=== PATIENT | female | born 1980 | race Caucasian/White ===

== ENCOUNTER 2019-04-06 05:54 | Day surgery (SDC) | payer OTHER, SELFPAY ==
[2019-04-01 10:35] VITALS: BMI 19.1
--- NOTE | 2019-04-01 10:52 | HP_ITS ---
Intake Vital Signs 04/01/19 Height 5 ft 7 in 04/01/19 Weight: 122 lb 04/01/19 Body Mass Index (BMI) 19.1 04/01/19 Blood Pressure 120/78 04/01/19 Blood Pressure Location Rt brachial 04/01/19 Blood Pressure Position Sitting 04/01/19 Respiratory Rate 18 04/01/19 Pulse Rate 85 04/01/19 Pulse Source Monitor 04/01/19 Temperature 98.0 F 04/01/19 Temperature Source Oral 04/01/19 Pulse Ox 98 04/01/19 Oxygen Delivery Method room air Intake Visit Reasons: C-Scope Consult Chief Complaint: c-scope consult Manager Transport Required: No Is patient in pain?: No Allergies No Known Allergies Allergy (Verified 04/01/19 10:37) Medications lorazepam 1 mg tablet 1 mg PO QHS 04/01/19 [History Confirmed 04/01/19] sucralfate 100 mg/mL oral suspension 1 g PO .qid 04/01/19 [History Confirmed 04/01/19] PFSH Medical History Thoracic neuritis (Acute) Segmental and somatic dysfunction of thoracic region (Acute) Abdominal bloating (Acute) Abdominal pain (Acute) Colon cancer (Acute) GERD (gastroesophageal reflux disease) (Acute) Neuropathy (Acute) Surgical History History of 3 sections (Acute) History of cholecystectomy (Acute) History of colon resection (Acute) History of removal of both ovaries (Acute) History of resection of liver (Acute) Family History Mother Breast cancer Hypertension Brother Cancer testicular Father High cholesterol Cancer skin Other CVA (cerebral vascular accident) Social History (Updated 04/01/19 @ 10:52 by Carmine Nuñez MD) Smoking Status: Never smoker alcohol intake: never substance use type: does not use what type of physical activity do you participate in: bicycling, yoga frequency: 5-6 times per week HPI HPI HPI: ARIANA ALMANZAR is a 39 F who presents to the office today for HPI HPI Surgical H&P: Yes HPI: ARIANA ALMANZAR, is a 39 F who presents to the office today for Evaluation for endoscopy.Patient was diagnosed with colon cancer in 2017 and underwent a reported left-sided colectomy. She has not had any further colonoscopies since the surgery. Patient also had 2 liver resections for mets to the liver. She recently underwent a PET scan in March of this year which showed some increased uptake in the stomach and pylorus and at that time underwent an EGD which was negative. She has had some abdominal bloating symptoms. ROS General General: Yes weight change, fatigue and colon cancer; no appetite, breast cancer or weakness HEENT HEENT: No difficulty swallowing, eye injury, eye surgery, swollen glands or hoarseness Endo Endocrine: No thyroid disease, diabetes mellitus, thyroid cancer, Hair loss, heat intolerance or cold intolerance Skin Skin: No rash or changing moles Breast Breast: No left breast lump, right breast lump, nipple discharge, breast pain, abnormal mammogram, abnormal US or breast enlargement Musc Musculoskeletal: Yes back problems; no arthritis, rheumatoid arthritis, gout or joint pain Cardio Cardiovascular: No murmur, pacemaker, heart disease, atrial fibrillation, high blood pressure, heart attack, heart stent, palpitations, shortness of breat with exertion or chest pain Psych Psychiatric: No depression, anxiety or hearing voices Resp Respiratory: Yes shortness of breath, No sleep apnea, No cough, No COPD, No asthma, No emphysema, No wheezing Gastro Gastrointestinal: Yes abdominal pain, No nausea or vomiting, Yes diarrhea, Yes constipation, No blood in stool, Yes acid reflux, Yes hemorrhoids, No ulcers, No gallbladder problem, No black,tarry stools Christiano Hematologic: No blood thinners, No blood disorders, No bleeding, No anemia, No blood clots Neuro Neurologic: No system reviewed and no additional complaints, except as docu, No as per HPI, No abnormal walking, No abnormal hearing, No abnormal movements, No abnormal speech, No behavioral changes, No burning sensations, No confusion, No seizure-like activity, No unsteadiness, No dizziness, No localized weakness, No frequent falls, No headache(s), No lack of coordination, No loss of vision, No memory loss, No numbness, No other visual disturbances, No radiating pain, No restless legs, No sensory deficit, No fainting, No tingling, No tremor(s), No weakness, No other Exam Const General: no acute distress, well developed, well hydrated Orientation: oriented to person, oriented to place, oriented to time [facility] Head: normocephalic, atraumatic Ears: external ears normal Mouth: moist mucous membranes Eyes Sclera: sclerae normal Pupils: normal by confrontation Neck Neck: no lymphadenopathy noted Neck mass: No Thyroid: thyroid normal, symmetrical Chest Chest palpation & inspection: normal inspection of the chest Breast Palpation: No nipple discharge Resp Effort & Inspection: normal respiratory effort Auscultation: clear to auscultation bilaterally Percussion: percussion normal Cardio Rate: regular rate Rhythm: regular rhythm Heart Sounds: no murmurs GI Palpation: soft, no hepatosplenomegaly, no masses, nontender Rectal Exam: other Other: Rectal exam deferred. Patient has several incisions on her abdomen she has a infusion pump in her left lower dominant area she has a chevron incision in the right upper quadrant area a midline incision as well as a Pfannenstiel incisionNo hernias are identified Extrem General: normal to inspection, no clubbing, cyanosis or edema Assessment & Plan Problems 1. Personal history of colon cancer, stage IV Z85.038 Plan I have discussed the above with the patient. I have offered the patient colonoscopy for evaluation. I have explained the risks/benefits of the procedure and described the procedure. I have discussed the risks with the patient, including but not limited to: infection, bleeding, perforation of the GI tract requiring emergency surgery, inability to complete the procedure, injury to any internal organs, complications of anesthesia, etc. - the patient understands and agrees to proceed. I have answered all the patient's questions to the patient's satisfaction and the patient has no further questions. The patient has been given instructions for the colon cleansing preparation. Plan Detail Goals Decrease pain Improve ROM Coding Level of Care Code Off vis,new,level 3 Diagnoses Personal history of colon cancer, stage IV Z85.038 04/01/19 1052 <Electronically signed by Carmine nunez MD> Date _ Carmine Nuñez MD I have re-examined the patient. There are no clinical changes since date of exam.
[2019-04-06 06:18] VITALS: BP 95/65; PULSE 68; RESP 16; TEMP 37.1; O2SAT 100; BMI 19.1
[2019-04-06] MEDS: Lactated Ringers 1,000 ML 100 ML IV (06:28)
[2019-04-06 07:23] VITALS: BP 95/65; BP 96/59; PULSE 16; RESP 16; TEMP 36.6; O2SAT 99
--- NOTE | 2019-04-06 07:23 | OP.COLON_ITS ---
Patient Name: Kayy Griggs Procedure Date: 04/06/2019 6:46 AM Date of : 1980 Age: 39 Procedure: Colonoscopy Indications: High risk colon cancer surveillance: Personal history of colon cancer Providers: Carmine Nuñez MD Referring MD: Carmine Nuñez MD Medicines: See the Anesthesia note for documentation of the administered medications Patient Profile: This is a 39 year old female. Refer to note in patient chart for documentation of history and physical. Last Colonoscopy: 2016. Complications: No immediate complications. Procedure: Pre-Anesthesia Assessment: - Prior to the procedure, a History and Physical was performed, and patient medications and allergies were reviewed. The patient's tolerance of previous anesthesia was also reviewed. The risks and benefits of the procedure and the sedation options and risks were discussed with the patient. All questions were answered, and informed consent was obtained. Prior Anticoagulants: The patient has taken no previous anticoagulant or antiplatelet agents. ASA Grade Assessment: II - A patient with mild systemic disease. After reviewing the risks and benefits, the patient was deemed in satisfactory condition to undergo the procedure. After I obtained informed consent, the scope was passed under direct vision. Throughout the procedure, the patient's blood pressure, pulse, and oxygen saturations were monitored continuously. The colonoscope was introduced through the anus and advanced to the cecum, identified by appendiceal orifice and ileocecal valve. The colonoscopy was performed without difficulty. The patient tolerated the procedure well. The quality of the bowel preparation was good. Scope In: 7:08:38 AM Scope Withdrawal Time 0 hours 6 minutes 12 seconds Scope Out: 7:18:38 AM Total Procedure Duration Time 0 hours 10 minutes 0 seconds Findings: There was evidence of a prior end-to-end colo-colonic anastomosis in the recto-sigmoid colon. This was patent and was characterized by healthy appearing mucosa and an intact appearance. The anastomosis was traversed. Non-bleeding internal hemorrhoids were found during retroflexion. The hemorrhoids were mild and small. The exam was otherwise without abnormality. Impression: - Patent end-to-end colo-colonic anastomosis, characterized by healthy appearing mucosa and an intact appearance. - Non-bleeding internal hemorrhoids. - The examination was otherwise normal. - No specimens collected. Recommendation: - Discharge patient to home. - Resume previous diet. - Continue present medications. - Repeat colonoscopy in 1 year for surveillance. - Return to primary care physician PRN. Procedure Code(s): --- Professional --- G0105, Colorectal cancer screening; colonoscopy on individual at high risk Diagnosis Code(s): --- Professional --- Z85.038, Personal history of other malignant neoplasm of large intestine Z98.0, Intestinal bypass and anastomosis status K64.8, Other hemorrhoids CPT copyright 2017 [employer]. All rights reserved. The codes documented in this report are preliminary and upon senior storage engineer review may be revised to meet current compliance requirements. MD Carmine Banuelos MD 04/06/2019 7:23:31 AM This report has been signed electronically. Number of Addenda: 0 Note Initiated On: 04/06/2019 6:46 AM
[2019-04-06 07:25] VITALS: BP 95/65; BP 96/59; PULSE 68; RESP 16; O2SAT 98
[2019-04-06 07:30] VITALS: BP 101/63; BP 95/65; BP 96/64; PULSE 66; PULSE 71; RESP 16; O2SAT 97; O2SAT 98
[2019-04-06 07:34] VITALS: BP 101/63; BP 95/65; PULSE 60; RESP 16; TEMP 36.4; O2SAT 98
[2019-04-06 07:59] VITALS: BP 95/65
== END 2019-04-06 08:11 | disposition home or self-care (01) ==
LOC: EN 05:58 → AC 05:59
PROVIDERS: Referring Provider Surgery; Visit Provider Surgery
PROC: 0DJD8ZZ Inspection of Lower Intestinal Tract, Via Natural or Artificial Opening Endoscopic (ICD-10-PCS; CPT 45378; principal; 2019-04-06 06:55)
DX: Z85.038 Personal history of other malignant neoplasm of large intestine (principal); Z98.0 Intestinal bypass and anastomosis status; K64.8 Other hemorrhoids; K21.9 Gastro-esophageal reflux disease without esophagitis; G62.9 Polyneuropathy, unspecified; M99.02 Segmental and somatic dysfunction of thoracic region; Z86.2 Personal history of diseases of the blood and blood-forming organs and certain disorders involving the immune mechanism; Z78.0 Asymptomatic menopausal state; Z85.05 Personal history of malignant neoplasm of liver; Z90.49 Acquired absence of other specified parts of digestive tract
CPT/HCPCS: 45378; J7120; A4216; J2405

== ENCOUNTER → 2019-07-27 13:03 | Outpatient (CLI) | payer OTHER, SELFPAY ==
[2019-07-20 13:15] VITALS: BMI 19.1
[2019-07-27 13:14] VITALS: BP 105/60; PULSE 87; RESP 16; TEMP 36.6; O2SAT 99; BMI 19.5
[2019-07-27] MEDS: 0.9 % NaCl (Sterile) Posiflush 10 mL IV (13:20)
[2019-07-27] MEDS: 0.9% NaCl IVPB Med Flush (250 mL) 15 ML IV (13:21)
[2019-07-27] MEDS: 0.9% NaCl VAD Flush IV ×2 (13:22→14:06)
[2019-07-27 14:07] VITALS: BP 87/59; PULSE 61
== END ==
PROVIDERS: Referring Provider Family Medicine; Visit Provider Family Medicine
DX: C18.9 Malignant neoplasm of colon, unspecified (principal); D63.8 Anemia in other chronic diseases classified elsewhere
CPT/HCPCS: 96365; J1756; J7050; A4216

== ENCOUNTER → 2019-08-03 13:03 | Outpatient (CLI) | payer OTHER, SELFPAY ==
[2019-07-20 13:15] VITALS: BMI 19.1
[2019-07-27 13:14] VITALS: BMI 19.5
[2019-08-03] MEDS: 0.9% NaCl IVPB Med Flush (250 mL) 15 ML IV (13:30)
[2019-08-03 13:32] VITALS: BP 100/56; PULSE 77; RESP 16; TEMP 36.5; O2SAT 98; BMI 19.8
[2019-08-03] MEDS: 0.9% NaCl VAD Flush IV ×2 (13:32→14:17)
== END ==
PROVIDERS: Referring Provider Family Medicine; Visit Provider Family Medicine
DX: C18.9 Malignant neoplasm of colon, unspecified (principal); D63.8 Anemia in other chronic diseases classified elsewhere
CPT/HCPCS: 96365; J1756; J7050; A4216

== ENCOUNTER → 2019-08-10 12:56 | Outpatient (CLI) | payer OTHER, SELFPAY ==
[2019-07-27 13:14] VITALS: BMI 19.5
[2019-08-03 13:32] VITALS: BMI 19.8
[2019-08-10 13:09] VITALS: BP 100/52; PULSE 55; RESP 18; TEMP 35.8; O2SAT 100; BMI 19.8
[2019-08-10] MEDS: 0.9% NaCl IVPB Med Flush (250 mL) 15 ML IV (13:20)
[2019-08-10] MEDS: 0.9% NaCl PICC Flush IV (13:20)
== END ==
PROVIDERS: Referring Provider Family Medicine; Visit Provider Family Medicine
DX: C18.9 Malignant neoplasm of colon, unspecified (principal); D63.8 Anemia in other chronic diseases classified elsewhere
CPT/HCPCS: 96365; J1756; J7050; A4216

== ENCOUNTER → 2019-08-17 13:10 | Outpatient (CLI) | payer OTHER, SELFPAY ==
[2019-08-10 13:09] VITALS: BMI 19.8
[2019-08-17 13:55] VITALS: BP 102/66; PULSE 57; RESP 16; TEMP 36.1; O2SAT 100; BMI 19.8
[2019-08-17] MEDS: 0.9% NaCl PICC Flush IV ×2 (13:57→14:37)
[2019-08-17] MEDS: 0.9% NaCl IVPB Med Flush (250 mL) 15 ML IV (13:57)
== END ==
PROVIDERS: Referring Provider Family Medicine; Visit Provider Family Medicine
DX: C18.9 Malignant neoplasm of colon, unspecified (principal); D63.8 Anemia in other chronic diseases classified elsewhere
CPT/HCPCS: 96365; J1756; J7050; A4216

== ENCOUNTER → 2019-08-24 12:55 | Outpatient (CLI) | payer OTHER, SELFPAY ==
[2019-08-10 13:09] VITALS: BMI 19.8
[2019-08-17 13:55] VITALS: BMI 19.8
[2019-08-24 13:05] VITALS: BP 107/66; PULSE 74; RESP 16; TEMP 36.6; O2SAT 98; BMI 19.8
[2019-08-24] MEDS: 0.9% NaCl IVPB Med Flush (250 mL) 15 ML IV (13:15)
[2019-08-24] MEDS: 0.9% NaCl VAD Flush IV ×2 (13:16→14:04)
== END ==
PROVIDERS: Referring Provider Family Medicine; Visit Provider Family Medicine
DX: C18.9 Malignant neoplasm of colon, unspecified (principal); D63.8 Anemia in other chronic diseases classified elsewhere
CPT/HCPCS: 96365; J1756; J7050; A4216

== ENCOUNTER → 2020-03-02 09:34 | Outpatient (CLI) | payer OTHER, SELFPAY ==
[2019-08-24 13:05] VITALS: BMI 19.8
[2020-03-02 12:16] LABS: Hematocrit 41.4 % (37-47); Hemoglobin 13.6 g/dL (12.0-15.0); Mean Corp Hgb Conc 32.9 g/dL (32-36); Mean Corpuscular Hgb 30.1 pg (27.0-32.0); Mean Corpuscular Volume 91.6 fL (81-99); Mean Platelet Vol. 10.6 fl (6.2-12.0); Platelet Count 235 K/mm3 (150-450); RBC Distribution Width CV 11.7 % (11.6-14.6); RBC Distribution Width SD 39.2 fl (35.1-43.9); Red Blood Count 4.52 M/mm3 (4.2-5.4); White Blood Count 4.6 K/mm3 (4.4-11.0)
[2020-03-02 12:46] LABS: AST(SGOT) 37 U/L (15-37); Alanine Aminotransfer ALT/SGPT 77 U/L (13-56); Albumin, Serum 3.8 g/dL (3.2-5.0); Alkaline Phosphatase 213 U/L (45-117); Anion Gap 6 (5-15); BUN 8 mg/dL (7-18); BUN/Creat Ratio 11.6 RATIO (10-20); Calcium,Total 9.8 mg/dL (8.5-10.1); Chloride 107 mmol/L (98-107); Creatinine, Serum 0.69 mg/dL (0.55-1.02); EST Glomerular Filtration Rate 100 mL/min (>60); Est Glom Filt Rate - Afr Amer 121 mL/min (>60); Globulin 3.7 g/dL (2.2-4.2); Glucose 89 mg/dL (74-106); LDH 219 U/L (84-246); Potassium 4.1 mmol/L (3.5-5.1); Protein, Total 7.5 g/dL (6.4-8.2); Sodium Level 142 mmol/L (136-145)
[2020-03-03 09:51] LABS: Carcinoembryonic Antigen 0.9 ng/mL (0.0-4.7)
== END ==
DX: C18.9 Malignant neoplasm of colon, unspecified (principal)
CPT/HCPCS: 36415; 80053; 82378; 83615; 85027

== ENCOUNTER → 2020-04-07 | Outpatient (CLI) | payer OTHER, SELFPAY ==
[2019-08-24 13:05] VITALS: BMI 19.8
== END | disposition home or self-care (01) ==
PROVIDERS: Referring Provider Family Medicine; Visit Provider Family Medicine
DX: C18.9 Malignant neoplasm of colon, unspecified (principal); C78.7 Secondary malignant neoplasm of liver and intrahepatic bile duct
CPT/HCPCS: 87635; U0002

== ENCOUNTER → 2020-06-19 09:21 | Outpatient (CLI) | payer OTHER, SELFPAY ==
[2019-08-24 13:05] VITALS: BMI 19.8
[2020-06-19 09:30] VITALS: BP 109/70; PULSE 64; RESP 16; TEMP 36; O2SAT 99; BMI 19.8
[2020-06-19] MEDS: 0.9% Normal Saline 1,000 ML 999 ML IV (09:30)
[2020-06-19] MEDS: 0.9% NaCl VAD Flush IV ×2 (09:30→16:06)
[2020-06-19] MEDS: 0.45% Normal Saline 1,000 ML 500 ML IV (10:43)
[2020-06-19] MEDS: Dext 5%-0.45% NS 1,000 ML 150 ML IV (12:49)
[2020-06-19 16:07] VITALS: BP 112/64; PULSE 61
== END ==
PROVIDERS: Referring Provider Family Medicine; Visit Provider Family Medicine
DX: C18.9 Malignant neoplasm of colon, unspecified (principal); D63.8 Anemia in other chronic diseases classified elsewhere
CPT/HCPCS: 96365; 96366 ×5; J7030; A4216; J7799

== ENCOUNTER 2021-06-20 14:25 | Outpatient (CLI) | payer OTHER, SELFPAY ==
[2021-06-20 15:02] VITALS: BP 92/62; PULSE 73; RESP 16; TEMP 36.8; O2SAT 99; BMI 18.4
[2021-06-20] MEDS: 0.9% Saline Lock 10 ML Syringe IV ×2 (15:11→16:47)
[2021-06-20 15:41] VITALS: BP 91/60; PULSE 65; RESP 16; TEMP 36.9; O2SAT 98
[2021-06-20 16:41] VITALS: BP 108/59; PULSE 64; RESP 16; TEMP 36.8; O2SAT 100
== END 2021-06-20 23:59 | disposition home or self-care (01) ==
LOC: MS3OUT 14:25 → MS3 14:26
PROVIDERS: Referring Provider Nurse Practitioner Adult Health; Visit Provider Nurse Practitioner Adult Health
DX: Z23 Encounter for immunization (principal); U07.1 COVID-19
CPT/HCPCS: J7050; M0247; A4216; Q0247

== ENCOUNTER 2021-08-23 13:50 | Outpatient (CLI) | payer OTHER, SELFPAY ==
[2021-08-23 14:23] LABS: Absolute Lymphocyte Count 1.78 X10^3/uL (0.83-4.51); Basophil# 0.06 X10^3/uL; Basophil% 0.9 % (0-1); Eosinophil# 0.19 X10^3/uL; Hematocrit 37.1 % (37-47); Hemoglobin 12.1 g/dL (12.0-15.0); Lymphocyte # 1.78 X10^3/ul (0.83-4.51); Lymphocyte % 27.7 % (19-41); Mean Corp Hgb Conc 32.6 g/dL (32-36); Mean Corpuscular Hgb 28.5 pg (27.0-32.0); Mean Corpuscular Volume 87.3 fL (81-99); Mean Platelet Vol. 9.4 fl (6.2-12.0); Monocyte# 0.41 X10^3/uL; Monocyte% 6.4 % (0-10); NRBC Flagged by Analyzer 0 % (0-5); Neutrophil # 3.96 X10^3/uL (2.7-7.7); Neutrophil % 61.7 % (47-70); Platelet Count 235 K/mm3 (150-450); RBC Distribution Width CV 13.7 % (11.6-14.6); RBC Distribution Width SD 43.8 fl (35.1-43.9); Red Blood Count 4.25 M/mm3 (4.2-5.4); White Blood Count 6.4 K/mm3 (4.4-11.0)
[2021-08-23 14:39] LABS: ALB/GLOB Ratio 1.1 RATIO (0.9-2.4); AST(SGOT) 31 U/L (15-37); Alanine Aminotransfer ALT/SGPT 34 U/L (13-56); Albumin, Serum 3.5 g/dL (3.2-5.0); Alkaline Phosphatase 216 U/L (45-117); Anion Gap 6 (5-15); BUN 11 mg/dL (7-18); BUN/Creat Ratio 24.8 RATIO (10-20); Calcium,Total 8.7 mg/dL (8.5-10.1); Chloride 109 mmol/L (98-107); Creatinine, Serum 0.44 mg/dL (0.55-1.02); EST Glomerular Filtration Rate 165 mL/min (>60); Est Glom Filt Rate - Afr Amer 200 mL/min (>60); Globulin 3.2 g/dL (2.2-4.2); Glucose 81 mg/dL (74-106); Potassium 4.1 mmol/L (3.5-5.1); Protein, Total 6.7 g/dL (6.4-8.2); Sodium Level 141 mmol/L (136-145)
[2021-08-23 22:20] LABS: Xtra Tube EP Lab EXTRA TUBE
== END 2021-08-23 23:59 | disposition home or self-care (01) ==
LOC: MEDOUTP 13:50
PROVIDERS: Referring Provider Family Medicine; Visit Provider Family Medicine
DX: C18.9 Malignant neoplasm of colon, unspecified (principal)
CPT/HCPCS: 36415; 36591; 80053; 85025; A4216

== ENCOUNTER → 2021-10-29 | Outpatient (CLI) | payer OTHER, SELFPAY | END | disposition home or self-care (01) | PROVIDERS: Referring Provider Family Medicine; Visit Provider Family Medicine | DX: Z45.2 Encounter for adjustment and management of vascular access device (principal); C18.9 Malignant neoplasm of colon, unspecified | CPT/HCPCS: 96523 ==

== ENCOUNTER → 2022-04-25 | Outpatient (CLI) | payer OTHER, SELFPAY | END | disposition home or self-care (01) | LOC: MEDOUTP 09:32 | PROVIDERS: Referring Provider Family Medicine; Visit Provider Family Medicine | DX: Z45.2 Encounter for adjustment and management of vascular access device (principal) | CPT/HCPCS: 96523; A4216 ==

== ENCOUNTER 2022-12-02 07:30 | Outpatient (RCR) | payer OTHER, SELFPAY ==
--- NOTE | 2022-10-17 12:28 | HP.PTEVAL ---
Patient's Visit Information ARIANA ALMANZAR is a 42 year old F referred to Physical Therapy by Dr. Claude Chappell MD with a diagnosis of L humerus fx 06-11-2022. Date of Evaluation: 10/17/22 Physical Therapist: GRACIELA Ortiz - Visit Plan Frequency: 2x /Week Duration: 2 Months Plan: 2X/ week for 8 weeks for L shoulder PROM to increase end range motion, AAROM, AROM and then progress to postural exercises and RC strength exercises with HEP. HEP: supine wand flexion, standing hip abd, and standing towel IR. Pt will look into get over the door pulleys for home - Subjective She slipped on ice when she was walking her dog and she landed on her L and Fx. She went to ER and was put in a splint. She had that on for 8-9 weeks. This occured Jun 11. 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 She was starting Chemo the day it happened and it. She had to have abdominal surgery in there also. She was doing some rehab on her own that Dr Chappell gave her. She had to take a step back from the Chemo. If she moves it past the point she will get pain. Colon Cancer. - Pain L shoulder pain Pain Intensity (Out of 10): 1 Pain Intensity Range: 4 - Objective R handed: R AROM 50#. L AROM 40#. R shoulder AROM: Flex 155, ABD 175, IR T2, ER 70. L shoulder AROM: Flex 97, ABD 65, IR L5, ER 25. MMT: R Shoulder flex 10.3, ABD 10.6, ER 10.5, IR 10.4. L shoulder flex 6.3, ABD 3.9, ER 6.2, IR 5.9. Bicep 2+/3. Pt was painful and tight with all end range PROM. Pt did well with trial of pulleys today as well. - Balance/Special Test Scores Quick DASH Score: 31.8175 - Goals Goal 1:: I HEP Goal Time Frame: 6-8 Weeks Goal 2:: Increase L shoulder AROM (at the time of the eval: R shoulder AROM: Flex 155, ABD 175, IR T2, ER 70. L shoulder AROM: Flex 97, ABD 65, IR L5, ER 25) Goal Time Frame: 6-8 Weeks Goal 3:: Increase L shoulder strength (at time of the eval:R Shoulder flex 10.3, ABD 10.6, ER 10.5, IR 10.4. L shoulder flex 6.3, ABD 3.9, ER 6.2, IR 5.9) Goal Time Frame: 6-8 Weeks Goal 4:: Be able to use her L arm functionally without pain Goal Time Frame: 6-8 Weeks - Rehabilitation Potential Rehabilitation Potential: Good - Anticipated Interventions Patient/Client Instruction: Educate patient on: Condition, Plan of Care For the Purpose of:: To decrease pain, To increase ROM, To improve nutrient delivery to tissue, To improve muscle performance and motor function, To improve ability to perform ADL's, To increase tolerance to activity/condition/position, To improve performance and independence with ADL's, To decrease level of supervision to perform tasks, To improve ability of physical actions for home/community/work/leisure, To improve health of tissue, To decrease soft tissue restriction, To increase flexibility/ROM Therapeutic Exercise to Include: Strength training, Postural training, Flexibilty training, Neuromotor development, Passive ROM, Active ROM, Scapular Strength/Stabilization For the Purpose of:: To decrease pain, To improve muscle performance and motor function, To improve ability to perform ADL's, To increase tolerance to activity/condition/position, To improve performance and independence with ADL's, To decrease level of supervision to perform tasks, To improve ability of physical actions for home/community/work/leisure, To improve health of tissue, To decrease soft tissue restriction, To increase flexibility/ROM Manual Therapy Techniques to Include: Mobilization, Passive ROM For the Purpose of:: To decrease pain, To increase ROM, To improve nutrient delivery to tissue, To improve muscle performance and motor function, To improve ability to perform ADL's, To increase tolerance to activity/condition/position, To improve performance and independence with ADL's, To decrease level of supervision to perform tasks, To improve ability of physical actions for home/community/work/leisure, To improve health of tissue, To decrease soft tissue restriction, To increase flexibility/ROM Thank you for the opportunity to evaluate your patient. For Medicare and Medicare HMO plans, please review the plan of care and approve it. It will need to be FAXED BACK to us at [phone] for Medicare purposes. For Medicare only, by signing this I certify the plan of care. Please let me know if there are questions or concerns regarding this plan of care. Physician Signature: Date:
--- NOTE | 2023-02-11 08:22 | HP.PT.NRP(2) ---
Patient Information Patient Information: ARIANA ALMANZAR was seen in my office for initial evaluation on . The following Plan of Care was established for this patient: Last Seen Last Seen: This patient was last seen in our office . Pertinent comments regarding their Physical therapy will appear below: At this point I will be discontinuing this patient from physical therapy. I would be happy to see this patient again in the future if found appropriate by the physician. Thank you! Ashely Andrade, MPT
== END 2022-12-02 19:00 | disposition home or self-care (01) ==
LOC: PT 07:30
PROVIDERS: Referring Provider Specialist; Visit Provider Specialist
DX: S42.392D Other fracture of shaft of left humerus, subsequent encounter for fracture with routine healing (principal)
CPT/HCPCS: 97110; 97140; 97161

== ENCOUNTER 2023-02-18 09:53 | Outpatient (CLI) | payer OTHER, SELFPAY ==
[2023-02-18] MEDS: 0.9 % NaCl (Sterile) Posiflush 10 mL IV (10:01)
[2023-02-18] MEDS: 0.9% NaCl VAD Flush IV (10:01)
== END 2023-02-18 09:54 | disposition home or self-care (01) ==
LOC: MEDOUTP 09:53
PROVIDERS: Referring Provider Family Medicine; Visit Provider Family Medicine
DX: C18.9 Malignant neoplasm of colon, unspecified (principal)
CPT/HCPCS: 96523; A4216

== ENCOUNTER 2023-05-16 08:33 | Outpatient (CLI) | payer OTHER, SELFPAY ==
--- OUTSIDE RECORDS SUMMARY | 2023-05-16 08:55 | XMS RPT_ITS | CCD ---
Author Name Unknown Address [address] [place] [address] Organization [facility] Care Team Providers Care Car Sales Consultant Name Role Phone ANTONIETA MELISSA Unavailable Unavailable ANTONIETA MELISSA Unavailable Unavailable Sánchez Acosta Unavailable Unavailable Melo Palomino Unavailable Unavailable Sánchez Acosta Unavailable Unavailable PHYSICIAN, NONE Primary Care Physician Unavailab KARINA Collado MD Attending Unavailable PHYSICIAN, NONE Primary Care Unavailable AZIZA KAPLAN Attending Unavailable PHYSICIAN, NONE Primary Care Unavailable KARINA CASTRO MD Attending Unavailable PHYSICIAN, NONE Primary Care Unavailable Medications Current Medications Medication Drug Class(es) Dates Sig (Normalized) Sig (Original) acetaminophen 325 mg / HYDROcodone bitartrate 5 mg oral tablet (1 source) Opioid Agonist Start: 06-11-2022 End: 06-16-2022 take 1 tablet by mouth every four hours as needed for pain Dyer 325- 5 mg oral tablet Dose = 1 tab(s), Oral, q4h, PRN for pain, X 5 day(s), # 15 tab(s), 0 Refill(s), Fracture of humerus, 56.8 Start Date: 06/11/22 Stop Date: 06/16/22 Status: Ordered doxycycline hyclate 100 mg oral capsule (2 sources) Tetracycline-cla ss Drug Start: 10-21-2017 doxycycline hyclate 100 mg oral capsule Dose : 100 mg = 1 cap(s), Oral, BID, # 20 cap(s), 0 Refill(s) Start Date: 10/21/17 Status: Ordered Problems Problem Classification Problem Date Documented Date Episodic/Chronic Cancer of colon (3 sources) Malignant neoplasm of colon, unspecified; Translations: [Malignant tumor of colon] Onset: 06-05-2017 10-21-2017 Chronic Fracture of upper limb (1 source) Closed fracture of shaft of humerus; Translations: [Unspecified fracture of shaft of humerus, unspecified arm, initial encounter for closed fracture] Onset: 06-11-2022 Episodic Secondary malignancies (1 source) Secondary malignant neoplasm of unspecified ovary; 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] Onset: 06-05-2017 Chronic Unclassified (3 sources) Malignant neoplasm of colon, unspecified / C18.9(ICD-10) Onset: 06-05-2017 Unclassified (1 source) 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) Onset: 06-05-2017 Unclassified (2 sources) Other ascites / R18.8(ICD-10) Onset: 05-01-2017 Unclassified (1 source) Other specified diseases of liver / K76.89(ICD-10) Onset: 06-05-2017 Unclassified (1 source) Other specified postprocedural states / Z98.890(ICD-10) Onset: 06-05-2017 Unclassified (1 source) 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) Onset: 06-05-2017 Results Test Name Value Interpretation Reference Range Facil ity Vital Signs Date Time Vital Sign Value Performing Clinician Faci lity 06-11-2022 08:43-0500 Body temperature 99.5 [degF] AZIZA KAPLAN MD [facility] 06-11-2022 08:43-0500 Body weight 56.8 kg AZIZA KAPLAN MD [facility] 06-11-2022 08:43-0500 Diastolic Blood Pressure Non-Invasive 76 1 AZIZA KAPLAN MD [facility] 06-11-2022 08:43-0500 Heart rate 65 /min AZIZA KAPLAN MD [facility] 06-11-2022 08:43-0500 Respiratory rate 18 /min AZIZA KAPLAN MD [facility] 06-11-2022 08:43-0500 Systolic Blood Pressure Non-Invasive 121 1 AZIZA KAPLAN MD [facility] Encounters Encounter Date Encounter Type Care Provider Facility Start: 06-24-2022 End: 06-25-2022 ambulatory KARINA CASTRO MD Facility:B Start: 06-24-2022 End: 06-24-[address] KARINA CASTRO MD [facility] Start: 06-24-2022 ambulatory KARINA CASTRO MD Faci lity:A Start: 06-11-2022 End: 06-11-2022 Emergency department patient visit AZIZA KAPLAN Facility:B Start: 06-11-2022 End: 06-11-2022 Emergency department patient visit AZIZA KAPLAN MD [facility] Start: 06-05-2017 Ambulatory Melo Palom[place] [facility]: 05-01-2017 Ambulatory ANTONIETA MELISSA [place] [facility] Date Procedure Procedure Detail Performing Clinician Start: 12-17-2017 Follow-up visit Start: 12-17-2016 Liver excision AZIZA EDWARDS MD section AZIZA COOPER MD Payers Date Payer Category Payer Unknown [id number] 1980 Unknown [id number] 1980 Unknown [id number] 1980 Unknown [id number] Unknown [id number] Unknown [id number] Social History Date Type Detail Facility Start: 06-11-2022 Tobacco smoking status Never s moked tobacco (finding) [facility] Sex Assigned At Sex [facility] Functional Status Date Assessment Result Facility 06-11-2022 Functional Status Resting [facility] Mental Status Date Assessment Result Facility 06-11-2022 Mental Status Orientation Oriented x 4 [facility] Discharge instructions 06-11-2022 Note Date & Type Note Facility 06-11-2022 Hospital Discharg e instructions Patient Education 06/11/2022 10:37:08 Fracture, Upper Extremity Upper Extremity Fracture You have a break (fracture) of the arm, wrist, or hand. This may be a small crack in the bone. Or it may be a major break, with the broken parts pushed out of position. Most fractures will heal without surgery. But you may need surgery if the bones are far out of place or if the break is near the elbow. Treatment is with a special sling called a shoulder immobilizer, or a splint or cast, depending on the type of fracture and where the fracture is located. This fracture takes 4 to 6 weeks or longer to heal. The cast may need to be changed in 2 to 3 weeks as swelling goes down. Home care Follow these guidelines when caring for yourself: If you were given a shoulder immobilizer, leave it in place. This will support the injured arm at your side. This is the best position for bone healing. The shoulder immobilizer can be adjusted. If it becomes loose, adjust it so that your forearm is level with the ground (horizontal). Your hand should be level with your elbow. Put an ice pack on the injured area. Do this for 20 minutes every 1 to 2 hours the first day for pain relief. You can make an ice pack by wrapping a plastic bag of ice cubes in a thin towel. As the ice melts, be careful that the cast/splint/sling doesn t get wet. You can put the ice pack inside the sling and directly over the splint or cast. Continue using the ice pack 3 to 4 times a day for the next 2 days. Then use the ice pack as needed to ease pain and swelling. Keep the cast, splint, or sling completely dry at all times. Bathe with your cast, splint, or sling out of the water. Protect it with a large plastic bag, rubber-banded or taped at the top end. If a fiberglass cast, splint, or sling gets wet, you can dry it with a hair boiler. You may use acetaminophen or ibuprofen to control pain, unless another pain medicine was prescribed. If you have chronic liver or kidney disease, talk with your healthcare provider before using these medicines. Also talk with your provider if you ve had a stomach ulcer or gastrointestinal bleeding. Don t put creams or objects under the cast if you have itching. Follow-up care Follow up with your healthcare provider as advised. This is to make sure the bone is healing the way it should. X-rays may be taken. You will be told of any new findings that may affect your care. When to seek medical advice Call your health care provider right away if any of these occur: The cast or splint cracks The plaster cast or splint becomes wet or soft The fiberglass cast or splint stays wet for more than 24 hours Bad odor from the cast or wound fluid stains the cast Tightness or pain under the cast or splint gets worse Fingers become swollen, cold, blue, numb, or tingly You can t move your fingers Skin around cast or splint becomes red or irritated Fever of 100.4 F (38 C) or higher, or chills as directed by your healthcare provider [id number] [employer] [address] [place] [address]. All rights reserved. This information is not intended as a substitute for professional medical care. Always follow your healthcare professional's instructions. Follow Up Care 06/11/2022 08:14:44 With:KARINA CASTRO MD Address: [address] [place] [address] [address] [address] [place] [address]- [phone] When:1-2 days With:Go to emergency room if symptoms worsen Address:Unknown When:2-4 days [facility] Procedure note 06-11-2022 Note Date & Type Note Facility 06-11-2022 Procedure note Date of Service 06/11/2022 Procedure Note Splint Application: Location details: Left upper extremity humerus coaptation splint After splint application, I evaluated the patient and deemed the affected area to be satisfactorily immobilized. Distal neuro-vascular exam remained unchanged from pre-splint application and without evidence of compartment syndrome. The patient tolerated the procedure well and without acute complications. Digitally Signed by DANIELA SPENCER DO on 06/11/2022 11:06 AM Digitally Signed by AZIZA KAPLAN MD [facility] Note 06-11-2022 Note Date & Type Note Facility 06-11-2022 Note Discharge Instructions Thank you for allowing [facility] to assist you with your healthcare needs. The following is important discharge information regarding your hospital visit. Diagnosis from Today's Visit Fracture of humerus Fall What to Do Next Instructions from Your Care Team Call your orthopedist today to arrange close follow-up for transverse midshaft left humerus fracture. Apply ice today. Discharge Home Equipment - Ordered -- Sling and Swathe, 1 month(s), 06/11/22 10:39:00 EST Post Acute Orders No qualifying data available. You Need to Schedule the Following Appointments Follow Up with KARINA CASTRO MD When Within 1-2 days Where: [address] [place] [place] [address]- [phone] Follow Up with Go to emergency room if symptoms worsen When Within 2-4 days Allergies NKA Medications Please ask your primary doctor or pharmacist before taking any other medication not listed, including over the counter drugs, herbal medications, vitamins and or supplements as they may interact with your home medications. What How Much When Why Instructions Last Dose New acetaminophen-hydrocodone (Dyer 325- 5 mg oral tablet) 1 tab(s) by mouth Every 4 hours as needed for for pain Fracture of humerus Duration: 5 Days Printed Prescription Unchanged doxycycline (doxycycline hyclate 100 mg oral capsule) 1 cap by mouth Two (2) times a day Please take this list to your next doctor s visit. Bring all medications you take, including over the counter medications, herbals and other supplements with you to your doctor s visit. Patients and families are reminded to discard old lists and to update any records with all medication providers or retail pharmacies. Medication Leaflets acetaminophen and hydrocodone (a SEET a MIN oh fen and jeremy droe KOE done) Hycet, Lorcet, Dyer, Verdrocet, Vicodin, Xodol, Zamicet What is the most important information I should know about acetaminophen and hydrocodone? MISUSE OF OPIOID MEDICINE CAN CAUSE ADDICTION, OVERDOSE, OR . Keep the medication in a place where others cannot get to it. Taking opioid medicine during may cause life-threatening withdrawal symptoms in the . Fatal side effects can occur if you use opioid medicine with alcohol, or with other drugs that cause drowsiness or slow your breathing. Stop taking this medicine and call your doctor right away if you have skin redness or a rash that spreads and causes blistering and peeling. What is acetaminophen and hydrocodone? Acetaminophen and hydrocodone is a combination medicine used to relieve moderate to severe pain. Acetaminophen and hydrocodone contains an opioid medicine, and may be habit-forming. Acetaminophen and hydrocodone may also be used for purposes not listed in this medication guide. What should I discuss with my healthcare provider before taking acetaminophen and hydrocodone? You should not use this medicine if you are allergic to acetaminophen or hydrocodone, or if you have: severe asthma or breathing problems; or a blockage in your stomach or intestines. Tell your doctor if you have ever had: breathing problems, sleep apnea (breathing stops during sleep); liver disease; a drug or alcohol addiction; kidney disease; a head injury or seizures; urination problems; or problems with your thyroid, pancreas, or gallbladder. If you use opioid medicine while you are , your baby could become dependent on the drug. This can cause life-threatening withdrawal symptoms in the baby after it is born. Babies born dependent on opioids may need medical treatment for several weeks. Ask a doctor before using opioid medicine if you are . Tell your doctor if you notice severe drowsiness or slow breathing in the nursing baby. How should I take acetaminophen and hydrocodone? Follow all directions on your prescription label. Never take this medicine in larger amounts, or for longer than prescribed. An overdose can damage your liver or cause . Tell your doctor if you feel an increased urge to use more of this medicine. Never share this medicine with another person, especially someone with a history of drug abuse or addiction. MISUSE CAN CAUSE ADDICTION, OVERDOSE, OR . Keep the medicine in a place where others cannot get to it. Selling or giving away this medicine is against the law. Measure liquid medicine carefully. Use the dosing syringe provided, or use a medicine dose-measuring device (not a kitchen spoon). If you need surgery or medical tests, tell the doctor ahead of time that you are using this medicine. You should not stop using this medicine suddenly. Follow your doctor's instructions about tapering your dose. Store at room temperature away from moisture and heat. Keep track of your medicine. You should be aware if anyone is using it improperly or without a prescription. Do not keep leftover opioid medication. Just one dose can cause in someone using this medicine accidentally or improperly. Ask your pharmacist where to locate a drug take-back disposal program. If there is no take-back program, flush the unused medicine down the toilet. What happens if I miss a dose? Since this medicine is used for pain, you are not likely to miss a dose. Skip any missed dose if it is almost time for your next dose. Do not use two doses at one time. What happens if I overdose? Seek emergency medical attention or call the Poison Help line at . An overdose of this medicine can be fatal, especially in a child or other person using the medicine without a prescription. Overdose symptoms may include nausea, vomiting, sweating, severe drowsiness, pinpoint pupils, slow breathing, or no breathing. Your doctor may recommend you get naloxone (a medicine to reverse an opioid overdose) and keep it with you at all times. A person caring for you can give the naloxone if you stop breathing or don't wake up. Your caregiver must still get emergency medical help and may need to perform CPR (cardiopulmonary resuscitation) on you while waiting for help to arrive. Anyone can buy naloxone from a pharmacy or local health department. Make sure any person caring for you knows where you keep naloxone and how to use it. What should I avoid while taking acetaminophen and hydrocodone? Avoid driving or operating machinery until you know how this medicine will affect you. Dizziness or drowsiness can cause falls, accidents, or severe injuries. Do not drink alcohol. Dangerous side effects or could occur. Ask a doctor or pharmacist before using any other medicine that may contain acetaminophen (sometimes abbreviated as APAP). Taking certain medications together can lead to a fatal overdose. What are the possible side effects of acetaminophen and hydrocodone? Get emergency medical help if you have signs of an allergic reaction: hives; difficulty breathing; swelling of your face, lips, tongue, or throat. Opioid medicine can slow or stop your breathing, and may occur. A person caring for you should give naloxone and/or seek emergency medical attention if you have slow breathing with long pauses, blue colored lips, or if you are hard to wake up. In rare cases, acetaminophen may cause a severe skin reaction that can be fatal. This could occur even if you have taken acetaminophen in the past and had no reaction. Stop taking this medicine and call your doctor right away if you have skin redness or a rash that spreads and causes blistering and peeling. Call your doctor at once if you have: noisy breathing, sighing, shallow breathing, breathing that stops; a light-headed feeling, like you might pass out; liver problems--nausea, upper stomach pain, tiredness, loss of appetite, dark urine, george-colored stools, jaundice (yellowing of the skin or eyes); low cortisol levels-- nausea, vomiting, loss of appetite, dizziness, worsening tiredness or weakness; o high levels of serotonin in the body--agitation, hallucinations, fever, sweating, shivering, fast heart rate, muscle stiffness, twitching, loss of coordination, nausea, vomiting, diarrhea. Serious breathing problems may be more likely in older adults and in those who are debilitated or have wasting syndrome or chronic breathing disorders. Common side effects include: dizziness, drowsiness, feeling tired; nausea, vomiting, stomach pain; constipation; or headache. This is not a complete list of side effects and others may occur. Call your doctor for medical advice about side effects. You may report side effects to FDA at 5-534-CNF-1481. What other drugs will affect acetaminophen and hydrocodone? You may have breathing problems or withdrawal symptoms if you start or stop taking certain other medicines. Tell your doctor if you also use an antibiotic, antifungal medication, heart or blood pressure medication, seizure medication, or medicine to treat HIV or hepatitis C. Opioid medication can interact with many other drugs and cause dangerous side effects or . Be sure your doctor knows if you also use: cold or allergy medicines, bronchodilator asthma/COPD medication, or a diuretic ('water pill'); medicines for motion sickness, irritable bowel syndrome, or overactive bladder; other opioids--opioid pain medicine or prescription cough medicine; a sedative like Valium--diazepam, alprazolam, lorazepam, Xanax, Klonopin, Versed, and others; drugs that make you sleepy or slow your breathing--a sleeping pill, muscle relaxer, medicine to treat mood disorders or mental illness; drugs that affect serotonin levels in your body--a stimulant, or medicine for depression, Parkinson's disease, migraine headaches, serious infections, or nausea and vomiting. This list is not complete. Other drugs may affect acetaminophen and hydrocodone, including prescription and dbul-xxw-alvwhey medicines, vitamins, and herbal products. Not all possible interactions are listed here. Where can I get more information? Your doctor or pharmacist can provide more information about acetaminophen and hydrocodone. Remember, keep this and all other medicines out of the reach of children, never share your medicines with others, and use this medication only for the indication prescribed. Every effort has been made to ensure that the information provided by [employer] ('[employer]') is accurate, up-to-date, and complete, but no guarantee is made to that effect. Drug information contained herein may be time sensitive. [employer] information has been compiled for use by healthcare practitioners and consumers in the [place] and therefore [employer] does not warrant that uses outside of the [place] are appropriate, unless specifically indicated otherwise. [employer] drug information does not endorse drugs, diagnose patients or recommend therapy. [employer] drug information is an informational resource designed to assist licensed healthcare practitioners in caring for their patients and/or to serve consumers viewing this service as a supplement to, and not a substitute for, the expertise, skill, knowledge and judgment of healthcare practitioners. The absence of a warning for a given drug or drug combination in no way should be construed to indicate that the drug or drug combination is safe, effective or appropriate for any given patient. [employer] does not assume any responsibility for any aspect of healthcare administered with the aid of information [employer] provides. The information contained herein is not intended to cover all possible uses, directions, precautions, warnings, drug interactions, allergic reactions, or adverse effects. If you have questions about the drugs you are taking, check with your doctor, nurse or pharmacist. Copyright 8965-6184 [employer] Version: 16.03. Revision Date: 06/13/2020. Education Materials Upper Extremity Fracture You have a break (fracture) of the arm, wrist, or hand. This may be a small crack in the bone. Or it may be a major break, with the broken parts pushed out of position. Most fractures will heal without surgery. But you may need surgery if the bones are far out of place or if the break is near the elbow. Treatment is with a special sling called a shoulder immobilizer, or a splint or cast, depending on the type of fracture and where the fracture is located. This fracture takes 4 to 6 weeks or longer to heal. The cast may need to be changed in 2 to 3 weeks as swelling goes down. Home care Follow these guidelines when caring for yourself: If you were given a shoulder immobilizer, leave it in place. This will support the injured arm at your side. This is the best position for bone healing. The shoulder immobilizer can be adjusted. If it becomes loose, adjust it so that your forearm is level with the ground (horizontal). Your hand should be level with your elbow. Put an ice pack on the injured area. Do this for 20 minutes every 1 to 2 hours the first day for pain relief. You can make an ice pack by wrapping a plastic bag of ice cubes in a thin towel. As the ice melts, be careful that the cast/splint/sling doesn t get wet. You can put the ice pack inside the sling and directly over the splint or cast. Continue using the ice pack 3 to 4 times a day for the next 2 days. Then use the ice pack as needed to ease pain and swelling. Keep the cast, splint, or sling completely dry at all times. Bathe with your cast, splint, or sling out of the water. Protect it with a large plastic bag, rubber-banded or taped at the top end. If a fiberglass cast, splint, or sling gets wet, you can dry it with a hair boiler. You may use acetaminophen or ibuprofen to control pain, unless another pain medicine was prescribed. If you have chronic liver or kidney disease, talk with your healthcare provider before using these medicines. Also talk with your provider if you ve had a stomach ulcer or gastrointestinal bleeding. Don t put creams or objects under the cast if you have itching. Follow-up care Follow up with your healthcare provider as advised. This is to make sure the bone is healing the way it should. X-rays may be taken. You will be told of any new findings that may affect your care. When to seek medical advice Call your health care provider right away if any of these occur: The cast or splint cracks The plaster cast or splint becomes wet or soft The fiberglass cast or splint stays wet for more than 24 hours Bad odor from the cast or wound fluid stains the cast Tightness or pain under the cast or splint gets worse Fingers become swollen, cold, blue, numb, or tingly You can t move your fingers Skin around cast or splint becomes red or irritated Fever of 100.4 F (38 C) or higher, or chills as directed by your healthcare provider [id number] [employer] [address] [place] [address], [place] [address]. All rights reserved. This information is not intended as a substitute for professional medical care. Always follow your healthcare professional's instructions. Additional Information VACCINATE! IT SAVES LIVES! Members of the community who have not yet received the COVID-19 vaccine and would like to receive it can visit one of [facility] vaccine clinics. There are many vaccine clinic locations within the [facility]. For locations and available times, please visit [email or web address]. It is important to note that some COVID mobile vaccine clinics are held outdoors and may be canceled in rainy or stormy conditions. To learn more about pediatric vaccinations (ages 5-11), we invite you to visit the [facility] webpage. [email or web address]/pages/2 124-Nrwkl-Banreadoffh-Frequently-Asked -Questions.html To learn more about the COVID-19 vaccine, we invite you to visit the [facility] website for a list of frequently asked questions. [email or web address]/Patients-an d-Visitors/ucyvz-Cuffvlp-Sbjplepzie_Qm ked-Questions.pdf [place] [facility] Patient Portal Access Instructions: Stay connected with your healthcare team and access your personal medical information anytime with the [facility] Patient Portal. If you would like a full copy of your medical records please contact the [facility] Medical Records Department Friday through Friday between 8a.m. and 4:30p.m. Please follow the directions below to access the portal: 1.Access the email account you provided upon registration to the hospital.2.Look for an invitation email from [facility].3.Open the email and access the invitation link: Accept Invitation to [facility].Fill in the required carlson to create your account. Sign into [email or web address] with your username and password that you created in the above steps to stay up to date. You can then view a summary of results, a summary of your visits, and the ability to download your summaries to your computer or send the information securely to a physician. Remember that your healthcare information is confidential, so carefully consider who you will allow to register on the [email or web address] Patient Portal for access to your information. You can also access the [email or web address] Patient Portal on the [employer]presso ysabel. Simply click on Health Records under Health Data and then click on the [employer] logo. HOW TO SAFELY DISPOSE OF PRESCRIPTION MEDICATIONS Please use one of the following methods to safely dispose of your unused medications. 1.Use a drug disposal kit: the drug disposal pouch allows you to safely discard your old and unused drugs. Ask your nurse to give you one when you are discharged.2.Visit a local take-back location: Many local pharmacies and police departments have programs that collect old and unwanted prescription drugs. Call your local pharmacy or go to http://Simalaya.RLX Technologies/4I2Sf2z to find one close to you.3.Make use of household items: Use cat litter or old coffee grounds to dispose medications if other options are not available. Mix your drugs with these household products, seal them in an airtight container and throw it into the garbage. Call [facility]: [phone] to be sure your drugs can be disposed of in this way. Some medicines may require a different approach.4.Never flush your medications down the toilet. IF YOU HAVE BEEN PRESCRIBED AN OPIOIDS FOR PAIN If you have been prescribed an opioid (such as hydrocodone, oxycodone or morphine), it is critical to understand the possible side effects and risks of opioid pain medications. Even when taken as directed, opioids can have several side effects including: Tolerance, meaning you might need to take more of a medication for the same pain relief. Nausea, vomiting and/or constipation. Sleepiness, dizziness, dry mouth, confusion, depression or itching. Physical dependence, meaning you have withdrawal symptoms when a medication is stopped ? this can develop within a few days. KNOW YOUR RESPONSIBILITIES It is important to know exactly how much and how often to take the opioid pain medications you are prescribed. Never take opioids in higher amounts or more often than prescribed. Do not combine opioids with alcohol or other drugs that cause drowsiness, such as benzodiazepines, also known as benzos, including diazepam and alprazolam, muscle relaxants or sleep aids. Never sell or share prescription opioids. This is illegal. Store opioids in a secure place and out of reach of others (including children, family, friends and visitors). The last page(s) of this document has been signed and retained as a CHART COPY Signatures Patient Education Materials Fracture, Upper Extremity Medication Leaflets acetaminophen and hydrocodone My discharge plan and instructions have been reviewed and explained to me and I,ARIANA ALMANZAR understand my current condition and have read and understand these discharge instructions. I have received a written copy of the plan/instructions. If I have questions, I am aware that I should contact my doctor. Patient/Php Developer Signature: _ Date/Time: Relationship to Patient: Witness Name/Signature: Date/Time: [facility] Clinical Note 06-11-2022 Note Date & Type Note Facility 06-11-2022 Note ORIGINAL EXAMINATION: THREE XRAY VIEWS OF THE RIGHT WRIST 06/11/2022 8:59 am COMPARISON: None. HISTORY: ORDERING SYSTEM PROVIDED HISTORY: Reason for Exam: pain FINDINGS: No acute fracture, dislocation, aggressive osseous lesion, or radiopaque foreign body. IMPRESSION: No acute osseous abnormality. Interpreted by: Saniya Blakely MD Preliminary Report By: Saniya Blakely MD Electronically signed By Saniya Blakely MD Dictated Date: 06/11/2022 9:13:40 AM Prelim Date: 06/11/2022 9:14:52 AM Sign Date: 06/11/2022 9:14:52 AM Ordering Provider: AZIZA KAPLAN [facility] Clinical Note 06-11-2022 Note Date & Type Note Facility 06-11-2022 Note ORIGINAL EXAMINATION: TWO XRAY VIEWS OF THE LEFT HUMERUS 06/11/2022 8:57 am COMPARISON: None. HISTORY: ORDERING SYSTEM PROVIDED HISTORY: Reason for Exam: pain Fell on ice. FINDINGS: There is a midshaft humerus fracture with 3 mm of lateral displacement of the distal fracture fragment. Mild comminution. Acromioclavicular joint appears maintained. No radiopaque foreign body. IMPRESSION: Midshaft humerus fracture. Interpreted by: Saniya Blakely MD Preliminary Report By: Saniya Blakely MD Electronically signed By Saniya Blakely MD Dictated Date: 06/11/2022 9:12:10 AM Prelim Date: 06/11/2022 9:13:31 AM Sign Date: 06/11/2022 9:13:31 AM Ordering Provider: [facility] Clinical Note 06-11-2022 Note Date & Type Note Facility 06-11-2022 Note ORIGINAL EXAMINATION: THREE XRAY VIEWS OF THE RIGHT WRIST 06/11/2022 8:59 am COMPARISON: None. HISTORY: ORDERING SYSTEM PROVIDED HISTORY: Reason for Exam: pain FINDINGS: No acute fracture, dislocation, aggressive osseous lesion, or radiopaque foreign body. IMPRESSION: No acute osseous abnormality. Interpreted by: Saniya Blakely MD Preliminary Report By: Saniya Blakely MD Electronically signed By Saniya Blakely MD Dictated Date: 06/11/2022 9:13:40 AM Prelim Date: 06/11/2022 9:14:52 AM Sign Date: 06/11/2022 9:14:52 AM Ordering Provider: [facility] Clinical Note 06-11-2022 Note Date & Type Note Facility 06-11-2022 Note ORIGINAL EXAMINATION: TWO XRAY VIEWS OF THE LEFT HUMERUS 06/11/2022 8:57 am COMPARISON: None. HISTORY: ORDERING SYSTEM PROVIDED HISTORY: Reason for Exam: pain Fell on ice. FINDINGS: There is a midshaft humerus fracture with 3 mm of lateral displacement of the distal fracture fragment. Mild comminution. Acromioclavicular joint appears maintained. No radiopaque foreign body. IMPRESSION: Midshaft humerus fracture. Interpreted by: Saniya Blakely MD Preliminary Report By: Saniya Blakely MD Electronically signed By Saniya Blakely MD Dictated Date: 06/11/2022 9:12:10 AM Prelim Date: 06/11/2022 9:13:31 AM Sign Date: 06/11/2022 9:13:31 AM Ordering Provider: AZIZA KAPLAN [facility] Evaluation + Plan note Note Date & Type Note Facility Evaluation + Plan note No data available for this section [facility] Hospital Discharge instructions Note Date & Type Note Facility Hospital Discharge instructions No data available for this section [facility] Progress note Note Date & Type Note Facility Progress note No data available for this section [facility] Summary Purpose Family History No Family History Records FoundNo Family History Records FoundNo Family History Records FoundNo Family History Records Found Advance Directives No Advanced Directives Records FoundNo Advanced Directives Records FoundNo Advanced Directives Records FoundNo Advanced Directives Records Found Additional Source Comments INFORMATION SOURCE (unrecogn ized section and content) DATE CREATED AUTHOR AUTHOR'S ORGANIZ ATION 03/24/2018 [employer] DATE CREATED AUTHOR AUTHOR'S ORGANIZ ATION 09/20/2019 [facility] DATE CREATED AUTHOR AUTHOR'S ORGANIZ ATION 06/27/2022 [facility] ([place]) Care Team (unrecognized sect ion and content) Care Team Personnel Name: PHYSICIAN, NONE Position: Physician Member Role: Primary Care Physician Name: ELKE Calixto Position: AO RN Member Role: ED RN Name: AZIZA KAPLAN MD Position: ED Physician Member Role: ED Physician Address: Address: [facility] [address] [place], [place] [address] Care Team Personnel Name: PHYSICIAN, NONE Position: Physician Member Role: Primary Care Physician FOR RECORDS PERTAINING TO PATIENTS WHO ARE OR HAVE BEEN ENROLLED IN A CHEMICAL DEPENDENCY/SUBSTANCEABUSE PROGRAM, SOME INFORMATION MAY BE OMITTED. This clinical summary was aggregated from multiple sources. Caution should be exercised in using it in the provision of clinical care. This summary normalizes information from multiple sources, and as a consequence, information in this document may materially change the coding, format and clinical context of patient data. In addition, data may be omitted in some cases. CLINICAL DECISIONS SHOULD BE BASED ON THE PRIMARY CLINICAL RECORDS. [facility]. provides no warranty or guarantee of the accuracy or completeness of information in this document.
== END 2023-05-16 08:34 | disposition home or self-care (01) ==
LOC: MEDOUTP 08:35
PROVIDERS: Referring Provider Family Medicine; Visit Provider Family Medicine
DX: Z85.038 Personal history of other malignant neoplasm of large intestine (principal)
CPT/HCPCS: 96523; A4216

== ENCOUNTER 2023-07-23 07:58 | Outpatient (CLI) | payer OTHER, SELFPAY ==
--- OUTSIDE RECORDS SUMMARY | 2023-07-23 08:18 | XMS RPT_ITS | CCD ---
Author Name Unknown Address [address] [place] [address] Organization [facility] Care Team Providers Care Heel Coverer Name Role Phone ANTONIETA MELISSA Unavailable Unavailable [...] every four hours as needed for pain [place] 325- 5 mg oral tablet Dose = [...] lity 06-11-2022 08:43-0500 Body temperature 99.5 [degF] AZZIA KAPLAN MD [facility] 06-11-2022 08:43-0500 Body weight 56.8 kg AZIZA KAPLAN MD [facility] 06-11-2022 08:43-0500 Diastolic Blood Pressure Non-Invasive 76 1 AZIZA KAPLAN MD [facility] 06-11-2022 08:43-0500 Heart rate 65 /min AZIZA KAPLAN MD [facility] 06-11-2022 08:43-0500 Respiratory rate 18 /min AZIZA KAPLAN MD [facility] 06-11-2022 08:43-0500 Systolic Blood Pressure Non-Invasive 121 1 AZIZA KAPLAN MD [facility] Encounters Encounter Date Encounter Type Care Provider Facility Start: 06-24-2022 End: 06-25-2022 ambulatory KARINA CASTRO MD Facility:B Start: 06-24-2022 End: 06-24-[address] KARINA CASTRO MD [facility] Start: 06-24-2022 ambulatory KARINA CASTRO MD Faci lity:A Start: 06-11-2022 End: 06-11-2022 Emergency department patient visit AZIZA KAPLAN Facility:B Start: 06-11-2022 End: 06-11-2022 Emergency department patient visit AZIZA KAPLAN MD [facility] Start: 06-05-2017 Ambulatory Melo Palomino Facility: [facility] Start: 05-01-2017 Ambulatory ANTONIETA MELISSA Facility: [facility] Procedures Date Procedure Procedure Detail Performing Clinician Start: 12-17-2017 Follow-up visit Start: 12-17-2016 Liver excision AZIZA EDWARDS MD section AZIZA COOPER MD Payers Date Payer Category Payer Unknown [id number] 1980 Unknown [id number] 1980 Unknown [id number] 1980 Unknown [id number] Unknown [id number] Unknown [id number] Social History Date Type Detail Facility Start: 06-11-2022 Tobacco smoking status Never s moked tobacco (finding) [facility] Sex Assigned At Sex [facility] Functional Status Date Assessment Result Facility 06-11-2022 Functional Status Resting [facility] Mental Status Date Assessment Result Facility 06-11-2022 Mental Status Orientation Oriented x 4 [facility] Discharge instructions 06-11-2022 Note Date & [...] wet, you can dry it with a environmental studies department chair. You may use acetaminophen or ibuprofen to [...] chills as directed by your healthcare provider [id number] [employer]. [address] [place] [address]. All rights reserved. This information is not intended as a substitute for professional medical care. Always follow your healthcare professional's instructions. Follow Up Care 06/11/2022 08:14:44 With:KARINA CASTRO MD Address: [address] [place] [address] [address] [address] [phone] When:1-2 days With:Go to emergency room if symptoms worsen Address:Unknown When:2-[address] [facility] Procedure note 06-11-2022 Note Date & [...] AM Digitally Signed by AZIZA KAPLAN MD [facility] Clinical Note 06-11-2022 Note [...] MD When Within 1-2 days Where: [address] [facility] [place] [place] [address]- [phone] Follow Up with Go to emergency room if symptoms worsen When Within 2-4 days Allergies NKA Medications Please ask your primary doctor or pharmacist before taking any other medication not listed, including over the counter drugs, herbal medications, vitamins and or supplements as they may interact with your home medications. What How Much When Why Instructions Last Dose New acetaminophen-hydrocodone ([place] 325- 5 mg oral tablet) 1 tab(s) [...] and jeremy droe KOE done) Hycet, Lorcet, [place], Verdrocet, Vicodin, Xodol, Zamicet What is the [...] may report side effects to FDA at 9-592-KMP-7658. What other drugs will affect acetaminophen and [...] affect acetaminophen and hydrocodone, including prescription and dbxs-qkg-eiorvgg medicines, vitamins, and herbal products. Not all [...] to ensure that the information provided by [employer]. ('[employer]') is accurate, up-to-date, and complete, but no guarantee is made to that effect. Drug information contained herein may be time sensitive. [employer] information has been compiled for use by healthcare practitioners and consumers in the [place] and therefore [employer] does not warrant that uses outside of the [place] are appropriate, unless specifically indicated otherwise. V[employer]als drug information does not endorse drugs, diagnose patients or recommend therapy. [employer] drug information is an informational resource designed [...] effective or appropriate for any given patient. [employer] does not assume any responsibility for any aspect of healthcare administered with the aid of information [employer] provides. The information contained herein is not intended to cover all possible uses, directions, precautions, warnings, drug interactions, allergic reactions, or adverse effects. If you have questions about the drugs you are taking, check with your doctor, nurse or pharmacist. Copyright 1540-7151 [employer]. Version: 16.03. Revision Date: 06/13/2020. Education Materials [...] wet, you can dry it with a environmental studies department chair. You may use acetaminophen or ibuprofen to [...] chills as directed by your healthcare provider [phone] [employer]. [address] [place] [address], [place] [address]. All rights reserved. This information is not intended as a substitute for professional medical care. Always follow your healthcare professional's instructions. Additional Information VACCINATE! IT SAVES LIVES! Members of the community who have not yet received the COVID-19 vaccine and would like to receive it can visit one of [facility] vaccine clinics. There are many vaccine clinic locations within the [facility]. For locations and available times, please visit [email or web address]. It is important to note that some COVID mobile vaccine clinics are held outdoors and may be canceled in rainy or stormy conditions. To learn more about pediatric vaccinations (ages 5-11), we invite you to visit the [facility] webpage. https://www.[email or web address].org/pages/2 081-Qkhjj-Fadtonorfke-Frequently-Asked -Questions.html To learn more about the COVID-19 vaccine, we invite you to visit the [facility] website for a list of frequently asked questions. [email or web address] [employer]/assets/Patients-an d-Visitors/umson-Htgusya-Adrryabons_Mn ked-Questions.pdf [facility] [employer] Patient Portal Access Instructions: Stay connected with your healthcare team and access your personal medical information anytime with the [facility] Patient Portal. If you would like a full copy of your medical records please contact the [facility] Medical Records Department Friday through Friday between 8a.m. and 4:30p.m. Please follow the directions below to access the portal: 1.Access the email account you provided upon registration to the hospital.2.Look for an invitation email from [facility].3.Open the email and access the invitation link: Accept Invitation to [facility].Fill in the required carlson to create your account. Sign into [email or web address] with your username and password that you [...] you will allow to register on the [employer] Patient Portal for access to your information. You can also access the [employer] Patient Portal on the [employer] ysabel. Simply click on Health Records under Health Data and then click on the [employer] logo. HOW TO SAFELY DISPOSE OF PRESCRIPTION [...] Call your local pharmacy or go to http://Massdrop.VeriTweet/2X4Ra0d to find one close to you.3.Make use of household items: Use cat litter or old coffee grounds to dispose medications if other options are not available. Mix your drugs with these household products, seal them in an airtight container and throw it into the garbage. Call [facility]: [phone] to be sure your drugs can be [...] aware that I should contact my doctor. 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 Clinical Note 06-11-2022 Note Date & [...] 06/11/2022 9:14:52 AM Ordering Provider: AZIZA KAPLAN [facility] Clinical Note 06-11-2022 Note Date & [...] Ordering Provider: [facility] Clinical Note 06-11-2022 Note Date & Type [...] Ordering Provider: [facility] Clinical Note 06-11-2022 Note Date & Type [...] 06/11/2022 9:13:31 AM Ordering Provider: AZIZA KAPLAN [facility] Evaluation + Plan note Note Date & Type Note Facility Evaluation + Plan note No data available for this section [facility] Hospital Discharge instructions Note Date & Type Note Facility Hospital Discharge instructions No data available for this section [facility] Progress note Note Date & Type Note Facility Progress note No data available for this section [facility] Summary Purpose Family History No Family History Records FoundNo Family History Records FoundNo Family History Records FoundNo Family History Records Found Advance Directives No Advanced Directives Records FoundNo Advanced Directives Records FoundNo Advanced Directives Records FoundNo Advanced Directives Records Found Additional Source Comments INFORMATION SOURCE (unrecogn ized section and content) DATE CREATED AUTHOR AUTHOR'S ORGANIZ ATION 03/24/2018 [employer] DATE CREATED AUTHOR AUTHOR'S ORGANIZ ATION 09/20/2019 [facility] DATE CREATED AUTHOR AUTHOR'S ORGANIZ ATION 06/27/2022 [facility] ([place]) Care Team (unrecognized sect ion and content) Care Team Personnel Name: PHYSICIAN, NONE Position: Physician Member Role: Primary Care Physician Name: ELKE Calixto Position: AO RN Member Role: ED RN Name: AZIZA KAPLAN MD Position: ED Physician Member Role: ED Physician Address: Address: [facility] [address] [place], [place] [address] Care Team Personnel Name: PHYSICIAN, NONE Position: [...] BE BASED ON THE PRIMARY CLINICAL RECORDS. [facility]. provides no warranty or guarantee of the accuracy or completeness of information in this document.
== END 2023-07-23 07:59 | disposition home or self-care (01) ==
LOC: MEDOUTP 07:58
PROVIDERS: Referring Provider Family Medicine; Visit Provider Family Medicine
DX: Z45.2 Encounter for adjustment and management of vascular access device (principal)
CPT/HCPCS: 96523

== ENCOUNTER 2023-10-07 08:00 | Outpatient (RCR) | payer OTHER, SELFPAY ==
[2023-09-11 08:19] VITALS: BP 106/64; PULSE 63; RESP 18; TEMP 35.9
--- NOTE | 2023-09-11 08:21 | WC ---
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
--- NOTE | 2023-09-11 09:05 | PCM.CONHBO ---
Assessment & Plan Assessment/Plan (1) Delayed effect of radiation: (2) Radiation necrosis of skin and subcutaneous: (3) H/O colon cancer, stage IV: PLAN: Plan History of stage IV colon cancer diagnosed 7 years ago. Has had chemotherapy and radiation therapy during this course. Last radiation therapy was in September 2022 and last chemotherapy in January. Developed radiation related skin injury and intractable pain. Has tried NSAIDs, both oral and topical and other nonpharmacological intervention without any significant improvement. Pain affects daily activities and sleep. Cleared by her oncologist/radiation oncologist for hyperbaric oxygen therapy due to intractable pain from radiation necrosis. I believe she would benefit from this having failed other conservative measures in the past. No known history of lung or heart disease. No ear pain, drainage or visual concerns. Otherwise healthy adult. Recommend 40 - 60 hyperbaric oxygen treatments at 2 GILMA for 90 minutes without air breaks. She is committed to coming daily for these treatments. Examination including bilateral ears without any significant concerns. Chest x-ray and EKG ordered, will review. Her questions were answered and she was advised to let us know if she has any further questions or concerns. This note was generated with [employer] dictation software. It may contain incorrect words, spelling, and punctuation that were not noted in checking the note before signing. History of Present Illness Date of Service: 09/11/23 Chief Complaint: Radiation Fibrosis/Necrosis History of Wound: Ms. Griggs is a 43 yo who was referred to this facility by her oncologist due to persistent back pain from radiation injury. History of stage IV/metastatic colon cancer. Initial diagnosis was 7 years ago. Initial radiation was 2 years ago and had another in September 2022. Since then, has had intractable right-sided back pain. Modalities tried in the past include Celebrex, yoga, topical NSAIDs without any significant improvement. Sleep and daily functioning impaired due to pain. Last chemotherapy session was in January. FORMERLY [facility], [facility]–1983 Medical History (Updated 09/11/23 @ 10:[address] Dwayne Rutherford MD) Abdominal bloating Abdominal pain Anemia Back pain Colon cancer Delayed effect of radiation Fatigue GERD (gastroesophageal reflux disease) H/O colon cancer, stage IV Hx of radiation therapy Liver disease Neck pain Neuropathy Radiation necrosis of skin and subcutaneous Segmental and somatic dysfunction of thoracic region Thoracic neuritis Home Medications docusate sodium 100 mg capsule 100 mg PO TID 09/11/23 [History Last Taken Unknown] ibuprofen 400 mg tablet 400 mg PO Q6H PRN PRN pain 09/11/23 [History Last Taken Unknown] tramadol 50 mg tablet 50 mg PO Q6H PRN PRN pain 09/11/23 [History Last Taken 09/11/23] Allergy/AdvReac Type Severity Reaction Status Date / Time No Known Allergies Allergy Verified 08/19/23 09:23 Family History Mother Breast cancer Hypertension Brother Cancer testicular Father High cholesterol Cancer skin Other CVA (cerebral vascular accident) Surgical History History of 3 sections History of cholecystectomy History of colon resection History of removal of both ovaries History of resection of liver Hx of abdominal surgery Social History Smoking Status: Never smoker alcohol intake: never substance use type: does not use what type of physical activity do you participate in: bicycling and yoga frequency: 5-6 times per week ROS Constitutional Constitutional: Denies body ache(s), change in weight, chills, daytime sleepiness, excessive sweating, frequent falls or headache(s) Eyes Eyes: Denies acute decrease in peripheral vision, blindness, blind spots, bloody eye, blurry vision, burning, change in eye color or change in vision ENT HEENT: Denies dental pain, disequillibrium, dizziness, dry mouth, ear discharge, ear pain or epistaxis Cardiovascular Cardiovascular: Denies abdominal bloating, abdominal pain, cold extremities, cyanosis, diaphoresis, dizziness or dyspnea Respiratory/Chest Respiratory/Chest: Denies change in mental status, chest tightness, dry cough, dusky skin, dyspnea, dyspnea on exertion or excessive phlegm production Gastrointestinal Gastrointestinal: Denies anorexia, bloating, change in bowel habits, change in stool character, chewing difficulty, cramping, diarrhea or dry heaves Genitourinary Genitourinary: Denies abdominal discomfort, difficulty urinating, flank pain, itching or low back pain Musculoskeletal Musculoskeletal: Denies abnormal gait, back pain, deformity, difficulty walking, extremity pain, joint pain or joint stiffness Integumentary Integumentary: Denies bleeding lesions, change in pigmentation, dry skin, jaundice, lesions or skin swelling Neurologic Neurologic: Denies abnormal hearing, abnormal movements, abnormal speech, behavior changes, burning sensations, disequilibrium, dizziness or frequent falls Psychiatric Psychiatric: Denies anxiety, auditory hallucinations, behavioral changes, change in appetite, cognitive impairment, depression, homicidal ideation, hopelessness or irritability Endocrine Endocrinology: Denies change in libido, cold intolerance, deepening of the voice, excessive sweating, flushing, heat intolerance or increase in ring/shoe/hat size Hematologic/Lymphatic Hematologic/Lymphatic: Denies easy bleeding or easy bruising Allergic/Immunologic Allergic/Immunologic: Denies lip swelling, throat swelling, tongue swelling, eczemia or wheezing Physical Exam Physical Exam Const alert, oriented x3 and no apparent distress General Appearance: cooperative, comfortable and well kempt HEENT normocephalic and head/scalp atraumatic Eyes EOMs intact bilaterally Neck full ROM, no lymphadenopathy and supple General: normal visual inspection Resp normal respiratory effort and normal air movement Effort and Inspection: able to speak in complete sentences Cardio regular rate, regular rhythm, S1 normal heart sound and S2 normal heart sound GI soft to palpation and non-tender Neuro oriented x3, CN's II-XII intact bilaterally, moves all extremities and no focal motor deficits Psych mental status grossly normal, thought process normal, cooperative, affect normal and speech normal Nursing Assessment and Debridement Post-Debridement Measurements and Additional Note: Post-Debridement Measurements/Treatment - Nurse 1 - General Ulcer Assessment Start: 09/11/23 08:00 Freq: Status: Active Protocol: TRU.GAYLE Activity Type Activity Date Activity User E-sign Co-sign Detail Recorded Client Recorded Date Recorded By Document 09/11/23 08:19 Desktop 09/11/23 08:22 09/11/23 08:19 - Today's Visit Information Type of service Initial Visit Arrival Mode Ambulatory Transfer Assistance None Patient Identification Verified (Name & Yes ) Patient Requires Transmission-Based No Precautions Vital Signs Temperature (97.8 F-99.1 F) 96.7 F L Temperature Source Temporal Pulse Rate (60-100) 63 Pulse Location Monitor Respiratory Rate (12-18) 18 Respiratory rate source Observation Blood Pressure (90/60-120/80) 106/64 Blood Pressure Mean (mm Hg) 78 Source Monitor Position Semi-Fowlers Blood Pressure Location Left Arm History Since Last Visit- (Skip if this is Patient's initial visit) Have you changed medications since your No last visit? Any new allergies or adverse reactions No Had a fall/change in ADL's that may No increase risk of falls Signs or symptoms of abuse and/or No neglect since last visit Have you been in the hospital since your No last visit? Has dressing in place as prescribed No Has compression in place as prescribed No Has offloadiing in place as prescribed No Experienced any changes in pain level or No management Pain Scale: 0-10 Numeric Is Patient Pain Free? No R back -Description Aching -Intensity 4 -Pain Behavior Guarding -Pain Aggravating Factors Exercise/ Activity -Alleviating Factors/Interventions None Communication Assessment Preferred language [place] Glazier Supervisor Required No Able to Read Yes Able to Write Yes Communication Tools None Right Hearing Abillity Normal Left Hearing Abillity Normal Visual Assistive Devices None Teaching Assessment Preferences Verbal,Written, Demonstration Barriers to Learning None Readiness To Learn Good Willingness to Engage in Self Management Med Activies Readiness to Engage in Self Management Med Activities Anxiety Level Calm Cooperation Cooperative Perception Coherent Interest in Health Problem Asks Questions Education Importance Acknowledges Need Does Patient Smoke tobacco or other Yes substances Smoking Status Never smoker Functional Assessment Recent Decline in Ability to Perform Denies Any Declines Culture/Presybeterian/V Belt Inspector Cultural/Presybeterian Needs that may affect No Treatment Plan Would you allow our hospital internet marketing coordinator to No meet you for the purpose of spiritual/ emotional support? V Belt Inspector to contact place of congregation No 09/11/23 08:21 [facility] by S[facility] Curry 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 Initialized on 09/11/23 08:21 - END OF NOTE WC - Nurse 2 - General Ulcer CM Notes Start: 09/11/23 08:00 Freq: Status: Active Protocol: Activity Type Activity Date Activity User E-sign Co-sign Detail Recorded Client Recorded Date Recorded By Document 09/11/23 08:48 GM Desktop 09/11/23 08:54 GM 09/11/23 08:48 Pain Scale: 0-10 Numeric Is Patient Pain Free? Yes Charges/Coding Visit Charges Office Visits / Consults: [id number] OV L3 New 30min
--- NOTE | 2023-09-11 09:37 | EKG12_ITS ---
Test Reason : WOUND CLINIC Blood Pressure : / mmHG Vent. Rate : 055 BPM Atrial Rate : 055 BPM P-R Int : 080 ms QRS Dur : 080 ms QT Int : 410 ms P-R-T Axes : -12 077 057 degrees QTc Int : 392 ms Sinus bradycardia with short IL Otherwise normal ECG Confirmed by FANG GILLIS, CARLY ([id number]), newspaper or periodical editor CARRI LUGO ([id number]) on 09/12/2023 9:44:53 AM Referred By: No Primary Care Physician Confirmed By:CARLY HEADLEY MD
--- NOTE | 2023-09-11 10:00 | RAD_ITS ---
INDICATION: RADIATION NECROSIS/WOUND CENTER EXAMINATION/TECHNIQUE: X-RAY - XR Chest 2 Views COMPARISON: No relevant prior comparison study available FINDINGS: LINES/DEVICES: Right-sided Port-A-Cath with its tip in the superior vena cava. LUNGS: Linear atelectasis or scarring in the left lower lung. No definite pneumothorax. No evidence of pleural effusions. MEDIASTINUM AND CARDIOVASCULAR STRUCTURES: Cardiac silhouette not enlarged. Central airways and mediastinal contour are unremarkable. BONES AND SOFT TISSUES: Surgical sutures and catheters in the upper abdomen. No demonstrated acute osseous changes. RAD/Chest PA and Lateral IMPRESSION: No radiographic evidence of acute cardiopulmonary disease as described above. Electronically Signed: Lopez Marc MD at 10:21 EDT ,
[2023-09-30 08:27] VITALS: BP 109/61; BP 110/69; PULSE 56; PULSE 62; RESP 12; RESP 14; TEMP 36.4; TEMP 36.5
--- NOTE | 2023-09-30 14:58 | PCM.HBO.PN ---
History of Present Illness Date of Service: 09/30/23 Chief Complaint: Radiation Fibrosis/Necrosis History of Wound: Ms. Griggs is a 43 yo who was referred to this facility by her oncologist due to persistent back pain from radiation injury. History of stage IV/metastatic colon cancer. Initial diagnosis was 7 years ago. Radiation therapy was 2 years ago and had another in September 2022. Since then, she has had intractable right-sided back pain. Modalities tried in the past include Celebrex, yoga, topical NSAIDs without any significant improvement. Sleep and daily functioning impaired due to pain. Last chemotherapy session was in January 2023. Objective Data Objective Data The patient has been evaluated as to her suitability for hyperbaric oxygen therapy. Hyperbaric oxygen therapy was found to be warranted, and insurance preauthorization was achieved. Patient presented today for her first session of hyperbaric oxygen therapy. A total of 30 such sessions are anticipated. The anticipated benefits of hyperbaric oxygen therapy have been explained. Patient has been made aware of the indications and risks. She has indicated her desire to proceed. Hyperbaric oxygen therapy was undertaken for a total of 90 minutes at 2 aditi with no air breaks. The patient tolerated the hyperbaric oxygen therapy without complaints or complications. Upon emergence from the hyperbaric chamber, the patient's vital signs remained stable. Patient was discharged in good condition. Vital Signs: Vital Signs Temp Pulse Resp BP 97.5 F L 62 14 110/69 09/30/23 08:27 09/30/23 08:27 09/30/23 08:27 09/30/23 08:27 Exam Physical Exam Const alert, oriented x3, no apparent distress and well nourished General Appearance: cooperative and well developed HEENT normocephalic, EAC's normal, TM's normal bilaterally and moist oral mucous membranes Head and Scalp: atraumatic Eyes PERRL and EOMs intact bilaterally Neck supple and no JVD General: trachea midline Resp normal respiratory effort and no use of accessory muscles Effort and Inspection: able to speak in complete sentences Psych affect normal Appearance: grossly normal and well kempt Speech: normal speech Assessment/Plan Assessment/Plan (1) 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: CODE(S): L59.8 - Other specified disorders of the skin and subcutaneous tissue related to radiation; Y84.2 - Radiological procedure and radiotherapy as the cause of abnormal reaction of the patient, or of later complication, without mention of misadventure at the time of the procedure (2) H/O colon cancer, stage IV: CODE(S): Z85.038 - Personal history of other malignant neoplasm of large intestine (3) Delayed effect of radiation: CODE(S): T66.XXXS - Radiation sickness, unspecified, sequela (4) Radiation necrosis of skin and subcutaneous: CODE(S): L59.8 - Other specified disorders of the skin and subcutaneous tissue related to radiation; Y84.2 - Radiological procedure and radiotherapy as the cause of abnormal reaction of the patient, or of later complication, without mention of misadventure at the time of the procedure PLAN: Plan Patient tolerated her first hyperbaric oxygen therapy session well, and hyperbaric oxygen therapy will continue as per the patient's medical plan.
[2023-10-01 08:17] VITALS: BP 102/62; BP 113/65; PULSE 49; PULSE 65; RESP 12; RESP 14; TEMP 36.4
--- NOTE | 2023-10-01 12:52 | PCM.HBO.PN ---
History of Present Illness Date of Service: 10/01/23 Chief Complaint: Radiation Fibrosis/Necrosis History of Wound: Ms. Griggs is a 43 yo who was referred to this facility by her oncologist due to persistent back pain from radiation injury. History of stage IV/metastatic colon cancer. Initial diagnosis was 7 years ago. Radiation therapy was 2 years ago and had another in September 2022. Since then, she has had intractable right-sided back pain. Modalities tried in the past include Celebrex, yoga, topical NSAIDs without any significant improvement. Sleep and daily functioning impaired due to pain. Last chemotherapy session was in January 2023. Progress of Wound: Tolerating the HBO treatments well Subjective Subjective Patient is agreeable to plan and is coming in daily Objective Data Objective Data Vital signs stable patient is tolerating treatment well Vital Signs: Vital Signs Temp Pulse Resp BP 97.5 F L 65 14 113/65 10/01/23 08:17 10/01/23 08:17 10/01/23 08:17 10/01/23 08:17 Exam Physical Exam Narrative Patient is agreeable to plan and is in good condition no signs of any problems Patient will continue with HBO treatments Const alert and oriented x3 General Appearance: cooperative Orientation / Consciousness: awake Exam Limitations: no limitations HEENT normocephalic Head and Scalp: normal to inspection Face and Sinus: normal facial exam Nose: external nose normal External Ear: external ears normal Mouth: oral and palatal mucosa normal Eyes General Eye: normal appearance of both eyes Resp normal respiratory effort Effort and Inspection: able to speak in complete sentences Cardio regular rate and regular rhythm Assessment/Plan Assessment/Plan (1) 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: CODE(S): L59.8 - Other specified disorders of the skin and subcutaneous tissue related to radiation; Y84.2 - Radiological procedure and radiotherapy as the cause of abnormal reaction of the patient, or of later complication, without mention of misadventure at the time of the procedure (2) H/O colon cancer, stage IV: CODE(S): Z85.038 - Personal history of other malignant neoplasm of large intestine (3) Delayed effect of radiation: CODE(S): T66.XXXS - Radiation sickness, unspecified, sequela (4) Radiation necrosis of skin and subcutaneous: CODE(S): L59.8 - Other specified disorders of the skin and subcutaneous tissue related to radiation; Y84.2 - Radiological procedure and radiotherapy as the cause of abnormal reaction of the patient, or of later complication, without mention of misadventure at the time of the procedure PLAN: Plan Patient tolerated her first hyperbaric oxygen therapy session well, and hyperbaric oxygen therapy will continue as per the patient's medical plan.
--- NOTE | 2023-10-02 08:13 | PCM.HBO.PN ---
History of Present Illness Date of Service: 10/02/23 Chief Complaint: Radiation Fibrosis/Necrosis History of Wound: Ms. Griggs is a 43 yo who was referred to this facility by her oncologist due to persistent back pain from radiation injury. History of stage IV/metastatic colon cancer. Initial diagnosis was 7 years ago. Radiation therapy was 2 years ago and had another in September 2022. Since then, she has had intractable right-sided back pain. Modalities tried in the past include Celebrex, yoga, topical NSAIDs without any significant improvement. Sleep and daily functioning impaired due to pain. Last chemotherapy session was in January 2023. Subjective Subjective The patient presented today for her third session of hyperbaric oxygen therapy of a scheduled total 30 sessions. Hyperbaric oxygen therapy was provided for a total of 90 minutes at 2 aditi with no air breaks. The patient tolerated the hyperbaric oxygen therapy without complaints or complications. Upon emergence from the hyperbaric chamber, the patient's vital signs remained stable. Patient was discharged in good condition. 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: CODE(S): L59.8 - Other specified disorders of the skin and subcutaneous tissue related to radiation; Y84.2 - Radiological procedure and radiotherapy as the cause of abnormal reaction of the patient, or of later complication, without mention of misadventure at the time of the procedure (2) H/O colon cancer, stage IV: CODE(S): Z85.038 - Personal history of other malignant neoplasm of large intestine (3) Delayed effect of radiation: CODE(S): T66.XXXS - Radiation sickness, unspecified, sequela (4) Radiation necrosis of skin and subcutaneous: CODE(S): L59.8 - Other specified disorders of the skin and subcutaneous tissue related to radiation; Y84.2 - Radiological procedure and radiotherapy as the cause of abnormal reaction of the patient, or of later complication, without mention of misadventure at the time of the procedure PLAN: Plan Patient tolerated this hyperbaric oxygen therapy session well, and hyperbaric oxygen therapy will continue as per the patient's medical plan.
[2023-10-02 11:26] VITALS: BP 113/70; BP 114/73; PULSE 56; PULSE 60; RESP 12; RESP 14; TEMP 36.5
[2023-10-03 10:54] VITALS: BP 109/71; BP 97/59; PULSE 52; PULSE 53; RESP 14; TEMP 36.3; TEMP 36.4
--- NOTE | 2023-10-03 14:40 | PCM.HBO.PN ---
History of Present Illness Date of Service: 10/03/23 Chief Complaint: Radiation Fibrosis/Necrosis History of Wound: Ms. Griggs is a 43 yo who was referred to this facility by her oncologist due to persistent back pain from radiation injury. History of stage IV/metastatic colon cancer. Initial diagnosis was 7 years ago. Radiation therapy was 2 years ago and had another in September 2022. Since then, she has had intractable right-sided back pain. Modalities tried in the past include Celebrex, yoga, topical NSAIDs without any significant improvement. Sleep and daily functioning impaired due to pain. Last chemotherapy session was in January 2023. Progress of Wound: Progress: Today is the 4th treatment of hyperbaric oxygen therapy. The patient is scheduled for 30 treatments total. Tolerance of hyperbaric oxygen therapy: Hyperbaric oxygen treatment was provided as per the facility's protocol at 2.0 GILMA in 100% oxygen for 90 minutes without air breaks. The patient tolerated hyperbaric oxygen well, without complications or complaints. Upon emergence of the hyperbaric chamber, the patient's vital signs remained stable. Objective Data Objective Data Vital Signs: Vital Signs Temp Pulse Resp BP 97.3 F L 53 L 14 97/59 L 10/03/23 10:54 10/03/23 10:54 10/03/23 10:54 10/03/23 10:54 Exam Physical Exam Const alert, oriented x3 and no apparent distress Psych mental status grossly normal, thought process normal, cooperative, affect normal and speech normal Assessment/Plan Assessment/Plan (1) Radiation necrosis of skin and subcutaneous: CODE(S): L59.8 - Other specified disorders of the skin and subcutaneous tissue related to radiation; Y84.2 - Radiological procedure and radiotherapy as the cause of abnormal reaction of the patient, or of later complication, without mention of misadventure at the time of the procedure (2) H/O colon cancer, stage IV: CODE(S): Z85.038 - Personal history of other malignant neoplasm of large intestine (3) 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
[2023-10-07 08:35] VITALS: BP 96/58; BP 99/55; PULSE 53; PULSE 66; RESP 14; TEMP 36.5; TEMP 36.6
--- NOTE | 2023-10-07 08:49 | PCM.HBO.PN ---
History of Present Illness Date of Service: 10/07/23 Chief Complaint: Radiation Fibrosis/Necrosis History of Wound: Ms. Griggs is a 43 yo who was referred to this facility by her oncologist due to persistent back pain from radiation injury. History of stage IV/metastatic colon cancer. Initial diagnosis was 7 years ago. Radiation therapy was 2 years ago and had another in September 2022. Since then, she has had intractable right-sided back pain. Modalities tried in the past include Celebrex, yoga, topical NSAIDs without any significant improvement. Sleep and daily functioning impaired due to pain. Last chemotherapy session was in January 2023. Progress of Wound: Progress: Today is the 5th treatment of hyperbaric oxygen therapy. The patient is scheduled for 30 treatments total. Tolerance of hyperbaric oxygen therapy: Hyperbaric oxygen treatment was provided as per the facility's protocol at 2.0 GILMA in 100% oxygen for 90 minutes without air breaks. The patient tolerated hyperbaric oxygen well, without complications or complaints. Upon emergence of the hyperbaric chamber, the patient's vital signs remained stable. Objective Data Objective Data Vital Signs: Vital Signs Temp Pulse Resp BP 97.9 F 66 14 96/58 L 10/07/23 08:35 10/07/23 08:35 10/07/23 08:35 10/07/23 08:35 Exam Physical Exam Const alert, oriented x3 and no apparent distress General Appearance: cooperative HEENT normocephalic and TM's normal bilaterally Head and Scalp: atraumatic Eyes General Eye: normal appearance of both eyes Resp normal respiratory effort, no use of accessory muscles and clear to auscultation bilaterally Effort and Inspection: able to speak in complete sentences Cardio regular rate and regular rhythm Psych affect normal Charges/Coding [facility] Procedures HBO Supervision: [id number] Hyperbaric Oxygen; supervision Assessment/Plan Assessment/Plan (1) Radiation necrosis of skin and subcutaneous: CODE(S): L59.8 - Other specified disorders of the skin and subcutaneous tissue related to radiation; Y84.2 - Radiological procedure and radiotherapy as the cause of abnormal reaction of the patient, or of later complication, without mention of misadventure at the time of the procedure (2) H/O colon cancer, stage IV: CODE(S): Z85.038 - Personal history of other malignant neoplasm of large intestine (3) 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
--- NOTE | 2023-10-14 10:17 | PCM.HBO.PN ---
History of Present Illness Date of Service: 10/14/23 Chief Complaint: Radiation Fibrosis/Necrosis History of Wound: Ms. Griggs is a 43 yo who was referred to this facility by her oncologist due to persistent back pain from radiation injury. History of stage IV/metastatic colon cancer. Initial diagnosis was 7 years ago. Radiation therapy sessions were 2 years ago and repeated in September 2022. Since then, she has had intractable right-sided back pain. Modalities tried in the past include Celebrex, yoga, topical NSAIDs without any significant improvement. Sleep and daily functioning impaired due to pain. Last chemotherapy session was in January 2023. Progress of Wound: Progress: Today is the 7th treatment of hyperbaric oxygen therapy. The patient is scheduled for 30 treatments total. Tolerance of hyperbaric oxygen therapy: Hyperbaric oxygen treatment was provided as per the facility's protocol at 2.0 GILMA in 100% oxygen for 90 minutes without air breaks. The patient tolerated hyperbaric oxygen well, without complications or complaints. Upon emergence of the hyperbaric chamber, the patient's vital signs remained stable. Objective Data Objective Data Vital Signs: Vital Signs Temp Pulse Resp BP 97.9 F 66 14 96/58 L 10/07/23 08:35 10/07/23 08:35 10/07/23 08:35 10/07/23 08:35 Exam Physical Exam Const alert, oriented x3, no apparent distress and well nourished General Appearance: cooperative and well developed HEENT normocephalic, EAC's normal and TM's normal bilaterally Head and Scalp: atraumatic Eyes EOMs intact bilaterally General Eye: normal appearance of both eyes Neck supple Resp normal respiratory effort and no use of accessory muscles Effort and Inspection: able to speak in complete sentences Psych affect normal Appearance: grossly normal and well kempt Speech: normal speech Assessment/Plan Assessment/Plan (1) Radiation necrosis of skin and subcutaneous: CODE(S): L59.8 - Other specified disorders of the skin and subcutaneous tissue related to radiation; Y84.2 - Radiological procedure and radiotherapy as the cause of abnormal reaction of the patient, or of later complication, without mention of misadventure at the time of the procedure (2) H/O colon cancer, stage IV: CODE(S): Z85.038 - Personal history of other malignant neoplasm of large intestine (3) 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
== END 2023-10-10 23:59 | disposition home or self-care (01) ==
LOC: WC 08:00
PROVIDERS: Visit Provider Internal Medicine
DX: L59.8 Other specified disorders of the skin and subcutaneous tissue related to radiation (principal); M54.9 Dorsalgia, unspecified; Y84.2 Radiological procedure and radiotherapy as the cause of abnormal reaction of the patient, or of later complication, without mention of misadventure at the time of the procedure; Z79.899 Other long term (current) drug therapy; Z92.3 Personal history of irradiation; Z92.21 Personal history of antineoplastic chemotherapy; Z85.038 Personal history of other malignant neoplasm of large intestine; K21.9 Gastro-esophageal reflux disease without esophagitis
CPT/HCPCS: 71046; 93005; 99183; 99213; G0277; G0463

== ENCOUNTER 2023-10-31 08:00 | Outpatient (RCR) | payer OTHER, SELFPAY ==
[2023-10-11 01:35] VITALS: BP 106/64; BP 96/58; BP 99/55; PULSE 53; PULSE 63; PULSE 66; RESP 14; RESP 18; TEMP 35.9; TEMP 36.5; TEMP 36.6
[2023-10-13 08:47] VITALS: BP 104/70; BP 94/58; PULSE 60; PULSE 65; RESP 14; RESP 15; TEMP 36.5; TEMP 36.6
--- NOTE | 2023-10-13 13:30 | PCM.HBO.PN ---
History of Present Illness Date of Service: 10/13/23 Chief Complaint: Radiation Fibrosis/Necrosis History of Wound: Ms. Griggs is a 43 yo who was referred to this facility by her oncologist due to persistent back pain from radiation injury. History of stage IV/metastatic colon cancer. Initial diagnosis was 7 years ago. Radiation therapy sessions were 2 years ago and repeated in September 2022. Since then, she has had intractable right-sided back pain. Modalities tried in the past include Celebrex, yoga, topical NSAIDs without any significant improvement. Sleep and daily functioning impaired due to pain. Last chemotherapy session was in January 2023. Progress of Wound: Progress of wound: Today represents the 6 hyperbaric oxygen therapy session of a planned 30 such sessions. She appears to be responding to treatment as expected. Objective Data Objective Data Tolerance of hyperbaric oxygen therapy: Hyperbaric oxygen therapy was administered as per the facility's protocol. Hyperbaric oxygen therapy was administered at 2 aditi and 100% oxygen for 90 minutes without air breaks. The patient tolerated hyperbaric oxygen therapy well, without complaints or complications. Upon emergence from the hyperbaric chamber, the patient's vital signs remained stable. The patient was discharged in good condition. Vital Signs: Vital Signs Temp Pulse Resp BP 97.9 F 65 14 104/70 10/13/23 08:47 10/13/23 08:47 10/13/23 08:47 10/13/23 08:47 Exam Physical Exam Const alert, oriented x3, no apparent distress and well nourished General Appearance: cooperative and well developed HEENT normocephalic, EAC's normal and TM's normal bilaterally Head and Scalp: atraumatic Eyes EOMs intact bilaterally General Eye: normal appearance of both eyes Neck supple Resp normal respiratory effort, no use of accessory muscles and clear to auscultation bilaterally Effort and Inspection: able to speak in complete sentences Psych affect normal Appearance: grossly normal and well kempt Speech: normal speech Assessment/Plan Assessment/Plan (1) Radiation necrosis of skin and subcutaneous: CODE(S): L59.8 - Other specified disorders of the skin and subcutaneous tissue related to radiation; Y84.2 - Radiological procedure and radiotherapy as the cause of abnormal reaction of the patient, or of later complication, without mention of misadventure at the time of the procedure (2) H/O colon cancer, stage IV: CODE(S): Z85.038 - Personal history of other malignant neoplasm of large intestine (3) 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
[2023-10-14 08:12] VITALS: BP 107/73; BP 108/71; PULSE 60; PULSE 68; RESP 13; RESP 14; TEMP 36.3; TEMP 36.7
[2023-10-15 08:40] VITALS: BP 109/69; BP 120/67; PULSE 55; PULSE 63; RESP 14; RESP 18; TEMP 36.8; TEMP 36.9
--- NOTE | 2023-10-15 11:53 | PCM.HBO.PN ---
History of Present Illness Date of Service: 10/15/23 Chief Complaint: Radiation Fibrosis/Necrosis History of Wound: Ms. Griggs is a 43 yo who was referred to this facility by her oncologist due to persistent back pain from radiation injury. History of stage IV/metastatic colon cancer. Initial diagnosis was 7 years ago. Radiation therapy sessions were 2 years ago and repeated in September 2022. Since then, she has had intractable right-sided back pain. Modalities tried in the past include Celebrex, yoga, topical NSAIDs without any significant improvement. Sleep and daily functioning impaired due to pain. Last chemotherapy session was in January 2023. Progress of Wound: Progress of wound: Today represents the 8 hyperbaric oxygen therapy session of a planned 30 such sessions. She appears to be responding to treatment as expected. Subjective Subjective Tolerating treatments well Objective Data Objective Data Vital signs stable patient tolerating treatments well will continue with planned scheduled HBO treatments Vital Signs: Vital Signs Temp Pulse Resp BP 98.2 F 63 18 120/67 10/15/23 08:40 10/15/23 08:40 10/15/23 08:40 10/15/23 08:40 Exam Physical Exam Narrative Patient is agreeable to plan and is in good condition no signs of any problems Patient will continue with HBO treatments Const alert and oriented x3 General Appearance: cooperative Orientation / Consciousness: awake Exam Limitations: no limitations HEENT normocephalic Head and Scalp: normal to inspection Face and Sinus: normal facial exam Nose: external nose normal External Ear: external ears normal Mouth: oral and palatal mucosa normal Eyes General Eye: normal appearance of both eyes Resp normal respiratory effort Effort and Inspection: able to speak in complete sentences Cardio regular rate and regular rhythm Assessment/Plan Assessment/Plan (1) Radiation necrosis of skin and subcutaneous: CODE(S): L59.8 - Other specified disorders of the skin and subcutaneous tissue related to radiation; Y84.2 - Radiological procedure and radiotherapy as the cause of abnormal reaction of the patient, or of later complication, without mention of misadventure at the time of the procedure (2) H/O colon cancer, stage IV: CODE(S): Z85.038 - Personal history of other malignant neoplasm of large intestine (3) 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
[2023-10-16 08:42] VITALS: BP 107/68; BP 99/62; PULSE 60; PULSE 64; RESP 14; TEMP 36.3; TEMP 36.8
--- NOTE | 2023-10-16 10:44 | PCM.HBO.PN ---
History of Present Illness Date of Service: 10/16/23 Chief Complaint: Radiation Fibrosis/Necrosis History of Wound: Ms. Griggs is a 43 yo who was referred to this facility by her oncologist due to persistent back pain from radiation injury. History of stage IV/metastatic colon cancer. Initial diagnosis was 7 years ago. Radiation therapy sessions were 2 years ago and repeated in September 2022. Since then, she has had intractable right-sided back pain. Modalities tried in the past include Celebrex, yoga, topical NSAIDs without any significant improvement. Sleep and daily functioning impaired due to pain. Last chemotherapy session was in January 2023. Progress of Wound: Today is the 9th treatment of hyperbaric oxygen therapy. The patient is scheduled for 30 treatments total. Tolerance of hyperbaric oxygen therapy: Hyperbaric oxygen treatment was provided as per the facility's protocol at 2.0 GILMA in 100% oxygen for 90 minutes without air breaks. The patient tolerated hyperbaric oxygen well, without complications or complaints. Upon emergence of the hyperbaric chamber, the patient's vital signs remained stable. Objective Data Objective Data Vital Signs: Vital Signs Temp Pulse Resp BP 98.2 F 60 14 99/62 10/16/23 08:42 10/16/23 08:42 10/16/23 08:42 10/16/23 08:42 Exam Physical Exam Const alert, oriented x3 and no apparent distress General Appearance: cooperative HEENT normocephalic and TM's normal bilaterally Head and Scalp: atraumatic Eyes General Eye: normal appearance of both eyes Resp normal respiratory effort, no use of accessory muscles and clear to auscultation bilaterally Effort and Inspection: able to speak in complete sentences Cardio regular rate and regular rhythm Psych affect normal Charges/Coding [facility] Procedures HBO Supervision: [id number] Hyperbaric Oxygen; supervision Assessment/Plan Assessment/Plan (1) Radiation necrosis of skin and subcutaneous: CODE(S): L59.8 - Other specified disorders of the skin and subcutaneous tissue related to radiation; Y84.2 - Radiological procedure and radiotherapy as the cause of abnormal reaction of the patient, or of later complication, without mention of misadventure at the time of the procedure (2) H/O colon cancer, stage IV: CODE(S): Z85.038 - Personal history of other malignant neoplasm of large intestine (3) 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
[2023-10-17 08:33] VITALS: BP 105/69; BP 106/61; PULSE 52; PULSE 60; RESP 14; RESP 16; TEMP 36.3; TEMP 36.4
--- NOTE | 2023-10-17 14:21 | PCM.HBO.PN ---
History of Present Illness Date of Service: 10/17/23 Chief Complaint: Radiation Fibrosis/Necrosis History of Wound: Ms. Griggs is a 43 yo who was referred to this facility by her oncologist due to persistent back pain from radiation injury. History of stage IV/metastatic colon cancer. Initial diagnosis was 7 years ago. Radiation therapy sessions were 2 years ago and repeated in September 2022. Since then, she has had intractable right-sided back pain. Modalities tried in the past include Celebrex, yoga, topical NSAIDs without any significant improvement. Sleep and daily functioning impaired due to pain. Last chemotherapy session was in January 2023. Progress of Wound: Today is the 10th treatment of hyperbaric oxygen therapy. The patient is scheduled for 30 treatments total. Tolerance of hyperbaric oxygen therapy: Hyperbaric oxygen treatment was provided as per the facility's protocol at 2.0 GILMA in 100% oxygen for 90 minutes without air breaks. The patient tolerated hyperbaric oxygen well, without complications or complaints. Upon emergence of the hyperbaric chamber, the patient's vital signs remained stable. Objective Data Objective Data Vital Signs: Vital Signs Temp Pulse Resp BP 97.3 F L 52 L 14 106/61 10/17/23 08:33 10/17/23 08:33 10/17/23 08:33 10/17/23 08:33 Exam Physical Exam Const alert, oriented x3 and no apparent distress Psych mental status grossly normal, thought process normal, cooperative, affect normal and speech normal Assessment/Plan Assessment/Plan (1) Radiation necrosis of skin and subcutaneous: CODE(S): L59.8 - Other specified disorders of the skin and subcutaneous tissue related to radiation; Y84.2 - Radiological procedure and radiotherapy as the cause of abnormal reaction of the patient, or of later complication, without mention of misadventure at the time of the procedure (2) H/O colon cancer, stage IV: CODE(S): Z85.038 - Personal history of other malignant neoplasm of large intestine (3) 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
[2023-10-20 08:37] VITALS: BP 101/69; BP 96/62; PULSE 55; PULSE 56; RESP 14; RESP 15; TEMP 36.8
--- NOTE | 2023-10-20 11:57 | PCM.HBO.PN ---
History of Present Illness Date of Service: 10/20/23 Chief Complaint: Radiation Fibrosis/Necrosis History of Wound: Ms. Griggs is a 43 yo who was referred to this facility by her oncologist due to persistent back pain from radiation injury. History of stage IV/metastatic colon cancer. Initial diagnosis was 7 years ago. Radiation therapy sessions were 2 years ago and repeated in September 2022. Since then, she has had intractable right-sided back pain. Modalities tried in the past include Celebrex, yoga, topical NSAIDs without any significant improvement. Sleep and daily functioning impaired due to pain. Last chemotherapy session was in January 2023. Progress of Wound: Today is the th treatment of hyperbaric oxygen therapy. The patient is scheduled for 30 treatments total. Tolerance of hyperbaric oxygen therapy: Hyperbaric oxygen treatment was provided as per the facility's protocol at 2.0 GILMA in 100% oxygen for 90 minutes without air breaks. The patient tolerated hyperbaric oxygen well, without complications or complaints. Upon emergence of the hyperbaric chamber, the patient's vital signs remained stable. Objective Data Objective Data Vital Signs: Vital Signs Temp Pulse Resp BP 98.2 F 55 L 15 96/62 10/20/23 08:37 10/20/23 08:37 10/20/23 08:37 10/20/23 08:37 Exam Physical Exam Const alert, oriented x3 and no apparent distress General Appearance: cooperative HEENT normocephalic and TM's normal bilaterally Head and Scalp: atraumatic Eyes General Eye: normal appearance of both eyes Resp normal respiratory effort, no use of accessory muscles and clear to auscultation bilaterally Effort and Inspection: able to speak in complete sentences Cardio regular rate and regular rhythm Psych affect normal Charges/Coding [facility] Procedures HBO Supervision: [id number] Hyperbaric Oxygen; supervision Assessment/Plan Assessment/Plan (1) Radiation necrosis of skin and subcutaneous: CODE(S): L59.8 - Other specified disorders of the skin and subcutaneous tissue related to radiation; Y84.2 - Radiological procedure and radiotherapy as the cause of abnormal reaction of the patient, or of later complication, without mention of misadventure at the time of the procedure (2) H/O colon cancer, stage IV: CODE(S): Z85.038 - Personal history of other malignant neoplasm of large intestine (3) 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
[2023-10-21 08:23] VITALS: BP 100/66; BP 105/65; PULSE 61; PULSE 62; RESP 12; RESP 14; TEMP 36.3; TEMP 36.8
--- NOTE | 2023-10-21 17:14 | PCM.HBO.PN ---
History of Present Illness Date of Service: 10/21/23 Chief Complaint: Radiation Fibrosis/Necrosis History of Wound: Ms. Griggs is a 43 yo who was referred to this facility by her oncologist due to persistent back pain from radiation injury. History of stage IV/metastatic colon cancer. Initial diagnosis was 7 years ago. Radiation therapy sessions were 2 years ago and repeated in September 2022. Since then, she has had intractable right-sided back pain. Modalities tried in the past include Celebrex, yoga, topical NSAIDs without any significant improvement. Sleep and daily functioning impaired due to pain. Last chemotherapy session was in January 2023. Progress of Wound: Today is the 12 th treatment of hyperbaric oxygen therapy. The patient is scheduled for 30 treatments total. Tolerance of hyperbaric oxygen therapy: Hyperbaric oxygen treatment was provided as per the facility's protocol at 2.0 GILMA in 100% oxygen for 90 minutes without air breaks. The patient tolerated hyperbaric oxygen well, without complications or complaints. Upon emergence of the hyperbaric chamber, the patient's vital signs remained stable. Objective Data Objective Data Vital Signs: Vital Signs Temp Pulse Resp BP 98.2 F 62 12 100/66 10/21/23 08:23 10/21/23 08:23 10/21/23 08:23 10/21/23 08:23 Exam Physical Exam Const alert, oriented x3 and no apparent distress General Appearance: cooperative HEENT normocephalic and TM's normal bilaterally Head and Scalp: atraumatic Eyes General Eye: normal appearance of both eyes Resp normal respiratory effort, no use of accessory muscles and clear to auscultation bilaterally Effort and Inspection: able to speak in complete sentences Cardio regular rate and regular rhythm Psych affect normal Charges/Coding Wound [facility] Procedures HBO Supervision: [id number] Hyperbaric Oxygen; supervision Assessment/Plan Assessment/Plan (1) Radiation necrosis of skin and subcutaneous: CODE(S): L59.8 - Other specified disorders of the skin and subcutaneous tissue related to radiation; Y84.2 - Radiological procedure and radiotherapy as the cause of abnormal reaction of the patient, or of later complication, without mention of misadventure at the time of the procedure (2) H/O colon cancer, stage IV: CODE(S): Z85.038 - Personal history of other malignant neoplasm of large intestine (3) 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
[2023-10-22 08:32] VITALS: BP 105/65; BP 94/60; PULSE 54; PULSE 61; RESP 13; RESP 14; TEMP 36.1; TEMP 36.3
--- NOTE | 2023-10-22 12:23 | PCM.HBO.PN ---
History of Present Illness Date of Service: 10/22/23 Chief Complaint: Radiation Fibrosis/Necrosis History of Wound: Ms. Griggs is a 43 yo who was referred to this facility by her oncologist due to persistent back pain from radiation injury. History of stage IV/metastatic colon cancer. Initial diagnosis was 7 years ago. Radiation therapy sessions were 2 years ago and repeated in September 2022. Since then, she has had intractable right-sided back pain. Modalities tried in the past include Celebrex, yoga, topical NSAIDs without any significant improvement. Sleep and daily functioning impaired due to pain. Last chemotherapy session was in January 2023. Progress of Wound: Today is the 12 th treatment of hyperbaric oxygen therapy. The patient is scheduled for 30 treatments total. Tolerance of hyperbaric oxygen therapy: Hyperbaric oxygen treatment was provided as per the facility's protocol at 2.0 GILMA in 100% oxygen for 90 minutes without air breaks. The patient tolerated hyperbaric oxygen well, without complications or complaints. Upon emergence of the hyperbaric chamber, the patient's vital signs remained stable. Subjective Subjective Tolerating HBO treatment well Objective Data Objective Data Vital signs stable patient tolerating treatment well we will continue treatments of HBO Patient is on #13 of 30 treatments. Vital Signs: Vital Signs Temp Pulse Resp BP 97.4 F L 61 14 105/65 10/22/23 08:32 10/22/23 08:32 10/22/23 08:32 10/22/23 08:32 Exam Physical Exam Const alert, oriented x3 and no apparent distress General Appearance: cooperative HEENT normocephalic and TM's normal bilaterally Head and Scalp: atraumatic Eyes General Eye: normal appearance of both eyes Resp normal respiratory effort, no use of accessory muscles and clear to auscultation bilaterally Effort and Inspection: able to speak in complete sentences Cardio regular rate and regular rhythm Psych affect normal Assessment/Plan Assessment/Plan (1) Radiation necrosis of skin and subcutaneous: CODE(S): L59.8 - Other specified disorders of the skin and subcutaneous tissue related to radiation; Y84.2 - Radiological procedure and radiotherapy as the cause of abnormal reaction of the patient, or of later complication, without mention of misadventure at the time of the procedure (2) H/O colon cancer, stage IV: CODE(S): Z85.038 - Personal history of other malignant neoplasm of large intestine (3) 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
--- NOTE | 2023-10-23 08:35 | HBO.PN.PCM_ITS ---
History of Present Illness Date of Service: 10/23/23 Chief Complaint: Radiation Fibrosis/Necrosis History of Wound: Ms. Griggs is a 43 yo who was referred to this facility by her oncologist due to persistent back pain from radiation injury. History of stage IV/metastatic colon cancer. Initial diagnosis was 7 years ago. Radiation therapy sessions were 2 years ago and repeated in September 2022. Since then, she has had intractable right-sided back pain. Modalities tried in the past include Celebrex, yoga, topical NSAIDs without any significant improvement. Sleep and daily functioning impaired due to pain. Last chemotherapy session was in January 2023. Progress of Wound: Progress:Today is the 14th of 30 approved treatments. Tolerance of hyperbaric oxygen therapy: Hyperbaric oxygen treatment was administered as per the facility's protocol at 2.0 GILMA in 100% oxygen for 90 minutes without air breaks. The patient tolerated hyperbaric oxygen well without complications or complaints. Upon emergence from the hyperbaric chamber, her vitals signs remained stable and she was discharged in stable condition. Objective Data Objective Data Vital Signs: Vital Signs Temp Pulse Resp BP 97.4 F L 61 14 105/65 10/22/23 08:32 10/22/23 08:32 10/22/23 08:32 10/22/23 08:32 Exam Physical Exam Const alert, oriented x3 and no apparent distress General Appearance: cooperative, comfortable and well kempt HEENT normocephalic and head/scalp atraumatic External Ear: external ears normal Tympanic Membrane: TM's normal bilaterally Eyes EOMs intact bilaterally Neck full ROM and supple General: normal visual inspection Resp normal respiratory effort Effort and Inspection: able to speak in complete sentences Neuro oriented x3, CN's II-XII intact bilaterally, moves all extremities and no focal motor deficits Psych mental status grossly normal, thought process normal, cooperative, affect normal and speech normal Charges/Coding Wound Center [facility] Procedures HBO Supervision: [id number] Hyperbaric Oxygen; supervision Assessment/Plan Assessment/Plan (1) Radiation necrosis of skin and subcutaneous: CODE(S): L59.8 - Other specified disorders of the skin and subcutaneous tissue related to radiation; Y84.2 - Radiological procedure and radiotherapy as the cause of abnormal reaction of the patient, or of later complication, without mention of misadventure at the time of the procedure (2) Delayed effect of radiation: CODE(S): T66.XXXS - Radiation sickness, unspecified, sequela (3) H/O colon cancer, stage IV: CODE(S): Z85.038 - Personal history of other malignant neoplasm of large intestine (4) 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 This note was generated with [employer] dictation software. It may contain incorrect words, spelling, and punctuation that were not noted in checking the note before signing.
[2023-10-23 10:30] VITALS: BP 106/60; BP 97/58; PULSE 53; PULSE 58; RESP 13; RESP 15; TEMP 36.4; TEMP 36.9
[2023-10-24 09:35] VITALS: BP 100/63; BP 114/71; PULSE 60; PULSE 64; RESP 13; RESP 15; TEMP 36.7; TEMP 36.9
--- NOTE | 2023-10-24 14:08 | PCM.HBO.PN ---
History of Present Illness Date of Service: 10/24/23 Chief Complaint: Radiation Fibrosis/Necrosis History of Wound: Ms. Griggs is a 43 yo who was referred to this facility by her oncologist due to persistent back pain from radiation injury. History of stage IV/metastatic colon cancer. Initial diagnosis was 7 years ago. Radiation therapy sessions were 2 years ago and repeated in September 2022. Since then, she has had intractable right-sided back pain. Modalities tried in the past include Celebrex, yoga, topical NSAIDs without any significant improvement. Sleep and daily functioning impaired due to pain. Last chemotherapy session was in January 2023. Progress of Wound: Progress:Today is the 15th of 30 approved treatments. Tolerance of hyperbaric oxygen therapy: Hyperbaric oxygen treatment was administered as per the facility's protocol at 2.0 GILMA in 100% oxygen for 90 minutes without air breaks. The patient tolerated hyperbaric oxygen well without complications or complaints. Upon emergence from the hyperbaric chamber, her vitals signs remained stable and she was discharged in stable condition. Objective Data Objective Data Vital Signs: Vital Signs Temp Pulse Resp BP 98.1 F 64 15 100/63 10/24/23 09:35 10/24/23 09:35 10/24/23 09:35 10/24/23 09:35 Exam Physical Exam Const alert, oriented x3 and no apparent distress Psych mental status grossly normal, thought process normal, cooperative, affect normal and speech normal Assessment/Plan Assessment/Plan (1) Radiation necrosis of skin and subcutaneous: CODE(S): L59.8 - Other specified disorders of the skin and subcutaneous tissue related to radiation; Y84.2 - Radiological procedure and radiotherapy as the cause of abnormal reaction of the patient, or of later complication, without mention of misadventure at the time of the procedure (2) H/O colon cancer, stage IV: CODE(S): Z85.038 - Personal history of other malignant neoplasm of large intestine (3) 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
[2023-10-27 10:19] VITALS: BP 103/70; BP 99/69; PULSE 68; PULSE 74; RESP 13; RESP 14; TEMP 36.3; TEMP 37.1
--- NOTE | 2023-10-27 13:57 | PCM.HBO.PN ---
History of Present Illness Date of Service: 10/27/23 Chief Complaint: Radiation Fibrosis/Necrosis History of Wound: Ms. Griggs is a 43 yo who was referred to this facility by her oncologist due to persistent back pain from radiation injury. History of stage IV/metastatic colon cancer. Initial diagnosis was 7 years ago. Radiation therapy sessions were 2 years ago and repeated in September 2022. Since then, she has had intractable right-sided back pain. Modalities tried in the past include Celebrex, yoga, topical NSAIDs without any significant improvement. Sleep and daily functioning impaired due to pain. Last chemotherapy session was in January 2023. Progress of Wound: Progress:Today is the 16th of 30 approved treatments. Tolerance of hyperbaric oxygen therapy: Hyperbaric oxygen treatment was administered as per the facility's protocol at 2.0 GILMA in 100% oxygen for 90 minutes without air breaks. The patient tolerated hyperbaric oxygen well without complications or complaints. Upon emergence from the hyperbaric chamber, her vitals signs remained stable and she was discharged in stable condition. Objective Data Objective Data Vital Signs: Vital Signs Temp Pulse Resp BP 97.3 F L 68 14 99/69 10/27/23 10:19 10/27/23 10:19 10/27/23 10:19 10/27/23 10:19 Exam Physical Exam Const alert, oriented x3 and no apparent distress General Appearance: cooperative HEENT normocephalic and TM's normal bilaterally Head and Scalp: atraumatic Eyes General Eye: normal appearance of both eyes Resp normal respiratory effort, no use of accessory muscles and clear to auscultation bilaterally Effort and Inspection: able to speak in complete sentences Cardio regular rate and regular rhythm Psych affect normal Charges/Coding Wound Center [facility] Procedures HBO Supervision: [id number] Hyperbaric Oxygen; supervision Assessment/Plan Assessment/Plan (1) Radiation necrosis of skin and subcutaneous: CODE(S): L59.8 - Other specified disorders of the skin and subcutaneous tissue related to radiation; Y84.2 - Radiological procedure and radiotherapy as the cause of abnormal reaction of the patient, or of later complication, without mention of misadventure at the time of the procedure (2) H/O colon cancer, stage IV: CODE(S): Z85.038 - Personal history of other malignant neoplasm of large intestine (3) 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
[2023-10-28 08:19] VITALS: BP 103/64; BP 99/63; PULSE 58; PULSE 65; RESP 12; RESP 13; TEMP 36.7
--- NOTE | 2023-10-28 12:10 | PCM.HBO.PN ---
History of Present Illness Date of Service: 10/28/23 Chief Complaint: Radiation Fibrosis/Necrosis History of Wound: Ms. Griggs is a 43 yo who was referred to this facility by her oncologist due to persistent back pain from radiation injury. History of stage IV/metastatic colon cancer. Initial diagnosis was 7 years ago. Radiation therapy sessions were 2 years ago and repeated in September 2022. Since then, she has had intractable right-sided back pain. Modalities tried in the past include Celebrex, yoga, topical NSAIDs without any significant improvement. Sleep and daily functioning impaired due to pain. Last chemotherapy session was in January 2023. Progress of Wound: Progress:Today is the 17th of 30 approved treatments. Tolerance of hyperbaric oxygen therapy: Hyperbaric oxygen treatment was administered as per the facility's protocol at 2.0 GILMA in 100% oxygen for 90 minutes without air breaks. The patient tolerated hyperbaric oxygen well without complications or complaints. Upon emergence from the hyperbaric chamber, her vitals signs remained stable and she was discharged in stable condition. Objective Data Objective Data Vital Signs: Vital Signs Temp Pulse Resp BP 98.1 F 65 13 99/63 10/28/23 08:19 10/28/23 08:19 10/28/23 08:19 10/28/23 08:19 Exam Physical Exam Const alert, oriented x3 and no apparent distress General Appearance: cooperative HEENT normocephalic and TM's normal bilaterally Head and Scalp: atraumatic Eyes General Eye: normal appearance of both eyes Resp normal respiratory effort, no use of accessory muscles and clear to auscultation bilaterally Effort and Inspection: able to speak in complete sentences Cardio regular rate and regular rhythm Psych affect normal Charges/Coding Wound Center [facility] Procedures HBO Supervision: [id number] Hyperbaric Oxygen; supervision Assessment/Plan Assessment/Plan (1) Radiation necrosis of skin and subcutaneous: CODE(S): L59.8 - Other specified disorders of the skin and subcutaneous tissue related to radiation; Y84.2 - Radiological procedure and radiotherapy as the cause of abnormal reaction of the patient, or of later complication, without mention of misadventure at the time of the procedure (2) H/O colon cancer, stage IV: CODE(S): Z85.038 - Personal history of other malignant neoplasm of large intestine (3) 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
[2023-10-29 10:13] VITALS: BP 102/66; BP 92/58; PULSE 57; PULSE 58; RESP 14; RESP 16; TEMP 36.7; TEMP 37.1
--- NOTE | 2023-10-29 10:26 | PCM.HBO.PN ---
History of Present Illness Date of Service: 10/29/23 Chief Complaint: Radiation Fibrosis/Necrosis History of Wound: Ms. Griggs is a 43 yo who was referred to this facility by her oncologist due to persistent back pain from radiation injury. History of stage IV/metastatic colon cancer. Initial diagnosis was 7 years ago. Radiation therapy sessions were 2 years ago and repeated in September 2022. Since then, she has had intractable right-sided back pain. Modalities tried in the past include Celebrex, yoga, topical NSAIDs without any significant improvement. Sleep and daily functioning impaired due to pain. Last chemotherapy session was in January 2023. Progress of Wound: Progress:Today is the 17th of 30 approved treatments. Tolerance of hyperbaric oxygen therapy: Hyperbaric oxygen treatment was administered as per the facility's protocol at 2.0 GILMA in 100% oxygen for 90 minutes without air breaks. The patient tolerated hyperbaric oxygen well without complications or complaints. Upon emergence from the hyperbaric chamber, her vitals signs remained stable and she was discharged in stable condition. Subjective Subjective Tolerated #18 of 30 HBO treatments. Has no concerns Objective Data Objective Data Tolerated treatments well vital signs are stable no change in condition. Vital Signs: Vital Signs Temp Pulse Resp BP 98.0 F 57 L 16 92/58 L 10/29/23 10:13 10/29/23 10:13 10/29/23 10:13 10/29/23 10:13 Exam Physical Exam Const alert, oriented x3 and no apparent distress General Appearance: cooperative HEENT normocephalic and TM's normal bilaterally Head and Scalp: atraumatic Eyes General Eye: normal appearance of both eyes Resp normal respiratory effort, no use of accessory muscles and clear to auscultation bilaterally Effort and Inspection: able to speak in complete sentences Cardio regular rate and regular rhythm Psych affect normal Assessment/Plan Assessment/Plan (1) Radiation necrosis of skin and subcutaneous: CODE(S): L59.8 - Other specified disorders of the skin and subcutaneous tissue related to radiation; Y84.2 - Radiological procedure and radiotherapy as the cause of abnormal reaction of the patient, or of later complication, without mention of misadventure at the time of the procedure (2) H/O colon cancer, stage IV: CODE(S): Z85.038 - Personal history of other malignant neoplasm of large intestine (3) 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
[2023-10-30 08:41] VITALS: BP 102/64; BP 103/67; PULSE 53; PULSE 60; RESP 14; RESP 16; TEMP 36.7; TEMP 36.9
--- NOTE | 2023-10-30 12:06 | HBO.PN.PCM_ITS ---
History of Present Illness Date of Service: 10/30/23 Chief Complaint: Radiation Fibrosis/Necrosis History of Wound: Ms. Griggs is a 43 yo who was referred to this facility by her oncologist due to persistent back pain from radiation injury. History of stage IV/metastatic colon cancer. Initial diagnosis was 7 years ago. Radiation therapy sessions were 2 years ago and repeated in September 2022. Since then, she has had intractable right-sided back pain. Modalities tried in the past include Celebrex, yoga, topical NSAIDs without any significant improvement. Sleep and daily functioning impaired due to pain. Last chemotherapy session was in January 2023. Progress of Wound: Ms. Griggs has had 19 sessions of hyperbaric oxygen treatment and has tolerated these sessions well. She has had no complications from hyperbaric oxygen therapy. Pain is still present but has noted significant improvement in pain. She states that her sleep has been better and she is using less pain medications since she started hyperbaric oxygen treatments. She has no new concerns at this time Objective Data Objective Data Vital Signs: Vital Signs Temp Pulse Resp BP 98.4 F 60 14 102/64 10/30/23 08:41 10/30/23 08:41 10/30/23 08:41 10/30/23 08:41 Exam Physical Exam Const alert, oriented x3 and no apparent distress General Appearance: cooperative, comfortable and well kempt HEENT normocephalic and head/scalp atraumatic External Ear: external ears normal Eyes EOMs intact bilaterally Neck full ROM and supple General: normal visual inspection Resp normal respiratory effort Effort and Inspection: able to speak in complete sentences Neuro oriented x3, CN's II-XII intact bilaterally, moves all extremities and no focal motor deficits Psych mental status grossly normal, thought process normal, cooperative, affect normal and speech normal Charges/Coding Visit Charges Office Visits / Consults: [id number] OV L3 Est 20min Assessment/Plan Assessment/Plan (1) Radiation necrosis of skin and subcutaneous: CODE(S): L59.8 - Other specified disorders of the skin and subcutaneous tissue related to radiation; Y84.2 - Radiological procedure and radiotherapy as the cause of abnormal reaction of the patient, or of later complication, without mention of misadventure at the time of the procedure (2) Delayed effect of radiation: CODE(S): T66.XXXS - Radiation sickness, unspecified, sequela (3) H/O colon cancer, stage IV: CODE(S): Z85.038 - Personal history of other malignant neoplasm of large intestine (4) 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 Griggs is tolerating and benefiting immensely from hyperbaric oxygen therapy. As above, she states that her pain though still present has improved and she is needing less pain medications to function. Moving better and also sleeping better. I believe she would continue to benefit from hyperbaric oxygen therapy and so I recommend 30 more sessions of hyperbaric oxygen therapy at 2 GARRY for 90 minutes without air breaks. This note was generated with [email or web address] dictation software. It may contain incorrect words, spelling, and punctuation that were not noted in checking the note before signing.
--- NOTE | 2023-10-30 13:22 | PCM.HBO.PN ---
History of Present Illness Date of Service: 10/30/23 Chief Complaint: Radiation Fibrosis/Necrosis History of Wound: Ms. Griggs is a 43 yo who was referred to this facility by her oncologist due to persistent back pain from radiation injury. History of stage IV/metastatic colon cancer. Initial diagnosis was 7 years ago. Radiation therapy sessions were 2 years ago and repeated in September 2022. Since then, she has had intractable right-sided back pain. Modalities tried in the past include Celebrex, yoga, topical NSAIDs without any significant improvement. Sleep and daily functioning impaired due to pain. Last chemotherapy session was in January 2023. Subjective Subjective The patient presented today for her 19th session of hyperbaric oxygen therapy of a scheduled total 30 sessions. Hyperbaric oxygen therapy was provided for a total of 90 minutes at 2 aditi with no air breaks. The patient tolerated the hyperbaric oxygen therapy without complaints or complications. Upon emergence from the hyperbaric chamber, the patient's vital signs remained stable. Patient was discharged in good condition. Objective Data Objective Data Vital Signs: Vital Signs Temp Pulse Resp BP 98.4 F 60 14 102/64 10/30/23 08:41 10/30/23 08:41 10/30/23 08:41 10/30/23 08:41 Exam Physical Exam Const alert and no apparent distress General Appearance: cooperative and comfortable HEENT normocephalic External Ear: external ears normal Tympanic Membrane: TM's normal bilaterally Chest inspection of chest normal Resp normal respiratory effort and clear to auscultation bilaterally Effort and Inspection: able to speak in complete sentences Cardio regular rate and regular rhythm Neuro Speech: speech normal Psych mental status grossly normal Appearance: grossly normal Charges/Coding Wound [facility] Procedures HBO Supervision: [id number] Hyperbaric Oxygen; supervision Assessment/Plan Assessment/Plan (1) 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: CODE(S): L59.8 - Other specified disorders of the skin and subcutaneous tissue related to radiation; Y84.2 - Radiological procedure and radiotherapy as the cause of abnormal reaction of the patient, or of later complication, without mention of misadventure at the time of the procedure (2) H/O colon cancer, stage IV: CODE(S): Z85.038 - Personal history of other malignant neoplasm of large intestine (3) Delayed effect of radiation: CODE(S): T66.XXXS - Radiation sickness, unspecified, sequela (4) Radiation necrosis of skin and subcutaneous: CODE(S): L59.8 - Other specified disorders of the skin and subcutaneous tissue related to radiation; Y84.2 - Radiological procedure and radiotherapy as the cause of abnormal reaction of the patient, or of later complication, without mention of misadventure at the time of the procedure PLAN: Plan Patient tolerated this hyperbaric oxygen therapy session well, and hyperbaric oxygen therapy will continue as per the patient's medical plan.
[2023-10-31 08:23] VITALS: BP 112/68; BP 113/75; PULSE 55; PULSE 70; RESP 16; TEMP 36.6
--- NOTE | 2023-10-31 12:49 | PCM.HBO.PN ---
History of Present Illness Date of Service: 10/31/23 Chief Complaint: Radiation Fibrosis/Necrosis History of Wound: Ms. Griggs is a 43 yo who was referred to this facility by her oncologist due to persistent back pain from radiation injury. History of stage IV/metastatic colon cancer. Initial diagnosis was 7 years ago. Radiation therapy sessions were 2 years ago and repeated in September 2022. Since then, she has had intractable right-sided back pain. Modalities tried in the past include Celebrex, yoga, topical NSAIDs without any significant improvement. Sleep and daily functioning impaired due to pain. Last chemotherapy session was in January 2023. Progress of Wound: Ms. Griggs has had 20 sessions of hyperbaric oxygen treatment and has tolerated these sessions well. She has had no complications from hyperbaric oxygen therapy. Pain is still present but has noted significant improvement in pain. She states that her sleep has been better and she is using less pain medications since she started hyperbaric oxygen treatments. She has no new concerns at this time Subjective Subjective The patient presented today for her 20th session of hyperbaric oxygen therapy of a scheduled total 30 sessions. Hyperbaric oxygen therapy was provided for a total of 90 minutes at 2 aditi with no air breaks. The patient tolerated the hyperbaric oxygen therapy without complaints or complications. Upon emergence from the hyperbaric chamber, the patient's vital signs remained stable. Patient was discharged in good condition. Objective Data Objective Data Vital Signs: Vital Signs Temp Pulse Resp BP 97.9 F 70 16 113/75 10/31/23 08:23 10/31/23 08:23 10/31/23 08:23 10/31/23 08:23 Exam Physical Exam Const alert, oriented x3 and no apparent distress Psych mental status grossly normal, thought process normal, cooperative, affect normal and speech normal Assessment/Plan Assessment/Plan (1) Radiation necrosis of skin and subcutaneous: CODE(S): L59.8 - Other specified disorders of the skin and subcutaneous tissue related to radiation; Y84.2 - Radiological procedure and radiotherapy as the cause of abnormal reaction of the patient, or of later complication, without mention of misadventure at the time of the procedure (2) H/O colon cancer, stage IV: CODE(S): Z85.038 - Personal history of other malignant neoplasm of large intestine (3) 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
== END 2023-11-09 23:59 | disposition home or self-care (01) ==
LOC: WC 08:00
PROVIDERS: Visit Provider Internal Medicine
DX: L59.8 Other specified disorders of the skin and subcutaneous tissue related to radiation (principal); Y84.2 Radiological procedure and radiotherapy as the cause of abnormal reaction of the patient, or of later complication, without mention of misadventure at the time of the procedure; M54.9 Dorsalgia, unspecified; Z79.899 Other long term (current) drug therapy; Z92.3 Personal history of irradiation; Z92.21 Personal history of antineoplastic chemotherapy; Z85.038 Personal history of other malignant neoplasm of large intestine
CPT/HCPCS: 99183; G0277

== ENCOUNTER 2023-12-10 10:15 | Outpatient (RCR) | payer OTHER, SELFPAY ==
[2023-11-10 00:18] VITALS: BP 106/64; BP 96/58; BP 99/55; PULSE 53; PULSE 63; PULSE 66; RESP 14; RESP 18; TEMP 35.9; TEMP 36.5; TEMP 36.6
[2023-11-10 09:44] VITALS: BP 92/55; PULSE 102; RESP 15; TEMP 36.5
--- NOTE | 2023-11-10 12:04 | PCM.HBO.PN ---
History of Present Illness Date of Service: 11/10/23 Chief Complaint: Radiation Fibrosis/Necrosis History of Wound: Ms. Griggs is a 43 yo who was referred to this facility by her oncologist due to persistent back pain from radiation injury. History of stage IV/metastatic colon cancer. Initial diagnosis was 7 years ago. Radiation therapy sessions were 2 years ago and repeated in September 2022. Since then, she has had intractable right-sided back pain. Modalities tried in the past include Celebrex, yoga, topical NSAIDs without any significant improvement. Sleep and daily functioning impaired due to pain. Last chemotherapy session was in January 2023. Progress of Wound: Ms. Griggs has had 20 sessions of hyperbaric oxygen treatment and has tolerated these sessions well. She has had no complications from hyperbaric oxygen therapy. Pain is still present but has noted significant improvement in pain. She states that her sleep has been better and she is using less pain medications since she started hyperbaric oxygen treatments. She has no new concerns at this time Subjective Subjective The patient presented today for her 21st session of hyperbaric oxygen therapy of a scheduled total 30 sessions. Hyperbaric oxygen therapy was administered for a total of 90 minutes at 2 aditi with no air breaks. The patient tolerated the hyperbaric oxygen therapy without complaints or complications. Upon emergence from the hyperbaric chamber, the patient's vital signs remained stable. The patient was discharged in good condition. Objective Data Objective Data Vital Signs: Vital Signs Temp Pulse Resp BP 97.7 F L 102 H 15 92/55 L 11/10/23 09:44 11/10/23 09:44 11/10/23 09:44 11/10/23 09:44 Exam Physical Exam Const alert, oriented x3, no apparent distress and well nourished General Appearance: cooperative and well developed HEENT normocephalic Head and Scalp: atraumatic Eyes EOMs intact bilaterally Resp normal respiratory effort, no use of accessory muscles and clear to auscultation bilaterally Effort and Inspection: able to speak in complete sentences Psych affect normal Appearance: grossly normal and well kempt Speech: normal speech Charges/Coding [facility] Procedures HBO Supervision: [id number] Hyperbaric Oxygen; supervision Assessment/Plan Assessment/Plan (1) 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: CODE(S): L59.8 - Other specified disorders of the skin and subcutaneous tissue related to radiation; Y84.2 - Radiological procedure and radiotherapy as the cause of abnormal reaction of the patient, or of later complication, without mention of misadventure at the time of the procedure (2) Radiation necrosis of skin and subcutaneous: CODE(S): L59.8 - Other specified disorders of the skin and subcutaneous tissue related to radiation; Y84.2 - Radiological procedure and radiotherapy as the cause of abnormal reaction of the patient, or of later complication, without mention of misadventure at the time of the procedure (3) Delayed effect of radiation: CODE(S): T66.XXXS - Radiation sickness, unspecified, sequela (4) H/O colon cancer, stage IV: CODE(S): Z85.038 - Personal history of other malignant neoplasm of large intestine PLAN: Plan The patient appears to be tolerating hyperbaric oxygen therapy well, which will be continued as per the patient's medical treatment plan.
[2023-11-11 10:19] VITALS: BP 104/51; BP 90/58; PULSE 46; PULSE 94; RESP 14; RESP 15; TEMP 36.4; TEMP 36.8
--- NOTE | 2023-11-11 17:24 | PCM.HBO.PN ---
History of Present Illness Date of Service: 11/11/23 Chief Complaint: Radiation Fibrosis/Necrosis History of Wound: Ms. Griggs is a 43 yo who was referred to this facility by her oncologist due to persistent back pain from radiation injury. History of stage IV/metastatic colon cancer. Initial diagnosis was 7 years ago. Radiation therapy sessions were 2 years ago and repeated in September 2022. Since then, she has had intractable right-sided back pain. Modalities tried in the past include Celebrex, yoga, topical NSAIDs without any significant improvement. Sleep and daily functioning impaired due to pain. Last chemotherapy session was in January 2023. Progress of Wound: Ms. Griggs has had 21 sessions of hyperbaric oxygen treatment and has tolerated these sessions well. She has had no complications from hyperbaric oxygen therapy. Pain is still present but has noted significant improvement in pain. She states that her sleep has been better and she is using less pain medications since she started hyperbaric oxygen treatments. She has no new concerns at this time Subjective Subjective The patient presented today for her 22nd session of hyperbaric oxygen therapy of a scheduled total 30 sessions. Hyperbaric oxygen therapy was administered for a total of 90 minutes at 2 aditi with no air breaks. The patient tolerated the hyperbaric oxygen therapy without complaints or complications. Upon emergence from the hyperbaric chamber, the patient's vital signs remained stable. The patient was discharged in good condition. Objective Data Objective Data Vital Signs: Vital Signs Temp Pulse Resp BP 98.2 F 94 14 90/58 L 11/11/23 10:19 11/11/23 10:19 11/11/23 10:19 11/11/23 10:19 Exam Physical Exam Const alert, oriented x3, no apparent distress and well nourished General Appearance: cooperative and well developed HEENT normocephalic Head and Scalp: atraumatic Eyes EOMs intact bilaterally Resp normal respiratory effort, no use of accessory muscles and clear to auscultation bilaterally Effort and Inspection: able to speak in complete sentences Psych affect normal Appearance: grossly normal and well kempt Speech: normal speech Charges/Coding [facility] Procedures HBO Supervision: [id number] Hyperbaric Oxygen; supervision Assessment/Plan Assessment/Plan (1) 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: CODE(S): L59.8 - Other specified disorders of the skin and subcutaneous tissue related to radiation; Y84.2 - Radiological procedure and radiotherapy as the cause of abnormal reaction of the patient, or of later complication, without mention of misadventure at the time of the procedure (2) Radiation necrosis of skin and subcutaneous: CODE(S): L59.8 - Other specified disorders of the skin and subcutaneous tissue related to radiation; Y84.2 - Radiological procedure and radiotherapy as the cause of abnormal reaction of the patient, or of later complication, without mention of misadventure at the time of the procedure (3) Delayed effect of radiation: CODE(S): T66.XXXS - Radiation sickness, unspecified, sequela (4) H/O colon cancer, stage IV: CODE(S): Z85.038 - Personal history of other malignant neoplasm of large intestine PLAN: Plan The patient appears to be tolerating hyperbaric oxygen therapy well, which will be continued as per the patient's medical treatment plan.
[2023-11-12 10:22] VITALS: BP 101/61; BP 83/50; PULSE 48; PULSE 54; RESP 14; RESP 15; TEMP 36.9; TEMP 37
--- NOTE | 2023-11-12 12:06 | PCM.HBO.PN ---
History of Present Illness Date of Service: 11/12/23 Chief Complaint: Radiation Fibrosis/Necrosis History of Wound: Ms. Griggs is a 43 yo who was referred to this facility by her oncologist due to persistent back pain from radiation injury. History of stage IV/metastatic colon cancer. Initial diagnosis was 7 years ago. Radiation therapy sessions were 2 years ago and repeated in September 2022. Since then, she has had intractable right-sided back pain. Modalities tried in the past include Celebrex, yoga, topical NSAIDs without any significant improvement. Sleep and daily functioning impaired due to pain. Last chemotherapy session was in January 2023. Progress of Wound: Ms. Griggs has had 21 sessions of hyperbaric oxygen treatment and has tolerated these sessions well. She has had no complications from hyperbaric oxygen therapy. Pain is still present but has noted significant improvement in pain. She states that her sleep has been better and she is using less pain medications since she started hyperbaric oxygen treatments. She has no new concerns at this time Subjective Subjective No concerns Objective Data Objective Data Vital signs are stable patient tolerated #23 of 30 treatments well Vital Signs: Vital Signs Temp Pulse Resp BP 98.4 F 48 L 15 83/50 L 11/12/23 10:22 11/12/23 10:22 11/12/23 10:22 11/12/23 10:22 Exam Physical Exam Const alert, oriented x3 and no apparent distress General Appearance: cooperative HEENT normocephalic and TM's normal bilaterally Head and Scalp: atraumatic Eyes General Eye: normal appearance of both eyes Resp normal respiratory effort, no use of accessory muscles and clear to auscultation bilaterally Effort and Inspection: able to speak in complete sentences Cardio regular rate and regular rhythm Psych affect normal Assessment/Plan Assessment/Plan (1) 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: CODE(S): L59.8 - Other specified disorders of the skin and subcutaneous tissue related to radiation; Y84.2 - Radiological procedure and radiotherapy as the cause of abnormal reaction of the patient, or of later complication, without mention of misadventure at the time of the procedure (2) Radiation necrosis of skin and subcutaneous: CODE(S): L59.8 - Other specified disorders of the skin and subcutaneous tissue related to radiation; Y84.2 - Radiological procedure and radiotherapy as the cause of abnormal reaction of the patient, or of later complication, without mention of misadventure at the time of the procedure (3) Delayed effect of radiation: CODE(S): T66.XXXS - Radiation sickness, unspecified, sequela (4) H/O colon cancer, stage IV: CODE(S): Z85.038 - Personal history of other malignant neoplasm of large intestine PLAN: Plan The patient appears to be tolerating hyperbaric oxygen therapy well, which will be continued as per the patient's medical treatment plan.
[2023-11-14 08:19] VITALS: BP 104/73; BP 107/64; PULSE 61; PULSE 67; RESP 18; TEMP 36.6; TEMP 36.8
--- NOTE | 2023-11-14 11:34 | PCM.HBO.PN ---
History of Present Illness Date of Service: 11/14/23 Chief Complaint: Radiation Fibrosis/Necrosis History of Wound: Ms. Griggs is a 43 yo who was referred to this facility by her oncologist due to persistent back pain from radiation injury. History of stage IV/metastatic colon cancer. Initial diagnosis was 7 years ago. Radiation therapy sessions were 2 years ago and repeated in September 2022. Since then, she has had intractable right-sided back pain. Modalities tried in the past include Celebrex, yoga, topical NSAIDs without any significant improvement. Sleep and daily functioning impaired due to pain. Last chemotherapy session was in January 2023. Progress of Wound: Ms. Griggs has had 23 sessions of hyperbaric oxygen treatment and has tolerated these sessions well. She has had no complications from hyperbaric oxygen therapy. Pain is still present but has noted significant improvement in pain. She states that her sleep has been better and she is using less pain medications since she started hyperbaric oxygen treatments. She has no new concerns at this time Subjective Subjective Patient presented today for her 24th session of hyperbaric oxygen therapy was scheduled for 30 such sessions. Hyperbaric oxygen therapy was administered as per the facility's protocol for a total of 90 minutes at 2 aditi with no air breaks. The patient tolerated the hyperbaric oxygen therapy without complaints or complications. Upon emergence from the hyperbaric chamber, the patient's vital signs remained stable. The patient was discharged in good condition. Objective Data Objective Data Vital Signs: Vital Signs Temp Pulse Resp BP 97.9 F 67 18 107/64 11/14/23 08:19 11/14/23 08:19 11/14/23 08:19 11/14/23 08:19 Exam Physical Exam Const alert, oriented x3, no apparent distress and well nourished General Appearance: cooperative and well developed HEENT normocephalic Head and Scalp: atraumatic Eyes EOMs intact bilaterally General Eye: normal appearance of both eyes Neck no JVD General: trachea midline Resp normal respiratory effort and no use of accessory muscles Effort and Inspection: able to speak in complete sentences Psych affect normal Appearance: grossly normal and well kempt Speech: normal speech Charges/Coding W[facility] Procedures HBO Supervision: [id number] Hyperbaric Oxygen; supervision Assessment/Plan Assessment/Plan (1) 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: CODE(S): L59.8 - Other specified disorders of the skin and subcutaneous tissue related to radiation; Y84.2 - Radiological procedure and radiotherapy as the cause of abnormal reaction of the patient, or of later complication, without mention of misadventure at the time of the procedure (2) Radiation necrosis of skin and subcutaneous: CODE(S): L59.8 - Other specified disorders of the skin and subcutaneous tissue related to radiation; Y84.2 - Radiological procedure and radiotherapy as the cause of abnormal reaction of the patient, or of later complication, without mention of misadventure at the time of the procedure (3) Delayed effect of radiation: CODE(S): T66.XXXS - Radiation sickness, unspecified, sequela (4) H/O colon cancer, stage IV: CODE(S): Z85.038 - Personal history of other malignant neoplasm of large intestine PLAN: Plan The patient appears to be tolerating hyperbaric oxygen therapy well, which will be continued as per the patient's medical treatment plan.
[2023-12-01 10:37] VITALS: BP 102/69; BP 113/71; PULSE 53; PULSE 70; RESP 16; TEMP 36.4; TEMP 36.5
--- NOTE | 2023-12-01 10:54 | PCM.HBO.PN ---
History of Present Illness Date of Service: 12/01/23 Chief Complaint: Radiation Fibrosis/Necrosis History of Wound: Ms. Griggs is a 43 yo who was referred to this facility by her oncologist due to persistent back pain from radiation injury. History of stage IV/metastatic colon cancer. Initial diagnosis was 7 years ago. Radiation therapy sessions were 2 years ago and repeated in September 2022. Since then, she has had intractable right-sided back pain. Modalities tried in the past include Celebrex, yoga, topical NSAIDs without any significant improvement. Sleep and daily functioning impaired due to pain. Last chemotherapy session was in January 2023. Progress of Wound: Patient presented today for her 25th session of hyperbaric oxygen therapy was scheduled for 30 such sessions. Hyperbaric oxygen therapy was administered as per the facility's protocol for a total of 90 minutes at 2 aditi with no air breaks. The patient tolerated the hyperbaric oxygen therapy without complaints or complications. Upon emergence from the hyperbaric chamber, the patient's vital signs remained stable. The patient was discharged in good condition. Objective Data Objective Data Vital Signs: Vital Signs Temp Pulse Resp BP 97.7 F L 70 16 113/71 12/01/23 10:37 12/01/23 10:37 12/01/23 10:37 12/01/23 10:37 Exam Physical Exam Const alert, oriented x3 and no apparent distress General Appearance: cooperative HEENT normocephalic and TM's normal bilaterally Head and Scalp: atraumatic Eyes General Eye: normal appearance of both eyes Resp normal respiratory effort, no use of accessory muscles and clear to auscultation bilaterally Effort and Inspection: able to speak in complete sentences Cardio regular rate and regular rhythm Psych affect normal Nursing Assessment and Debridement Post-Debridement Measurements and Additional Note: Post-Debridement Measurements/Treatment WC - Nurse 3 - General Ulcer D/C NN Start: 11/10/23 09:44 Freq: Status: Active Protocol: Activity Type Activity Date Activity User E-sign Co-sign Detail Recorded Client Recorded Date Recorded By Document 12/01/23 10:37 JF 000 12/01/23 10:40 JF 12/01/23 10:37 Pain Scale: 0-10 Numeric Is Patient Pain Free? 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: CODE(S): L59.8 - Other specified disorders of the skin and subcutaneous tissue related to radiation; Y84.2 - Radiological procedure and radiotherapy as the cause of abnormal reaction of the patient, or of later complication, without mention of misadventure at the time of the procedure (2) Radiation necrosis of skin and subcutaneous: CODE(S): L59.8 - Other specified disorders of the skin and subcutaneous tissue related to radiation; Y84.2 - Radiological procedure and radiotherapy as the cause of abnormal reaction of the patient, or of later complication, without mention of misadventure at the time of the procedure (3) Delayed effect of radiation: CODE(S): T66.XXXS - Radiation sickness, unspecified, sequela (4) H/O colon cancer, stage IV: CODE(S): Z85.038 - Personal history of other malignant neoplasm of large intestine PLAN: Plan The patient appears to be tolerating hyperbaric oxygen therapy well, which will be continued as per the patient's medical treatment plan.
[2023-12-10 12:20] VITALS: BP 102/68; BP 114/74; PULSE 59; PULSE 65; RESP 16; TEMP 36.7
--- NOTE | 2023-12-10 12:32 | PCM.HBO.PN ---
History of Present Illness Date of Service: 12/10/23 Chief Complaint: Radiation Fibrosis/Necrosis History of Wound: Ms. Griggs is a 43 yo who was referred to this facility by her oncologist due to persistent back pain from radiation injury. History of stage IV/metastatic colon cancer. Initial diagnosis was 7 years ago. Radiation therapy sessions were 2 years ago and repeated in September 2022. Since then, she has had intractable right-sided back pain. Modalities tried in the past include Celebrex, yoga, topical NSAIDs without any significant improvement. Sleep and daily functioning impaired due to pain. Last chemotherapy session was in January 2023. Progress of Wound: Patient presented today for her 25th session of hyperbaric oxygen therapy was scheduled for 30 such sessions. Hyperbaric oxygen therapy was administered as per the facility's protocol for a total of 90 minutes at 2 aditi with no air breaks. The patient tolerated the hyperbaric oxygen therapy without complaints or complications. Upon emergence from the hyperbaric chamber, the patient's vital signs remained stable. The patient was discharged in good condition. Subjective Subjective No concerns and doing well Objective Data Objective Data Vital signs stable and patient voiced no concerns finished her 2 hours with no incident Vital Signs: Vital Signs Temp Pulse Resp BP 97.7 F L 70 16 113/71 12/01/23 10:37 12/01/23 10:37 12/01/23 10:37 12/01/23 10:37 Exam Physical Exam Const alert, oriented x3 and no apparent distress General Appearance: cooperative HEENT normocephalic and TM's normal bilaterally Head and Scalp: atraumatic Eyes General Eye: normal appearance of both eyes Resp normal respiratory effort, no use of accessory muscles and clear to auscultation bilaterally Effort and Inspection: able to speak in complete sentences Cardio regular rate and regular rhythm Psych affect normal Assessment/Plan Assessment/Plan (1) 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: CODE(S): L59.8 - Other specified disorders of the skin and subcutaneous tissue related to radiation; Y84.2 - Radiological procedure and radiotherapy as the cause of abnormal reaction of the patient, or of later complication, without mention of misadventure at the time of the procedure (2) Radiation necrosis of skin and subcutaneous: CODE(S): L59.8 - Other specified disorders of the skin and subcutaneous tissue related to radiation; Y84.2 - Radiological procedure and radiotherapy as the cause of abnormal reaction of the patient, or of later complication, without mention of misadventure at the time of the procedure (3) Delayed effect of radiation: CODE(S): T66.XXXS - Radiation sickness, unspecified, sequela (4) H/O colon cancer, stage IV: CODE(S): Z85.038 - Personal history of other malignant neoplasm of large intestine PLAN: Plan The patient appears to be tolerating hyperbaric oxygen therapy well, which will be continued as per the patient's medical treatment plan.
== END 2023-12-10 23:59 | disposition home or self-care (01) ==
LOC: WC 10:15
PROVIDERS: Visit Provider Internal Medicine
DX: L59.8 Other specified disorders of the skin and subcutaneous tissue related to radiation (principal); M54.9 Dorsalgia, unspecified; Y84.2 Radiological procedure and radiotherapy as the cause of abnormal reaction of the patient, or of later complication, without mention of misadventure at the time of the procedure; Z79.899 Other long term (current) drug therapy; Z85.038 Personal history of other malignant neoplasm of large intestine; Z92.3 Personal history of irradiation; Z92.21 Personal history of antineoplastic chemotherapy
CPT/HCPCS: 99183; G0277

== ENCOUNTER 2023-12-15 10:00 | Outpatient (RCR) | payer OTHER, SELFPAY ==
[2023-12-11 00:37] VITALS: BP 106/64; BP 96/58; BP 99/55; PULSE 53; PULSE 63; PULSE 66; RESP 14; RESP 18; TEMP 35.9; TEMP 36.5; TEMP 36.6
--- NOTE | 2023-12-11 11:57 | HBO.PN.PCM_ITS ---
History of Present Illness Date of Service: 12/11/23 Chief Complaint: Radiation Fibrosis/Necrosis History of Wound: Ms. Griggs is a 43 yo who was referred to this facility by her oncologist due to persistent back pain from radiation injury. History of stage IV/metastatic colon cancer. Initial diagnosis was 7 years ago. Radiation therapy sessions were 2 years ago and repeated in September 2022. Since then, she has had intractable right-sided back pain. Modalities tried in the past include Celebrex, yoga, topical NSAIDs without any significant improvement. Sleep and daily functioning impaired due to pain. Last chemotherapy session was in January 2023. Progress of Wound: HBO Progress: This presents the th HBO session. Tolerance of hyperbaric oxygen therapy: Hyperbaric oxygen treatment was administered as per the facility's protocol at 2.0 GILMA in 100% oxygen for 90 minutes without air breaks. The patient tolerated hyperbaric oxygen well without complications or complaints. Upon emergence from the hyperbaric chamber, her vitals signs remained stable and she was discharged in stable condition. Objective Data Objective Data Vital Signs: Vital Signs Temp Pulse Resp BP 97.9 F 66 14 96/58 L 12/11/23 00:37 12/11/23 00:37 12/11/23 00:37 12/11/23 00:37 Exam Physical Exam Const alert, oriented x3 and no apparent distress General Appearance: cooperative, comfortable and well kempt HEENT normocephalic and head/scalp atraumatic External Ear: external ears normal Tympanic Membrane: TM's normal bilaterally Eyes EOMs intact bilaterally Neck full ROM and supple General: normal visual inspection Resp normal respiratory effort Effort and Inspection: able to speak in complete sentences Neuro oriented x3, CN's II-XII intact bilaterally, moves all extremities and no focal motor deficits Psych mental status grossly normal, thought process normal, cooperative, affect normal and speech normal Charges/Coding W[facility] Procedures HBO Supervision: [id number] Hyperbaric Oxygen; supervision Assessment/Plan Assessment/Plan (1) Radiation necrosis of skin and subcutaneous: CODE(S): L59.8 - Other specified disorders of the skin and subcutaneous tissue related to radiation; Y84.2 - Radiological procedure and radiotherapy as the cause of abnormal reaction of the patient, or of later complication, without mention of misadventure at the time of the procedure (2) Delayed effect of radiation: CODE(S): T66.XXXS - Radiation sickness, unspecified, sequela (3) H/O colon cancer, stage IV: CODE(S): Z85.038 - Personal history of other malignant neoplasm of large intestine (4) 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 This note was generated with [employer] dictation software. It may contain incorrect words, spelling, and punctuation that were not noted in checking the note before signing.
[2023-12-11 12:10] VITALS: BP 110/73; BP 115/86; PULSE 54; PULSE 64; RESP 14; RESP 17; TEMP 36.8; TEMP 37.4
[2023-12-12 10:16] VITALS: BP 104/73; BP 127/72; PULSE 60; PULSE 77; RESP 15; TEMP 36.4; TEMP 37.4
--- NOTE | 2023-12-12 13:26 | PCM.HBO.PN ---
History of Present Illness Date of Service: 12/12/23 Chief Complaint: Radiation Fibrosis/Necrosis History of Wound: Ms. Griggs is a 43 yo who was referred to this facility by her oncologist due to persistent back pain from radiation injury. History of stage IV/metastatic colon cancer. Initial diagnosis was 7 years ago. Radiation therapy sessions were 2 years ago and repeated in September 2022. Since then, she has had intractable right-sided back pain. Modalities tried in the past include Celebrex, yoga, topical NSAIDs without any significant improvement. Sleep and daily functioning impaired due to pain. Last chemotherapy session was in January 2023. Progress of Wound: HBO Progress: This presents the 28th HBO session of 60 planned sessions. Tolerance of hyperbaric oxygen therapy: Hyperbaric oxygen treatment was administered as per the facility's protocol at 2.0 GILMA in 100% oxygen for 90 minutes without air breaks. The patient tolerated hyperbaric oxygen well without complications or complaints. Upon emergence from the hyperbaric chamber, her vitals signs remained stable and she was discharged in stable condition. Objective Data Objective Data Vital Signs: Vital Signs Temp Pulse Resp BP 99.4 F H 77 15 104/73 12/12/23 10:16 12/12/23 10:16 12/12/23 10:16 12/12/23 10:16 Exam Physical Exam Const alert, oriented x3 and no apparent distress General Appearance: cooperative, comfortable and well kempt HEENT normocephalic and head/scalp atraumatic External Ear: external ears normal Tympanic Membrane: TM's normal bilaterally Eyes EOMs intact bilaterally Neck full ROM and supple General: normal visual inspection Resp normal respiratory effort Effort and Inspection: able to speak in complete sentences Neuro oriented x3, CN's II-XII intact bilaterally, moves all extremities and no focal motor deficits Psych mental status grossly normal, thought process normal, cooperative, affect normal and speech normal Assessment/Plan Assessment/Plan (1) Radiation necrosis of skin and subcutaneous: CODE(S): L59.8 - Other specified disorders of the skin and subcutaneous tissue related to radiation; Y84.2 - Radiological procedure and radiotherapy as the cause of abnormal reaction of the patient, or of later complication, without mention of misadventure at the time of the procedure (2) H/O colon cancer, stage IV: CODE(S): Z85.038 - Personal history of other malignant neoplasm of large intestine (3) 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
[2023-12-15 10:57] VITALS: BP 101/52; BP 112/70; PULSE 59; PULSE 61; RESP 14; RESP 16; TEMP 36.7; TEMP 37.2
--- NOTE | 2023-12-15 17:18 | PCM.HBO.PN ---
History of Present Illness Date of Service: 12/15/23 Chief Complaint: Radiation Fibrosis/Necrosis History of Wound: Ms. Griggs is a 43 yo who was referred to this facility by her oncologist due to persistent back pain from radiation injury. History of stage IV/metastatic colon cancer. Initial diagnosis was 7 years ago. Radiation therapy sessions were 2 years ago and repeated in September 2022. Since then, she has had intractable right-sided back pain. Modalities tried in the past include Celebrex, yoga, topical NSAIDs without any significant improvement. Sleep and daily functioning impaired due to pain. Last chemotherapy session was in January 2023. Progress of Wound: HBO Progress: This presents the 29th HBO session of 60 planned sessions. Tolerance of hyperbaric oxygen therapy: Hyperbaric oxygen treatment was administered as per the facility's protocol at 2.0 GILMA in 100% oxygen for 90 minutes without air breaks. The patient tolerated hyperbaric oxygen well without complications. She briefly experienced some left ear pain as the pressure was decreasing. They paused the decrease of pressure for a few minutes, she yawned and her ear popped. After that she no longer had any issues. Upon emergence from the hyperbaric chamber, her vitals signs remained stable and she was discharged in stable condition. Her left TM was normal upon emergence from the chamber. She states that she had a little bit of runny nose this morning but denied congestion. Will monitor this closely. Objective Data Objective Data Vital Signs: Vital Signs Temp Pulse Resp BP 98.1 F 59 L 16 101/52 L 12/15/23 10:57 12/15/23 10:57 12/15/23 10:57 12/15/23 10:57 Exam Physical Exam Const alert, oriented x3 and no apparent distress General Appearance: cooperative HEENT normocephalic and TM's normal bilaterally Head and Scalp: atraumatic Eyes General Eye: normal appearance of both eyes Resp normal respiratory effort, no use of accessory muscles and clear to auscultation bilaterally Effort and Inspection: able to speak in complete sentences Cardio regular rate and regular rhythm Psych affect normal Charges/Coding Wound [facility] Procedures HBO Supervision: [id number] Hyperbaric Oxygen; supervision Assessment/Plan Assessment/Plan (1) Radiation necrosis of skin and subcutaneous: CODE(S): L59.8 - Other specified disorders of the skin and subcutaneous tissue related to radiation; Y84.2 - Radiological procedure and radiotherapy as the cause of abnormal reaction of the patient, or of later complication, without mention of misadventure at the time of the procedure (2) H/O colon cancer, stage IV: CODE(S): Z85.038 - Personal history of other malignant neoplasm of large intestine (3) 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
== END 2024-01-10 23:59 | disposition home or self-care (01) ==
LOC: WC 10:00
PROVIDERS: Visit Provider Internal Medicine
DX: L59.8 Other specified disorders of the skin and subcutaneous tissue related to radiation (principal); M54.9 Dorsalgia, unspecified; Y84.2 Radiological procedure and radiotherapy as the cause of abnormal reaction of the patient, or of later complication, without mention of misadventure at the time of the procedure; Z79.899 Other long term (current) drug therapy; Z85.038 Personal history of other malignant neoplasm of large intestine; Z92.21 Personal history of antineoplastic chemotherapy
CPT/HCPCS: 99183; G0277

== ENCOUNTER → 2025-01-17 | Outpatient (CLI) | payer OTHER, SELFPAY ==
[2025-01-17 12:47] LABS: AST(SGOT) 76 U/L (<=31); Alanine Aminotransfer ALT/SGPT 181 U/L (<=34); Albumin, Serum 4.3 g/dL (3.5-5.0); Alkaline Phosphatase 226 U/L (35-104); Anion Gap 11 (5-15); BUN 11 mg/dL (4-19); BUN/Creat Ratio 16.7 RATIO (10-20); Calcium,Total 9.1 mg/dL (7.6-11.0); Carbon Dioxide 25.6 mmol/L (21.0-32.0); Chloride 105 mmol/L (98-108); Globulin 2.6 g/dL (2.2-4.2); Glucose 117 mg/dL (70-99); Potassium 4.0 mmol/L (3.3-5.1)
--- OUTSIDE RECORDS SUMMARY | 2025-01-17 18:43 | XMS RPT_ITS | CCD ---
Author Organization [facility] Care Team Providers Care Brass Burnisher Name Role Phone ZOHRA MELISSA C Unavailable Unavailable ZOHRA MELISSA C Unavailable Unavailable Sánchez Acosta Unavailable Unavailable Cortes Palomino Unavailable Unavailable Sánchez Acosta Unavailable Unavailable Care Physician, No Primary Primary Care Provider Unavailable Care Physician, No Primary Referring Provider Un available COBY Cerda Attending Provider Care Physician, No Primary Primary Care Provider Unavailable Dr. Haresh Alejandra Attending Provider Care Physician, No Primary Referring Provider Un available Dr. Monty Wheeler Attending Provider PHYSICIAN, NONE Primary Care Physician Unavailab KARINA Collado MD Attending Unavailable PHYSICIAN, NONE Primary Care Unavailable AZIZA KAPLAN Attending Unavailable PHYSICIAN, NONE Primary Care Unavailable KARINA CASTRO MD Attending Unavailable PHYSICIAN, NONE Primary Care Unavailable Sánchez Acosta DO Primary Care Provider [phone] KAYY KIRK Attending Unavailable SÁNCHEZ ACOSTA Primary Care Unavailable JUAN NAVARRETE Referring Unavailable JUAN NAVARRETE Referring Unavailable SÁNCHEZ ACOSTA Primary Care Unavailable LOAN JIN Attending Unavailab SÁNCHEZ Irizarry Primary Care Unavailable JEANETTE VENTURA Referring UnavailSÁNCHEZ Hernández Primary Care Unavailable SELF Referring Unavailable JUAN NAVARRETE Attending Unavailable Care Physician, No Primary Primary Care Unava ilable Dwayne Rutherford Attending Unavailable Care Physician, No Primary Referring Unava ilable Care Physician, No Primary Primary Care Unava ilable CHAIM, SAVANAH Referring Unavailable CHAIM, SAVANAH Attending Unavailable Care Physician, No Primary Primary Care Unava ilable CHAIM, SAVANAH Attending Unavailable Allergies Allergy Classification Reported Allergen(s) Allergy Type Date of Onset Reaction(s) Facility (6 sources) OLANZapine; Translations: [OLANZAPINE] Drug Allergy 12-03-2023 Other: See Comments [facility] (2 sources) Oseltamivir; Translations: [OSELTAMIVIR] Drug Allergy 07-05-2024 Other: See Comments [facility] Medications Current Medications Medication Drug Class(es) Dates Sig (Normalized) Sig (Original) acetaminophen 325 mg / HYDROcodone bitartrate 5 mg oral tablet (1 source) Opioid Agonist Start: 06-11-2022 End: 06-16-2022 take 1 tablet by mouth every four hours as needed for pain [place] 325- 5 mg oral tablet Dose = 1 tab(s), Oral, q4h, PRN for pain, X 5 day(s), # 15 tab(s), 0 Refill(s), Fracture of humerus, 56.8 Start Date: 06/11/22 Stop Date: 06/16/22 Status: Ordered amoxicillin 500 mg oral tablet (1 source) Penicillin-class Antibacterial Start: 03-18-2023 take 500 mg by mouth three times daily Amoxicillin Active 500 MG PO THREE TIMES A DAY March 18, 2023 1:00am Betaine HCL Pepsin (Pure Encapsulations) supports digestion of protein (9 sources) Start: 04-17-2020 Betaine HCL Pepsin (Pure Encapsulations) supports digestion of protein 15 min before meals- Start with one capsule and each protein meal work up (max 5) if you feel warmth or upset stomach back down to a lower dose and that is your dose for that size protein meal. 250 capsule 04/17/2020 Active doxycycline hyclate 100 mg oral capsule (2 sources) Tetracycline-class Drug Start: 10-21-2017 doxycycline hyclate 100 mg oral capsule Dose : 100 mg = 1 cap(s), Oral, BID, # 20 cap(s), 0 Refill(s) Start Date: 10/21/17 Status: Ordered G.I. Benefits (DaVinci) (9 sources) Start: 04-17-2020 G.I. Benefits (DaVinci) As a dietary supplement, mix one scoop with cold water or juice once or twice daily, or as directed by your health care practitioner. 04/17/2020 Active iv contrast (will be provided with radiology test) (8 sources) Start: 06-07-2024 End: 07-09-2024 iv contrast (will be provided with radiology test) Indications: Colon carcinoma metastatic to liver (HCC) MRI Liver Inject, intravenously, once for 1 dose. No IV access, insert saline lock prior to the beginning of sedation, infusion, injection of imaging exam. Discontinue saline lock post exam. If Pt. has a central line or IVAD, may access for administration according to line specific nursing protocol. Once exam is complete flush line and de-access according to line specific nursing protocol in the MR contrast administration guidelines link. 1 Each 06/07/2024 07/09/2024 Active magnesium citrate (9 sources) Start: 04-17-2020 Magnesium Citrate 150mg (Pure Encapsulations) Take 4 capsules daily. Increase 1 tab daily until daily BM 04/17/2020 Active Meriva-SF (Raheem) (9 sources) Start: 04-17-2020 take 2 capsules by mouth twice daily Meriva-SF (Raheem) Take 2 capsules by mouth twice daily. 04/17/2020 Active Nirmatrelvir-Ritona vir (1 source) Start: 01-06-2023 Nirmatrelvir-Ritona vir (Paxlovid) 300 mg (150 mg x 2)-100 mg tablets,dose pack Active 0 PO .COMPLEX January 06, 2023 12:00am take TWO 150 mg tablets of nirmatrelvir with ONE 100 mg tablet of ritonavir twice daily for 5 days PO omeprazole 40 mg delayed release oral capsule (9 sources) Proton Pump Inhibitor Start: 06-20-2021 take 40 mg by mouth once daily Omeprazole Active 40 MG PO DAILY June 20, 2021 1:00am ursodiol 300 mg oral capsule (9 sources) Bile Acid Start: 04-03-2020 take 1 capsule by mouth twice daily ursodiol (ACTIGALL) 300 mg capsule Take 300 mg by mouth twice daily. 04/03/2020 Active Completed/Discontinued Medications Medication Drug Class(es) Dates Sig (Normalized) Sig (Original) esomeprazole 20 mg delayed release oral capsule (5 sources) Proton Pump Inhibitor Start: 01-08-2018 End: 04-01-2019 take 20 mg by mouth once daily Esomeprazole Magnesium Discontinued 20 MG PO DAILY January 08, 2018 12:00am April 01, 2019 11:37am LORazepam 1 mg oral tablet (5 sources) Benzodiazepine Start: 04-01-2019 End: 07-20-2019 take 1 tablet by mouth at bedtime Lorazepam (Ativan) 1 mg tablet Discontinued 1 MG PO AT BEDTIME April 01, 2019 1:00am July 20, 2019 1:13pm minocycline 50 mg oral capsule (1 source) Tetracycline-class Drug Start: 07-21-2022 End: 10-28-2022 take 50 mg by mouth twice daily Minocycline Discontinued 50 MG PO TWICE A DAY July 21, 2022 1:00am October 28, 2022 2:19pm sucralfate 100 mg/ml oral suspension (5 sources) Aluminum Complex Start: 04-01-2019 End: 07-20-2019 take 1 g by mouth four times daily Sucralfate (Carafate) 100 mg/mL suspension Discontinued 1 GM PO .qid April 01, 2019 1:00am July 20, 2019 1:13pm Problems Active Problems Problem Classification Problem Date Documented Da te Episodic/Chronic Acute bronchitis (5 sources) Acute bronchitis; Translations: [Acute bronchitis, unspecified] 07-20-2019 Episodic Adjustment disorders (1 source) Adjustment disorder with mixed anxiety and depressed mood; Translations: [Adjustment disorder with mixed anxiety and depressed mood] 07-05-2024 Chronic Cancer of colon (20 sources) Malignant neoplasm of colon, unspecified; Translations: [Malignant tumor of colon] Onset: 06-05-2017 10-21-2017 Chronic Complications of surgical procedures or medical care (9 sources) Postsurgical menopause; Translations: [Asymptomatic postprocedural ovarian failure] Onset: 04-17-2020 04-17-2020 Chronic Fracture of upper limb (1 source) Closed fracture of shaft of humerus; Translations: [Unspecified fracture of shaft of humerus, unspecified arm, initial encounter for closed fracture] Onset: 06-11-2022 Episodic Immunizations and screening for infectious disease (6 sources) Patient encounter status; Translations: [Encounter for screening for COVID-19] Episodic Neoplasms of unspecified nature or uncertain behavior (5 sources) Neoplasm of lung ; Translations: [Neoplasm of unspecified behavior of respiratory system] 06-18-2021 Episodic Other bone disease and musculoskeletal deformities (5 sources) Segmental and somatic dysfunction; Translations: [Segmental and somatic dysfunction of thoracic region] 04-01-2019 Episodic Other connective tissue disease (1 source) Adhesive capsulitis of left shoulder; Translations: [Adhesive capsulitis of left shoulder] 10-28-2022 Episodic Other gastrointestinal disorders (9 sources) Irritable bowel syndrome; Translations: [Mixed irritable bowel syndrome] Onset: 04-17-2020 04-17-2020 Chronic Other injuries and conditions due to external causes (2 sources) Injury of wrist; Translations: [Unspecified injury of left wrist, hand and finger(s), initial encounter] Episodic Other injuries and conditions due to external causes (1 source) Injury of left wrist; Translations: [Unspecified injury of left wrist, hand and finger(s), initial encounter] 2022 Episodic Other liver diseases (1 source) Liver mass; Translations: [Hepatomegaly, not elsewhere classified] 06-07-2024 Episodic Other lower respiratory disease (6 sources) Cough; Translations: [Acute cough] Episodic Residual codes; unclassified (1 source) Reduced libido; Translations: [Decreased libido] 07-05-2024 Episodic Secondary malignancies (1 source) Secondary malignant neoplasm of unspecified ovary; 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] Onset: 06-05-2017 Chronic Secondary malignancies (1 source) Secondary malignant neoplasm of liver and intrahepatic bile duct; Translations: [Colon cancer metastasized to liver (HCC)] Onset: 04-17-2020 Chronic Spondylosis; intervertebral disc disorders; other back problems (5 sources) Thoracic neuritis; Translations: [Radiculopathy, thoracic region] 04-01-2019 Episodic Sprains and strains (5 sources) Sprain of wrist; Translations: [Unspecified sprain of left wrist, initial encounter] Episodic Unclassified (3 sources) Malignant neoplasm of colon, [...] intrahepatic bile duct / C78.7(ICD-10) Onset: 06-05-2017 Viral infection (6 sources) Disease caused by 2019-nCoV; Translations: [COVID-19] Episodic Past or Other Problems Problem Classification Problem Date Documented Da te Episodic/Chronic Allergic reactions (10 sources) Propensity to adverse reaction; Translations: [Other allergy status, other than to drugs and biological substances] Onset: 04-17-2020 04-17-2020 Episodic Cancer of colon (4 sources) History of malignant neoplasm of colon; Translations: [Personal history of other malignant neoplasm of large intestine] Onset: 01-11-2024 06-10-2024 Episodic E Codes: Adverse effects of medical care (1 source) Radiological procedure and radiotherapy as the cause of abnormal reaction of the patient, or of later complication, without mention of misadventure at the time of the procedure; Translations: [Radiological procedure and radiotherapy as the cause of abnormal reaction of the patient, or of later complication, without mention of misadventure at the time of the procedure] Onset: 01-11-2024 Episodic Malaise and fatigue (9 sources) Fatigue; Translations: [Other fatigue] Onset: 04-17-2020 04-17-2020 Episodic Other hematologic conditions (9 sources) History of anemia; Translations: [Personal history of diseases of the blood and blood-forming organs and certain disorders involving the immune mechanism] Onset: 04-17-2020 04-17-2020 Episodic Other injuries and conditions due to external causes (1 source) Radiation sickness, unspecified, sequela; Translations: [Radiation sickness, unspecified, sequela] Onset: 01-11-2024 Episodic Other non-traumatic joint disorders (9 sources) Joint pain; Translations: [Pain in unspecified joint] Onset: 04-17-2020 04-17-2020 Episodic Residual codes; unclassified (9 sources) Contact with and (suspected) exposure to mold (toxic); Translations: [Contact with and (suspected) exposure to mold] Onset: 04-17-2020 04-17-2020 Episodic Residual codes; unclassified (9 sources) Family history of cancer; Translations: [Family history of malignant neoplasm, unspecified] Onset: 04-17-2020 04-17-2020 Episodic Residual codes; unclassified (9 sources) Difficulty sleeping ; Translations: [Sleep deprivation] Onset: 04-17-2020 04-17-2020 Episodic Screening and history of mental health and substance abuse codes (9 sources) History of eating disorder; Translations: [Personal history of other mental and behavioral disorders] Onset: 04-17-2020 04-17-2020 Episodic Results Test Name Value Interpretation Reference Range Facility Comprehensive Metabolic Prof [facility] 01-14-2025 Albumin [Mass/Vol] 4.4 g/dL Normal 3.5-5.0 [facility] Comment on above: Performed By: #### L 501.4700, L501.2300, L504.2610, L100.0100, L501.2400, L500.4050, L100.9950, L501.1400, L501.5101, L501.2450, L501.5200 #### [facility] [address] [place], [place], [phone] (912) Albumin/Globulin [Mass ratio] 1.7 {ratio} Normal 0.9-2.4 [facility] Comment on above: Performed By: #### L 501.4700, L501.2300, L504.2610, L100.0100, L501.2400, L500.4050, L100.9950, L501.1400, L501.5101, L501.2450, L501.5200 #### [facility] [address] [place], [place], [id number] ALK PHOS 261 U/L High 35-104 [facility] Comment on above: Performed By: #### L 501.4700, L501.2300, L504.2610, L100.0100, L501.2400, L500.4050, L100.9950, L501.1400, L501.5101, L501.2450, L501.5200 #### [facility] [address] [place], [address] ALT [Catalytic activity/Vol] 256 U/L High <=34 [facility] Comment on above: Performed By: #### L 501.4700, L501.2300, L504.2610, L100.0100, L501.2400, L500.4050, L100.9950, L501.1400, L501.5101, L501.2450, L501.5200 #### [facility] [address] [place], [address] AST [Catalytic activity/Vol] 162 U/L High <=31 [facility] Comment on above: Performed By: #### L 501.4700, L501.2300, L504.2610, L100.0100, L501.2400, L500.4050, L100.9950, L501.1400, L501.5101, L501.2450, L501.5200 #### [facility] [address] [place], [place], [phone] (440) Bilirubin [Mass/Vol] 0.35 mg/dL Normal 0.00-1.30 [facility] Comment on above: Performed By: #### L 501.4700, L501.2300, L504.2610, L100.0100, L501.2400, L500.4050, L100.9950, L501.1400, L501.5101, L501.2450, L501.5200 #### [facility] [address] [place], [place], [phone] (106) BUN/CRE 11.1 RATIO Normal 10-20 [facility] Comment on above: Performed By: #### L 501.4700, L501.2300, L504.2610, L100.0100, L501.2400, L500.4050, L100.9950, L501.1400, L501.5101, L501.2450, L501.5200 #### [facility] [address] [place], [address] Calcium [Mass/Vol] 9.2 mg/dL Normal 7.6-11.0 [facility] Comment on above: Performed By: #### L 501.4700, L501.2300, L504.2610, L100.0100, L501.2400, L500.4050, L100.9950, L501.1400, L501.5101, L501.2450, L501.5200 #### [facility] [address] [place], [place], [phone] (145) Chloride [Moles/Vol] 104 mmol/L Normal 98-108 [facility] Comment on above: Performed By: #### L 501.4700, L501.2300, L504.2610, L100.0100, L501.2400, L500.4050, L100.9950, L501.1400, L501.5101, L501.2450, L501.5200 #### [facility] [address] [place], [place], [id number] CO2 [Moles/Vol] 24.8 mmol/L Normal 21.0-32.0 [facility] Comment on above: Performed By: #### L 501.4700, L501.2300, L504.2610, L100.0100, L501.2400, L500.4050, L100.9950, L501.1400, L501.5101, L501.2450, L501.5200 #### [facility] [address] [place], [place], [phone] (592) Creatinine [Mass/Vol] 0.62 mg/dL Low 0.70-1.20 [facility] Comment on above: Performed By: #### L 501.4700, L501.2300, L504.2610, L100.0100, L501.2400, L500.4050, L100.9950, L501.1400, L501.5101, L501.2450, L501.5200 #### [facility] [address] [place], [place], [id number] GAP 12 Normal 5-15 [facility] Comment on above: Performed By: #### L 501.4700, L501.2300, L504.2610, L100.0100, L501.2400, L500.4050, L100.9950, L501.1400, L501.5101, L501.2450, L501.5200 #### [facility] [address] [place], [place], [id number] (390) GFR/1.73 sq M.predicted among non-blacks MDRD (S/P/Bld) [Vol rate/Area] 112 mL/min/{1.73_m2} Normal >60 [facility] Comment on above: Result Comment: mL/m in/1.73m2 CKD-EPI Creatinine Equation (2020) Performed By: #### L 501.4700, L501.2300, L504.2610, L100.0100, L501.2400, L500.4050, L100.9950, L501.1400, L501.5101, L501.2450, L501.5200 #### [facility] [address] [place], [place], [phone] (532) Globulin (S) [Mass/Vol] 2.6 g/dL Normal 2.2-4.2 [facility] Comment on above: Performed By: #### L 501.4700, L501.2300, L504.2610, L100.0100, L501.2400, L500.4050, L100.9950, L501.1400, L501.5101, L501.2450, L501.5200 #### [facility] [address] [place], [place], [phone] (170) Glucose [Mass/Vol] 104 mg/dL High 70-99 [facility] Comment on above: Performed By: #### L 501.4700, L501.2300, L504.2610, L100.0100, L501.2400, L500.4050, L100.9950, L501.1400, L501.5101, L501.2450, L501.5200 #### [facility] [address] [place], [address] Potassium [Moles/Vol] 4.0 mmol/L Normal 3.3-5.1 [facility] Comment on above: Performed By: #### L 501.4700, L501.2300, L504.2610, L100.0100, L501.2400, L500.4050, L100.9950, L501.1400, L501.5101, L501.2450, L501.5200 #### [facility] [address] [place], [place], [phone] (755) Sodium [Moles/Vol] 140 mmol/L Normal 133-145 [facility] Comment on above: Performed By: #### L 501.4700, L501.2300, L504.2610, L100.0100, L501.2400, L500.4050, L100.9950, L501.1400, L501.5101, L501.2450, L501.5200 #### [facility] [address] [place], [place], [id number] T PROT 7.0 g/dL Normal 5.9-8.4 [facility] Comment on above: Performed By: #### L 501.4700, L501.2300, L504.2610, L100.0100, L501.2400, L500.4050, L100.9950, L501.1400, L501.5101, L501.2450, L501.5200 #### [facility] [address] [place], [address] Urea nitrogen [Mass/Vol] 7 mg/dL Normal 4-19 [facility] Comment on above: Performed By: #### L 501.4700, L501.2300, L504.2610, L100.0100, L501.2400, L500.4050, L100.9950, L501.1400, L501.5101, L501.2450, L501.5200 #### [facility] [address] [place], [place], [id number] L501.5101on 01-04-2025 GGTP 66 IU/L Abnormal 0-60 [facility] Comment on above: Result Comment: Perf ormed at: [facility] [id number] Mechanical Expert: Romaine Hernandez PhD, Phone: [phone] Performed By: #### L 501.4700, L501.2300, L504.2610, L100.0100, L501.2400, L500.4050, L100.9950, L501.1400, L501.5101, L501.2450, L501.5200 #### [facility] [address] [place], [place], [phone] Amylaseon 01-03-2025 GAURANG 57 U/L Normal 28-100 [facility] Comment on above: Performed By: #### L 501.4700, L501.2300, L504.2610, L100.0100, L501.2400, L500.4050, L100.9950, L501.1400, L501.5101, L501.2450, L501.5200 #### [facility] [address] [place], [place], [phone] Bilirubin, Directon 01-04-20 25 Bilirubin.direct [Mass/Vol] 0.18 mg/dL Normal 0.00-0.30 [facility] Comment on above: Performed By: #### L 501.4700, L501.2300, L504.2610, L100.0100, L501.2400, L500.4050, L100.9950, L501.1400, L501.5101, L501.2450, L501.5200 #### [facility] [address] [place], [place], [id number] CBC W/Diff, Automatedon 08- Absolute Lymph 1.00 X10 3/uL Normal 0.83-4.51 [facility] Comment on above: Performed By: #### L 501.4700, L501.2300, L504.2610, L100.0100, L501.2400, L500.4050, L100.9950, L501.1400, L501.5101, L501.2450, L501.5200 #### [facility] [address] [place], [address] Absolute Neut 2.1 X10 3/uL Normal 2.0-7.7 [facility] Comment on above: Performed By: #### L 501.4700, L501.2300, L504.2610, L100.0100, L501.2400, L500.4050, L100.9950, L501.1400, L501.5101, L501.2450, L501.5200 #### [facility] [address] [facility] [place], [place], [phone] (578) Basophils/100 WBC (Bld) 0.8 % Normal 0-1 [facility] Comment on above: Performed By: #### L 501.4700, L501.2300, L504.2610, L100.0100, L501.2400, L500.4050, L100.9950, L501.1400, L501.5101, L501.2450, L501.5200 #### [facility] [address] [place], [place], [phone] (043) Eosinophils/100 WBC (Bld) 5.6 % High 0-5 [facility] Comment on above: Performed By: #### L 501.4700, L501.2300, L504.2610, L100.0100, L501.2400, L500.4050, L100.9950, L501.1400, L501.5101, L501.2450, L501.5200 #### [facility] [address] [place], [address] Erythrocyte distribution width (RBC) [Ratio] 14.8 % High 11.6-14.6 [facility] Comment on above: Performed By: #### L 501.4700, L501.2300, L504.2610, L100.0100, L501.2400, L500.4050, L100.9950, L501.1400, L501.5101, L501.2450, L501.5200 #### [facility] [address] [place], [address] Hematocrit (Bld) [Volume fraction] 30.0 % Low 37-47 [facility] Comment on above: Performed By: #### L 501.4700, L501.2300, L504.2610, L100.0100, L501.2400, L500.4050, L100.9950, L501.1400, L501.5101, L501.2450, L501.5200 #### [facility] [address] [place], [address] Hemoglobin (Bld) [Mass/Vol] 9.3 g/dL Low 12.0-15.0 [facility] Comment on above: Performed By: #### L 501.4700, L501.2300, L504.2610, L100.0100, L501.2400, L500.4050, L100.9950, L501.1400, L501.5101, L501.2450, L501.5200 #### [facility] [address] [place], [address] IG% 0.300 Normal 0.0-0.9 [facility] Comment on above: Result Comment: IG% - Immature Granulocytes (promyelocytes, myelocytes and metamyelocytes) > 1% indicates that a LEFT SHIFT is Present. Performed By: #### L 501.4700, L501.2300, L504.2610, L100.0100, L501.2400, L500.4050, L100.9950, L501.1400, L501.5101, L501.2450, L501.5200 #### [facility] [address] [place], [address] Lymphocytes/100 WBC (Bld) 26.7 % Normal 19-41 [facility] Comment on above: Performed By: #### L 501.4700, L501.2300, L504.2610, L100.0100, L501.2400, L500.4050, L100.9950, L501.1400, L501.5101, L501.2450, L501.5200 #### [facility] [address] [place], [address] MCH (RBC) [Entitic mass] 24.5 pg Low 27.0-32.0 [facility] Comment on above: Performed By: #### L 501.4700, L501.2300, L504.2610, L100.0100, L501.2400, L500.4050, L100.9950, L501.1400, L501.5101, L501.2450, L501.5200 #### [facility] [address] [place], [address] MCHC (RBC) [Mass/Vol] 31.0 g/dL Low 32-36 [facility] Comment on above: Performed By: #### L 501.4700, L501.2300, L504.2610, L100.0100, L501.2400, L500.4050, L100.9950, L501.1400, L501.5101, L501.2450, L501.5200 #### [facility] [address] [place], [address] MCV (RBC) [Entitic vol] 79.2 fL Low 81-99 [facility] Comment on above: Performed By: #### L 501.4700, L501.2300, L504.2610, L100.0100, L501.2400, L500.4050, L100.9950, L501.1400, L501.5101, L501.2450, L501.5200 #### [facility] [address] [facility] [place], [address] Monocytes/100 WBC (Bld) 9.9 % Normal 0-10 [facility] Comment on above: Performed By: #### L 501.4700, L501.2300, L504.2610, L100.0100, L501.2400, L500.4050, L100.9950, L501.1400, L501.5101, L501.2450, L501.5200 #### [facility] [address] [place], [phone] ([phone] Neutrophils/100 WBC (Bld) 56.7 % Normal 47-70 [facility] Comment on above: Performed By: #### L 501.4700, L501.2300, L504.2610, L100.0100, L501.2400, L500.4050, L100.9950, L501.1400, L501.5101, L501.2450, L501.5200 #### [facility] [address] [place], [address] Nucleated RBC (Bld) [#/Vol] 0 10*3/uL Normal 0-5 [facility] Comment on above: Performed By: #### L 501.4700, L501.2300, L504.2610, L100.0100, L501.2400, L500.4050, L100.9950, L501.1400, L501.5101, L501.2450, L501.5200 #### [facility] [address] [facility] [place], [address] ( Platelet mean volume (Bld) [Entitic vol] 9.3 fL Normal 6.2-12.0 [facility] Comment on above: Performed By: #### L 501.4700, L501.2300, L504.2610, L100.0100, L501.2400, L500.4050, L100.9950, L501.1400, L501.5101, L501.2450, L501.5200 #### [facility] [address] [place], [address] Platelets (Bld) [#/Vol] 260 10*3/uL Normal 150-450 [facility] Comment on above: Performed By: #### L 501.4700, L501.2300, L504.2610, L100.0100, L501.2400, L500.4050, L100.9950, L501.1400, L501.5101, L501.2450, L501.5200 #### [facility] [address] [place], [place], [phone] (091) RBC (Bld) [#/Vol] 3.79 10*6/uL Low 4.2-5.4 [facility] Comment on above: Performed By: #### L 501.4700, L501.2300, L504.2610, L100.0100, L501.2400, L500.4050, L100.9950, L501.1400, L501.5101, L501.2450, L501.5200 #### [facility] [address] [place], [place], [id number] (376) RDW SD 42.7 fl Normal 35.1-43.9 [facility] Comment on above: Performed By: #### L 501.4700, L501.2300, L504.2610, L100.0100, L501.2400, L500.4050, L100.9950, L501.1400, L501.5101, L501.2450, L501.5200 #### [facility] [address] [place], [place], [phone] (582) WBC (Bld) [#/Vol] 3.7 10*3/uL Low 4.4-11.0 [facility] Comment on above: Performed By: #### L 501.4700, L501.2300, L504.2610, L100.0100, L501.2400, L500.4050, L100.9950, L501.1400, L501.5101, L501.2450, L501.5200 #### [facility] [address] [place], [place], [id number] Comprehensive Metabolic Prof [facility] 01-03-2025 Albumin [Mass/Vol] 4.2 g/dL Normal 3.5-5.0 [facility] Comment on above: Performed By: #### L 501.4700, L501.2300, L504.2610, L100.0100, L501.2400, L500.4050, L100.9950, L501.1400, L501.5101, L501.2450, L501.5200 #### [facility] [address] [place], [place], [id number] Albumin/Globulin [Mass ratio] 1.7 {ratio} Normal 0.9-2.4 [facility] Comment on above: Performed By: #### L 501.4700, L501.2300, L504.2610, L100.0100, L501.2400, L500.4050, L100.9950, L501.1400, L501.5101, L501.2450, L501.5200 #### [facility] [address] [place], [place], [id number] ALK PHOS 225 U/L High 35-104 [facility] Comment on above: Performed By: #### L 501.4700, L501.2300, L504.2610, L100.0100, L501.2400, L500.4050, L100.9950, L501.1400, L501.5101, L501.2450, L501.5200 #### [facility] [address] [place], [place], [id number] ALT [Catalytic activity/Vol] 62 U/L High <=34 [facility] Comment on above: Performed By: #### L 501.4700, L501.2300, L504.2610, L100.0100, L501.2400, L500.4050, L100.9950, L501.1400, L501.5101, L501.2450, L501.5200 #### [facility] [address] [place], [place], [id number] AST [Catalytic activity/Vol] 53 U/L High <=31 [facility] Comment on above: Performed By: #### L 501.4700, L501.2300, L504.2610, L100.0100, L501.2400, L500.4050, L100.9950, L501.1400, L501.5101, L501.2450, L501.5200 #### [facility] [address] [place], [place], [id number] Bilirubin [Mass/Vol] 0.34 mg/dL Normal 0.00-1.30 [facility] Comment on above: Performed By: #### L 501.4700, L501.2300, L504.2610, L100.0100, L501.2400, L500.4050, L100.9950, L501.1400, L501.5101, L501.2450, L501.5200 #### [facility] [address] [place], [address] BUN/CRE 15.8 RATIO Normal 10-20 [facility] Comment on above: Performed By: #### L 501.4700, L501.2300, L504.2610, L100.0100, L501.2400, L500.4050, L100.9950, L501.1400, L501.5101, L501.2450, L501.5200 #### [facility] [address] [place], [address] Calcium [Mass/Vol] 9.3 mg/dL Normal 7.6-11.0 [facility] Comment on above: Performed By: #### L 501.4700, L501.2300, L504.2610, L100.0100, L501.2400, L500.4050, L100.9950, L501.1400, L501.5101, L501.2450, L501.5200 #### [facility] [address] [place], [place], [phone] (303) Chloride [Moles/Vol] 103 mmol/L Normal 98-108 [facility] Comment on above: Performed By: #### L 501.4700, L501.2300, L504.2610, L100.0100, L501.2400, L500.4050, L100.9950, L501.1400, L501.5101, L501.2450, L501.5200 #### [facility] [address] [facility] [address] [place], [address] CO2 [Moles/Vol] 23.2 mmol/L Normal 21.0-32.0 [facility] Comment on above: Performed By: #### L 501.4700, L501.2300, L504.2610, L100.0100, L501.2400, L500.4050, L100.9950, L501.1400, L501.5101, L501.2450, L501.5200 #### [facility] [address] [place], [address] Creatinine [Mass/Vol] 0.56 mg/dL Low 0.70-1.20 [facility] Comment on above: Performed By: #### L 501.4700, L501.2300, L504.2610, L100.0100, L501.2400, L500.4050, L100.9950, L501.1400, L501.5101, L501.2450, L501.5200 #### [facility] [address] [place], [place], [phone] (346) GAP 13 Normal 5-15 [facility] Comment on above: Performed By: #### L 501.4700, L501.2300, L504.2610, L100.0100, L501.2400, L500.4050, L100.9950, L501.1400, L501.5101, L501.2450, L501.5200 #### [facility] [address] [facility] [address] [place], [place], [id number] GFR/1.73 sq M.predicted among non-blacks MDRD (S/P/Bld) [Vol rate/Area] 115 mL/min/{1.73_m2} Normal >60 [facility] Comment on above: Result Comment: mL/m in/1.73m2 CKD-EPI Creatinine Equation (2020) Performed By: #### L 501.4700, L501.2300, L504.2610, L100.0100, L501.2400, L500.4050, L100.9950, L501.1400, L501.5101, L501.2450, L501.5200 #### [facility] [address] [place], [place], [id number] Globulin (S) [Mass/Vol] 2.6 g/dL Normal 2.2-4.2 [facility] Comment on above: Performed By: #### L 501.4700, L501.2300, L504.2610, L100.0100, L501.2400, L500.4050, L100.9950, L501.1400, L501.5101, L501.2450, L501.5200 #### [facility] [address] [place], [place], [phone] Glucose [Mass/Vol] 107 mg/dL High 70-99 [facility] Comment on above: Performed By: #### L 501.4700, L501.2300, L504.2610, L100.0100, L501.2400, L500.4050, L100.9950, L501.1400, L501.5101, L501.2450, L501.5200 #### [facility] [address] [place], [address] Potassium [Moles/Vol] 4.3 mmol/L Normal 3.3-5.1 [facility] Comment on above: Performed By: #### L 501.4700, L501.2300, L504.2610, L100.0100, L501.2400, L500.4050, L100.9950, L501.1400, L501.5101, L501.2450, L501.5200 #### [facility] [address] [place], [address] Sodium [Moles/Vol] 138 mmol/L Normal 133-145 [facility] Comment on above: Performed By: #### L 501.4700, L501.2300, L504.2610, L100.0100, L501.2400, L500.4050, L100.9950, L501.1400, L501.5101, L501.2450, L501.5200 #### [facility] [address] [place], [address] T PROT 6.8 g/dL Normal 5.9-8.4 [facility] Comment on above: Performed By: #### L 501.4700, L501.2300, L504.2610, L100.0100, L501.2400, L500.4050, L100.9950, L501.1400, L501.5101, L501.2450, L501.5200 #### [facility] [address] [place], [address] Urea nitrogen [Mass/Vol] 9 mg/dL Normal 4-19 [facility] Comment on above: Performed By: #### L 501.4700, L501.2300, L504.2610, L100.0100, L501.2400, L500.4050, L100.9950, L501.1400, L501.5101, L501.2450, L501.5200 #### [facility] [address] [place], [place], [id number] LDHon 01-03-2025 LDH 342 U/L High 84-246 [facility] Comment on above: Order Comment: 1 Performed By: #### L 501.4700, L501.2300, L504.2610, L100.0100, L501.2400, L500.4050, L100.9950, L501.1400, L501.5101, L501.2450, L501.5200 #### [facility] [address] [place], [place], [phone] Lipaseon 01-03-2025 Lipase [Catalytic activity/Vol] 44 U/L Normal 13-75 [facility] Comment on above: Result Comment: Jenna moon note: LIPASE revised reference range effective 22. New Lipase methodology. Expected to produce lower values than the previous assay method. NEW Reference Range: 13 - 75 U/L Performed By: #### L 501.4700, L501.2300, L504.2610, L100.0100, L501.2400, L500.4050, L100.9950, L501.1400, L501.5101, L501.2450, L501.5200 #### [facility] [address] [place], [place], [address] Magnesiumon 01-03-2025 Magnesium [Mass/Vol] 2.0 mg/dL Normal 1.5-2.2 [facility] Comment on above: Performed By: #### L 501.4700, L501.2300, L504.2610, L100.0100, L501.2400, L500.4050, L100.9950, L501.1400, L501.5101, L501.2450, L501.5200 #### [facility] [address] [place], [place], [address] Phosphoruson 01-03-2025 Phosphate [Mass/Vol] 3.5 mg/dL Normal 2.7-4.5 [facility] Comment on above: Performed By: #### L 501.4700, L501.2300, L504.2610, L100.0100, L501.2400, L500.4050, L100.9950, L501.1400, L501.5101, L501.2450, L501.5200 #### [facility] [address] [place], [place], [id number] Retic Panelon 01-03-2025 IM RET FRACTION 13.60 Normal 3.00-15.90 [facility] Comment on above: Performed By: #### L 501.4700, L501.2300, L504.2610, L100.0100, L501.2400, L500.4050, L100.9950, L501.1400, L501.5101, L501.2450, L501.5200 #### [facility] [address] [place], [place], [id number] RET-HE 21.2 pg Low 30-35 [facility] Comment on above: Performed By: #### L 501.4700, L501.2300, L504.2610, L100.0100, L501.2400, L500.4050, L100.9950, L501.1400, L501.5101, L501.2450, L501.5200 #### [facility] [address] [place], [place], [address] Retic Count 1.57 High 0.5-1.5 [facility] Comment on above: Performed By: #### L 501.4700, L501.2300, L504.2610, L100.0100, L501.2400, L500.4050, L100.9950, L501.1400, L501.5101, L501.2450, L501.5200 #### [facility] [address] [place], [place], [address] Uric Acidon 01-03-2025 URIC 2.9 mg/dL Normal 2.6-6.0 [facility] Comment on above: Result Comment: The drugs N-Acetylcysteine and Metamizole may falsely depress this assay. Performed By: #### L 501.4700, L501.2300, L504.2610, L100.0100, L501.2400, L500.4050, L100.9950, L501.1400, L501.5101, L501.2450, L501.5200 #### [facility] [address] [place], [address] CNOVon 07-05-2024 [facility] KAYY ALMANZAR ([id number]) 1980 F Date Time Provider Department 07/05/24 11:00 AM LOAN JIN [facility] During your visit today, we recorded the following information about you: Loan Jin LISW 07/05/2024 12:24 PM Signed It was a pleasure meeting you today. Please call [phone] to set up another appointment with me and I encourage you to make an appt with sexual health also for a consult. Please keep in mind that I usually offer about five visits as a consultation. If you need skilled nursing therapy, please call [facility] at [phone], or go to [email or web address], or [email or web address] to find a sex therapist. Below are my handouts for more information on pleasure and lubricants. Your Sexual Health is Important Information on Pleasure and Sexual Aid Devices Pleasure is the journey?and the goal The average sexual activity is reported to be about 15 minutes. Is that long enough for you to forget what you needed to do that day, what?s for dinner, can the kids hear us? Women tend to have the most responsibility for childcare, eldercare, and professor computer science. Sometimes it takes longer to let all of that responsibility go and let desire and arousal to show up. Try to take more time in your pleasure, whether it is with yourself or your partner. When you focus on pleasure instead of orgasm, then it opens many more options and fun. What is a Pleasure Gap? There is a pleasure gap between men and women. Men report having an orgasm 91% of the time and women only report having an orgasm 64% of the time. Studies show that women are able to be orgasmic more often with established partners verses new partners. And orgasm is achieved easier by receiving oral sex, using vibrators, and manual clitoral stimulation. Over half of women are not able to be orgasmic with intercourse, but they feel pressured or ?broken? if they can?t orgasm that way. So then, women tend to ?fake an orgasm? for these reasons. However, the more you increase your self-confidence, feel more comfortable with your partner, and choose partners who are mature, sexually attentive, and not controlling..the better you will feel about sex. How can I make sexual activity more pleasurable? Studies show that women are more likely to feel sexual pleasure if it includes kissing, cuddling, hand to genital stimulation, receiving oral sex, rubbing genitals together, vibrator/sex toy use and intercourse. Men are more likely to have pleasure by hand-genital stimulation, receiving oral sex, and vaginal intercourse. Unfortunately, the media, such as tv, movies, or porn, show the male focused pleasure. It?s very rare to see female focused pleasure represented in our daily lives. Let?s change that! Let?s get rid of words like ?foreplay? because that is the main pleasure event for women! Let?s redefine what ?Sex? means for you. It doesn?t have to include intercourse only. What is included in your sexual activity? Can you expand on what you are doing now to increase your pleasure? Let?s start by learning about sex toys. What is a sexual aid device? Is that a sex toy? A sex toy is an object or device that is primarily used to facilitate sexual pleasure, such as a dildo, artificial vagina, vibrator. Many popular sex toys are designed to resemble human genitals and may be vibrating or non-vibrating. About half or more of all women use some kind of sexual device for pleasure with masturbation and/or with a partner. A variety of devices are found at both [employer] and even at many [employer]. When you are shopping for a toy, consider the cost, what it is made out of, does it vibrate or not, does it offer clitoral stimulation, will it stimulate your partner also? For example, some women prefer the non-vibrating glass dildos. But if you are having pain with intercourse, you may want to focus on clitoral stimulation or focus on the outside of the vulva, not inserting it into the vagina. There are many to choose from and there really are no limits to what you can do with them. Focus on your pleasure and don?t stick to stimulating your obvious areas of vulva/vagina. How does it feel on your neck, inner thigh, breast, back, butt? For more information you can read an article on the vibrators here. Where can I get a sex toy? Many of these products can be found on [employer], which is the most popular way to buy one. Katerina is discrete, have coupons, and good return policy, even for used products. Check out the Carolina Kelley Massager, The Rabbit was made famous in ?Sex in the City?, The Tool [employer]: An Erotic [employer] Collection The [employer] Tess Wilde Kaylin Delarosa[employer] has pleasure items from $20 (more content not included)... Normal [facility] CNOVon 06-10-2024 CNOV Office Visit ([facility] ) KAYY ALMANZAR ([id number]) 1980 F Date Time Provider Department 06/10/24 10:00 AM JUAN NAVARRETE During your visit today, we recorded the following information about you: Temperature Pulse Blood pressure Weight 97.6 degrees 74/minute 130/73 53.5 kg Height 1.689 m Hilton Matthews MA 06/10/2024 11:33 AM Signed What is the reason for your visit today? Consult Who is your referring physician? Dr. Navarrete Are you having poor oral intake? NO Have you had unintentional weight loss of 15 lbs/7 Kg in the last 3-6 months? NO Bowels: regular Wound: clean AND dry Temperature: No Drains: No Juan Navarrete MD 06/10/2024 2:38 PM Addendum LIVER METS INITIAL VISIT-SURGERY NOTE HPI Mrs. Almanzar is a very pleasant 44 y/o woman with metastatic CRC s/p FOLFOX, with Pembrolizumab and Cetuximab. Liver resection and ablation in 2017. Imaging: CT Chest 05/10: Since 01/21/2024, slight interval increase in size of a few bilateral noncalcified lung nodules, for reference on series 301: - RML Solid 4.0 mm, image 294, previously 2.1 mm - LLL Solid 4.1 mm, image 307, previously 2.0 mm - RLL Solid 8.3 mm, image 405, previously 5.2 mm - LLL Solid 5.1 mm, image 283, previously 3.1 mm, with adjacent small cystic lucency Two additional previously seen larger nodular opacities in the bilateral lower lobes appear not significant changed from prior, as follows: -Right lower lobe solid opacity with somewhat linear morphology measures 17 x 9 mm, image 310 -Left lower lobe irregular solid opacity which abuts the lateral costal pleura measures 25 x 13 mm, image 314, with adjacent left lower lobe atelectasis/scarring. The central hypoattenuating component of this lesion is also unchanged measuring approximately 13 x 9 mm, image 313. MRI 05/04: 4.2 x 3.1 cm metastasis in the posterior aspect of the left superior hepatic lobe, slightly larger since 02/23/2024. 6 mm right lower lobe pulmonary nodule, better assessed on chest CT and likely slightly larger since 01/21/2024, likely metastasis. Labs: No results found for: PLT No results found for: BILIT No results found for: INR Assessment Mrs. Almanzar is a very pleasant 44 y/o woman with metastatic CRC s/p FOLFOX, with Pembrolizumab and Cetuximab. Liver resection and ablation in 2017. She is here to discuss histotripsy options Plan: - She mentioned STEPHENS pump was tried I'm MA but was removed, we discussed with IR staff dr SHAFFER and ih her CTA chest the STEPHENS was not found, mainly her liver is getting blood supply from collateral circulation - Her mass in the superior left aspect of te left lobe, which make it technically difficult for Histotripsy but we will obtain a liver US to assess feasibility - Refer to dr Greer for SBRT discussion SIGNATURE: Juan Navarrete MD PATIENT NAME: Kayy Almanzar DATE: June 10, 2024 TIME: 10:47 AM PAGER/CONTACT #: Agree with above. Juan Navarrete MD I have left a voice message to the patient saying that the feasibility of histotripsy based on ultrasound is low therefore we will proceed with radiation oncology consult for consideration of SBRT instead as discussed with the patient. MD Sandie Dejesus Brenda 06/10/2024 12:46 PM Signed SPECIALTY CARE COORDINATION QUICK NOTE Provided patient with list of numbers she may need, Histotripsy information, instructions on how to upload imaging and an education binder in the chance that she does proceed with having Histotripsy. Arranged a same day Histotripsy US for 1:45 on the second floor. Patient and thanked me and verbalized understanding. Emailed Dr. Greer and RO appointments to have her be seen. Referring Provider: SELF [[id number]] Allergies As of Date: 06/10/2024 Noted Allergy Reaction OLANZAPINE 12/03/2023 14 - Other: See Comments Date Reviewed: 06/10/2024 Reviewed by: Hilton Matthews MA - Fully Assessed Primary Visit Diagnosis:Colon cancer metastasized to liver (HCC) [C18.9, C78.7] Order(s):US ABDOMEN LTD [[id number]] Order #: [id number] FUTURE Prescriptions as of 06/10/2024 - omeprazole (PRILOSEC) 40 mg capsule Take 40 mg by mouth once daily. - iv contrast (will be provided with radiology test) MRI Liver Inject, intravenously, once for 1 dose. No IV access, insert saline lock prior to the beginning of sedation, infusion, injection of imaging exam. Discontinue saline lock post exam. If Pt. has a central line or IVAD, may access for administration according to line specific nursing protocol. Once exam is complete flush line and de-access according to line specific nursing protocol in the MR contrast administration guidelines link. - ursodiol (ACTIGALL) 300 mg capsule Take 300 mg by mouth twice daily. - Betaine HCL Pepsin (Pure Encapsulations) supports digestion of protein 15 min before (more content not included)... Normal [facility] US ABDOMEN LTDon 06-10-2024 US ABDOMEN LTD * * *Final Report* * * DATE OF EXAM: Jun 10 2024 1:12PM ALFONSO 1064 - US ABDOMEN LTD / PROCEDURE REASON: multiple diagnoses * * * * Physician Interpretation * * * * LIMITED ABDOMEN ULTRASOUND HISTORY: Liver mass. TECHNIQUE: A limited abdominal ultrasound was performed to evaluate liver lesion(s) prior to potential intervention. COMPARISON: MRI 05/10/2024 RESULT: The left lobe of the liver is diffusely heterogeneous due to prior intervention. The lesion in the left superior hepatic lobe identified on prior MRI is not discretely identified. IMPRESSION: Histotripsy likelihood assessment - Low probability Target Man: MAICO Transcribe Date/Time: Jun 10 2024 1:44P Dictated by : AMALIA DE OLIVEIRA MD This examination was interpreted and the report reviewed and electronically signed by: AMALIA DE OLIVEIRA MD on Jun 10 2024 1:46PM EST [id number] Normal [facility] US Abdomen limitedon 06-10-2 025 IMPRESSION: Histotripsy likelihood assessment - Low probability Target Man: MAICO Transcribe Date/Time: Jun 10 2024 1:44P Dictated by : AMALIA DE OLIVEIRA MD This examination was interpreted and the report reviewed and electronically signed by: AMALIA DE OLIVEIRA MD on Jun 10 2024 1:46PM EST DIVISION OF RADIOLOGY * * *Final Report* * * DATE OF EXAM: Jun 10 2024 1:12PM ALFONSO 1064 - US ABDOMEN LTD / PROCEDURE REASON: multiple diagnoses * * * * Physician Interpretation * * * * LIMITED ABDOMEN ULTRASOUND HISTORY: Liver mass. TECHNIQUE: A limited abdominal ultrasound was performed to evaluate liver lesion(s) prior to potential intervention. COMPARISON: MRI 05/10/2024 RESULT: The left lobe of the liver is diffusely heterogeneous due to prior intervention. The lesion in the left superior hepatic lobe identified on prior MRI is not discretely identified. DIVISION OF RADIOLOGY Provider, [facility] - 06/10/2024 * * *Final Report* * * DATE OF EXAM: Jun 10 2024 1:12PM ALFONSO 1064 - US ABDOMEN LTD / PROCEDURE REASON: multiple diagnoses * * * * Physician Interpretation * * * * LIMITED ABDOMEN ULTRASOUND HISTORY: Liver mass. TECHNIQUE: A limited abdominal ultrasound was performed to evaluate liver lesion(s) prior to potential intervention. COMPARISON: MRI 05/10/2024 RESULT: The left lobe of the liver is diffusely heterogeneous due to prior intervention. The lesion in the left superior hepatic lobe identified on prior MRI is not discretely identified. IMPRESSION IMPRESSION: Histotripsy likelihood assessment - Low probability Target Man: MAICO Transcribe Date/Time: Jun 10 2024 1:44P Dictated by : AMALIA DE OLIVEIRA MD This examination was interpreted and the report reviewed and electronically signed by: AMALIA DE OLIVEIRA MD on Jun 10 2024 1:46PM EST [facility] [place] [facility] Study observation (narrative) [facility] US Abdomen limitedOrdered By : [facility]24 [facility] Cici 06-09-2024 RAJIVN Telephone (GENDESIREEN) KAYY ALMANZAR ([id number]) 1980 F Date Time Provider Department 06/09/24 CRISTY PONCE During your visit today, we recorded the following information about you: Cristy Ponce RN 06/09/2024 2:56 PM Signed Patient ID by Name and date: Patient's called wants to cancel MRI with [facility] -states that patient is just interested in Histotripsy- would like to hear other options, but can have the plan acted out locally if not histotripsy. - MRI appt cancelled and patient's aware may or may not be candidate for histotripsy. 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 - iv contrast (will be provided with radiology test) MRI Liver Inject, intravenously, once for 1 dose. No IV access, insert saline lock prior to the beginning of sedation, infusion, injection of imaging exam. Discontinue saline lock post exam. If Pt. has a central line or IVAD, may access for administration according to line specific nursing protocol. Once exam is complete flush line and de-access according to line specific nursing protocol in the MR contrast administration guidelines link. - ursodiol (ACTIGALL) 300 mg capsule Take 300 mg by mouth twice daily. - Betaine HCL Pepsin (Pure Encapsulations) supports digestion of protein 15 min before meals- Start with one capsule and each protein meal work up (max 5) if you feel warmth or upset stomach back down to a lower dose and that is your dose for that size protein meal. - G.I. Benefits (DaVinci) As a dietary supplement, mix one scoop with cold water or juice once or twice daily, or as directed by your health care practitioner. - Magnesium Citrate 150mg (Pure Encapsulations) Take 4 capsules daily. Increase 1 tab daily until daily BM - Meriva-SF (Raheem) Take 2 capsules by mouth twice daily. Problem List As Of Date 06/09/2024 Noted Resolved Colon cancer metastasized to liver (HCC) [C18.9*04/17/2020 Arthralgia [M25.50] 04/17/2020 Irritable bowel syndrome with both constipation*04/17/2020 Other fatigue [R53.83] 04/17/2020 History of anemia [Z86.2] 04/17/2020 Mold exposure [Z77.120] 04/17/2020 Family history of cancer [Z80.9] 04/17/2020 History of eating disorder [Z86.59] 04/17/2020 Poor sleep [Z72.820] 04/17/2020 Chemical sensitivity [Z91.09] 04/17/2020 Surgical menopause [E89.40] 04/17/2020 Encounter Status:Closed by KIM JO on 06/10/24 [facility] Cici 06-07-2024 CNPN Telephone (Frogtek BopN) KAYY ALMANZAR ([id number]) 1980 F Date Time Provider Department 06/07/24 CRISTY PONCE During your visit today, we recorded the following information about you: Cristy Ponce RN 06/07/2024 11:17 AM Signed Patient ID by Name and date: Called to confirm appointment, establish care relationship, patient agrees with having MRI liver with [facility] if approved- message sent to imaging staff, states had updated labs done in [place]- included tumor marker Summary: Dx: colon met liver -primary removed 2017 at 2017 - liver resection Nodules in Lungs - watching a couple of years Hx: Radiation, Chemo (last chemo 06/01/24), 2 recurrence in liver (last recurrence August 2023) Interested in Histotripsy, but also want to here other options Cristy Ponce RN MSN Allergies As of Date: 06/07/2024 (No Known Allergies) Date Reviewed: 04/17/2020 Reviewed by: Rufus Salazar) - Fully Assessed Prescriptions as of 06/07/2024 - iv contrast (will be provided with radiology test) MRI Liver Inject, intravenously, once for 1 dose. No IV access, insert saline lock prior to the beginning of sedation, infusion, injection of imaging exam. Discontinue saline lock post exam. If Pt. has a central line or IVAD, may access for administration according to line specific nursing protocol. Once exam is complete flush line and de-access according to line specific nursing protocol in the MR contrast administration guidelines link. - ursodiol (ACTIGALL) 300 mg capsule Take 300 mg by mouth twice daily. - Betaine HCL Pepsin (Pure Encapsulations) supports digestion of protein 15 min before meals- Start with one capsule and each protein meal work up (max 5) if you feel warmth or upset stomach back down to a lower dose and that is your dose for that size protein meal. - G.I. Benefits (DaVinci) As a dietary supplement, mix one scoop with cold water or juice once or twice daily, or as directed by your health care practitioner. - Magnesium Citrate 150mg (Pure Encapsulations) Take 4 capsules daily. Increase 1 tab daily until daily BM - Meriva-SF (Raheem) Take 2 capsules by mouth twice daily. Problem List As Of Date 06/07/2024 Noted Resolved Colon cancer metastasized to liver (HCC) [C18.9*04/17/2020 Arthralgia [M25.50] 04/17/2020 Irritable bowel syndrome with both constipation*04/17/2020 Other fatigue [R53.83] 04/17/2020 History of anemia [Z86.2] 04/17/2020 Mold exposure [Z77.120] 04/17/2020 Family history of cancer [Z80.9] 04/17/2020 History of eating disorder [Z86.59] 04/17/2020 Poor sleep [Z72.820] 04/17/2020 Chemical sensitivity [Z91.09] 04/17/2020 Surgical menopause [E89.40] 04/17/2020 Encounter Status:Closed by CRISTY PONCE on 06/07/24 [facility] Cici 06-01-2024 TETE Telephone (Frogtek BopN) KAYY ALMANZAR ([id number]) 1980 F Date Time Provider Department 06/01/24 BREANNA MARIE During your visit today, we recorded the following information about you: Breanna Marie LPN 06/01/2024 11:17 AM Addendum Contacted PT by phone. Upcoming appt scheduled for 06/10/24 w/ Dr Navarrete. Voicemail left requesting a returned call to office. Number provided. Will inquire about outside facility most recent imaging was completed to obtain reports. Continued 06/01/24: Received voicemail from PT verifying [facility] for recent outside Imaging completion. Authorization is required from PT for reports to share electronically to [facility]. Voicemail left back for PT w/ this information. JOSE JUAN Cross Gina, LPN 06/08/2024 10:24 AM Addendum Voicemail received from PT, informing this health science writer authorization for sharing records has been completed w/ [facility]. Imaging Reports now available in chart. Voicemail left back w/ PT to inquire about most recent labs completed and location. Will f/u. Breanna Marie LPN Continued 06/08/24: PT confirmed w/ RN Coordinator recent labs have been completed through [facility]. Request sent for results. Fax confirmation received @ 10:19 AM. Will f/u. Breanna Marie LPN Allergies As of Date: 06/01/2024 (No Known Allergies) Date Reviewed: 04/17/2020 Reviewed by: Rufus Salazar) - Fully Assessed Reason for Visit: Imaging Report Request [Other] Prescriptions as of 06/08/2024 - iv contrast (will be provided with radiology test) MRI Liver Inject, intravenously, once for 1 dose. No IV access, insert saline lock prior to the beginning of sedation, infusion, injection of imaging exam. Discontinue saline lock post exam. If Pt. has a central line or IVAD, may access for administration according to line specific nursing protocol. Once exam is complete flush line and de-access according to line specific nursing protocol in the MR contrast administration guidelines link. - ursodiol (ACTIGALL) 300 mg capsule Take 300 mg by mouth twice daily. - Betaine HCL Pepsin (Pure Encapsulations) supports digestion of protein 15 min before meals- Start with one capsule and each protein meal work up (max 5) if you feel warmth or upset stomach back down to a lower dose and that is your dose for that size protein meal. - G.I. Benefits (DaVinci) As a dietary supplement, mix one scoop with cold water or juice once or twice daily, or as directed by your health care practitioner. - Magnesium Citrate 150mg (Pure Encapsulations) Take 4 capsules daily. Increase 1 tab daily until daily BM - Meriva-SF (Raheem) Take 2 capsules by mouth twice daily. Problem List As Of Date 06/01/2024 Noted Resolved Colon cancer metastasized to liver (HCC) [C18.9*04/17/2020 Arthralgia [M25.50] 04/17/2020 Irritable bowel syndrome with both constipation*04/17/2020 Other fatigue [R53.83] 04/17/2020 History of anemia [Z86.2] 04/17/2020 Mold exposure [Z77.120] 04/17/2020 Family history of cancer [Z80.9] 04/17/2020 History of eating disorder [Z86.59] 04/17/2020 Poor sleep [Z72.820] 04/17/2020 Chemical sensitivity [Z91.09] 04/17/2020 Surgical menopause [E89.40] 04/17/2020 Encounter Status:Closed by BREANNA MARIE on 06/01/24 Normal [facility] XR HUMERUS MINIMUM 2 VIEWS L [facility] 06-11-2022 XR HUMERUS MINIMUM 2 VIEWS LEFT ORIGINAL EXAMINATION: TWO XRAY VIEWS OF THE [...] Sign Date: 06/11/2022 9:13:31 AM Ordering Provider: [facility]) XR WRIST MINIMUM 3 VIEWS RIG HTon 06-11-2022 XR WRIST MINIMUM 3 VIEWS RIGHT ORIGINAL EXAMINATION: THREE XRAY VIEWS OF THE [...] Sign Date: 06/11/2022 9:14:52 AM Ordering Provider: [facility]) Absolute lymphocyte counton 08-23-2021 Lymphocytes Auto (Unsp spec) [#/Vol] 1.78 10*3/uL 0.83-4.51 [facility] Work Phone: Basophil percentageon 2021 Basophils/100 WBC (Bld) 0.9 % 0-1 [facility] Work Phone: Bilirubin [Mass/Vol] 0.40 mg/dL 0.20-1.00 [facility] Work Phone: Comment on above: For patients on eltr ombopag therapy, use of Dimension [place] TBIL is not recommended. Chloride [Moles/Vol] 109 mmol/L 98-107 [facility] Work Phone: Eosinophils/100 WBC (Bld) 3.0 % 0-5 [facility] Work Phone: Glucose [Mass/Vol] 81 mg/dL 74-106 [facility] Work Phone: Neutrophils (Bld) [#/Vol] 4.0 10*3/uL 2.0-7.7 [facility] Work Phone: [phone] Neutrophils/100 WBC (Bld) 61.7 % 47-70 [facility] Work Phone: [phone] Potassium [Moles/Vol] 4.1 mmol/L 3.5-5.1 [facility] Work Phone: [phone] Protein [Mass/Vol] 6.7 g/dL 6.4-8.2 [facility] Work Phone: [phone] Sodium [Moles/Vol] 141 mmol/L 136-145 [facility] Work Phone: [phone] WBC (Bld) [#/Vol] 6.4 10*3/uL 4.4-11.0 [facility] Work Phone: [phone] Blood erythrocytes count (nu mber/volume)on 08-23-2021 RBC (Bld) [#/Vol] 4.25 10*6/uL 4.2-5.4 [facility] Work Phone: [phone] Blood hemoglobin measurement (mass/volume)on 08-23-2021 Hemoglobin (Bld) [Mass/Vol] 12.1 g/dL 12.0-15.0 [facility] Work Phone: [phone] Blood lymphocytes/100 leukoc yteson 08-23-2021 Lymphocytes/100 WBC (Bld) 27.7 % 19-41 [facility] Work Phone: [phone] Blood monocytes/100 leukocyt eson 08-23-2021 Monocytes/100 WBC (Bld) 6.4 % 0-10 [facility] Work Phone: [phone] Blood platelet mean volumeon 08-23-2021 Platelet mean volume (Bld) [Entitic vol] 9.4 fL 6.2-12.0 [facility] Work Phone: [phone] Determination of erythrocyte mean corpuscular volume (MCV)on 08-23-2021 MCV (RBC) [Entitic vol] 87.3 fL 81-99 [facility] Work Phone: [phone] Hematocrit Auto (Bld) [Volum e fraction]on 08-23-2021 Hematocrit (Bld) [Volume fraction] 37.1 % 37-47 [facility] Work Phone: [phone] Laboratory - Chemistry and C hemistry - challengeon 08-23-2021 ALP [Catalytic activity/Vol] 216 U/L 45-117 [facility] Work Phone: [phone] ALT [Catalytic activity/Vol] 34 U/L 13-56 [facility] Work Phone: [phone] CO2 [Moles/Vol] 26.0 mmol/L 21.0-32.0 [facility] Work Phone: [phone] Globulin (S) [Mass/Vol] 3.2 g/dL 2.2-4.2 [facility] Work Phone: [phone] Urea nitrogen/Creatinine [Mass ratio] 24.8 mg/mg 10-20 [facility] Work Phone: [phone] Laboratory - Hematology and Cell countson 08-23-2021 Erythrocyte distribution width (RBC) [Entitic vol] 43.8 fL 35.1-43.9 [facility] Work Phone: [phone] Erythrocyte distribution width (RBC) [Ratio] 13.7 % 11.6-14.6 [facility] Work Phone: [phone] Immature granulocytes/100 WBC (Bld) 0.300 % 0.0-0.9 [facility] Work Phone: [phone] Comment on above: IG% - Immature Granu locytes (promyelocytes, myelocytes and metamyelocytes) > 1% indicates that a LEFT SHIFT is Present. MCH (RBC) [Entitic mass] 28.5 pg 27.0-32.0 [facility] Work Phone: [phone] Nucleated RBC/100 WBC (Bld) [Ratio] 0 % 0-5 [facility] Work Phone: [phone] MCHC Auto (RBC) [Mass/Vol]on 08-23-2021 MCHC (RBC) [Mass/Vol] 32.6 g/dL 32-36 [facility] Work Phone: [phone] No Panel Informationon 08-23 Estimated GFR (MDRD) Amer 200 mL/min >60 [facility] Work Phone: Comment on above: GFR Calc Estimated GFR (MDRD) Non-Af Amer 165 mL/min >60 [facility] Work Phone: [phone] Comment on above: Non- GFR Calc Platelets bldon 08-23-2021 Platelets (Bld) [#/Vol] 235 10*3/uL 150-450 [facility] Work Phone: [phone] Serum or plasma albumin abbey urement (mass/volume)on 08-23-2021 Albumin [Mass/Vol] 3.5 g/dL 3.2-5.0 [facility] Work Phone: [phone] Serum or plasma albumin/glob ulin mass ratioon 08-23-2021 Albumin/Globulin [Mass ratio] 1.1 {ratio} 0.9-2.4 [facility] Work Phone: [phone] Serum or plasma calcium abbey urement (mass/volume)on 08-23-2021 Calcium [Mass/Vol] 8.7 mg/dL 8.5-10.1 [facility] Work Phone: [phone] Serum or plasma creatinine m easurement (mass/volume)on 08-23-2021 Creatinine [Mass/Vol] 0.44 mg/dL 0.55-1.02 [facility] Work Phone: Comment on above: The validity of the calculated GFR & GFRAA in patients over 70 years has not been determined. Clinical correlation is essential. Serum or plasma urea nitroge n measurement (mass/volume)on 08-23-2021 Urea nitrogen [Mass/Vol] 11 mg/dL 7-18 [facility] Work Phone: [phone] Thin prep Papanicolaou smear with manual screeningon 08-23-2021 Thin prep Papanicolaou smear with manual screening 31 U/L 15-37 [facility] Work Phone: [phone] Thin prep Papanicolaou smear with manual screening 6 5-15 [facility] Work Phone: Laboratory - Microbiology an d Antimicrobial susceptibilityon 06-16-2021 SARS-CoV-2 (COVID-19) RNA FIDEL+probe Ql (Unsp spec) Detected [facility] Work Phone: No Panel Informationon 06-16 Influenza Types A,B Rapid (Clinic) Not detected [facility] Work Phone: Clinic Note - Heme Onc-Follo w Up Visiton 09-20-2018 Clinic Note - Heme Onc-Follow Up Visit Patient Visit Information: Visit Type: Follow Up Visit Cancer History: Digestive System-Colon and Rectum AJCC Edition: 7th (AJCC), Diagnosis Date: 01-Jul-2016, OMKAR, T4a N2a M1a Treatment Synopsis: December 2015 - developed abdominal cramping, followed by rectal bleeding worsening fatigue that started in March. April 2016 - pcp referred to GI, Dr. Patricia Mitchell. 06/05/16. - Complete Colonoscopy showed - sigmoid tumor was found at 18 cm; biopsied. Pathology revealed invasive, moderately-differentiated colonic adenocarcinoma. 06/12/16 CT A/P (OS[facility]) Impression: localized wall thickening in the sigmoid colon probably represents known malignancy. There are several small hypoattenuating hepatic lesions concerning for metastatic disease. CT chest: No evidence of metastatic disease in the chest. Subsequent PET/CT showed hypermetabolic primary tumor in rectosigmoid colon, no other FDG avid lesions 07/01/16 - Anterior proctosigmoidectomy with colorectal anastomosis,splenic flexure mobilization by Dr. Hanna and intraoperative liver ultrasound by Dr. Jay King. Multiple liver lesions were seen on liver US. Tumor was pT4a pN2a M1a, [address] positive. Colon cancer hotspot result: Negative for KRAS, NRAS, and BRAF mutations. SIGNIFICANT PATHOGENIC MUTATIONS DETECTED: None OTHER MUTATIONS DETECTED: APC p.E1306* (c.3916G>T) TP53 p.V216M (c.646G>A) Mismatch Repair is normal 08/07/16 - started chemotherapy with FOLFOX. Received 8 cycles pre-op (oxali dropped with cycle #8) then went for surgical resection. 12/17/2016 - 1. Partial hepatectomy, segment VII. 2. Partial hepatectomy, segment VIII. 3. Microwave ablation of 6 liver tumors including the following: Segment OMKAR tumor at the dome, segment VIII tumor superiorly, segment IV tumor anterior to the kassidy hepatis, segment VII tumor next to a branch of the right hepatic vein peripherally, and 2 segment tumors. 4. Cholecystectomy. 5. Intraoperative ultrasound of liver. 6. Bilateral transversus abdominis plane block. NO evidence of carcinomatosis. 10 tumors in total identified - all were subcm except for 2 tumors which were adjacent to each other encompassing 1.6cm in segment VII. No portal LAD. Cycle 9 5FU/LV started on 01/23/17. Cycle 10 was delayed for neutropenia, so Neulasta was added with cycle 10. 03/2017 finished 12 cycles FOLFOX 04/2017 Ovarian resection for CRC mets 05/2017 CT/MRI scans shows liver lesions confirmed on PET 06/2017 - 07/22/17 started RPCI 1217 - C2 4/, C3 09/02, C4 09/23, C5 6/, C6 11/04, C7 11/25, C8 12/16, C9 01/06, C10 01/19, C11 02/17, C12 03/10, C13 03/31, C14 04/21 Current Tx: RPCI 1217 Study, Pembro+Cetux Last Imagin12/2016 CT C/A/P - SD NGS: MMR nl, KRAS-, TP53, APC History of Present Illness: Chief Complaint: Metastatic Colorectal Cancer Interval History: Mrs. Almanzar is a very pleasant 37 y/o woman with metastatic CRC s/p FOLFOX, liver resection 12/2016, and ovarian resection 04/2017. s/p on RPCI 1217 with Pembrolizumab and Cetuximab 08/2018. She returns with her mother today for follow-up. She is interested in pursuing the hepatic artery infusion and possible surgical resection of her liver lesions. Allergies and Intolerances: Allergies: No Known Allergies: Active Outpatient Medication Profile: * Patient Currently Takes Medications as of 01-Sep-2018 15:32 documented in Structured Notes minocycline 100 mg oral capsule: 1 cap(s) orally 2 times a day , Start Date: 01-Sep-2018 clindamycin 1% topical lotion: Last Dose Taken: , Apply topically to affected area 2 times a day , Start Date: 19-Aug-2018 esomeprazole 20 mg oral delayed release capsule: Last Dose Taken: , 1 cap(s) orally once a day on an empty stomach, Start Date: 04-Feb-2018 MiraLax oral powder for reconstitution: Last Dose Taken: , 17 gram(s) orally once a day as need for constipation, Start Date: 14-Oct-2017 Medical History: Surgical menopause: Status: Active Metastasis to ovary: Status: Active Pre-procedure lab exam: Status: Active Pre-procedure lab exam: Status: Active Ascites: Status: Active Sigmoid colon (C18.7): Status: Active, Description: Selected in Cancer Staging Date of Diagnosis: 01-Jul-2016 Family History: No Family History items are recorded in the problem list. Social History: Social History: denies smoking, alcohol and drug use (1) Smoking Status: never smoker (1) Additional History: She is , Her is a physician operations and intelligence assistant. She has 3 sons ages 10, 9, and 7. Her father is a physician, her stepmother is a nurse. She has a college degree. 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 Family history: Mother breast and pancreatic cancer ( 2007), brother with testicular cancer . Maternal grandmother was found to have a pancreas mass at autopsy after MVA (likely pancreatic cancer). Surgical History - 3 c-sections, PMH - None (1) Performance: ECOG Performance Status: 0 Fully Active Vitals and Measurements: Last 3 Weights & Heights: Date: Weight/Scale Type:Height: 01-Sep-2018 14:2355.1 kg / standing .5 cm 27-Aug-2018 11:4356.4 kg / standing [id number] cm 19-Aug-2018 10:1755.7 kg / standing [id number] cm Physical Exam: Constitutional: Well developed, awake/alert/oriented x3, no distress, alert and cooperative Respiratory/Thorax: Patent airways, CTAB, normal breath sounds with good chest expansion, thorax symmetric Extremities: normal extremities, no edema Neurological: alert and oriented x3 Psychological: Appropriate mood and behavior Skin: Dry flaking skin to face Macular erythematous rash to chest/neck and back, Lab Results: Results CBC date/time WBC HGB HCT PLT Neut 01-Sep-2018 14:26 9.2 11.0(L) 34.8(L) 300 6.46 27-Aug-2018 11:45 7.3 11.0(L) 34.6(L) 285 4.58 04-Aug-2018 13:25 5.8 10.5(L) 33.6(L) 258 2.79 BMP date/time NA K CL CO2 BUN CREAT 01-Sep-2018 14:26 137 3.6 101 N/A 8 0.52 01-Sep-2018 14:26 N/A N/A N/A N/A N/A N/A 27-Aug-2018 11:45 N/A N/A N/A N/A N/A N/A Hepatic date/time T Pro T Bili AST ALT ALKP ALB 24-Dec-2016 05:46 5.3(L) 0.5 N/A 95(H) 102 3.2(L) 23-Dec-2016 04:59 4.9(L) 0.4 N/A 108(H) 80 2.8(L) 22-Dec-2016 09:19 4.9(L) 0.5 N/A 141(H) 70 2.7(L) LDH date/time LDH 01-Sep-2018 14:26 N/A 27-Aug-2018 11:45 N/A 19-Aug-2018 10:35 N/A I have reviewed these laboratory results: Comprehensive Metabolic Panel 27-Aug-2018 11:45:00 ResultValue Glucose, Serum 103 H NA 140 K 3.7 CL 103 Bicarbonate, Serum 25 Anion Gap, Serum 16 BUN 5 L CREAT 0.40 L GFR-Non >60 GFR- >60 Calcium, Serum 9.3 ALB 3.4 ALKP 126 H T Pro 6.6 T Bili 0.6 Alanine Aminotransferase, Serum 33 Aspartate Transaminase, Serum 31 Complete Blood Count + Differential 27-Aug-2018 11:45:00 ResultValue White Blood Cell Count 7.3 Red Blood Cell Count 4.31 HGB 11.0 L HCT 34.6 L MCV 80 MCHC 31.8 L PLT 285 RDW-CV 15.3 H Neutrophil % 62.4 Lymphocyte % 27.3 Monocyte % 5.2 Eosinophil % 4.8 Basophil % 0.3 Neutrophil Count 4.58 Lymphocyte Count 2.00 Monocyte Count 0.38 Eosinophil Count 0.35 Basophil Count 0.02 Magnesium, Serum 27-Aug-2018 11:45:00 ResultValue Magnesium, Serum 1.94 Thyroid Stimulating Hormone, Serum 27-Aug-2018 11:45:00 ResultValue Thyroid Stimulating Hormone, Serum 0.96 Free Thyroxine, Serum 27-Aug-2018 11:45:00 ResultValue Free Thyroxine, Serum 0.92 Triiodothyronine, Level 27-Aug-2018 11:45:00 ResultValue Triiodothyronine, Level 110 Osmolality, Serum 27-Aug-2018 11:45:00 ResultValue Osmolality, Serum 289 Radiology Result: Results Impression: CHEST: 1. Similar appearance of 4.9 mm right middle lobe pulmonary nodular density compared to 07/08/2018. 2. No CT evidence of new or metastatic disease in the chest. ABDOMEN-PELVIS: 1. Redemonstration of numerous hepatic hypodensities which appear similar compared to 07/08/2018. These lesions are better evaluated on recent liver MRI dated 08/16/2018. 2. No evidence of new metastatic disease in the abdomen or pelvis. CT Chest Abdomen Pelvis w/wo Contrast [Aug 19 2018 8:22PM] Impression: 1. Multiple hepatic metastatic lesions as described above. There has been mixed response to treatment with some of them showing response to treatment based on diffusion-weighted imaging. The main viable metastatic lesions are identified in segments 2, 4B, 5, 6 and 8 as described above. The dominant lesions in segments 2 and 4B demonstrate mild interval increase in size. 2. No significant kassidy hepatis or para-aortic lymphadenopathy. MRI Liver with Contrast [Aug 17 2018 11:09AM] Assessment and Plan: Assessment and Plan: Assessment: Ms Almanzar is a pleasant 37 y/o woman with metastatic CRC s/p FOLFOX, liver resection 12/2016, and ovarian resection 04/2017 s/p RPCI 1217, Pembro+Cetux We discussed about the potential different options. I think it's reasonable for her to consider a very aggressive approach of using hepatic artery infusion together with surgery. Think another approach would be to continue the treatments with cetuximab embolism of off protocol and have the one or 2 lesions are growing her liver treated no therapy. She is continuing think about these treatment options further and she'll plan for treatment with cetuximab next week. # Met CRC to liver and ovaries: - s/p liver resection and MWA 12/2016 - s/p ovarian resection in 04/2017 - s/p FOLFOX before and after liver resection - s/p RPCI 1217 07/2017 to 08/2018 - Tolerating overall well, with main s/e of rash f/u next week for Cetuximab # Rash: drug induced, Grade 1 - Improved and stable - Continue topical clindamycin and cetaphil washes, patient only using on face # Iron Def Anemia: - Switched to ferrous gluconate 325 TID - Hgb continues to improve, near normal values today # Constipation/abdominal pain: - Constipation is improved with miralax, but likely abdominal cramping due to decreased fluid intake with miralax - Encouraged adequate fluid, fiber, and activity - Trial senna instead of miralax # Genetics - 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 She'll have surgery next month and may include liver resection. Plan is to provide FOLFIRI +/- Liane/Panit post surgery every 2weeks. Note Recipients: Unknown, Pcp, Sánchez Platt DO - [phone] Jay King MD - [phone] Select Yes when ready to send to Provider(s) Listed Above: Note sent to providers named above Electronic Signatures: Cortes Palomino) (Signed 21-Sep-2018 09:33) Authored: Patient Visit Information, Cancer History, History of Present Illness, Allergies and Outpatient Medication Profile, Problem List, Social History, Performance Assessments, Vitals and Measurements, Physical Exam, Results, Assessment and Plan, To Send Document via Auto Fax Last Updated: 21-Sep-2018 09:33 by Cortes Palomino) References: 1. Data Referenced From Clinic Note - Heme Onc-Follow Up Visit 08/04/2018 02:19 PM [facility] General/Metabolic - Ghazals mackenzie 02-20-2018 General/Metabolic - Established Chief ComplaintFUV Accompanied by maternal aunt. Reference DocumentationSee scanned note See pedigree and test results under Genetics tab. History of Present IllnessMs. KAYY ALMANZAR is a 37 year old female with a personal history of colon cancer, and a family history of breast and pancreatic cancer. She was initially seen in the [facility]etics [facility] on August 06, 2016, and returned on December 03, 2017 for counseling and coordination of testing. Following that appointment, a blood sample was sent for genetic testing via the 67-gene CancerNext-Expanded panel from [employer]. She returned to clinic today with her maternal aunt to discuss these results. An interim history was obtained during our discussion today. There have been no major changes to her personal or family cancer history. Active Problems Adenocarcinoma of colon metastatic to liver (153.9,197.7) (C18.9,C78.7) Family history of breast cancer (V16.3) (Z80.3) Malignant neoplasm of sigmoid colon (153.3) (C18.7) Preop testing (V72.84) (Z01.818) Past Medical History History of No significant past medical history Surgical History History of Section History of Section X3 C-Sections Last one was in 2009 History of Cholecystectomy History of Partial Hepatectomy Family History Family history of malignant neoplasm of breast (V16.3) (Z80.3) Family history of malignant neoplasm of breast (V16.3) (Z80.3) Family history of pancreatic cancer (V16.0) (Z80.0) Family history of pancreatic cancer (V16.0) (Z80.0) Family history of hyperlipidemia (V18.19) (Z83.438) Family history of hypertension (V17.49) (Z82.49) Family history of malignant neoplasm of testis (V16.43) (Z80.43) Family history of myocardial infarction (V17.3) (Z82.49) Family history of myocardial infarction (V17.3) (Z82.49) Social History Denied: History of Alcohol use Never a smoker Never smoker No alcohol use Allergies No Known Drug Allergies Recorded By: Ching Morales; 06/18/2016 10:43:44 AM No Known Allergies Recorded By: Master Yeboah; 06/18/2016 10:52:29 AM Current Meds Motrin TABS;Therapy: (Recorded:[id number]) to Recorded Dispense: 0 Days ; #: Sufficient TABS; Refill: 0; SHIMA = N; Record; Last Updated By: Sara Houston; 01/01/2017 9:35:37 AM Reglan TABS;Therapy: (Recorded:88Zss2441) to Recorded Dispense: 0 Days ; #: Sufficient TABS; Refill: 0; SHIMA = N; Record; Last Updated By: Sara Houston; 01/01/2017 9:35:37 AM Tylenol TABS;Therapy: (Recorded:40Idu3953) to Recorded Dispense: 0 Days ; #: Sufficient TABS; Refill: 0; SHIMA = N; Record; Last Updated By: Sara Houston; 01/01/2017 9:35:37 AM Vitals Vital Signs Recorded: 12Feb2018 02:20PMHeart Vtms18Ymmlosnu585Zroujbkbq03 Height5 ft 7 mbMpmplb288 lb 15.90 ozBMI Haqxgzqoei88.26BSA Calculated1.64 Results/Vyte82-bhsi CancerNext-Expanded panel from [employer]: NEGATIVENo disease-causing mutations or variants of unknown significance were identified.The following genes were analyzed via sequencing and deletion/duplication (unless otherwise noted):AIP, ALK, APC, GARRY, BAP1, BARD1, BLM, BRCA1, BRCA2, BRIP1, BMPR1A, CDH1, CDK4, CDKN1B, CDKN2A,CHEK2, DICER1, EPCAM (del/dup only), FANCC, FH, FLCN, GALNT12, GREM1(del/dup only), HOXB13, MAX, MEN1, MET, MITF (sequencing only), MLH1, MRE11A, MSH2, MSH6, MUTYH, NBN, NF1, NF2, PALB2, PHOX2B, POT1, PMS2, POLD1, POLE, MPTDK2I, PTCH1, PTEN, RAD50, RAD51C, RAD51D, RB1, RET, SDHA, SDHAF2, SDHB, SDHC, SDHD, SMAD4, SMARCA4, SMARCB1, SMARCE1, STK11, SUFU, ONVX472, TP53, TSC1, TSC2, VHL, XRCC2 Diagnoses/Problems Malignant neoplasm of sigmoid colon (153.3) (C18.7) Family history of malignant neoplasm of breast (V16.3) (Z80.3) : Mother Family history of pancreatic cancer (V16.0) (Z80.0) : Mother Patient Discussion/SummaryBased on Ms. Almanzar's personal history of colon cancer, and family history of breast and pancreatic cancer, she was a candidate for genetic testing of the BRCA1 and BRCA2 genes, as well as the genes associated with Vu syndrome. Genetic testing was recommended, and was ordered via the 67-gene CancerNext-Expanded panel from [employer].Her results were NEGATIVE, meaning that no disease causing mutations were identified. A genetic etiology for her cancer has not been identified. Because her results did not identify a gene mutation, recommendations for cancer screening for Ms. Almanzar and her relatives should be based off the family history of cancer.Colon CancerDrAshutosh Palomino is Ms. Almanzar's oncologist, and he is coordinating her treatment and screening. Ms. Almanzar's relatives remain at an increased risk to develop colon cancer, based on her diagnosis alone. Her first degree relatives (her brothers, father and sons) are recommended to undergo colonoscopy exams at age 26 (ten ears younger than her age at diagnosis) and should be repeated every 5 years, or more often if colon polyps are seen. Her brothers underwent colonoscopies when she was first diagnosed with colon cancer and no polyps were seen. Her children are all young, but she will share this information with them as they age.Her second degree relatives (her niece, maternal aunt and paternal aunt/uncles) are recommended to begin their colonoscopy exams at age 50, and should be repeated every 5-10 years. Our guidelines can change, so they should speak with their gastroenterologists in the future to make sure they are receiving the most up to date recommendations.Breast CancerMs. Almanzar has a 3- to 4- fold risk to develop breast cancer, based on her family history of cancer. Her mother was diagnosed with breast cancer at age 54, so Ms. Almanzar should still begin her mammograms at age 40. She will very likely be a candidate for annual mammograms and breast MRIs. She will reach out when she is closer to 40 to discuss a referral to the high risk breast center, if she does not have someone to coordinate this screening. She did not want a referral today.Ovarian/Uterine CancerWe had previously discussed that women with BRCA1 and BRCA2 mutations have an increased risk for ovarian cancer, and women with Vu syndrome have an increased risk for both uterine and ovarian cancer. With negative test results and no family history of ovarian cancer, she is not considered at increased risk for these cancer, but regardless, Ms. Almanzar has already undergone a MATT/BSO.Pancreatic CancerBased on her family history of pancreatic cancer in her mother, and possibly her maternal grandmother, and her siblings have an increased risk to develop pancreatic cancer. Although there are no consensus about the efficacy of pancreatic cancer screening, we could refer Ms. Almanzar to Dr. Jiang who could discuss the CAPS5 research trial, or other possible pancreatic cancer screening. She would like to defer this referral at this time, as she could not enroll in the CAPS5 trial until she is 47 (which is ten years younger than the age that her mother was diagnosed).Although Ms. Almanzar's results did not identify a gene mutation, her family members could still undergo genetic testing of the BRCA1 and BRCA2 genes, based on her mother's personal history of breast and pancreatic cancer. Ms. Almanzar's maternal aunt was present, and she will consider scheduling an appointment. Ms. Almanzar's brothers and maternal cousins could also consider undergoing genetic testing. Ms. Almanzar and her aunt will share this information with the family. An appointment can be scheduled with the cancer genetics team by contacting the [facility] at [phone] (option 2).Finally, we reviewed that there were several alterations identified in Ms. Almanzar's tumor, including an APC mutation called p.E1306* and a TP53 mutation called p.V216M. These mutations were NOT present in the germline testing, which means that these alterations are very likely just somatic (meaning they are only present in the cancer, and not running in the family).Our understanding of genetic contribution to cancer diagnoses is always evolving, so there may be additional testing for information for in the future. She can contact us in 2-3 years to determine if there have been any changes since our discussion today.Marlee Fagan, MSCertified Genetic CounselorCenter for Human [phone] by:Nadia Ann MD, PhDClinical GeneticistAssociate Professor Genetics and Genome Sciences and PediatricsMercy Health St. [facility] .. TimeTime Stamp_UH: Time Spent With Patient: 35 minutes of which greater than 50 percent was spent counseling and or coordinating care. Signatures Electronically signed by : Marlee Fagan, ; Feb 17 2018 11:43AM EST (Author) Electronically signed by : Nadia Ann MD, PhD; Feb 19 2018 10:04PM EST (Author) Normal [facility] ABDOMEN AND PELVIS WITH C ONTRASTon 06-05-2017 CT ABDOMEN AND PELVIS WITH CONTRAST Name: KAYY ALMANZAR STUDY:CT ABDOMEN AND PELVIS WITH CONTRAST; CT CHEST W CONTRAST; 06/05/20172:49 pm INDICATION:37 y/o F with Signs/Symptoms: restaging.37 y/o F with Signs/Symptoms: restaging. Metastatic colon cancer COMPARISON:None.04/28/2017 [id number] ORDERING CLINICIAN:CORTES PALOMINO TECHNIQUE: Helical CT was performed following the intravenous administration of90 ml IV Optiray 350 with water. Reformats were performed in thecoronal and sagittal plane. FINDINGS:LIMITATIONS/LINES: Right IJ port catheter tip terminates at thecavoatrial junction. CHEST: HEART: Heart is within normal limits of size. No significantpericardial effusion. VASCULATURE: Within normal limits. MEDIASTINUM/ABDULLAHI: No mediastinal or hilar lymphadenopathy. PLEURA: Unremarkable. LUNG PARENCHYMA: Central airways are patent. No focal consolidationor effusion. The 4 mm perifissural nodule adjacent to the right minorfissure is stable. No new or enlarging pulmonary nodules. BONES: Unremarkable. CHEST WALL/OTHER: Unremarkable. ABDOMEN AND PELVIS: LIVER: Status post partial resection of segments 7/8. There isredemonstration of multiple stable ablation zones within segments 4A,8, and 5/6. There is interval increase in size of a hypodense masswithin segment 2 now measuring 1.5 x 1.4 cm. This previously measured0.7 x 0.7 cm. There is also interval increase in size of a hypodensemass at the junction of segment 6/7 adjacent to the right hepaticvein measuring 1.1 x 0.9 cm. (Axial image 107). This previouslymeasured 4 mm. There are 3 new subcentimeter hypodense masses:- 7 mm in segment 4B. (Axial image 113).- 9 mm hypodense mass in segment 5. (Axial image 123).- 7 mm hypodense nodule within segment 4B abutting the IVC. (Axialimage 93). BILE DUCTS: Unremarkable. GALLBLADDER: Unremarkable. SPLEEN: Unremarkable. PANCREAS: Unremarkable. KIDNEYS/ADRENALS: Unremarkable. BOWEL: Status post sigmoid colon resection and anastomosis. There ismoderate stool throughout the colon. The bowel loops are normal incaliber without evidence of obstruction. The appendix is normal. BLADDER/PELVIS: Unremarkable. PERITONEUM: Trace nonspecific free pelvic fluid. There issignificant improvement of the previously seen ascites. The largesolid and cystic mass within the pelvis is no longer seen. No focalfluid collection or free intraperitoneal air. GREAT VESSELS/RETROPERITONEUM: Abdominal aorta is normal in caliber.There is unchanged short-segment narrowing at the origin of theceliac artery. The remainder of the aortic branches are patent andnormal in caliber. BONES: Unremarkable. SOFT TISSUE/OTHER: Unremarkable. IMPRESSION:CHEST:No intrathoracic metastatic disease. ABDOMEN/PELVIS: 1. Post treatment changes in the liver with two enlarging masseswithin segments 6/7 and 2 and three new subcentimeter massesconsistent with metastatic disease. The largest lesion measures 1.5cm in segment 2.2. Interval resection of the previously seen large pelvic mass withsignificant improvement of the ascites.Electronically signed by: MISTY BINGHAM MD Normal [facility] CT CHEST W CONTRASTon 2017 CT CHEST W CONTRAST Name: KAYY ALMANZAR STUDY:CT ABDOMEN AND PELVIS WITH CONTRAST; CT CHEST W CONTRAST; 06/05/20172:49 pm INDICATION:37 y/o F with Signs/Symptoms: restaging.37 y/o F with Signs/Symptoms: restaging. Metastatic colon cancer COMPARISON:None.04/28/2017 [id number] ORDERING CLINICIAN:CORTES PALOMINO TECHNIQUE: Helical CT was performed following the intravenous administration of90 ml IV Optiray 350 with water. Reformats were performed in thecoronal and sagittal plane. FINDINGS:LIMITATIONS/LINES: Right IJ port catheter tip terminates at thecavoatrial junction. CHEST: HEART: Heart is within normal limits of size. No significantpericardial effusion. VASCULATURE: Within normal limits. MEDIASTINUM/ABDULLAHI: No mediastinal or hilar lymphadenopathy. PLEURA: Unremarkable. LUNG PARENCHYMA: Central airways are patent. No focal consolidationor effusion. The 4 mm perifissural nodule adjacent to the right minorfissure is stable. No new or enlarging pulmonary nodules. BONES: Unremarkable. CHEST WALL/OTHER: Unremarkable. ABDOMEN AND PELVIS: LIVER: Status post partial resection of segments 7/8. There isredemonstration of multiple stable ablation zones within segments 4A,8, and 5/6. There is interval increase in size of a hypodense masswithin segment 2 now measuring 1.5 x 1.4 cm. This previously measured0.7 x 0.7 cm. There is also interval increase in size of a hypodensemass at the junction of segment 6/7 adjacent to the right hepaticvein measuring 1.1 x 0.9 cm. (Axial image 107). This previouslymeasured 4 mm. There are 3 new subcentimeter hypodense masses:- 7 mm in segment 4B. (Axial image 113).- 9 mm hypodense mass in segment 5. (Axial image 123).- 7 mm hypodense nodule within segment 4B abutting the IVC. (Axialimage 93). BILE DUCTS: Unremarkable. GALLBLADDER: Unremarkable. SPLEEN: Unremarkable. PANCREAS: Unremarkable. KIDNEYS/ADRENALS: Unremarkable. BOWEL: Status post sigmoid colon resection and anastomosis. There ismoderate stool throughout the colon. The bowel loops are normal incaliber without evidence of obstruction. The appendix is normal. BLADDER/PELVIS: Unremarkable. PERITONEUM: Trace nonspecific free pelvic fluid. There issignificant improvement of the previously seen ascites. The largesolid and cystic mass within the pelvis is no longer seen. No focalfluid collection or free intraperitoneal air. GREAT VESSELS/RETROPERITONEUM: Abdominal aorta is normal in caliber.There is unchanged short-segment narrowing at the origin of theceliac artery. The remainder of the aortic branches are patent andnormal in caliber. BONES: Unremarkable. SOFT TISSUE/OTHER: Unremarkable. IMPRESSION:CHEST:No intrathoracic metastatic disease. ABDOMEN/PELVIS: 1. Post treatment changes in the liver with two enlarging masseswithin segments 6/7 and 2 and three new subcentimeter massesconsistent with metastatic disease. The largest lesion measures 1.5cm in segment 2.2. Interval resection of the previously seen large pelvic mass withsignificant improvement of the ascites.Electronically signed by: MISTY BINGHAM MD [facility] MRI LIVER W/O-W CONTRASTon 0 06-05-2017 MRI LIVER W/O-W CONTRAST Name: KAYY ALMANZAR STUDY:MRI LIVER W/O-W CONTRAST; 06/05/2017 3:56 pm INDICATION:Signs/Symptoms: restaging. COMPARISON:MR liver 04/24/2017 ORDERING CLINICIAN:CORTES PALOMINO TECHNIQUE:Axial and coronal T1 and T2 weighted sequences of the abdomen wereobtained. 10 ml of Gadolinium contrast agent Multihance wereadministered intravenously without immediate complication. FINDINGS:LIVER:Multiple resection and ablation sites are again noted.Previously noted hypoenhancing metastases with restricted diffusionhave slightly enlarged, as annotated on axial post-contrast 3 mindelay series 20:Segment 2: Enlarged from 9 mm to 15 mm slice 12/58Segment 6/7: From 8 mm to 12 mm slice 22/58. A few additional new hepatic lesions are noted with restricteddiffusion:Segment 4A/8: 7 mm slice 13/58Segment 4B/5: 7 mm image 13/58Segment 6: 9 mm slice 38/58 BILE DUCTS:No dilatation. GALLBLADDER:Absent PANCREAS:Unremarkable. SPLEEN:Unremarkable ADRENAL GLANDS:Unremarkable KIDNEYS:Unremarkable without hydronephrosis. LYMPH NODES:No new adenopathy. ABDOMINAL VESSELS:Abdominal aorta is patent without aneurysm. The major visceralarterial branches are patent. Stenosis at the origin of the celiacartery suspected.IVC and visualized major branches are patent.Major portal venous branches are patent BOWEL:No dilated bowel is seen. PERITONEUM/RETROPERITONEUM:N o visualized free fluid. BONES AND LOWER THORAX:Grossly clear lung bases. No abnormal marrow enhancement. IMPRESSION:Progression of hepatic metastatic disease compared to prior exam justover 1 month ago. Hepatic metastases have increased in size andnumber.Electronically signed by: IRENE MICHAUD MD Normal [facility] ALBUMIN,FLUIDon 05-01-2017 ALBUMIN,FLUID 3.0 g/dL Normal [facility] Comment on above: Result Comment: REF VALUENOT ESTABLISHEDThe performance characteristics of this test have beenvalidated by the performing [facility] laboratory. This test has not been approved by theFDA; however, such approval is not necessary. Performed By: #### A LBFD ####[facility] [id number] [place] [address] [facility] Cytologyon 05-01-2017 [facility] Cytology Name ALMA ALMANZARccession #: [id number] of Procedure: 05/01/2017 Date Reported: 05/02/2017Date Received: 05/01/2017Date of / Sex 1980 (Age: 37) / FRace: WHITESubmitting Physician: KARINA MORGAN M.D.Other External # FINAL CYTOLOGICAL INTERPRETATIONA. ASCITIC FLUID, CYTOLOGY AND CELL BLOCK: NO MALIGNANT CELLS IDENTIFIED. Electronically Signed Out By JOSE LUIS GARCIA MDBy the signature on this report, the individual or group listed as making theFinal Interpretation/Diagnosis certifies that they have reviewed this case. Slide(s) initially screened by a Mechanical Expert at [place] [address] Clinical HistoryAscites Source of SpecimenA: ASCITIC FLUID Specimen Submitted as:A: ASCITIC FLUID pap non-organizational psychologist ThinPrep slide, [facility] CELL BLOCK, H AND E, InitialGross DescriptionReceived in CytoLyt, labeled with the patient's name and number, is clearyellow fluid. SB PATHOLOGIST IRVIN Normal [facility] Comment on above: Performed By: #### A HALFWAY ####[address] [facility].[place] [id number] CANCER AG 125on 05-01-2017 Cancer antigen 125 61.5 U/mL High 0.0 - 30.2 [facility] Comment on above: Result Comment: CA 1 25 testing is performed by chemiluminescent immunoassay using the Siemens Advia Centaur. Values obtained with different analytic methods cannot be used interchangeably.. Serum CA 125 measurement is intended for use as an aid in monitoring patients previously treated for ovarian cancer. This assay is not intended for screening or diagnosis of cancer in the general population. The results must not be used as the sole means for clinical diagnosis or patient management decisions. Performed By: #### C A125 ####[address] [id number] CBC AND DIFFERENTIALon 05-01 % AUTOMATED IMMATURE GRAN 0.2 % Normal 0.0 - 0.9 [facility] Comment on above: Result Comment: Perc ent differential counts (%) should be interpreted in the context of the absolute cell counts (cells/L). Performed By: #### C BCDF ####[facility] [id number] [place] [id number] % NEUTROPHIL 44.1 % Normal 40.0 - 80.0 [facility] Comment on above: Performed By: #### C BCDF ####[facility] [id number] [place] [address] Basophils/100 WBC Auto (Bld) 0.02 x10E9/L Normal 0.00 - 0.10 [facility] Comment on above: Performed By: #### C BCDF ####[id number] [place] [address] Basophils/100 WBC Auto (Bld) 0.4 % Normal 0.0 - 2.0 [facility] Comment on above: Performed By: #### C BCDF ####[id number] [place] [id number] Eosinophils 0.16 10*3/uL Normal 0.00 - 0.70 [facility] Comment on above: Performed By: #### C BCDF ####[id number] [place] [id number] Eosinophils/100 leukocytes 3.4 % Normal 0.0 - 6.0 [facility] Comment on above: Performed By: #### C BCDF ####[id number] [place] [address] Erythrocyte distribution width Auto Ratio (RBC) 16.6 % High 11.5 - 14.5 [facility] Comment on above: Performed By: #### C BCDF ####[id number] [place] [id number] Erythrocytes (RBC) 4.18 x10E12/L Normal 4.00 - 5.20 [facility] Comment on above: Performed By: #### C BCDF ####[id number] [place] [address] Hematocrit (HCT) 32.6 % Low 36.0 - 46.0 [facility] Comment on above: Performed By: #### C BCDF ####[id number] [place] [id number] Hemoglobin mass conc (Bld) 10.3 g/dL Low 12.0 - 16.0 [facility] Comment on above: Performed By: #### C BCDF ####[facility] [id number] [place] [address] Lymphocytes 2.07 10*3/uL Normal 1.20 - 4.80 [facility] Comment on above: Performed By: #### C BCDF ####[facility] [id number] [place] [id number] Lymphocytes/100 leukocytes 44.0 % Normal 13.0 - 44.0 [facility] Comment on above: Performed By: #### C BCDF ####[facility] [id number] [place] [id number] MCHC mass conc (RBC) 31.6 g/dL Low 32.0 - 36.0 [facility] Comment on above: Performed By: #### C BCDF ####[facility] [id number] [place] [id number] MCV 78 fL Low 80 - 100 [facility] Comment on above: Performed By: #### C BCDF ####[facility] [id number] [place] [id number] Monocytes 0.37 10*3/uL Normal 0.10 - 1.00 [facility] Comment on above: Performed By: #### C BCDF ####[facility] [id number] [place] [id number] Monocytes/100 leukocytes 7.9 % Normal 2.0 - 10.0 [facility] Comment on above: Performed By: #### C BCDF ####[facility] [id number] [place] [id number] Neutrophils 2.07 10*3/uL Normal 1.20 - 7.70 [facility] Comment on above: Performed By: #### C BCDF ####[facility] [id number] [place] [id number] Platelets 215 10*3/uL Normal 150 - 450 [facility] Comment on above: Performed By: #### C BCDF ####[facility] [id number] [address] WBC (Leukocytes) 4.7 10*3/uL Normal 4.4 - 11.3 [facility] Comment on above: Performed By: #### C BCDF ####[facility] [id number] [facility] [place] [address] CELL COUNT AND DIFF, FLUIDon 05-01-2017 CELLS COUNTED 100 Normal [facility] Comment on above: Performed By: #### F LDCD ####[facility] [id number] [place] [address] Erythrocytes (RBC) 0.007 10*6/uL Normal [facility] Comment on above: Performed By: #### F LDCD ####[facility] [id number] [address] Lymphocytes/100 leukocytes 14 % Normal [facility] Comment on above: Performed By: #### F LDCD ####[facility] [id number] [facility] [place] [address] MONONUCLEAR CELLS 65 % Normal [facility] Comment on above: Performed By: #### F LDCD ####[facility] [id number] [address] Neutrophils/100 leukocytes 21 % Normal [facility] Comment on above: Performed By: #### F LDCD ####[facility] [id number] [address] Urine, clarity Cloudy Normal CLEAR [facility] Comment on above: Performed By: #### F LDCD ####[facility] [id number] [place] [address] Urine, color Albert Normal YELLOW [facility] Comment on above: Performed By: #### F LDCD ####[facility] [id number] [place] [address] WBC (Leukocytes) 0.314 10*3/uL Normal [facility] Comment on above: Performed By: #### F LDCD ####[facility] [id number] [place] [address] Lab Specimen Source Peritoneal fluid /ascites Normal [facility] Comment on above: Performed By: #### F LDCD ####[facility] [id number] [place] [address] Performed By: #### A LBFD ####[facility] [id number] [place] [address] COMPREHENSIVE PANELon 2016 Alanine aminotransferase (ALT) 15 U/L Normal 7 - 45 [facility] Comment on above: Result Comment: Brittni ents treated with Sulfasalazine may generate falsely decreased results for ALT. Performed By: #### C MP ####[facility] [id number] [place] [id number] Albumin 3.6 g/dL Normal 3.4 - 5.0 [facility] Comment on above: Performed By: #### C MP ####[id number] [place] [id number] Alkaline phosphatase (ALP) 53 U/L Normal 33 - 110 [facility] Comment on above: Performed By: #### C MP ####[facility] [id number] [place] [id number] Anion gap 11 mmol/L Normal 10 - 20 [facility] Comment on above: Performed By: #### C MP ####[facility] [id number] [place] [id number] Aspartate aminotransferase (AST) 21 U/L Normal 9 - 39 [facility] Comment on above: Performed By: #### C MP ####[id number] [place] [id number] Bicarbonate (HCO3) 27 mmol/L Normal 21 - 32 [facility] Comment on above: Performed By: #### C MP ####[id number] [place] [id number] Bilirubin (total) 0.5 mg/dL Normal 0.0 - 1.2 [facility] Comment on above: Performed By: #### C MP ####[id number] [place] [id number] Calcium 8.7 mg/dL Normal 8.6 - 10.3 [facility] Comment on above: Performed By: #### C MP ####[facility] [id number] [place] [address] Chloride 104 mmol/L Normal 98 - 107 [facility] Comment on above: Performed By: #### C MP ####[facility] [id number] [place] [address] Creatinine 0.64 mg/dL Normal 0.50 - 1.05 [facility] Comment on above: Performed By: #### C MP ####[facility] [id number] [place] [address] eGFR (non-black) mL/min/{1.73_m2} Normal >60 [facility] Comment on above: Performed By: #### C MP ####[facility] [id number] [place] [id number] Result Comment: CALC ULATIONS OF ESTIMATED GFR ARE PERFORMED USING THE MDRD STUDY EQUATION FOR THE IDMS-TRACEABLE CREATININE METHODS. CLIN CHEM 2007;53:766-72 Glucose mass conc 86 mg/dL Normal 74 - 99 [facility] Comment on above: Performed By: #### C MP ####[facility] [id number] [place] [id number] Potassium molar conc 4.1 mmol/L Normal 3.5 - 5.3 [facility] Comment on above: Performed By: #### C MP ####[facility] [id number] [place] [id number] Protein 6.1 g/dL Low 6.4 - 8.2 [facility] Comment on above: Performed By: #### C MP ####[facility] [id number] [place] [id number] Sodium 138 mmol/L Normal 136 - 145 [facility] Comment on above: Performed By: #### C MP ####[facility] [id number] [place] [address] Urea nitrogen 7 mg/dL Normal 6 - 23 [facility] Comment on above: Performed By: #### C MP ####[facility] [id number] [place] [address] MISCELLANEOUS CULT./SM.BACT. on 05-01-2017 MISCELLANEOUS CULT./SM.BACT. PATIENT: KAYY ALMANZAR LOCATION: [place]#: [id number] : 80 AGE: SEX: F ORDERED BY: JERSON MELISSA: [facility] COLLECTED: 05/01/17 10:00ANTIBIOTICS AT PAM.: RECEIVED : 05/01/17 15:51SITE: R E S U L T S GRAM STAIN FINAL 05/01/17 18:37 1+ GRANULOCYTES. NO ORGANISMS SEEN. MISCELLANEOUS CULT./SM.BACT. FINAL 05/03/17 11:31 NO GROWTH AEROBICALLY OR ANAEROBICALLY. Normal [facility] Comment on above: Performed By: #### M [facility] ####[facility] [place] [address] US PARACENTESIS WITH IMAGE G Pili 05-01-2017 US PARACENTESIS WITH IMAGE GUIDANCE Name: KAYY ALMANZAR STUDY:US PARACENTESIS WITH IMAGE GUIDANCE; 05/01/2017 10:56 am ULTRASOUND-GUIDED DIAGNOSTIC AND THERAPEUTIC PARACENTESIS INDICATION:new onset ascites and pain. 37-year-old woman with metastatic coloncancer, ascites. COMPARISON:CT chest abdomen pelvis 04/28/2017 ORDERING CLINICIAN:ZOHRA MLEISSA TECHNIQUE:VARITYPE OPERATOR: Abner Rodriguez R.A.ATTENDING HYDRAULIC BILLET MAKER: Amalia Baron M.D. TECHNICAL DESCRIPTION/FINDINGS: The procedure, including all risks,benefits and alternatives were explained to the patient in detail.All questions were answered and written informed consent was obtained. The patient was positioned supine on the hospital bed in theultrasound suite. A time-out was performed. Focused ultrasound was performed of the abdomen demonstrating amoderate to large volume of ascites. Ultrasound images were saved.Skin overlying the right hemiabdomen was prepped and draped in usualsterile fashion. 1% lidocaine was administered subcutaneously forlocal anesthesia. Under real-time ultrasound guidance, a 5 Frenchmulti side-hole sheath needle was advanced into the ascites.Ultrasound images were saved. Through the multi side-hole sheath, atotal of 1.5 L cloudy albert ascites was aspirated. A representativespecimen was collected for laboratory analysis. The multi side-holesheath was removed. A sterile dressing was applied. SEDATION/MEDICATIONS: 10 cc 1% Lidocaine was administeredsubcutaneously for local anesthesia.SPECIMENS: 1.5 L cloudy amberascites aspirated, representativespecimen collected for laboratory analysis.ESTIMATED BLOOD LOSS: 5 ccFLOUROSCOPY: None.CONTRAST: None. FINDINGS: IMPRESSION:Moderate to large volume ascites. Ultrasound-guided diagnostic andtherapeutic paracentesis performed. 1.5 L cloudy albert ascitesaspirated, fulfillment representative specimen collected for laboratory analysis. Electronically signed by: AMALIA BARON MD [facility] Vital Signs Date Time Vital Sign Value Performing Clinician Facility 06-10-2024 10:04-0500 Body height 168.9 cm Juan Navarrete MD Work Phone: [facility] 06-10-2024 10:04-0500 Body mass index (BMI) [Ratio] 18.76 kg/m2 Juan Navarrete MD Work Phone: [facility] 06-10-2024 10:04-0500 Body temperature 97.59 [degF] Juan Navarrete MD Work Phone: [facility] 06-10-2024 10:04-0500 Body weight 53.52 kg Juan Navarrete MD Work Phone: [facility] 06-10-2024 10:04-0500 Diastolic blood pressure 73 mm[Hg] Juan Navarrete MD Work Phone: [facility] 06-10-2024 10:04-0500 Heart rate 74 /min Juan Navarrete MD Work Phone: [facility] 06-10-2024 10:04-0500 Systolic blood pressure 130 mm[Hg] Juan Navarrete MD Work Phone: [facility] 06-11-2022 08:43-0500 Body temperature 99.5 [degF] AZIZA KAPLAN MD [facility] 06-11-2022 08:43-0500 Body weight 56.8 kg AZIZA KAPLAN MD [facility] 06-11-2022 08:43-0500 Diastolic Blood Pressure Non-Invasive 76 1 AZIZA KAPLAN MD [facility] 06-11-2022 08:43-0500 Heart rate 65 /min AZIZA KAPLAN MD [facility] 06-11-2022 08:43-0500 Respiratory rate 18 /min AZIZA KAPLAN MD [facility] 06-11-2022 08:43-0500 Systolic Blood Pressure Non-Invasive 121 1 AZIZA KAPLAN MD [facility] 2022 10:01-0500 Body height 168.91 cm No Primary Care Physician [facility] Work Phone: 06-20-2021 15:41-0500 Body temperature 98.3 [degF] No Primary Care Physician [facility] Work Phone: 06-20-2021 15:41-0500 Diastolic blood pressure 59 mm[Hg] No Primary Care Physician [facility] Work Phone: 06-20-2021 15:41-0500 Heart rate 64 /min No Primary Care Physician [facility] Work Phone: 06-20-2021 15:41-0500 Respiratory rate 16 /min No Primary Care Physician [facility] Work Phone: 06-20-2021 15:41-0500 SaO2% (BldA) [Mass fraction] 100 % No Primary Care Physician [facility] Work Phone: 06-20-2021 15:41-0500 Systolic blood pressure 108 mm[Hg] No Primary Care Physician [facility] Work Phone: 06-20-2021 14:02-0500 Body height 168.91 cm No Primary Care Physician [facility] Work Phone: 06-20-2021 14:02-0500 Body mass index (BMI) [Ratio] 18.4 kg/m2 No Primary Care Physician [facility] Work Phone: 06-20-2021 14:02-0500 Body weight 52.61 kg No Primary Care Physician [facility] Work Phone: 06-16-2021 11:38-0500 Body temperature 97.6 [degF] No Primary Care Physician [facility] Work Phone: 06-16-2021 11:38-0500 Diastolic blood pressure 76 mm[Hg] No Primary Care Physician [facility] Work Phone: 06-16-2021 11:38-0500 Heart rate 102 /min No Primary Care Physician [facility] Work Phone: 06-16-2021 11:38-0500 Respiratory rate 16 /min No Primary Care Physician [facility] Work Phone: 06-16-2021 11:38-0500 SaO2% (BldA) [Mass fraction] 99 % No Primary Care Physician [facility] Work Phone: 06-16-2021 11:38-0500 Systolic blood pressure 122 mm[Hg] No Primary Care Physician [facility] Work Phone: Encounters Encounter Date Encounter Type Care Provider Facility Start: 01-14-2025 ambulatory No Primary Car e Physician Facility:[facility] Start: 01-03-2025 ambulatory No Primary Car e Physician Facility:[facility] Start: 07-14-2024 End: 07-14-2024 ambulatory KAYY KIRK Facility:[facility] Start: 07-05-2024 End: 07-05-2024 ambulatory JUAN NAVARRETE Facility:[facility] Start: 07-05-2024 End: 07-05-2024 Patient encounter procedure Loan LAKE Work Phone: Behavioral Health Comment on above: Adjustment disorder with mixed anxiety and depressed mood (Primary Dx); Personal history of colon cancer; Low libido Start: 06-10-2024 End: 06-10-2024 Subsequent hospital visit by physician Main A21 6 Work Phone: Radiology Comment on above: Colon cancer metasta sized to liver (HCC) [C18.9, C78.7] Start: 06-10-2024 End: 06-10-2024 ambulatory SÁNCHEZ ACOSTA Facility:[facility] Start: 06-10-2024 End: 06-11-2024 Patient encounter procedure Juan aNvarrete MD Work Phone: General Surgery Comment on above: Colon cancer metasta sized to liver (HCC) (Primary Dx) Personal history of colon cancer (Primary Dx) Start: 06-09-2024 End: 06-10-2024 Telephone encounter Cristy Ponce RN Work Phone: General Surgery 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 Start: 06-07-2024 End: 06-07-2024 Orders Only Cristy Ponce RN Work Phone: General Surgery Comment on above: Colon carcinoma meta static to liver (HCC) (Primary Dx) Liver mass (Primary Dx) Start: 06-01-2024 End: 06-01-2024 Telephone encounter Breanna Marie LPN General Surgery Comment on above: Imaging Report Reque st Start: 01-21-2024 ambulatory No Primary Car e Physician Facility:[facility] Start: 07-23-2023 End: 07-23-2023 ambulatory [facility] Work Phone: Start: 07-23-2023 End: 07-23-2023 Patient encounter procedure [facility] Work Phone: Start: 05-16-2023 End: 05-16-2023 Patient encounter procedure [facility] Work Phone: Start: 06-24-2022 End: 06-25-2022 ambulatory KARINA CASTRO MD Facility: Start: 06-24-2022 End: 06-24-[address] KARINA CASTRO MD [facility] Start: 06-24-2022 ambulatory KARINA CASTRO MD Faci lity:A Start: 06-11-2022 End: 06-11-2022 Emergency department patient visit AZIZA KAPLAN Facility:B Start: 06-11-2022 End: 06-11-2022 Emergency department patient visit AZIZA KAPLAN MD [facility] Start: 04-25-2022 End: 04-25-2022 ambulatory No Primary Care Physician [facility] Work Phone: Start: 04-25-2022 End: 04-25-2022 Patient encounter procedure No Primary Care Physician [facility] Start: 2022 End: 2022 Patient encounter procedure No Primary Care Physician [facility] Start: 10-29-2021 End: 10-29-2021 Patient encounter procedure [facility] Start: 08-23-2021 End: 08-23-2021 Patient encounter procedure No Primary Care Physician [facility] Start: 06-20-2021 End: 06-20-2021 Patient encounter procedure No Primary Care Physician [facility] 3 Outp Start: 06-16-2021 End: 06-16-2021 Patient encounter procedure No Primary Care Physician [facility] Start: 06-05-2017 Ambulatory Cortes Palomino Facility: [facility] Start: 05-01-2017 Ambulatory ZOHRA MELISSA Facility: [facility] Procedures Date Procedure Procedure Detail Performing Clinician Start: 06-10-2024 Us abdominal real ti me w/image limited Jeanette Peck PA-C Work Phone: Start: 2022 Plain x-ray of wrist No Primary Care Physician Start: 12-17-2017 Follow-up visit Start: 12-17-2016 Liver excision AZIZA EDWARDS MD section AZIZA COOPER MD Comment on above: 2005 2007 2009 Total colectomy AZIZA Parsons MD Plan of Treatment Date Care Activity Detail Author Start: 07-05-2024 End: 07-05-2024 Patient encounter procedure 07/05/2024 11:00 AM EST Office Visit Behavioral Health [address] [place] [address] Loan Jin, ORDNANCE TECHNICIAN [id number] [place] [id number] Disinterest in sex/hormone changes Behavioral Health Comment on above: Disinterest in sex/h ormone changes Start: 06-10-2024 End: 06-10-2024 Patient encounter procedure General Surgery Comment on above: Colon Cancer Colon carcinoma meta static to liver (HCC) [C18.9, C78.7] Dx: Colon Cancer met s to Liver. Start: 01-11-2024 Covid-19 Vaccine ( season) Covid-19 Vaccine () [facility] Start: 01-11-2024 Influenza vaccination Influenza Vacc ine (#1) [facility] Start: 2020 Screening for malign ant neoplasm of breast Mammogram Screening [facility] Start: 2001 Screening for malign ant neoplasm of cervix Cervical Cancer Screening [facility] Start: 1999 Hepatitis B Vaccine (1 of 3 - 19+ 3-dose series) Hepatitis B Vaccine (1 of 3 - 19+ 3-dose series) [facility] Start: 1999 Urine microalbumin profile DTaP,Tdap,Td Vaccine (1 - Tdap) [facility] Start: 1998 Anxiety Screening Anxiety Screening [facility] Start: 1998 Depression Screening Depression Scre ening [facility] Start: 1998 Hepatitis C screening Hepatitis C Sc angelia [facility] Start: 1998 HIV screening HIV Screening [facility] End: 07-08-2025 CT Unspecified body region 3D post processing CT VOLUME MEASUREMENT Radiology Routine Liver mass 1 Occurrences starting 06/07/2024 until 07/08/2025 [facility] Work Phone: Comment on above: 1 Occurrences starti ng 06/07/2024 until 07/08/2025 End: 07-07-2025 MR Liver WO and W contrast IV MRI LIVER WO/W IVCON Radiology Routine Colon carcinoma metastatic to liver (HCC) 1 Occurrences starting 06/07/2024 until 07/07/2025 [facility] Work Phone: Comment on above: 1 Occurrences starti ng 06/07/2024 until 07/07/2025 Patient referral [facility] Work Phone: Immunizations Immunization Date Immunization Notes Care Provider Neo lloyd 02-15-2020 influenza virus vacc ine, unspecified formulation Breanna Marie [employer] [facility] Payers Date Payer Category Payer Self-pay [id number] 2023 Private Health Insurance [id number] 2022 Unknown [id number] 1980 Unknown [id number] 1980 Unknown [id number] 1980 Unknown [id number] Medicare MEDICARE A ONLY [id number] Private Health Insurance [id number] Unknown [id number] Unknown [id number] Unknown [id number] Unknown [id number] Unknown [id number] Social History Date Type Detail Facility Start: 06-18-2021 End: 10-28-2022 Tobacco smoking status NHIS Unknown if ever smoked [facility] Start: 04-05-2019 Non-smoker [facility] Start: 1980 Sex Assigned At Female [facility] Start: 06-11-2022 End: 06-10-2024 Tobacco smoking status Never smoked tobacco (finding) [facility] Sex Assigned At Sex [facility] Start: 07-12-2019 End: 06-10-2024 [facility] Start: 07-12-2019 End: 06-10-2024 Patient Health Questionnaire 2 item (PHQ-2) [Reported] [facility] Adult Depression Scr eening Assessment 1 [facility] Start: 1980 [facility] Start: 06-10-2024 Tobacco use and exposure Smoke less tobacco non-user [facility] Goals Date Patient Goal Desired Activity /State Functional Status Date Assessment Result Facility 06-11-2022 Functional Status Resting [facility] Mental Status Date Assessment Result Facility 06-11-2022 Mental Status Orientation Oriented x 4 [facility] 06-20-2021 Cognitive function Awake;Alert;A ppropriate;Follo ws Commands [facility] Work Phone: Clinical Notes 06-11-2022 to 07-05-2024 Loan Jin LISW - 07/05/2024 12:24 PM ESTPatient Margaret Thomas RDMS - 06/10/2024 1:45 PM Kim Altamirano - 06/10/2024 12:41 PM EST Note Date & Type Note Facility 07-05-2024 Note HNO ID: [id number] Author: LOAN JIN LISW Service: ? Author Type: Educational Psychologist Type: Progress Notes Filed: 07/05/2024 13:53 Note Text: [facility] Obstetrics and Gynecology [place] [facility] Date of First Session this Cycle: July 05, 2024 Session #: 1 Informed consent was manually sent to the patient and signed before the visit. Therapist discussed it with the patient. Virtual Visit Check: Visit performed via telehealth.Audio/visual connection was good. Confirmed the patient was in a private space with minimized distractions and no additional people were in the room. Informed consent to deliver services via telehealth was discussed. The patient is aware of the benefits of telehealth and is in agreement to participate. Originating site for client is [place]. Originating site for provider is [place]. 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 She has been going through tx for 8 yrs. They removed her ovaries, but did not put her on HRT. She still has a uterus. She has mixed symptoms of anxiety and depression due to her dx and tx issues, complicated by being thrown into menopause. Symptoms include foggy thinking, trouble staying asleep, fatigue, low libido. Therapist reviewed brakes and accelerators, and green light behavioral exercise to explore sexual avoidance and improve connection and pleasure. Therapist suggested green light exercise to improve insight and communication. Pt was cooperative. PSYCHOLOGY SCREENING/TESTIN07/12/2019 PHQ-9 All Questions Little interest or pleasure in doing things: 0 Feeling down, depressed, or hopeless: 1 Trouble falling or staying asleep, or sleeping too much 3 Feeling tired or having little energy 1 Poor appetite or overeating 1 Feeling bad about yourself - or that you are a failure or have let yourself or your family down 0 Trouble concentrating on things, such as reading the newspaper or watching television 1 Moving or speaking so slowly that other people could have noticed. Or the opposite - being so fidgety or restless that you have been moving around a lot more than usual 0 Thoughts that you would be better off , or of hurting yourself in some way 0 PHQ-9 Score 7 (0-4) minimal depression, (5-9) mild depression, (10-14) moderate depression, (15-19) moderately severe depression, (20-27) severe depression No data to display (0-4) minimal anxiety, (5-9) mild anxiety, (10-14) moderate anxiety, (15-21) severe anxiety LIFESTYLE: -Substance use: none -Sleep: adequate trouble staying asleep -Appetite: adequate appetite -Exercise 1-2 times/week -Family of origin hx: Mother of pancreatic cancer when her middle child was born, Her father is an MD and her step mother is very supportive of her tx in [place]. -Social supports: extended family, denominational community, and friends SEXUAL HEALTH: Presents with decreased libido Contributing factors are medical menopause, medical dx and tx Goals: Improve coping with medical dx and tx, Improve sexual functioning by behavior changes to sexual script, Provide sex therapy techniques to improve patients sexual health, Provide cognitive behavioral tx to reduce symptoms, and Provide education about sexual health, dx, and tx options MENTAL STATUS: -Appearance: She is Neatly dressed, grooming and hygiene were appropriate. - Speech was Normal. - Motor deficits were absent . - Demeanor: Appropriate, Relaxed - Mood was neutral. - Affect was full range . - Thought-cognitive: The patient denied a history of delusions or hallucinations; there is no evidence of formal thought disorder. - Thought processing: goal directed - Suicidal or homicidal ideation: None expressed or evidenced Patient denies any suicidal or homicidal ideation, plan or intent at this time. She did have a thought after taking Tamiflu, but it immediately stopped after the 1st dose - Intelligence: Average - Judgement: Appropriate - Insight: Appropriate Stage of Change: Act Motivation for therapy: Appears to be eager. TREATMENT: Sexual Health treatment plan performed today: P: sign consent, P: reviewed confidentiality, P: established rapport with the patient, P: normalized sexual health concerns, LI: age appropriate sex education, LI: identify what is pleasurable/how to have pleasure, SS: brake (more content not included)... [facility] 07-05-2024 History of Presen t illness Narrative Images from the original note were not included. [facility] Obstetrics [facility]ne[facility] [place] [facility] Department Date of First Session this Cycle: July 05, 2024 Session #: 1 Informed consent was manually sent to the patient and signed before the visit. Therapist discussed it with the patient. Virtual Visit Check: Visit performed via telehealth.Audio/visual connection was good. Confirmed the patient was in a private space with minimized distractions and no additional people were in the room. Informed consent to deliver services via telehealth was discussed. The patient is aware of the benefits of telehealth and is in agreement to participate. Originating site for client is [place]. Originating site for provider is [place]. 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 She has been going through tx for 8 yrs. They removed her ovaries, but did not put her on HRT. She still has a uterus. She has mixed symptoms of anxiety and depression due to her dx and tx issues, complicated by being thrown into menopause. Symptoms include foggy thinking, trouble staying asleep, fatigue, low libido. Therapist reviewed brakes and accelerators, and green light behavioral exercise to explore sexual avoidance and improve connection and pleasure. Therapist suggested green light exercise to improve insight and communication. Pt was cooperative. PSYCHOLOGY SCREENING/TESTIN07/12/2019 PHQ-9 All Questions Little interest or pleasure in doing things: 0 Feeling down, depressed, or hopeless: 1 Trouble falling or staying asleep, or sleeping too much 3 Feeling tired or having little energy 1 Poor appetite or overeating 1 Feeling bad about yourself - or that you are a failure or have let yourself or your family down 0 Trouble concentrating on things, such as reading the newspaper or watching television 1 Moving or speaking so slowly that other people could have noticed. Or the opposite - being so fidgety or restless that you have been moving around a lot more than usual 0 Thoughts that you would be better off , or of hurting yourself in some way 0 PHQ-9 Score 7 (0-4) minimal depression, (5-9) mild depression, (10-14) moderate depression, (15-19) moderately severe depression, (20-27) severe depression No data to display (0-4) minimal anxiety, (5-9) mild anxiety, (10-14) moderate anxiety, (15-21) severe anxiety LIFESTYLE: -Substance use: none -Sleep: adequate trouble staying asleep -Appetite: adequate appetite -Exercise 1-2 times/week -Family of origin hx: Mother of pancreatic cancer when her middle child was born, Her father is an MD and her step mother is very supportive of her tx in [place]. -Social supports: extended family, denominational community, and friends SEXUAL HEALTH: Presents with decreased libido Contributing factors are medical menopause, medical dx and tx Goals: Improve coping with medical dx and tx, Improve sexual functioning by behavior changes to sexual script, Provide sex therapy techniques to improve patients sexual health, Provide cognitive behavioral tx to reduce symptoms, and Provide education about sexual health, dx, and tx options MENTAL STATUS: -Appearance: She is Neatly dressed, grooming and hygiene were appropriate. - Speech was Normal. - Motor deficits were absent . - Demeanor: Appropriate, Relaxed - Mood was neutral. - Affect was full range . - Thought-cognitive: The patient denied a history of delusions or hallucinations; there is no evidence of formal thought disorder. - Thought processing: goal directed - Suicidal or homicidal ideation: None expressed or evidenced Patient denies any suicidal or homicidal ideation, plan or intent at this time. She did have a thought after taking Tamiflu, but it immediately stopped after the 1st dose - Intelligence: Average - Judgement: Appropriate - Insight: Appropriate Stage of Change: Act Motivation for therapy: Appears to be eager. TREATMENT: Sexual Health treatment plan performed today: P: sign consent, P: reviewed confidentiality, P: established rapport with the patient, P: normalized sexual health concerns, LI: age appropriate sex education, LI: identify what is pleasurable/how to have pleasure, SS: brakes and accelerators, SS: green light /sexual scripts, and SS: refer to doctor for medical evaluation and treatment DIAGNOSIS:Low libido R68.12 and Adjustment disorder with anxiety symptoms F43.22 and Adjustment disorder with depressive symptoms F43.21 ALEKSANDRA Stern Doctor of Sexology, Clinical Educational Psychologist, Certified Sex Therapist-Nursing Home Aide documented in this encounter [facility] 07-05-2024 Instructions Loan Jin LISW - 07/05/2024 12:24 PM EST It was a pleasure meeting you today. Please call [phone] to set up another appointment with me and I encourage you to make an appt with sexual health also for a consult. Please keep in mind that I usually offer about five visits as a consultation. If you need skilled nursing therapy, please call [facility] at [phone], or go to [employer], or [email or web address] to find a sex therapist. Below are my handouts for more information on pleasure and lubricants. Your Sexual Health is Important Information on Pleasure and Sexual Aid Devices Pleasure is the journey and the goal The average sexual activity is reported to be about 15 minutes. Is that long enough for you to forget what you needed to do that day, what s for dinner, can the kids hear us? Women tend to have the most responsibility for childcare, eldercare, and professor computer science. Sometimes it takes longer to let all of that responsibility go and let desire and arousal to show up. Try to take more time in your pleasure, whether it is with yourself or your partner. When you focus on pleasure instead of orgasm, then it opens many more options and fun. What is a Pleasure Gap? There is a pleasure gap between men and women. Men report having an orgasm 91% of the time and women only report having an orgasm 64% of the time. Studies show that women are able to be orgasmic more often with established partners verses new partners. And orgasm is achieved easier by receiving oral sex, using vibrators, and manual clitoral stimulation. Over half of women are not able to be orgasmic with intercourse, but they feel pressured or broken if they can t orgasm that way. So then, women tend to fake an orgasm for these reasons. However, the more you increase your self-confidence, feel more comfortable with your partner, and choose partners who are mature, sexually attentive, and not controlling..the better you will feel about sex. How can I make sexual activity more pleasurable? Studies show that women are more likely to feel sexual pleasure if it includes kissing, cuddling, hand to genital stimulation, receiving oral sex, rubbing genitals together, vibrator/sex toy use and intercourse. Men are more likely to have pleasure by hand-genital stimulation, receiving oral sex, and vaginal intercourse. Unfortunately, the media, such as tv, movies, or porn, show the male focused pleasure. It s very rare to see female focused pleasure represented in our daily lives. Let s change that! Let s get rid of words like foreplay because that is the main pleasure event for women! Let s redefine what Sex means for you. It doesn t have to include intercourse only. What is included in your sexual activity? Can you expand on what you are doing now to increase your pleasure? Let s start by learning about sex toys. What is a sexual aid device? Is that a sex toy? A sex toy is an object or device that is primarily used to facilitate sexual pleasure, such as a dildo, artificial vagina, vibrator. Many popular sex toys are designed to resemble human genitals and may be vibrating or non-vibrating. About half or more of all women use some kind of sexual device for pleasure with masturbation and/or with a partner. A variety of devices are found at both [employer] stores and even at many Harvest chains. When you are shopping for a toy, consider the cost, what it is made out of, does it vibrate or not, does it offer clitoral stimulation, will it stimulate your partner also? For example, some women prefer the non-vibrating glass dildos. But if you are having pain with intercourse, you may want to focus on clitoral stimulation or focus on the outside of the vulva, not inserting it into the vagina. There are many to choose from and there really are no limits to what you can do with them. Focus on your pleasure and don t stick to stimulating your obvious areas of vulva/vagina. How does it feel on your neck, inner thigh, breast, back, butt? For more information you can read an article on the vibrators here. Where can I get a sex toy? Many of these products can be found on [employer], which is the most popular way to buy one. Katerina is discrete, have coupons, and good return policy, even for used products. Check out the Pure Enrichment Peak Wand Massager, The Rabbit was made famous in Sex in the City , The Tool Shed: An Erotic Boutique Dorita Madrigal Smile Makers Collection The Pleasure Garden Shop Tess SantanaMiZina Wilde Kitten Isaura's Dog Target has pleasure items from $20-50 available. Aaliyah For Specific Devices: Danika has many products, look under best seller s tab online example is JIM 2, Patricia. Maureen 2 is discrete, high end. Maureen 2 has a lipstick vibrator with USB hot car charger. We-vibanu has couples vibrators too, a popular one is Tango Womanizer Pro uses air for stimulation. This may be for women having difficulty achieving climax with traditional wand devices. Medical Devices that can help you Overcome Sexual Dysfunction I don t have enough blood flow to the clitoris. There are suction devices for clitoris, they are not vibrators, but may help bring blood to the area. This may help the tissues in those who have had radiation therapy: Sherburn device is FDA approved. I have physical limitations to holding a sex toy. Sofya may be hands free. It sits around the clitoris and your labia may be able to keep it in the right spot or stay in place during intercourse. But every vulva is different, so it may not stay in place. A great resource is Er[employer]erotics for things like a hand harness glove (currently out of stock) that can hold your sexual device if you are unable to analytical laboratory technician it. They also have a thigh harness to hold your toys on your leg for your partners enjoyment. You may also want to check out the Vibrating Finger Glove, Flexa Pleasure, Mini Discrete Butterfly on [employer]. I have pain with deep penetration. You may want to try an OhNut ring, it is placed on the penis or toy to prevent it from going too deep. I can t find a comfortable position. Here is a website for older adults or people with disabilities. They offer Love Bumpers and other types of pillows for support. Can a sex toy help with my pelvic pain? Mysteryvibe as flexible products that can penetrate you in different ways. You may want to consider Crescendo 2 is what they have for pelvic pain. They have male products to help with erectile dysfunction too. How do I clean my devices/toys? See table below for general tips but recommend following title inspector instructions. Cleaning is very important for prevention of sexually transmitted infections, regardless of the gender identity or sexual orientation of partner(s). Material Porosity How to clean Where to store ABS plastic nonporous warm water and soap or sex toy conduit cleaner in a lint-free fabric bag cotton porous cold water and soap any clean container or drawer crystal, stone, wood* nonporous warm water and soap lint-free fabric bag or padded container glass, Pyrex, silicone, stainless steel nonporous motorized: warm water and soap or sex toy conduit cleaner nonmotorized: can also use boiling water or sanitize in handle sander operator glass and Pyrex: lint-free fabric bag or padded container silicone or stainless steel: any clean container jelly rubber, elastomer, latex, cyberskin porous room temperature water and a soapy washcloth individually in a lint-free fabric bag or nonplastic container leather porous spot clean with a damp, soapy cloth store in a cool, dry place and avoid storing in plastic PVC and vinyl porous warm water and a soapy washcloth lint-free fabric bag nylon nonporous machine or handwash with soap any clean container or drawer For General Sexual Health Resources: Bedsider To reclaim or discover your sexual self with others just like you: Body Sex was developed by Ese Souza, a sex educator, where women come together in a safe environment and learn about their bodies and claim their sexuality. Many women/vulva-owners have been raised to feel shameful about their genitals and sexual desires. Our physical self-worth and pleasure are controlled by social norms that deny our birthright to feeling good about our bodies, having satisfying orgasms, and owning our sexuality. Bodysex is designed to heal shame, enhance self-esteem, and enrich our orgasms. To increase pleasure and fantasy on your own: Mippin has hundreds of videos, interviews, demonstrations on how to experience pleasure. The cost ranges from $49-$75 for a membership. White Rabbit Brewing Dipsea is an erotic ysabel that appeals to the sensuality and desires of women. T[employer]ell has erotic podcasts! Cum with Us: Erotic Stories for Women Kiss Me Quicks Sex Stories by AudioDesires Audio Erotica for Women by AudioBubblesires Chelle Reads Erotica Zach is an audio erotica site with stories of fantasy. Ferly ysabel empowers women to learn what you do and don t like and how to communicate that with your partner. It covers painful intercourse, low libido, and more. Kym ysabel was developed by doctors and sex therapist to enhance sexual wellness. Candy is a sensual AI ysabel (LGBTQ friendly) and you get to direct the storyline! Guided by Vonda combines sensual audio stories meditation for wellness and sensual audio stories. My Fantasy: Interactive & Romantic Simulator is a role-playing game and story ysabel. Tabou Stories: Love Episodes create an avatar that looks like you and she can explore her sexual self. (LGBTQ friendly also) BOOKS: Unlocking full orgasm potential: Denita Vega and Galilea Payton 'Becoming Orgasmic' Laura Arora PhD 'Becoming Clitorate' Jose Miguel Dick The Science of Orgasm' Ese Souza 'Sex for one' Almita Wirt 'Elusive orgasm' Syeda Messer 'The Multi-Orgasmic Couple' Zack Ramirez 'For Women Only' You tube video for meditation, called: [place] Breathing Meditation for Women who Have Difficulty Orgasming [email or web address] To give to your partner: Siddharth Banerjee 'She Comes First: The Thinking Man's Guide to Pleasuring a Woman' General: Madison Rehman PhD: Come as You Are: The Surprising New Science that Will Transform Your Sex Life (Make sure to get the newer version, because the older version is somewhat outdated) Ashvin Hardin 'For Yourself' Pilar Munoz 'Heart Pounding Guide Passionate Sex' Marlee Stahl MD, 'Sex Rx, hormones, health, and your best sex ever' Imani Gunter 'Getting the sex you want' Murphy Catrina 'Donna of Sex' Laly Thomas and Kelsey Grier 'Getaway Guide to the Great Sex Weekend' Verna Clark 'Better Sex Through Mindfulness' For couples in long-term relationships: 'Mating in captivity'- Hellen Braden For the child sexual abuse survivor: Bernarda Walker 'The Courage to Heal' For trauma: Yunier Trotter 'The Body Keeps the Score' Verna Broedero 'Better Sex Through Mindfulness' Ame Lares 'Daring Greatly' Easier reading: Charito Welch 'The two-step. The dance toward intimacy.' Relationships: Jose Miguel Ramos 'Rekindling Desire: A Ciaa-pl-Iuic Program to Help Low-Sex and No-Sex Marriages' (revised edition). Meet Padilla 'The Marriage Go-Round'. Zohra Rice 'Why We Love'. Negative Scientologist Messages about Sex The Great Sex Rescue by Lorraine Figueroa: The Voodoo Movement that Shamed a Generation of Young Women and How I Broke Free by Ella Cordero Pain: Te Dsouza and Kd Headley- When Sex Hurts (100% of the profits from this book goes to the medical society that is dedicated to women's sexuality, called ISSWS) WEBSITES: International Society for the Study of Women's Sexual Health Medical sexual health society, has a list of qualified providers Www.isswsh.org/ Their educational info can be found at: https://www.Navigenics.com/ Your Sexual Health is Important Information on Dilators Your doctor, sex therapist, or pelvic floor physical therapist may have suggested that you use dilators. Dilators are plastic or silicone cylinders that are rounded on one end and come in several sizes. The smallest size is about the same size as a tampon or large finger. They are used to stretch the vaginal or anal tissue slowly and gently. When using dilators, you will always have to use lubricants, see handout on lubricants here (attach link or make one big handout for both). Discuss with your healthcare provider what your goals are. Do you want to be able to use tampons, have you or your partner insert a finger, use a sex toy, have intercourse inserting a penis, or just have a more comfortable exam using a speculum. Your healthcare provider will give you instructions on how to use dilators and what size to go up to depending on your goals. Here is an overview for you on how to use dilators from the [facility]: Start with Your mindset: Think about your goals and how using a dilator will help yourself feel better, just like exercising. This is not a pleasurable activity (until we can get pleasure back into this process). This is homework for your body, no different then if you hurt your hand and had to squeeze a stress ball 20 times a day. Find a Safe Place: Carve out time for yourself and a private space to do dilator therapy. The bedroom is the most common space. You may want to lock the door, so you are not interrupted. This way you can use the dilators while lying down. Plan for 10-15 minutes a day, four to five times a week. Start with what you feel comfortable with. This may be a long-term exercise for your vulva/anus. Building it into a routine will help you in the long run. You will need a mirror: We recommend using a mirror to look at the vulva and the vaginal opening. This is good to do for everyone, so that you can be familiar with your body and notice any changes that you would like to talk to your doctor about. Locate the labia or lips, the clitoris, the opening to the urethra, and the openings of the vagina and rectum. Beginning with Dilators: Use a small amount of lubrication on the dilator. Tense and relax the pelvic floor muscles a few times. When you are in the relax phase of the exercise, insert the smallest dilator that you have purchased. Try to lean it in different directions, up, down, side to side as you slowly enter 1-2 inches. The important part of this is that you are in control of how fast you move or if you move at all. Notice how you are feeling: Do you feel pressure, stretching, ache, or it seems okay? Notice your breathing. If you are tense and breathing is shallow, stop and try to relax while leaving the dilator in place. That may be all you do that day for 10 minutes or you could push in further and see how that feels. If you have sharp pain-STOP! Dilator therapy won t be effective if you are in pain. Check with your healthcare provider who is supervising your dilator therapy. You may benefit from further physical therapy techniques or possibly a numbing cream. Give yourself some time: Leave the dilator in for 10 to 20 minutes. Remember, this is not combined with sexual pleasure yet, so you can read or watch tv. On the same note, we recommend you stay in touch with what you are feeling so that you can monitor when it is time to use a larger dilator. Change dilator size: When you can effortlessly insert the dilator, it may be time to choose a larger size. When you think you are ready, use the size that you know is comfortable for a few minutes, then use lubrication on the larger one and start with only entering in 1-2 inches, moving up, down, side to side. Remember to breath and relax. Cleaning your dilator: Dilators can be cleaned with soap and water, making sure they are rinsed thoroughly. How do you buy a set of dilators? Amazon Soul Source Intimate Tarsha Your Sexual Health is Important Information on Vaginal Lubricants and Moisturizers The whix-wlz-ovdiipv vaginal moisturizer and lubricant products can be confusing to sort through, especially since there are no FDA requirements for how they can be marketed or labeled. Please note: Vaginal lubricants and moisturizers do not protect you against or sexually transmitted diseases. How do vaginal lubricants work? Vaginal lubricants work by reducing the friction associated with thin, dry genital tissue. Lubricants come in liquid or gel form and are applied to the vagina and vulva right before intercourse or sexual activity. It can also help to apply it to the penis or any toy/vibrator/dilator that may be inserted in the vagina. What are vaginal moisturizers? Vaginal moisturizers are products that are intended to ease vaginal dryness. They need to be used regularly to maintain moisture. They are absorbed in the skin, increasing moisture in the affected area. Moisturizers may not provide enough comfort during intercourse. Vaginal moisturizers can be messy, and you may want to wear a panty liner to catch any discharge. Long-acting vaginal moisturizers should be used at least twice weekly. Many women find they need to use a moisturizer 3-5 times/week. In addition, it is important to not only apply the moisturizer inside the vagina, but also to apply to the vestibule (the external area surrounding the opening of the vagina). Women who are not sexually active often find that the regular use of a long-acting vaginal moisturizer makes them feel more comfortable. Claims Technician beware! Many lubricants are labeled as moisturizers to make them more appealing to consumers. Here are some over the counter options: Replens Moisture Restore Comfort Gel is to be used externally for dry vulvar skin. Aquaphor can also be applied externally for comfort. [place] Aloe [place]: Many people are allergic to aloe, so keep this in mind with products like this that have aloe in it. Medicine Mama s V magic: Not many medical studies on this, but many patients swear by it, has oil, beeswax and honey in it- best used externally. Here are some other suggestions: Extra [place] Wellman Oil (natural) Can be used as a moisturizer by placing on finger and rubbing into the vaginal canal. Do not use other food oils as they can trap bacteria. Do not use with latex condoms as they weaken the condom, cause tears, and can cause disintegration of the condom. Vitamin E Oil (natural) Can be used as a suppository. Pure vitamin E oil is available in bottle form or capsule form. If you use the capsules, break them open and apply to the vaginal canal. You can apply vitamin E oil one or more times a day. Do not use with latex condoms as they weaken the condom, cause tears, and can cause disintegration of the condom. Coconut Oil (natural) Coconut oil can be used on the outside of the vaginal entrance and just inside the edge. Coconut oil is good for rejuvenating dry, irritated tissues and for keeping vaginal dryness at bay. Coconut oil should be pure, without other oils or additives. Do not use with latex condoms as they weaken the condom, cause tears, and can cause disintegration of the condom. If you are prone to urinary tract infections, yeast infections, or have diabetes, you may not be able to use natural oils. Luvena A vaginal moisturizer that can be found at your local drug store. It is hormone, glycerin and paraben free. Replens Estrogen free. Good for post-menopause or after medical treatments (such as chemotherapy and hormone therapy) that dry the vagina. This moisturizer is inserted into the vagina with an applicator 1-3 times per week. Women who choose not to use or cannot use localized estrogen replacement to the vagina often use Replens. Revaree Hormone-free. This is a vaginal insert that is placed with fingers into the vagina every 2-3 days at bedtime. This is a good option post-menopause. Vajuvenate This is a topical vulvar cream intended to reduce itching and irritation on the vulva. It is hormone free and has coconut oil, vitamin E, and mitchell butter listed as ingredients. Fertility and lubricants Many studies have shown that some lubricants decrease sperm movement in lab conditions. However, one study followed women over time and did not find any difference in fertility between women using lubricants or not. This may be because lubricants remain near the vaginal opening or because sperm rapidly moves into the uterus before the toxic effect of the lubricant take place. Because it may be important for family planning, information about lubricant effect on sperm movement is shown below. Normal movement: Normal to mildly decreased movement: Decreased movement: Pre-Seed Fertility-Friendly Lubricant? Conceive Plus BabyDance BioGenesis by Good Clean Love GALILEA-Actively Trying Canola Oil Astroglide FemGlide Glycerin KY Jelly KY Sensitive KY Tingling (especially severe) Wellman Oil Replens Silky Smooth Saliva What kind of lubricant should I use? There are generally three types of lubricants available. First, think about what you plan to do with them. Are you having a solo experience and don t need to worry about condoms? Are you using a silicone toy or is it made of something else? Are you with a partner who may be using a condom or dental dam made of latex? Then find one that feels comfortable to you everyone is different. It may take some trial and error, but let s find the one that feels good to you. Hopefully this guide will help you decide which ones might work for you. The three types are water based, silicone, and oil based. Water based lubricants are water-soluble and are the most widely used personal lubricants. They are good to use with silicone toys and condoms, but they get tacky over a short period of time. Examples would be: Good Clean Love (made of organic ingredients) Pulse H2Oh! Sylk Natural System Galilea Astroglide Silicone lubricants are thicker and more slippery than water-based lubricants, so they last longer during sexual activity. It does not dry out quickly, unlike water-based lubricants. They are good to use with non-silicone toys (plastic, glass) and are good to use with condoms. Do not use silicone lubricant with other products made with silicone, like sexual toys and vibrators. These lubricants may damage the toy. Check the title inspector for what type of sexual aid/toy you may have. Examples would be: Uber lube Replens Silky Smooth Pulse Aloe-ahh Wet Wiyot GALILEA Premium Personal Lubricant PINK Silicone Lubricant SLIQUID Organics silk Oil based lubricants, (shown in chart above) such as virgin olive oil, canola oil, baby, oil, vitamin E oil, coconut oil, Vaseline, etc. are more readily available in the home, but are not good to use with condoms. In many women, these can cause infections. However, if you have sore spots on the vulva (outer lips), then petroleum jelly (Vaseline) can sometimes be helpful. The following table shows the osmolality and pH of some lubricants that have osmolality less than 380 mOsm/kg, as recommended by the WHO. It is intended to help you be an informed consumer. It is not meant to recommend or endorse any specific product(s). There are many lubricants you can try so you can find the one that works best for you. Try to avoid warming or scented lubricants as they can irritate the vulva. In Summary Vaginal lubricants should be used at the time of intercourse to decrease friction. Long-acting vaginal moisturizers are used at least twice weekly to increase vaginal (internal) lubrication and elasticity. Vulvar moisturizers are for external use for vulvar comfort and do not impact vaginal lubrication or elasticity. Lubricants should be applied to the outside and opening of the vagina at the time of sexual activity. The lubricant can also be applied to the penis or internal toy. Silicone based lubricants should not be used on silicone vibrators or toys. Both silicone and water-based lubricants are condom compatible. If you use a water-based lubricant, it is also important to choose a lubricant with low osmolality since lubricants with high osmolality increase the chance of irritation and infection. Vaseline petroleum products and oils (baby oil, coconut, olive oil,) can make condoms break, so should not be used with condoms. All of the products listed here are over the counter. Many can be bought in any drugstore or online. You do not need a prescription. Also, many adult stores do carry high-quality lubricant products. Remember, use a vaginal moisturizer for dry tissue, use lubricants for sexual activity. If you have any questions, please ask your doctor or sex therapist for more information. This handout is intended to help you be an informed consumer. It is not meant to recommend or endorse any specific product(s). We want you to be informed about your sexual health choices so that you can have a positive sexual experience. Your sexual health is important! documented in this encounter [facility] 06-10-2024 History of Presen t illness Narrative Radiology Service Progress Note PATIENT NAME: Kayy Almanzar DATE OF SERVICE: June 10, 2024 TIME: 3:58 PM PATIENT IDENTITY VERIFICATION COMPLETED USING TWO (2) IDENTIFIERS: Name and Date of confirmed by patient verbally. FALL SCREENING: Has the patient had 2 falls in the last year or 1 fall with injury or currently using an Ambulatory Assistive Device (Walker, Cane, Wheelchair, Crutches, etc.)? No PATIENT GENDER DATA: Assigned female at . status: Unknown status: N/A PATIENT RELEVANT IMPLANT DATA REVIEWED: Not Applicable PATIENT PRESENTS WITH AN IMPLANTABLE OR ATTACHED SERVICE DESK SPECIALIST: No RADIOLOGY DEPARTMENT: Ultrasound PERIPHERAL IV DATA: Not applicable SIGNED BY: Margaret Busch RDMS, Victoriano June 10, 2024 3:58 PM documented in this encounter [facility] 06-10-2024 Note HNO ID: [id number] Author: MARGARET BUSCH RDMS Service: ? Author Type: Simulation Software Engineer Type: Progress Notes Filed: 06/10/2024 15:59 Note Text: Radiology Service Progress Note PATIENT NAME: Kayy Almanzar DATE OF SERVICE: June 10, 2024 TIME: 3:58 PM PATIENT IDENTITY VERIFICATION COMPLETED USING TWO (2) IDENTIFIERS: Name and Date of confirmed by patient verbally. FALL SCREENING: Has the patient had 2 falls in the last year or 1 fall with injury or currently using an Ambulatory Assistive Device (Walker, Cane, Wheelchair, Crutches, etc.)? No PATIENT GENDER DATA: Assigned female at . status: Unknown status: N/A PATIENT RELEVANT IMPLANT DATA REVIEWED: Not Applicable PATIENT PRESENTS WITH AN IMPLANTABLE OR ATTACHED SERVICE DESK SPECIALIST: No RADIOLOGY DEPARTMENT: Ultrasound PERIPHERAL IV DATA: Not applicable SIGNED BY: Margarte Busch RDMS, CAMILA June 10, 2024 3:58 PM [facility] 06-10-2024 Note HNO ID: [id number] Author: ?, ?, ? Service: ? Author Type: ? Type: Progress Notes Filed: 06/10/2024 12:46 Note Text: SPECIALTY CARE COORDINATION QUICK NOTE Provided patient with list of numbers she may need, Histotripsy information, instructions on how to upload imaging and an education binder in the chance that she does proceed with having Histotripsy. Arranged a same day Histotripsy US for 1:45 on the second floor. Patient and thanked me and verbalized understanding. Emailed Dr. Greer and KONG appointments to have her be seen. [facility] 06-10-2024 History of Presen t illness Narrative SPECIALTY CARE COORDINATION QUICK NOTE Provided patient with list of numbers she may need, Histotripsy information, instructions on how to upload imaging and an education binder in the chance that she does proceed with having Histotripsy. Arranged a same day Histotripsy US for 1:45 on the second floor. Patient and thanked me and verbalized understanding. Emailed Dr. Greer and KONG appointments to have her be seen. LIVER METS INITIAL VISIT-SURGERY NOTE HPI Mrs. Almanzar is a very pleasant 44 y/o woman with metastatic CRC s/p FOLFOX, with Pembrolizumab and Cetuximab. Liver resection and ablation in 2017. Imaging: CT Chest 05/10: Since 01/21/2024, slight interval increase in size of a few bilateral noncalcified lung nodules, for reference on series 301: - RML Solid 4.0 mm, image 294, previously 2.1 mm - LLL Solid 4.1 mm, image 307, previously 2.0 mm - RLL Solid 8.3 mm, image 405, previously 5.2 mm - LLL Solid 5.1 mm, image 283, previously 3.1 mm, with adjacent small cystic lucency Two additional previously seen larger nodular opacities in the bilateral lower lobes appear not significant changed from prior, as follows: -Right lower lobe solid opacity with somewhat linear morphology measures 17 x 9 mm, image 310 -Left lower lobe irregular solid opacity which abuts the lateral costal pleura measures 25 x 13 mm, image 314, with adjacent left lower lobe atelectasis/scarring. The central hypoattenuating component of this lesion is also unchanged measuring approximately 13 x 9 mm, image 313. MRI 05/04: 4.2 x 3.1 cm metastasis in the posterior aspect of the left superior hepatic lobe, slightly larger since 02/23/2024. 6 mm right lower lobe pulmonary nodule, better assessed on chest CT and likely slightly larger since 01/21/2024, likely metastasis. Labs: No results found for: PLT No results found for: BILIT No results found for: INR Assessment Mrs. Almanzar is a very pleasant 44 y/o woman with metastatic CRC s/p FOLFOX, with Pembrolizumab and Cetuximab. Liver resection and ablation in 2017. She is here to discuss histotripsy options Plan: - She mentioned STEPHENS pump was tried I'm [place] but was removed, we discussed with IR staff dr SHAFFER and ih her CTA chest the STEPHENS was not found, mainly her liver is getting blood supply from collateral circulation - Her mass in the superior left aspect of te left lobe, which make it technically difficult for Histotripsy but we will obtain a liver US to assess feasibility - Refer to dr Greer for SBRT discussion SIGNATURE: Juan Navarrete MD PATIENT NAME: Kayy Almanzar DATE: June 10, 2024 TIME: 10:47 AM PAGER/CONTACT #: Agree with above. Juan Navarrete MD I have left a voice message to the patient saying that the feasibility of histotripsy based on ultrasound is low therefore we will proceed with radiation oncology consult for consideration of SBRT instead as discussed with the patient. Juan Navarrete MD What is the reason for your visit today? Consult Who is your referring physician? Dr. Navarrete Are you having poor oral intake? NO Have you had unintentional weight loss of 15 lbs/7 Kg in the last 3-6 months? NO Bowels: regular Wound: clean & dry Temperature: No Drains: No documented in this encounter [facility] 06-10-2024 Note HNO ID: [id number] Author: JUAN NAVARRTEE MD Service: ? Author Type: Physician Type: Progress Notes Filed: 06/10/2024 14:38 Note Text: LIVER METS INITIAL VISIT-SURGERY NOTE HPI Mrs. Almanzar is a very pleasant 44 y/o woman with metastatic CRC s/p FOLFOX, with Pembrolizumab and Cetuximab. Liver resection and ablation in 2017. Imaging: CT Chest 05/10: Since 01/21/2024, slight interval increase in size of a few bilateral noncalcified lung nodules, for reference on series 301: - RML Solid 4.0 mm, image 294, previously 2.1 mm - LLL Solid 4.1 mm, image 307, previously 2.0 mm - RLL Solid 8.3 mm, image 405, previously 5.2 mm - LLL Solid 5.1 mm, image 283, previously 3.1 mm, with adjacent small cystic lucency Two additional previously seen larger nodular opacities in the bilateral lower lobes appear not significant changed from prior, as follows: -Right lower lobe solid opacity with somewhat linear morphology measures 17 x 9 mm, image 310 -Left lower lobe irregular solid opacity which abuts the lateral costal pleura measures 25 x 13 mm, image 314, with adjacent left lower lobe atelectasis/scarring. The central hypoattenuating component of this lesion is also unchanged measuring approximately 13 x 9 mm, image 313. MRI 05/04: 4.2 x 3.1 cm metastasis in the posterior aspect of the left superior hepatic lobe, slightly larger since 02/23/2024. 6 mm right lower lobe pulmonary nodule, better assessed on chest CT and likely slightly larger since 01/21/2024, likely metastasis. Labs: No results found for: PLT No results found for: BILIT No results found for: INR Assessment Mrs. Almanzar is a very pleasant 44 y/o woman with metastatic CRC s/p FOLFOX, with Pembrolizumab and Cetuximab. Liver resection and ablation in 2017. She is here to discuss histotripsy options Plan: - She mentioned STEPHENS pump was tried I'm [place] but was removed, we discussed with IR staff dr SHAFFER and ih her CTA chest the STEPHENS was not found, mainly her liver is getting blood supply from collateral circulation - Her mass in the superior left aspect of te left lobe, which make it technically difficult for Histotripsy but we will obtain a liver US to assess feasibility - Refer to dr Greer for SBRT discussion SIGNATURE: Juan Navarrete MD PATIENT NAME: Kayy Almanzar DATE: June 10, 2024 TIME: 10:47 AM PAGER/CONTACT #: Agree with above. Juan Navarrete MD I have left a voice message to the patient saying that the feasibility of histotripsy based on ultrasound is low therefore we will proceed with radiation oncology consult for consideration of SBRT instead as discussed with the patient. Juan Navarrete MD [facility] 06-10-2024 Note HNO ID: [id number] Author: HILTON MATTHEWS MA Service: ? Author Type: Second Helper Type: Progress Notes Filed: 06/10/2024 11:33 Note Text: What is the reason for your visit today? Consult Who is your referring physician? Dr. Navarrete Are you having poor oral intake? NO Have you had unintentional weight loss of 15 lbs/7 Kg in the last 3-6 months? NO Bowels: regular Wound: clean AND dry Temperature: No Drains: No [facility] 06-09-2024 Telephone encounter Note Patient ID by Name and date: Patient's called wants to cancel MRI with [facility] -states that patient is just interested in Histotripsy- would like to hear other options, but can have the plan acted out locally if not histotripsy. - MRI appt cancelled and patient's aware may or may not be candidate for histotripsy. - also informed patient that Kim the Histotripsy nurse will assist any question or needs during appt tomorrow Cristy Ponce RN MSN [facility] 06-09-2024 Miscellaneous Notes Patient ID by Name and date: Patient's called wants to cancel MRI with [facility] -states that patient is just interested in Histotripsy- would like to hear other options, but can have the plan acted out locally if not histotripsy. - MRI appt cancelled and patient's aware may or may not be candidate for histotripsy. - also informed patient that Kim the Histotripsy nurse will assist any question or needs during appt tomorrow Cristy Ponce RN MSN documented in this encounter [facility] 06-07-2024 Telephone encounter Note Patient ID by Name and date: Called to confirm appointment, establish care relationship, patient agrees with having MRI liver with [facility] if approved- message sent to imaging staff, states had updated labs done in [place]- included tumor marker Summary: Dx: colon met liver -primary removed 2016 at 2016 - liver resection Nodules in Lungs - watching a couple of years Hx: Radiation, Chemo (last chemo 06/01/24), 2 recurrence in liver (last recurrence August 2023) Interested in Histotripsy, but also want to here other options Cristy Ponce RN MSN [facility] 06-07-2024 Miscellaneous Notes Patient ID by Name and date: Called to confirm appointment, establish care relationship, patient agrees with having MRI liver with [facility] if approved- message sent to imaging staff, states had updated labs done in [place]- included tumor marker Summary: Dx: colon met liver -primary removed 2016 at 2017 - liver resection Nodules in Lungs - watching a couple of years Hx: Radiation, Chemo (last chemo 06/01/24), 2 recurrence in liver (last recurrence August 2023) Interested in Histotripsy, but also want to here other options Cristy Ponce RN MSN documented in this encounter [facility] 06-01-2024 Telephone encounter Note Contacted PT by phone. Upcoming appt scheduled for 06/10/24 w/ Dr Navarrete. Voicemail left requesting a returned call to office. Number provided. Will inquire about outside facility most recent imaging was completed to obtain reports. Continued 06/01/24: Received voicemail from PT verifying [facility] for recent outside Imaging completion. Authorization is required from PT for reports to share electronically to [facility]. Voicemail left back for PT w/ this information. Breanna Marie LPN [facility] 06-01-2024 Miscellaneous Notes Contacted PT by phone. Upcoming appt scheduled for 06/10/24 w/ Dr Navarrete. Voicemail left requesting a returned call to office. Number provided. Will inquire about outside facility most recent imaging was completed to obtain reports. Continued 06/01/24: Received voicemail from PT verifying [facility] for recent outside Imaging completion. Authorization is required from PT for reports to share electronically to [facility]. Voicemail left back for PT w/ this information. Breanna Marie LPN documented in this encounter [facility] 06-11-2022 Hospital Discharg e instructions Patient Education [...] wet, you can dry it with a chair inspector. You may use acetaminophen or ibuprofen to [...] chills as directed by your healthcare provider [id number] [facility]. [address] [place] [address]. All rights reserved. This information is not intended as a substitute for professional medical care. Always follow your healthcare professional's instructions. Follow Up Care 06/11/2022 08:14:44 With:KARINA CASTRO MD Address: [address] [place] [address] [address] [place] [address]- [phone] When:1-2 days With:Go to emergency room if symptoms worsen Address:Unknown When:2-4 days [facility] 06-11-2022 Procedure note Date of Service 06/11/2022 [...] AM Digitally Signed by AZIZA KAPLAN MD [facility] 06-11-2022 Note Discharge Instructions Thank you for allowing [facility] to assist you with your healthcare needs. [...] MD When Within 1-2 days Where: [address] [place] [address] [phone] Follow Up with Go to emergency room if symptoms worsen When Within 2-4 days Allergies NKA Medications Please ask your primary doctor or pharmacist before taking any other medication not listed, including over the counter drugs, herbal medications, vitamins and or supplements as they may interact with your home medications. What How Much When Why Instructions Last Dose New acetaminophen-hydrocodone (Lothian 325- 5 mg oral tablet) 1 tab(s) [...] and jeremy droe KOE done) Hycet, Lorcet, Lothian, Verdrocet, Vicodin, Xodol, Zamicet What is the [...] may report side effects to FDA at [phone]. What other drugs will affect acetaminophen and [...] affect acetaminophen and hydrocodone, including prescription and obkw-jmx-fnuxskn medicines, vitamins, and herbal products. Not all [...] to ensure that the information provided by [employer]. ('[employer]') is accurate, up-to-date, and complete, but no guarantee is made to that effect. Drug information contained herein may be time sensitive. [employer] information has been compiled for use by healthcare practitioners and consumers in the [place] and therefore [employer] does not warrant that uses outside of the [place] are appropriate, unless specifically indicated otherwise. alikes drug information does not endorse drugs, diagnose patients or recommend therapy. Zenph drug information is an informational resource designed [...] effective or appropriate for any given patient. [employer] does not assume any responsibility for any aspect of healthcare administered with the aid of information [employer] provides. The information contained herein is not intended to cover all possible uses, directions, precautions, warnings, drug interactions, allergic reactions, or adverse effects. If you have questions about the drugs you are taking, check with your doctor, nurse or pharmacist. Copyright 6804-2504 [employer] Version: 16.03. Revision Date: 06/13/2020. Education Materials [...] wet, you can dry it with a chair inspector. You may use acetaminophen or ibuprofen to [...] chills as directed by your healthcare provider [phone] [facility]. [address] [place] [address]. All rights reserved. This information is not intended as a substitute for professional medical care. Always follow your healthcare professional's instructions. Additional Information VACCINATE! IT SAVES LIVES! Members of the community who have not yet received the COVID-19 vaccine and would like to receive it can visit one of [facility] vaccine clinics. There are many vaccine clinic locations within the [facility]. For locations and available times, please visit [email or web address]. It is important to note that some COVID mobile vaccine clinics are held outdoors and may be canceled in rainy or stormy conditions. To learn more about pediatric vaccinations (ages 5-11), we invite you to visit the [facility] webpage. [email or web address] To learn more about the COVID-19 vaccine, we invite you to visit the [facility] website for a list of frequently asked questions. [email or web address] [facility] [facility] Patient Portal Access Instructions: Stay connected with your healthcare team and access your personal medical information anytime with the [facility] Patient Portal. If you would like a full copy of your medical records please contact the [facility] Medical Records Department Friday through Friday between 8a.m. and 4:30p.m. Please follow the directions below to access the portal: 1.Access the email account you provided upon registration to the hospital.2.Look for an invitation email from [facility].3.Open the email and access the invitation link: Accept Invitation to [facility]4.Fill in the required carlson to create your account. Sign into [email or web address] with your username and password that you [...] you will allow to register on the [facility] Patient Portal for access to your information. You can also access the [employer] Patient Portal on the [employer] ysabel. Simply click on Health Records under Health Data and then click on the [employer] logo. HOW TO SAFELY DISPOSE OF PRESCRIPTION [...] Call your local pharmacy or go to [email or web address] to find one close to you.3.Make use of household items: Use cat litter or old coffee grounds to dispose medications if other options are not available. Mix your drugs with these household products, seal them in an airtight container and throw it into the garbage. Call [facility]: [phone] to be sure your drugs can be [...] been reviewed and explained to me and I,KAYY ALMANZAR understand my current condition and have read and understand these discharge instructions. I have received a written copy of the plan/instructions. If I have questions, I am aware that I should contact my doctor. 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: Date/Time: Relationship to Patient: Witness Name/Signature: Date/Time: [facility] 06-11-2022 Note ORIGINAL EXAMINATION: THREE XRAY VIEWS [...] 06/11/2022 9:14:52 AM Ordering Provider: AZIZA KAPLAN [facility] 06-11-2022 Note ORIGINAL EXAMINATION: TWO XRAY VIEWS [...] Sign Date: 06/11/2022 9:13:31 AM Ordering Provider: [facility] 06-11-2022 Note ORIGINAL EXAMINATION: THREE XRAY VIEWS [...] Sign Date: 06/11/2022 9:14:52 AM Ordering Provider: [facility] 06-11-2022 Note ORIGINAL EXAMINATION: TWO XRAY VIEWS [...] Sign Date: 06/11/2022 9:13:31 AM Ordering Provider: [facility] Evaluation + Plan note No data available for this section [facility] Evaluation note Diagnosis Onset Date Acute cough acute COVID acute Encounter for screening for COVID-19 acute [facility] Work Phone: Evaluation noteNo assessment information available [facility] Work Phone: Evaluation note* Diagnosis Onset Date Resolution Status Left wrist sprain acute [facility] Work Phone: Evaluacwah note* Diagnosis Colon carcinoma metastatic to liver (HCC)- Primary Malignant neoplasm of colon, unspecified site documented in this encounter [facility] note* Diagnosis Liver mass- Primary Unspecified disorder of liver documented in this encounter [facility] note* Diagnosis Colon cancer metastasized to liver (HCC)- Primary Malignant neoplasm of colon, unspecified site Colon cancer metastasized to liver (HCC) Malignant neoplasm of colon, unspecified site documented in this encounter [facility] note* Diagnosis Colon cancer metastasized to liver (HCC) Malignant neoplasm of colon, unspecified site documented in this encounter [facility] note* Diagnosis Personal history of colon cancer- Primary Personal history of malignant neoplasm of large intestine documented in this encounter [facility] note* Diagnosis Adjustment disorder with mixed anxiety and depressed mood- Primary Personal history of colon cancer Personal history of malignant neoplasm of large intestine Low libido Decreased libido documented in this encounter [facility] Discharge instructions No data available for this section [facility] Progress note No data available for this section [facility] Reason for referral (narrative)* Diagnostic Procedure Only (Routine) - Closed Specialty Diagnoses / Procedures Referred By Luisa barry Referred To Contact US IMAGING Diagnoses Colon cancer metastasized to liver (HCC) Procedures US ABDOMEN LTD US ABDOMINAL REAL TIME W/IMAGE LIMITED Jeanette Ventura PA-C [address] [facility] [facility] [place] [phone] [facility] [place] [address] Referral ID Status Reason Start Date Expiration Date V isits Requested Visits Authorized [id number] Closed Auto-Generate d Referral 06/10/2024 07/10/2025 1 1 [facility] for referral (narrative)* Diagnostic Procedure Only (Routine) - Closed Specialty Diagnoses / Procedures Referred By Luisa barry Referred To Contact US IMAGING Diagnoses Colon cancer metastasized to liver (HCC) Procedures US ABDOMEN LTD US ABDOMINAL REAL TIME W/IMAGE LIMITED Jeanette Ventura PA-C [address] [place] [address] Us Imaging [facility] Referral ID Status Reason Start Date Expiration Date V isits Requested Visits Authorized [id number] Closed Auto-Generate d Referral 06/10/2024 07/10/2025 1 1 [facility] for visit Narrative* Diagnostic Procedure Only (Routine) - Closed Specialty Diagnoses / Procedures Referred By Contcarmencita barry Referred To Contact US IMAGING Diagnoses Colon cancer metastasized to liver (HCC) Procedures US ABDOMEN LTD US ABDOMINAL REAL TIME W/IMAGE LIMITED Jeanette Ventura PA-C [address] [place] [address] [facility] [place] [address] Referral ID Status Reason Start Date Expiration Date V isits Requested Visits Authorized [id number] Closed Auto-Generate d Referral 06/10/2024 07/10/2025 1 1 [facility] for visit Narrative* Transition of Care (Routine) - Closed Specialty Diagnoses / Procedures Referred By Contcarmencita barry Referred To Contact Diagnoses Personal history of colon cancer Procedures CONSULT TO SEX THERAPY (BEHAVIORAL HEALTH) Juan Navarrete MD [address] [place] [address] Phone: tel: fax: Referral ID Status Reason Start Date Expiration Date V isits Requested Visits Authorized [id number] Closed PCP Requested Referral 06/11/2024 06/10/2025 1 1 [facility] Summary Purpose Family History No Family History Records Found Relationship Condition Age at Onset Recorded Date/T david Not Specified Cerebrovascular accident (CVA) Unknown mother Malignant neoplasm of breast Unknown Hypertension Unknown brother Malignant neoplasm Unknown father High blood cholesterol Unknown Malignant neoplasm Unknown Advance Directives No Advanced Directives Records Found Advance Directive Response Recorded Date/ Time Living Will No April 05, 2 019 10:08am 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 No April 05, 2019 10:08am Advance Directive Response Recorded Date/ Time Living Will No March 29 10:01am 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 No 2022 10:01am Advance Directive Response Recorded Date/ Time Living Will No March 29 11:01am 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 No 2022 11:01am Chief Complaint and Reason for Visit Chief Complaint COUGH/ACHES/PCR COVI D TEST COVID POS LABS/[facility] Reason for Visit Acute cough COVID Encounter for screening for COVID-19 Chief Complaint LABS/[facility] PORT FLUSH Chief Complaint XRAY LEFT WRIST Reason for Visit Left wrist sprain Chief Complaint XRAY LEFT WRIST PORT FLUSH Reason for Visit Left wrist sprain Chief Complaint port flush port flush Reason for Referral Specialty Diagnoses / Procedures Referred By Contac t Referred To Contact Diagnoses Personal history of colon cancer Procedures CONSULT TO SEX THERAPY (BEHAVIORAL HEALTH) Juan Navarrete MD [address] [place] [phone] Referral ID Status Reason Start Date Expiration Date Visits Requested Visits Authorized [id number] Authorized PCP Requested Referral 06/11/2024 06/10/2025 1 1 Specialty Diagnoses / Procedures Referred By Contac t Referred To Contact Diagnoses Personal history of colon cancer Procedures CONSULT TO WOMEN'S HEALTH Juan Navarrete MD [address] [place] [address] [place] [address] [place] [address] Referral ID Status Reason Start Date Expiration Date Visits Requested Visits Authorized [id number] Authorized PCP Requested Referral 06/11/2024 06/10/2025 1 1 Specialty Diagnoses / Procedures Referred By Contac t Referred To Contact Diagnoses Personal history of colon cancer Procedures CONSULT TO WELLNESS PHYSICIAN OFFICE/OUTPATIENT [facility] 60 MINUTES Juan Navarrete MD [address] [place] [address] Loulou Donald MD [address] [place] [phone] Referral ID Status Reason Start Date Expiration Date Visits Requested Visits Authorized [id number] Authorized PCP Requested Referral 06/11/2024 06/10/2025 1 1 Specialty Diagnoses / Procedures Referred By Luisa t Referred To Contact Diagnoses Personal history of colon cancer Procedures CONSULT TO MEDICAL GENETICS - CANCER MEDICAL GENETICS COUNSELING EACH 30 MINUTES Juan [facility]arrete MD [address] [facility] [address] [place] [phone] [place] [phone] Referral ID Status Reason Start Date Expiration Date Visits Requested Visits Authorized [id number] Pending Review PCP Requested Referral Auto-Generate d Referral 06/11/2024 06/10/2025 1 1 Specialty Diagnoses / Procedures Referred By Luisa barry Referred To Contact Psychology Diagnoses Personal history of colon cancer Procedures CONSULT TO PSYCHOLOGY OFFICE/OUTPATIENT NEW HIGH MDM 60 MINUTES Juan Navarrete MD [address] [place] [address] Kayy Kirk, PhD [address] [place] [address] Referral ID Status Reason Start Date Expiration Date Visits Requested Visits Authorized [id number] Pending Review PCP Requested Referral 06/11/2024 06/10/2025 1 1 Specialty Diagnoses / Procedures Referred By Luisa barry Referred To Contact CT IMAGING Diagnoses Liver mass Procedures CT VOLUME MEASUREMENT 3D RENDERING W/INTERP&POSTPROC DIFF WORK STATION Juan Navarrete MD [address] [place] [address] Ct Imaging [place] [address] Referral ID Status Reason Start Date Expiration Date Visits Requested Visits Authorized [id number] New Request Auto-Generat ed Referral 06/07/2024 07/07/2025 1 1 Specialty Diagnoses / Procedures Referred By Luisa barry Referred To Contact MR IMAGING Diagnoses Colon carcinoma metastatic to liver (HCC) Procedures MRI LIVER WO/W IVCON MRI ABDOMEN W/O & W/CONTRAST MATERIAL Juan Navarrete MD [address] [facility] [place] [phone] [place] [address] Referral ID Status Reason Start Date Expiration Date Visits Requested Visits Authorized [id number] Pending Review Auto-Generat ed Referral 06/07/2024 07/07/2025 1 1 Additional Source Comments INFORMATION SOURCE (unrecogn ized section and content) DATE CREATED AUTHOR 11/03/2017 [facility] DATE CREATED AUTHOR AUTHOR'S ORGANIZ ATION 03/24/2018 [employer] DATE CREATED AUTHOR AUTHOR'S ORGANIZ ATION 09/20/2019 [facility] DATE CREATED AUTHOR AUTHOR'S ORGANIZ ATION 06/27/2022 [facility] ([place]) DATE CREATED AUTHOR AUTHOR'S ORGANIZ ATION 07/16/2024 [facility] DATE CREATED AUTHOR AUTHOR'S ORGANIZ ATION 01/16/2025 [facility] Care Team (unrecognized sect ion and content) Care Team Personnel Name: PHYSICIAN, NONE Position: Physician Member Role: Primary Care Physician Name: ELKE Calixto Position: RN Member Role: ED RN Name: AZIZA KAPLAN MD Position: ED Physician Member Role: ED Physician Address: Address: [facility] [address] Care Team Personnel Name: PHYSICIAN, NONE Position: Physician Member Role: Primary Care Physician Care Teams (unrecognized sec tion and content) Team Status: Active Member Role Status Dates No Primary Care Physician Family Provider Active No Primary Care Physician Primary Care Provider Active Team Status: Inactive Member Role Status Dates No Primary Care Physician Primary Care Provider Active Dr. 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 Relationship Specialty Start Date End Date Sánchez Acosta DO PCP - General Family Medicine 06/12/16 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 Relationship Specialty Start Date End Date Sánchez Acosta DO PCP - General Family Medicine 06/12/16 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 Burnisher Relationship Specialty Start Date End Date Sánchez Acosta DO PCP - General Family Medicine 06/12/16 Source Comments (unrecognize d section and content) In the event this informatio n is protected by the Federal Confidentiality of Alcohol and Drug Abuse Patient Records regulations: The Federal rules restrict any use of the information to criminally investigate or prosecute any alcohol or drug abuse patient.[facility] the event this information is protected by the Federal Confidentiality of Alcohol and Drug Abuse Patient Records regulations: The Federal rules restrict any use of the information to criminally investigate or prosecute any alcohol or drug abuse patient.[facility] the event this information is protected by the Federal Confidentiality of Alcohol and Drug Abuse Patient Records regulations: The Federal rules restrict any use of the information to criminally investigate or prosecute any alcohol or drug abuse patient.[facility] the event this information is protected by the Federal Confidentiality of Alcohol and Drug Abuse Patient Records regulations: The Federal rules restrict any use of the information to criminally investigate or prosecute any alcohol or drug abuse patient.[facility] the event this information is protected by the Federal Confidentiality of Alcohol and Drug Abuse Patient Records regulations: The Federal rules restrict any use of the information to criminally investigate or prosecute any alcohol or drug abuse patient.[facility] the event this information is protected by the Federal Confidentiality of Alcohol and Drug Abuse Patient Records regulations: The Federal rules restrict any use of the information to criminally investigate or prosecute any alcohol or drug abuse patient.[facility] the event this information is protected by the Federal Confidentiality of Alcohol and Drug Abuse Patient Records regulations: The Federal rules restrict any use of the information to criminally investigate or prosecute any alcohol or drug abuse patient.[facility] the event this information is protected by the Federal Confidentiality of Alcohol and Drug Abuse Patient Records regulations: The Federal rules restrict any use of the information to criminally investigate or prosecute any alcohol or drug abuse patient.[facility] the event this information is protected by the Federal Confidentiality of Alcohol and Drug Abuse Patient Records regulations: The Federal rules restrict any use of the information to criminally investigate or prosecute any alcohol or drug abuse patient.[facility] Reason for Visit (unrecogniz ed section and content) Reason Comments Imaging Report Request Specialty Diagnoses / Procedures Referred By Contac t Referred To Contact General Surgery / GENERAL SURGERY Diagnoses Dx: Colon Cancer mets to Liver. 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 [facility] [employer] [facility]. provides no warranty or guarantee of the accuracy or completeness of information in this document.
== END | disposition home or self-care (01) ==
LOC: BIMLAB 10:21
DX: C18.7 Malignant neoplasm of sigmoid colon (principal)
CPT/HCPCS: 36415; 80053

== ENCOUNTER → 2025-01-24 | Outpatient (CLI) | payer OTHER, SELFPAY ==
--- OUTSIDE RECORDS SUMMARY | 2025-01-24 12:07 | XMS RPT_ITS | CCD ---
Author Organization [facility] Care Team Providers Care Overhead Distribution Engineer Name Role Phone MELISSA, ZOHRA C Unavailable Unavailable MELISSA ZOHRA C Unavailable Unavailable Sánchez Acosta Unavailable Unavailable Cortes Palomino Unavailable Unavailable Sánchez Acosta Unavailable Unavailable Care Physician, No Primary Primary Care Provider Unavailable Care Physician, No Primary Referring Provider Un available COBY Cerda Attending Provider [phone] Care Physician, No Primary Primary Care Provider Unavailable Dr. Haresh Alejandra Attending Provider [phone] Care Physician, No Primary Referring Provider Un available Dr. Monty Wheeler Attending Provider [phone] PHYSICIAN, NONE Primary Care Physician Unavailab KARINA Collaod MD Attending Unavailable PHYSICIAN, NONE Primary Care Unavailable AZIZA KAPLAN Attending Unavailable PHYSICIAN, NONE Primary Care Unavailable KARINA CASTRO MD Attending Unavailable PHYSICIAN, NONE Primary Care Unavailable Sánchez Acosta DO Primary Care Provider Care Physician, No Primary Referring Unava ilable Dwayne Rutherford Attending Unavailable Care Physician, No Primary Primary Care Unava ilable NWACH[place]U, ENYINNA Primary Care Unavailable [place], ENYINNA Attending Unavailable [place], ENYINNA Referring Unavailable [place], ENYINNA Attending Unavailable Care Physician, No Primary Primary Care Unava ilable [place], ENYINNA Attending Unavailable [place], ENYINNA Referring Unavailable Care Physician, No Primary Primary Care Unava ilable JUAN NAVARRETE Attending Unavailable SELF Referring Unavailable SÁNCHEZ ACOSTA Primary Care Unavailable SÁNCHEZ ACOSTA Primary Care Unavailable KAYY KIRK Attending Unavailable JUAN NAVARRETE Referring Unavailable SÁNCHEZ ACOSTA Primary Care Unavailable LOAN JIN Attending Unavailab JUAN Atkins Referring Unavailable SÁNCHEZ ACOSTA Primary Care Unavailable JEANETTE VENTURA Referring Unavailarik e SÁNCHEZ ACOSTA Primary Care Unavailable Allergies Allergy Classification Reported Allergen(s) Allergy Type Date of Onset Reaction(s) Facility (6 sources) OLANZapine; Translations: [OLANZAPINE] Drug Allergy 12-03-2023 Other: See Comments [facility] (2 sources) Oseltamivir; Translations: [OSELTAMIVIR] Drug Allergy 07-05-2024 Other: See Comments [facility] Medications Current Medications Medication Drug Class(es) Dates Sig (Normalized) Sig (Original) acetaminophen 325 mg / HYDROcodone bitartrate 5 mg oral tablet (1 source) Opioid Agonist Start: 06-11-2022 End: 06-16-2022 take 1 tablet by mouth every four hours as needed for pain [place] 325- 5 mg oral tablet Dose = [...] Interpretation Reference Range Facility Comprehensive Metabolic Prof [facility] 01-17-2025 Albumin [Mass/Vol] 4.3 g/dL Normal 3.5-5.0 [facility] Comment on above: Performed By: #### L 500.4050 #### [facility] [address] [place], [address] Albumin/Globulin [Mass ratio] 1.7 {ratio} Normal 0.9-2.4 [facility] Comment on above: Performed By: #### L 500.4050 #### [facility] [address] [place], [address] ALK PHOS 226 U/L High 35-104 [facility] Comment on above: Performed By: #### L 500.4050 #### [facility] [address] [place], [address] ALT [Catalytic activity/Vol] 181 U/L High <=34 [facility] Comment on above: Performed By: #### L 500.4050 #### [facility] [address] [place], [address] AST [Catalytic activity/Vol] 76 U/L High <=31 [facility] Comment on above: Performed By: #### L 500.4050 #### [facility] [address] [place], [address] Bilirubin [Mass/Vol] 0.41 mg/dL Normal 0.00-1.30 [facility] Comment on above: Performed By: #### L 500.4050 #### [facility] [address] [place], [address] BUN/CRE 16.7 RATIO Normal 10-20 [facility] Comment on above: Performed By: #### L 500.4050 #### [facility] [address] [place], [address] Calcium [Mass/Vol] 9.1 mg/dL Normal 7.6-11.0 [facility] Comment on above: Performed By: #### L 500.4050 #### [facility] [address] [place], [address] Chloride [Moles/Vol] 105 mmol/L Normal 98-108 [facility] Comment on above: Performed By: #### L 500.4050 #### [facility] [address] [place], [address] CO2 [Moles/Vol] 25.6 mmol/L Normal 21.0-32.0 [facility] Comment on above: Performed By: #### L 500.4050 #### [facility] [address] [place], [address] Creatinine [Mass/Vol] 0.64 mg/dL Low 0.70-1.20 [facility] Comment on above: Performed By: #### L 500.4050 #### [facility] [address] [place], [address] GAP 11 Normal 5-15 [facility] Comment on above: Performed By: #### L 500.4050 #### [facility] [address] [place], [address] GFR/1.73 sq M.predicted among non-blacks MDRD (S/P/Bld) [Vol rate/Area] 112 mL/min/{1.73_m2} Normal >60 [facility] Comment on above: Result Comment: mL/m in/1.73m2 CKD-EPI Creatinine Equation (2020) Performed By: #### L 500.4050 #### [facility] [address] [place], [address] Globulin (S) [Mass/Vol] 2.6 g/dL Normal 2.2-4.2 [facility] Comment on above: Performed By: #### L 500.4050 #### [facility] [address] [place], [address] Glucose [Mass/Vol] 117 mg/dL High 70-99 [facility] Comment on above: Performed By: #### L 500.4050 #### [facility] [address] [place], [address] Potassium [Moles/Vol] 4.0 mmol/L Normal 3.3-5.1 [facility] Comment on above: Performed By: #### L 500.4050 #### [facility] [address] [place], [address] Sodium [Moles/Vol] 141 mmol/L Normal 133-145 [facility] Comment on above: Performed By: #### L 500.4050 #### [facility] [address] [place], [address] T PROT 6.9 g/dL Normal 5.9-8.4 [facility] Comment on above: Performed By: #### L 500.4050 #### [facility] [address] [place], [address] Urea nitrogen [Mass/Vol] 11 mg/dL Normal 4-19 [facility] Comment on above: Performed By: #### L 500.4050 #### [facility] [address] [place], [address] Comprehensive Metabolic Prof ilon 01-14-2025 Albumin [Mass/Vol] 4.4 g/dL Normal 3.5-5.0 [facility] Comment on above: Performed By: #### L 500.4050 #### [facility] [address] [place], [address] Albumin/Globulin [Mass ratio] 1.7 {ratio} Normal 0.9-2.4 [facility] Comment on above: Performed By: #### L 500.4050 #### [facility] [address] [place], [address] ALK PHOS 261 U/L High 35-104 [facility] Comment on above: Performed By: #### L 500.4050 #### [facility] [address] [place], [address] ALT [Catalytic activity/Vol] 256 U/L High <=34 [facility] Comment on above: Performed By: #### L 500.4050 #### [facility] [address] [place], [address] AST [Catalytic activity/Vol] 162 U/L High <=31 [facility] Comment on above: Performed By: #### L 500.4050 #### [facility] [address] [place], [address] Bilirubin [Mass/Vol] 0.35 mg/dL Normal 0.00-1.30 [facility] Comment on above: Performed By: #### L 500.4050 #### [facility] [address] [place], [address] BUN/CRE 11.1 RATIO Normal 10-20 [facility] Comment on above: Performed By: #### L 500.4050 #### [facility] [address] [place], [address] Calcium [Mass/Vol] 9.2 mg/dL Normal 7.6-11.0 [facility] Comment on above: Performed By: #### L 500.4050 #### [facility] [address] [place], [address] Chloride [Moles/Vol] 104 mmol/L Normal 98-108 [facility] Comment on above: Performed By: #### L 500.4050 #### [facility] [address] [place], [address] CO2 [Moles/Vol] 24.8 mmol/L Normal 21.0-32.0 [facility] Comment on above: Performed By: #### L 500.4050 #### [facility] [address] [place], [address] Creatinine [Mass/Vol] 0.62 mg/dL Low 0.70-1.20 [facility] Comment on above: Performed By: #### L 500.4050 #### [facility] [address] [place], [address] GAP 12 Normal 5-15 [facility] Comment on above: Performed By: #### L 500.4050 #### [facility] [address] [place], [address] GFR/1.73 sq M.predicted among non-blacks MDRD (S/P/Bld) [Vol rate/Area] 112 mL/min/{1.73_m2} Normal >60 [facility] Comment on above: Result Comment: mL/m in/1.73m2 CKD-EPI Creatinine Equation (2020) Performed By: #### L 500.4050 #### [facility] [address] [place], [address] Globulin (S) [Mass/Vol] 2.6 g/dL Normal 2.2-4.2 [facility] Comment on above: Performed By: #### L 500.4050 #### [facility] [address] [place], [address] Glucose [Mass/Vol] 104 mg/dL High 70-99 [facility] Comment on above: Performed By: #### L 500.4050 #### [facility] [address] [place], [address] Potassium [Moles/Vol] 4.0 mmol/L Normal 3.3-5.1 [facility] Comment on above: Performed By: #### L 500.4050 #### [facility] [address] [place], [address] Sodium [Moles/Vol] 140 mmol/L Normal 133-145 [facility] Comment on above: Performed By: #### L 500.4050 #### [facility] [address] [place], [address] T PROT 7.0 g/dL Normal 5.9-8.4 [facility] Comment on above: Performed By: #### L 500.4050 #### [facility] [address] [place], [address] Urea nitrogen [Mass/Vol] 7 mg/dL Normal 4-19 [facility] Comment on above: Performed By: #### L 500.4050 #### [facility] [address] [place], [address] L501.5101on 01-04-2025 GGTP 66 IU/L Abnormal 0-60 [facility] Comment on above: Result Comment: Perf ormed at: - [facility] [address] [id number] Registered Nurse Cardiovascular Icu: Romaine Hernandez PhD, Phone: [phone] Performed By: #### L 500.4050 #### [facility] [address] [place], [address] Amylaseon 01-03-2025 GAURANG 57 U/L Normal 28-100 [facility] Comment on above: Performed By: #### L 501.5200, L501.4700, L501.2300, L504.2610, L100.0100, L501.2400, L500.4050, L100.9950, L501.1400, L501.5101, L501.2450 #### [facility] [address] [place], [place], [address] Bilirubin, Directon 25-20 25 Bilirubin.direct [Mass/Vol] 0.18 mg/dL Normal 0.00-0.30 [facility] Comment on above: Performed By: #### L 501.5200, L501.4700, L501.2300, L504.2610, L100.0100, L501.2400, L500.4050, L100.9950, L501.1400, L501.5101, L501.2450 #### [facility] [address] [place], [place], [id number] CBC W/Diff, Automatedon 08-2 Absolute Lymph 1.00 X10 3/uL Normal 0.83-4.51 [facility] Comment on above: Performed By: #### L 501.5200, L501.4700, L501.2300, L504.2610, L100.0100, L501.2400, L500.4050, L100.9950, L501.1400, L501.5101, L501.2450 #### [facility] [address] [place], [place], [phone] Absolute Neut 2.1 X10 3/uL Normal 2.0-7.7 [facility] Comment on above: Performed By: #### L 501.5200, L501.4700, L501.2300, L504.2610, L100.0100, L501.2400, L500.4050, L100.9950, L501.1400, L501.5101, L501.2450 #### [facility] [address] [place], [place], [phone] (817) Basophils/100 WBC (Bld) 0.8 % Normal 0-1 [facility] Comment on above: Performed By: #### L 501.5200, L501.4700, L501.2300, L504.2610, L100.0100, L501.2400, L500.4050, L100.9950, L501.1400, L501.5101, L501.2450 #### [facility] [address] [place], [place], [phone] (995) Eosinophils/100 WBC (Bld) 5.6 % High 0-5 [facility] Comment on above: Performed By: #### L 501.5200, L501.4700, L501.2300, L504.2610, L100.0100, L501.2400, L500.4050, L100.9950, L501.1400, L501.5101, L501.2450 #### [facility] [address] [place], [address] (148) Erythrocyte distribution width (RBC) [Ratio] 14.8 % High 11.6-14.6 [facility] Comment on above: Performed By: #### L 501.5200, L501.4700, L501.2300, L504.2610, L100.0100, L501.2400, L500.4050, L100.9950, L501.1400, L501.5101, L501.2450 #### [facility] [address] [place], [place], [phone] (999) Hematocrit (Bld) [Volume fraction] 30.0 % Low 37-47 [facility] Comment on above: Performed By: #### L 501.5200, L501.4700, L501.2300, L504.2610, L100.0100, L501.2400, L500.4050, L100.9950, L501.1400, L501.5101, L501.2450 #### [facility] [address] [place], [address] (980) Hemoglobin (Bld) [Mass/Vol] 9.3 g/dL Low 12.0-15.0 [facility] Comment on above: Performed By: #### L 501.5200, L501.4700, L501.2300, L504.2610, L100.0100, L501.2400, L500.4050, L100.9950, L501.1400, L501.5101, L501.2450 #### [facility] [address] [place], [address] IG% 0.300 Normal 0.0-0.9 [facility] Comment on above: Result Comment: IG% - Immature Granulocytes (promyelocytes, myelocytes and metamyelocytes) > 1% indicates that a LEFT SHIFT is Present. Performed By: #### L 501.5200, L501.4700, L501.2300, L504.2610, L100.0100, L501.2400, L500.4050, L100.9950, L501.1400, L501.5101, L501.2450 #### [facility] [address] [place], [address] Lymphocytes/100 WBC (Bld) 26.7 % Normal 19-41 [facility] Comment on above: Performed By: #### L 501.5200, L501.4700, L501.2300, L504.2610, L100.0100, L501.2400, L500.4050, L100.9950, L501.1400, L501.5101, L501.2450 #### [facility] [address] [place], [address] MCH (RBC) [Entitic mass] 24.5 pg Low 27.0-32.0 [facility] Comment on above: Performed By: #### L 501.5200, L501.4700, L501.2300, L504.2610, L100.0100, L501.2400, L500.4050, L100.9950, L501.1400, L501.5101, L501.2450 #### [facility] [address] [place], [address] MCHC (RBC) [Mass/Vol] 31.0 g/dL Low 32-36 [facility] Comment on above: Performed By: #### L 501.5200, L501.4700, L501.2300, L504.2610, L100.0100, L501.2400, L500.4050, L100.9950, L501.1400, L501.5101, L501.2450 #### [facility] [address] [place], [address] MCV (RBC) [Entitic vol] 79.2 fL Low 81-99 [facility] Comment on above: Performed By: #### L 501.5200, L501.4700, L501.2300, L504.2610, L100.0100, L501.2400, L500.4050, L100.9950, L501.1400, L501.5101, L501.2450 #### [facility] [address] [place], [address] Monocytes/100 WBC (Bld) 9.9 % Normal 0-10 [facility] Comment on above: Performed By: #### L 501.5200, L501.4700, L501.2300, L504.2610, L100.0100, L501.2400, L500.4050, L100.9950, L501.1400, L501.5101, L501.2450 #### [facility] [address] [place], [address] Neutrophils/100 WBC (Bld) 56.7 % Normal 47-70 [facility] Comment on above: Performed By: #### L 501.5200, L501.4700, L501.2300, L504.2610, L100.0100, L501.2400, L500.4050, L100.9950, L501.1400, L501.5101, L501.2450 #### [facility] [address] [place], [address] Nucleated RBC (Bld) [#/Vol] 0 10*3/uL Normal 0-5 [facility] Comment on above: Performed By: #### L 501.5200, L501.4700, L501.2300, L504.2610, L100.0100, L501.2400, L500.4050, L100.9950, L501.1400, L501.5101, L501.2450 #### [facility] [address] [place], [address] Platelet mean volume (Bld) [Entitic vol] 9.3 fL Normal 6.2-12.0 [facility] Comment on above: Performed By: #### L 501.5200, L501.4700, L501.2300, L504.2610, L100.0100, L501.2400, L500.4050, L100.9950, L501.1400, L501.5101, L501.2450 #### [facility] [address] [place], [address] Platelets (Bld) [#/Vol] 260 10*3/uL Normal 150-450 [facility] Comment on above: Performed By: #### L 501.5200, L501.4700, L501.2300, L504.2610, L100.0100, L501.2400, L500.4050, L100.9950, L501.1400, L501.5101, L501.2450 #### [facility] [address] [place], [address] RBC (Bld) [#/Vol] 3.79 10*6/uL Low 4.2-5.4 [facility] Comment on above: Performed By: #### L 501.5200, L501.4700, L501.2300, L504.2610, L100.0100, L501.2400, L500.4050, L100.9950, L501.1400, L501.5101, L501.2450 #### [facility] [address] [place], [place], [phone] RDW SD 42.7 fl Normal 35.1-43.9 [facility] Comment on above: Performed By: #### L 501.5200, L501.4700, L501.2300, L504.2610, L100.0100, L501.2400, L500.4050, L100.9950, L501.1400, L501.5101, L501.2450 #### [facility] [address] [place], [place], [address] WBC (Bld) [#/Vol] 3.7 10*3/uL Low 4.4-11.0 [facility] Comment on above: Performed By: #### L 501.5200, L501.4700, L501.2300, L504.2610, L100.0100, L501.2400, L500.4050, L100.9950, L501.1400, L501.5101, L501.2450 #### [facility] [address] [place], [place], [address] Comprehensive Metabolic Prof vton 01-03-2025 Albumin [Mass/Vol] 4.2 g/dL Normal 3.5-5.0 [facility] Comment on above: Performed By: #### L 501.5200, L501.4700, L501.2300, L504.2610, L100.0100, L501.2400, L500.4050, L100.9950, L501.1400, L501.5101, L501.2450 #### [facility] [address] [place], [place], [address] Albumin/Globulin [Mass ratio] 1.7 {ratio} Normal 0.9-2.4 [facility] Comment on above: Performed By: #### L 501.5200, L501.4700, L501.2300, L504.2610, L100.0100, L501.2400, L500.4050, L100.9950, L501.1400, L501.5101, L501.2450 #### [facility] [address] [place], [place], [phone] (434) ALK PHOS 225 U/L High 35-104 [facility] Comment on above: Performed By: #### L 501.5200, L501.4700, L501.2300, L504.2610, L100.0100, L501.2400, L500.4050, L100.9950, L501.1400, L501.5101, L501.2450 #### [facility] [address] [place], [place], [phone] ALT [Catalytic activity/Vol] 62 U/L High <=34 [facility] Comment on above: Performed By: #### L 501.5200, L501.4700, L501.2300, L504.2610, L100.0100, L501.2400, L500.4050, L100.9950, L501.1400, L501.5101, L501.2450 #### [facility] [address] [place], [place], [address] AST [Catalytic activity/Vol] 53 U/L High <=31 [facility] Comment on above: Performed By: #### L 501.5200, L501.4700, L501.2300, L504.2610, L100.0100, L501.2400, L500.4050, L100.9950, L501.1400, L501.5101, L501.2450 #### [facility] [address] [place], [place], [address] Bilirubin [Mass/Vol] 0.34 mg/dL Normal 0.00-1.30 [facility] Comment on above: Performed By: #### L 501.5200, L501.4700, L501.2300, L504.2610, L100.0100, L501.2400, L500.4050, L100.9950, L501.1400, L501.5101, L501.2450 #### [facility] [address] [place], [address] BUN/CRE 15.8 RATIO Normal 10-20 [facility] Comment on above: Performed By: #### L 501.5200, L501.4700, L501.2300, L504.2610, L100.0100, L501.2400, L500.4050, L100.9950, L501.1400, L501.5101, L501.2450 #### [facility] [address] [place], [place], [phone] (366) Calcium [Mass/Vol] 9.3 mg/dL Normal 7.6-11.0 [facility] Comment on above: Performed By: #### L 501.5200, L501.4700, L501.2300, L504.2610, L100.0100, L501.2400, L500.4050, L100.9950, L501.1400, L501.5101, L501.2450 #### [facility] [address] [place], [place], [phone] (699) Chloride [Moles/Vol] 103 mmol/L Normal 98-108 [facility] Comment on above: Performed By: #### L 501.5200, L501.4700, L501.2300, L504.2610, L100.0100, L501.2400, L500.4050, L100.9950, L501.1400, L501.5101, L501.2450 #### [facility] [address] [place], [place], [phone] (849) CO2 [Moles/Vol] 23.2 mmol/L Normal 21.0-32.0 [facility] Comment on above: Performed By: #### L 501.5200, L501.4700, L501.2300, L504.2610, L100.0100, L501.2400, L500.4050, L100.9950, L501.1400, L501.5101, L501.2450 #### [facility] [address] [place], [place], [phone] Creatinine [Mass/Vol] 0.56 mg/dL Low 0.70-1.20 [facility] Comment on above: Performed By: #### L 501.5200, L501.4700, L501.2300, L504.2610, L100.0100, L501.2400, L500.4050, L100.9950, L501.1400, L501.5101, L501.2450 #### [facility] [address], [address] GAP 13 Normal 5-15 [facility] Comment on above: Performed By: #### L 501.5200, L501.4700, L501.2300, L504.2610, L100.0100, L501.2400, L500.4050, L100.9950, L501.1400, L501.5101, L501.2450 #### [facility] [address] [facility] [place], [address] GFR/1.73 sq M.predicted among non-blacks MDRD (S/P/Bld) [Vol rate/Area] 115 mL/min/{1.73_m2} Normal >60 [facility] Comment on above: Result Comment: mL/m in/1.73m2 CKD-EPI Creatinine Equation (2020) Performed By: #### L 501.5200, L501.4700, L501.2300, L504.2610, L100.0100, L501.2400, L500.4050, L100.9950, L501.1400, L501.5101, L501.2450 #### [facility] [address] [place], [address] Globulin (S) [Mass/Vol] 2.6 g/dL Normal 2.2-4.2 [facility] Comment on above: Performed By: #### L 501.5200, L501.4700, L501.2300, L504.2610, L100.0100, L501.2400, L500.4050, L100.9950, L501.1400, L501.5101, L501.2450 #### [facility] [address] [place], [address] Glucose [Mass/Vol] 107 mg/dL High 70-99 [facility] Comment on above: Performed By: #### L 501.5200, L501.4700, L501.2300, L504.2610, L100.0100, L501.2400, L500.4050, L100.9950, L501.1400, L501.5101, L501.2450 #### [facility] [address] [place], [place], [phone] Potassium [Moles/Vol] 4.3 mmol/L Normal 3.3-5.1 [facility] Comment on above: Performed By: #### L 501.5200, L501.4700, L501.2300, L504.2610, L100.0100, L501.2400, L500.4050, L100.9950, L501.1400, L501.5101, L501.2450 #### [facility] [address] [place], [place], [phone]) Sodium [Moles/Vol] 138 mmol/L Normal 133-145 [facility] Comment on above: Performed By: #### L 501.5200, L501.4700, L501.2300, L504.2610, L100.0100, L501.2400, L500.4050, L100.9950, L501.1400, L501.5101, L501.2450 #### [facility] [address] [place], [address] T PROT 6.8 g/dL Normal 5.9-8.4 [facility] Comment on above: Performed By: #### L 501.5200, L501.4700, L501.2300, L504.2610, L100.0100, L501.2400, L500.4050, L100.9950, L501.1400, L501.5101, L501.2450 #### [facility] [address] [place], [address] Urea nitrogen [Mass/Vol] 9 mg/dL Normal 4-19 [facility] Comment on above: Performed By: #### L 501.5200, L501.4700, L501.2300, L504.2610, L100.0100, L501.2400, L500.4050, L100.9950, L501.1400, L501.5101, L501.2450 #### [facility] [address] [place], [address] LDHon 01-03-2025 LDH 342 U/L High 84-246 [facility] Comment on above: Order Comment: 1 Performed By: #### L 500.4050 #### [facility] [address] Traycee Harris. [place], [place], [id number] Lipaseon 01-03-2025 Lipase [Catalytic activity/Vol] 44 U/L Normal 13-75 [facility] Comment on above: Result Comment: Jenna moon note: LIPASE revised reference range effective 22. New Lipase methodology. Expected to produce lower values than the previous assay method. NEW Reference Range: 13 - 75 U/L Performed By: #### L 501.5200, L501.4700, L501.2300, L504.2610, L100.0100, L501.2400, L500.4050, L100.9950, L501.1400, L501.5101, L501.2450 #### [facility] [address] [place], [place], [address] Magnesiumon 01-03-2025 Magnesium [Mass/Vol] 2.0 mg/dL Normal 1.5-2.2 [facility] Comment on above: Performed By: #### L 500.4050 #### [facility] [address] [place], [address] Phosphoruson 01-03-2025 Phosphate [Mass/Vol] 3.5 mg/dL Normal 2.7-4.5 [facility] Comment on above: Performed By: #### L 501.5200, L501.4700, L501.2300, L504.2610, L100.0100, L501.2400, L500.4050, L100.9950, L501.1400, L501.5101, L501.2450 #### [facility] [address] [place], [address] Retic Panelon 01-03-2025 IM RET FRACTION 13.60 Normal 3.00-15.90 [facility] Comment on above: Performed By: #### L 501.5200, L501.4700, L501.2300, L504.2610, L100.0100, L501.2400, L500.4050, L100.9950, L501.1400, L501.5101, L501.2450 #### [facility] [address] [place], [address] RET-HE 21.2 pg Low 30-35 [facility] Comment on above: Performed By: #### L 501.5200, L501.4700, L501.2300, L504.2610, L100.0100, L501.2400, L500.4050, L100.9950, L501.1400, L501.5101, L501.2450 #### [facility] [address] [place], [place], [address] Retic Count 1.57 High 0.5-1.5 [facility] Comment on above: Performed By: #### L 501.5200, L501.4700, L501.2300, L504.2610, L100.0100, L501.2400, L500.4050, L100.9950, L501.1400, L501.5101, L501.2450 #### [facility] [address] [place], [address] Uric Acidon 01-03-2025 URIC 2.9 mg/dL Normal 2.6-6.0 [facility] Comment on above: Result Comment: The drugs N-Acetylcysteine and Metamizole may falsely depress this assay. Performed By: #### L 501.5200, L501.4700, L501.2300, L504.2610, L100.0100, L501.2400, L500.4050, L100.9950, L501.1400, L501.5101, L501.2450 #### [facility] [address] [place], [place], [address] CNOVon 07-05-2024 [facility] KAYY ALMANZAR ([id number]) 1980 F Date Time Provider Department 07/05/24 11:00 AM [facility] During your visit today, we recorded the following information about you: Loan Jin LISW 07/05/2024 12:24 PM Signed It was a pleasure meeting you today. Please call [phone] to set up another appointment with me and I encourage you to make an appt with sexual health also for a consult. Please keep in mind that I usually offer about five visits as a consultation. If you need care home therapy, please call [facility] at [phone], or go to [employer]([facility]), or [email or web address] to find a sex therapist. [...] the most responsibility for childcare, eldercare, and food processing plant manager. Sometimes it takes longer to let all [...] variety of devices are found at both [employer] stores and even at many [employer] chains. When you are shopping for a [...] of these products can be found on [employer], which is the most popular way to buy one. Katerina is discrete, have coupons, and good return policy, even for used products. Check out the Pure Rosalie Kelley Massager, The Rabbit was made famous in ?Sex in the City?, The Tool Shed: An Erotic Boutique Dorita Cagle Collection The Pleasure Kiddify Shop Tess Wilde Kitreno Isaura's Dog [employer] has pleasure items from $20 (more content not included)... Normal [facility] CNOVon 06-10-2024 CNOV Office Visit (BRITTANIE ) KAYY ALMANZAR ([id number]) 1980 F Date Time Provider Department 06/10/24 [...] She mentioned STEPHENS pump was tried [place]'m [place] but was removed, we discussed with IR [...] cancer metastasized to liver (HCC) [C18.9, C78.7] Order(s):Accelalox ABDOMEN LTD [0886295] Order #: [id number] FUTURE Prescriptions as of 06/10/2024 - omeprazole [...] min before (more content not included)... Normal [facility] ABDOMEN LTDon 06-10-2024 US ABDOMEN LTD * [...] IMPRESSION: Histotripsy likelihood assessment - Low probability Cable Stretcher And Tester: MAICO Transcribe Date/Time: Jun 10 2024 1:44P Dictated by : AMALIA DE OLIVEIRA MD This examination was interpreted and the report reviewed and electronically signed by: AMALIA DE OLIVEIRA MD on Jun 10 2024 1:46PM EST [id number] Normal [facility] US Abdomen limitedon 025 IMPRESSION: Histotripsy likelihood assessment - Low probability Cable Stretcher And Tester: MAICO Transcribe Date/Time: Jun 10 2024 1:44P [...] not discretely identified. DIVISION OF RADIOLOGY Provider, Silverio [facility] - 06/10/2024 * * *Final Report* * [...] IMPRESSION: Histotripsy likelihood assessment - Low probability Cable Stretcher And Tester: MAICO Transcribe Date/Time: Jun 10 2024 1:44P Dictated by : AMALIA DE OLIVEIRA MD This examination was interpreted and the report reviewed and electronically signed by: AMALIA DE OLIVEIRA MD on Jun 10 2024 1:46PM EST [facility] Study observation (narrative) [facility] US Abdomen limitedOrdered By : [facility] Provider on 06-10-2024 [facility] CNPNon 06-09-2024 CNPN Telephone (GENSMN) KAYY ALMANZAR ([id number]) 1980 F Date Time Provider Department 06/09/24 [...] (Epifanio) - Fully Assessed 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 [8221] Prescriptions as of 06/10/2024 - omeprazole (PRILOSEC) [...] Encounter Status:Closed by KIM JO on 06/10/24 [facility] Cici 06-07-2024 TETE Telephone (BRITTANIE) KAYY ALMANZAR ([id number]) 1980 F Date Time Provider Department 06/07/24 CRISTY PONCE During your visit today, we recorded the following information about you: Cristy Ponce RN 06/07/2024 11:17 AM Signed Patient ID by Name and date: Called to confirm appointment, establish care relationship, patient agrees with having MRI liver with [facility] if approved- message sent to imaging staff, states had updated labs done in [place]- included tumor marker Summary: Dx: colon met [...] by: Rufus Salazar (Epifanio) - Fully Assessed Prescriptions as of 06/07/2024 [...] Encounter Status:Closed by CRISTY PONCE on 06/07/24 Normal [facility] Cici 06-01-2024 CNPN Telephone (GENSMN) KAYY ALMANZAR ([id number]) 1980 F Date Time Provider Department 06/01/24 [...] Continued 06/01/24: Received voicemail from PT verifying [facility] for recent outside Imaging completion. Authorization is required from PT for reports to share electronically to [facility]. Voicemail left back for PT w/ this information. 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 Imaging Reports now available in chart. Voicemail left back w/ PT to inquire about most recent labs completed and location. Will f/u. Breanna Marie LPN Continued 06/08/24: PT confirmed w/ RN Coordinator recent labs have been completed through [facility]. Request sent for results. Fax confirmation received [...] Status:Closed by BREANNA MARIE on 06/01/24 Normal [facility] XR HUMERUS MINIMUM 2 VIEWS L [facility] 06-11-2022 XR HUMERUS MINIMUM 2 VIEWS LEFT [...] Sign Date: 06/11/2022 9:13:31 AM Ordering Provider: [facility]) XR WRIST MINIMUM 3 VIEWS RIG [facility] 06-11-2022 XR WRIST MINIMUM 3 VIEWS RIGHT [...] Sign Date: 06/11/2022 9:14:52 AM Ordering Provider: [facility]) Absolute lymphocyte counton 08-23-2021 Lymphocytes Auto (Unsp spec) [#/Vol] 1.78 10*3/uL 0.83-4.51 [facility] Work Phone: Basophil percentageon 2021 Basophils/100 WBC (Bld) 0.9 % 0-1 [facility] Work Phone: Bilirubin [Mass/Vol] 0.40 mg/dL 0.20-1.00 [facility] Work Phone: Comment on above: For patients on eltr ombopag therapy, use of Dimension Mitchell TBIL is not recommended. Chloride [Moles/Vol] 109 mmol/L 98-107 [facility] Work Phone: Eosinophils/100 WBC (Bld) 3.0 % 0-5 [facility] Work Phone: Glucose [Mass/Vol] 81 mg/dL 74-106 [facility] Work Phone: Neutrophils (Bld) [#/Vol] 4.0 10*3/uL 2.0-7.7 [facility] Work Phone: Neutrophils/100 WBC (Bld) 61.7 % 47-70 [facility] Work Phone: Potassium [Moles/Vol] 4.1 mmol/L 3.5-5.1 [facility] Work Phone: Protein [Mass/Vol] 6.7 g/dL 6.4-8.2 [facility] Work Phone: Sodium [Moles/Vol] 141 mmol/L 136-145 [facility] Work Phone: WBC (Bld) [#/Vol] 6.4 10*3/uL 4.4-11.0 [facility] Work Phone: Blood erythrocytes count (nu mber/volume)on 08-23-2021 RBC (Bld) [#/Vol] 4.25 10*6/uL 4.2-5.4 [facility] Work Phone: Blood hemoglobin measurement (mass/volume)on 08-23-2021 Hemoglobin (Bld) [Mass/Vol] 12.1 g/dL 12.0-15.0 [facility] Work Phone: Blood lymphocytes/100 leukoc yteson 08-23-2021 Lymphocytes/100 WBC (Bld) 27.7 % 19-41 [facility] Work Phone: Blood monocytes/100 leukocyt eson 08-23-2021 Monocytes/100 WBC (Bld) 6.4 % 0-10 [facility] Work Phone: Blood platelet mean volumeon 08-23-2021 Platelet mean volume (Bld) [Entitic vol] 9.4 fL 6.2-12.0 [facility] Work Phone: [phone] Determination of erythrocyte mean corpuscular volume (MCV)on 08-23-2021 MCV (RBC) [Entitic vol] 87.3 fL 81-99 [facility] Work Phone: [phone] Hematocrit Auto (Bld) [Volum e fraction]on 08-23-2021 Hematocrit (Bld) [Volume fraction] 37.1 % 37-47 [facility] Work Phone: [phone] Laboratory - Chemistry and C hemistry - challengeon 08-23-2021 ALP [Catalytic activity/Vol] 216 U/L 45-117 [facility] Work Phone: [phone] ALT [Catalytic activity/Vol] 34 U/L 13-56 [facility] Work Phone: [phone] CO2 [Moles/Vol] 26.0 mmol/L 21.0-32.0 [facility] Work Phone: [phone] Globulin (S) [Mass/Vol] 3.2 g/dL 2.2-4.2 [facility] Work Phone: [phone] Urea nitrogen/Creatinine [Mass ratio] 24.8 mg/mg 10-20 [facility] Work Phone: [phone] Laboratory - Hematology and Cell countson 08-23-2021 Erythrocyte distribution width (RBC) [Entitic vol] 43.8 fL 35.1-43.9 [facility] Work Phone: [phone] Erythrocyte distribution width (RBC) [Ratio] 13.7 % 11.6-14.6 [facility] Work Phone: [phone] Immature granulocytes/100 WBC (Bld) 0.300 % 0.0-0.9 [facility] Work Phone: [phone] Comment on above: IG% - Immature Granu locytes (promyelocytes, myelocytes and metamyelocytes) > 1% indicates that a LEFT SHIFT is Present. MCH (RBC) [Entitic mass] 28.5 pg 27.0-32.0 [facility] Work Phone: Nucleated RBC/100 WBC (Bld) [Ratio] 0 % 0-5 [facility] Work Phone: MCHC Auto (RBC) [Mass/Vol]on 08-23-2021 MCHC (RBC) [Mass/Vol] 32.6 g/dL 32-36 [facility] Work Phone: No Panel Informationon 08-23 Estimated GFR (MDRD) Amer 200 mL/min >60 [facility] Work Phone: Comment on above: GFR Calc Estimated GFR (MDRD) Non-Af Amer 165 mL/min >60 [facility] Work Phone: Comment on above: Non- GFR Calc Platelets bldon 08-23-2021 Platelets (Bld) [#/Vol] 235 10*3/uL 150-450 [facility] Work Phone: Serum or plasma albumin abbey urement (mass/volume)on 08-23-2021 Albumin [Mass/Vol] 3.5 g/dL 3.2-5.0 [facility] Work Phone: Serum or plasma albumin/glob ulin mass ratioon 08-23-2021 Albumin/Globulin [Mass ratio] 1.1 {ratio} 0.9-2.4 [facility] Work Phone: Serum or plasma calcium abbey urement (mass/volume)on 08-23-2021 Calcium [Mass/Vol] 8.7 mg/dL 8.5-10.1 [facility] Work Phone: Serum or plasma creatinine m easurement (mass/volume)on 08-23-2021 Creatinine [Mass/Vol] 0.44 mg/dL 0.55-1.02 [facility] Work Phone: Comment on above: The validity of the calculated GFR & GFRAA in patients over 70 years has not been determined. Clinical correlation is essential. Serum or plasma urea nitroge n measurement (mass/volume)on 08-23-2021 Urea nitrogen [Mass/Vol] 11 mg/dL 7-18 [facility] Work Phone: Thin prep Papanicolaou smear with manual screeningon 08-23-2021 Thin prep Papanicolaou smear with manual screening 31 U/L 15-37 [facility] Work Phone: Thin prep Papanicolaou smear with manual screening 6 5-15 [facility] Work Phone: Laboratory - Microbiology an d Antimicrobial susceptibilityon 06-16-2021 SARS-CoV-2 (COVID-19) RNA FIDEL+probe Ql (Unsp spec) Detected [facility] Work Phone: No Panel Informationon 06-16 Influenza Types A,B Rapid (Clinic) Not detected 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 She has 3 sons ages 10, 9, and 7. Her father is a physician, her stepmother is a nurse. She has a college degree. 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 Family history: [...] Weight/Scale Type:Height: 01-Sep-2018 14:2355.1 kg / standing ddqpe222.5 cm 27-Aug-2018 11:4356.4 kg / standing avppm763.5 cm 19-Aug-2018 10:1755.7 kg / standing .8 cm Physical Exam: Constitutional: Well developed, awake/alert/oriented [...] would like to proceed with [facility]. She'll have surgery next month and may include liver resection. Plan is to provide FOLFIRI +/- Liane/Panit post surgery every 2weeks. Note Recipients: Unknown, Pcp, Sánchez Platt, - [phone] Jay King MD - [phone] Select Yes when ready to send to [...] Onc-Follow Up Visit 08/04/2018 02:19 PM Normal [facility] General/Metabolic - Jaime mann 02-20-2018 General/Metabolic - Established Chief ComplaintFUV Accompanied [...] testing via the 67-gene CancerNext-Expanded panel from [facility]. She returned to clinic today with her [...] 06/18/2016 10:52:29 AM Current Meds Motrin TABS;Therapy: (Recorded:[id number]) to Recorded Dispense: 0 Days ; #: Sufficient TABS; Refill: 0; SHIMA = N; Record; Last Updated By: Sara Houston; 01/01/2017 9:35:37 AM Reglan TABS;Therapy: (Recorded:[id number]) to Recorded Dispense: 0 Days ; #: Sufficient TABS; Refill: 0; SHIMA = N; Record; Last Updated By: Sara Houston; 01/01/2017 9:35:37 AM Tylenol TABS;Therapy: (Recorded:[id number]) to Recorded Dispense: 0 Days ; #: Sufficient TABS; Refill: 0; SHIMA = N; Record; Last Updated By: Sara Houston; 01/01/2017 9:35:37 AM Vitals Vital Signs Recorded: 12Feb2018 02:20PMHeart [id number] Height5 ft 7 xsXzojuz553 lb 15.90 ozBMI Qmxbhbjtkd99.26BSA Calculated1.64 Results/Jfvy34-mkdh CancerNext-Expanded panel from [facility]: NEGATIVENo disease-causing mutations or variants of unknown [...] NF2, PALB2, PHOX2B, POT1, PMS2, POLD1, POLE, URTMC8Z, PTCH1, PTEN, RAD50, RAD51C, RAD51D, RB1, RET, SDHA, SDHAF2, SDHB, SDHC, SDHD, SMAD4, SMARCA4, SMARCB1, SMARCE1, STK11, SUFU, BZRM809, TP53, TSC1, TSC2, VHL, XRCC2 Diagnoses/Problems Malignant [...] ordered via the 67-gene CancerNext-Expanded panel from [facility].Her results were NEGATIVE, meaning that no disease causing mutations were identified. A genetic etiology for her cancer has not been identified. Because her results did not identify a gene mutation, recommendations for cancer screening for Ms. Almanzar and her relatives should be based off the family history of cancer.Colon CancerDr. Cortes Palomino is Ms. Almanzar's oncologist, and he [...] contacting the [facility] at [phone] (option 2).Finally, we reviewed that there were [...] today.Marlee Fagan, MSCertified Genetic CounselorCenter for Human [phone] by:Nadia Ann MD, PhDClinical GeneticistAssociate Professor Genetics and Genome Sciences and [facility] .. TimeTime Stamp_UH: Time Spent With Patient: 35 minutes of which greater than 50 percent was spent counseling and or coordinating care. Signatures Electronically signed by : Marlee Fagan, ; Feb 17 2018 11:43AM EST (Author) Electronically signed by : Nadia Ann MD, PhD; Feb 19 2018 10:04PM EST (Author) Normal [facility] CT ABDOMEN AND PELVIS WITH C Antwan 06-05-2017 CT ABDOMEN AND PELVIS WITH CONTRAST Name: KAYY ALMANZAR STUDY:CT ABDOMEN AND PELVIS WITH CONTRAST; CT CHEST W CONTRAST; 06/05/20172:49 pm INDICATION:37 y/o F with Signs/Symptoms: restaging.37 y/o F with Signs/Symptoms: restaging. Metastatic colon cancer COMPARISON:None.04/28/2017 [id number] ORDERING CLINICIAN:CORTES PALOMINO TECHNIQUE: Helical CT was [...] by: MISTY BINGHAM MD [facility] CT CHEST W CONTRASTon 2017 CT CHEST W CONTRAST Name: KAYY ALMANZAR STUDY:CT ABDOMEN AND PELVIS WITH CONTRAST; CT CHEST W CONTRAST; 06/05/20172:49 pm INDICATION:37 y/o F with Signs/Symptoms: restaging.37 y/o F with Signs/Symptoms: restaging. Metastatic colon cancer COMPARISON:None.04/28/2017 [id number] ORDERING CLINICIAN:CORTES PALOMINO TECHNIQUE: Helical CT was [...] ascites.Electronically signed by: MISTY BINGHAM MD Normal [facility] MRI LIVER W/O-W CONTRASTon 0 06-05-2017 [...] andnumber.Electronically signed by: IRENE MICHAUD MD Normal [facility] ALBUMIN,FLUIDon 05-01-2017 ALBUMIN,FLUID 3.0 g/dL Normal [facility] Comment on above: Result Comment: REF VALUENOT ESTABLISHEDThe performance characteristics of this test have beenvalidated by the performing [facility] laboratory. This test has not been approved by theA; however, such approval is not necessary. Performed By: #### A LBFD ####[facility] [id number] [place] [id number] [facility] Cytologyon 05-01-2017 [facility] Name Spencer ALMANZARession #: [id number] [id number] Procedure: 05/01/2017 Date Reported: 05/02/2017Date Received: [...] this case. Slide(s) initially screened by a Middle School Coach at [place] [address] Clinical HistoryAscites Source of SpecimenA: ASCITIC FLUID Specimen Submitted as:A: ASCITIC FLUID pap non-circus agent ThinPrep slide, [facility] CELL BLOCK, H AND E, InitialGross DescriptionReceived in CytoLyt, labeled with the patient's name and number, is clearyellow fluid. SB PATHOLOGIST IRVIN Normal [facility] Comment on above: Performed By: #### A FDC ####[facility] [id number] [place] [id number] CANCER AG 125on 05-01-2017 Cancer antigen 125 61.5 U/mL High 0.0 - 30.2 [facility] Comment on above: Result Comment: CA 1 [...] management decisions. Performed By: #### C A125 ####[facility] [place] [address] CBC AND DIFFERENTIALon 05-01 % AUTOMATED IMMATURE GRAN 0.2 % Normal 0.0 - 0.9 [facility] Comment on above: Result Comment: Perc ent differential counts (%) should be interpreted in the context of the absolute cell counts (cells/L). Performed By: #### C BCDF ####[id number] [place] [id number] % NEUTROPHIL 44.1 % Normal 40.0 - 80.0 [facility] Comment on above: Performed By: #### C BCDF ####[id number] [place] [address] Basophils/100 WBC Auto (Bld) 0.02 x10E9/L Normal 0.00 - 0.10 [facility] Comment on above: Performed By: #### C BCDF ####[facility] [place] [address] Basophils/100 WBC Auto (Bld) 0.4 % Normal 0.0 - 2.0 [facility] Comment on above: Performed By: #### C BCDF ####[facility] [place] [id number] Eosinophils 0.16 10*3/uL Normal 0.00 - 0.70 [facility] Comment on above: Performed By: #### C BCDF ####[facility] [place] [id number] Eosinophils/100 leukocytes 3.4 % Normal 0.0 - 6.0 [facility] Comment on above: Performed By: #### C BCDF ####[id number] [place] [address] Erythrocyte distribution width Auto Ratio (RBC) 16.6 % High 11.5 - 14.5 [facility] Comment on above: Performed By: #### C BCDF ####[facility] [place] [address] Erythrocytes (RBC) 4.18 x10E12/L Normal 4.00 - 5.20 [facility] Comment on above: Performed By: #### C BCDF ####[facility] [id number] [place] [address] Hematocrit (HCT) 32.6 % Low 36.0 - 46.0 [facility] Comment on above: Performed By: #### C BCDF ####[facility] [id number] [place] [address] Hemoglobin mass conc (Bld) 10.3 g/dL Low 12.0 - 16.0 [facility] Comment on above: Performed By: #### C BCDF ####[facility] [id number] [place] [address] Lymphocytes 2.07 10*3/uL Normal 1.20 - 4.80 [facility] Comment on above: Performed By: #### C BCDF ####[facility] [id number] [place] [address] Lymphocytes/100 leukocytes 44.0 % Normal 13.0 - 44.0 [facility] Comment on above: Performed By: #### C BCDF ####[facility] [id number] [place] [address] MCHC mass conc (RBC) 31.6 g/dL Low 32.0 - 36.0 [facility] Comment on above: Performed By: #### C BCDF ####[facility] [id number] [place] [address] MCV 78 fL Low 80 - 100 [facility] Comment on above: Performed By: #### C BCDF ####[facility] [id number] [place] [id number] Monocytes 0.37 10*3/uL Normal 0.10 - 1.00 [facility] Comment on above: Performed By: #### C BCDF ####[facility] [id number] [place] [address] Monocytes/100 leukocytes 7.9 % Normal 2.0 - 10.0 [facility] Comment on above: Performed By: #### C BCDF ####[facility] [id number] [place] [address] Neutrophils 2.07 10*3/uL Normal 1.20 - 7.70 [facility] Comment on above: Performed By: #### C BCDF ####[facility] [place] [address] Platelets 215 10*3/uL Normal 150 - 450 [facility] Comment on above: Performed By: #### C BCDF ####[facility] [place] [id number] WBC (Leukocytes) 4.7 10*3/uL Normal 4.4 - 11.3 [facility] Comment on above: Performed By: #### C BCDF ####[facility] [place] [id number] CELL COUNT AND DIFF, FLUIDon 05-01-2017 CELLS COUNTED 100 Normal [facility] Comment on above: Performed By: #### F LDCD ####[facility] [place] [address] Erythrocytes (RBC) 0.007 10*6/uL Normal [facility] Comment on above: Performed By: #### F LDCD ####[facility] [id number] [place] [address] Lymphocytes/100 leukocytes 14 % Normal [facility] Comment on above: Performed By: #### F LDCD ####[facility] [id number] [place] [address] MONONUCLEAR CELLS 65 % Normal [facility] Comment on above: Performed By: #### F LDCD ####[facility] [id number] [place] [address] Neutrophils/100 leukocytes 21 % Normal [facility] Comment on above: Performed By: #### F LDCD ####[facility] [id number] [place] [address] Urine, clarity Cloudy Normal CLEAR [facility] Comment on above: Performed By: #### F LDCD ####[facility] [id number] [place] [id number] Urine, color Albert Normal YELLOW [facility] Comment on above: Performed By: #### F LDCD ####[facility] [id number] [place] [address] WBC (Leukocytes) 0.314 10*3/uL Normal [facility] Comment on above: Performed By: #### F LDCD ####[facility] [id number] [place] [address] Lab Specimen Source Peritoneal fluid /ascites Normal [facility] Comment on above: Performed By: #### F LDCD ####[facility] [id number] [place] [id number] Performed By: #### A LBFD ####[id number] [place] [id number] COMPREHENSIVE PANELon 2016 Alanine aminotransferase (ALT) 15 U/L Normal 7 - 45 [facility] Comment on above: Result Comment: Brittni ents treated with Sulfasalazine may generate falsely decreased results for ALT. Performed By: #### C MP ####[facility] [id number] [place] [address] Albumin 3.6 g/dL Normal 3.4 - 5.0 [facility] Comment on above: Performed By: #### C MP ####[facility] [id number] [place] [address] Alkaline phosphatase (ALP) 53 U/L Normal 33 - 110 [facility] Comment on above: Performed By: #### C MP ####[id number] [place] [address] Anion gap 11 mmol/L Normal 10 - 20 [facility] Comment on above: Performed By: #### C MP ####[facility] [id number] [place] [address] Aspartate aminotransferase (AST) 21 U/L Normal 9 - 39 [facility] Comment on above: Performed By: #### C MP ####[id number] [place] [address] Bicarbonate (HCO3) 27 mmol/L Normal 21 - 32 [facility] Comment on above: Performed By: #### C MP ####[facility] [id number] [place] [address] Bilirubin (total) 0.5 mg/dL Normal 0.0 - 1.2 [facility] Comment on above: Performed By: #### C MP ####[facility] [id number] [place] [address] Calcium 8.7 mg/dL Normal 8.6 - 10.3 [facility] Comment on above: Performed By: #### C MP ####[facility] [id number] [place] [address] Chloride 104 mmol/L Normal 98 - 107 [facility] Comment on above: Performed By: #### C MP ####[id number] [place] [address] Creatinine 0.64 mg/dL Normal 0.50 - 1.05 [facility] Comment on above: Performed By: #### C MP ####[facility] [place] [address] eGFR (non-black) mL/min/{1.73_m2} Normal >60 [facility] Comment on above: Performed By: #### C MP ####[facility] [id number] [place] [address] Result Comment: CALC ULATIONS OF ESTIMATED GFR ARE PERFORMED USING THE MDRD STUDY EQUATION FOR THE IDMS-TRACEABLE CREATININE METHODS. CLIN CHEM 2007;53:766-72 Glucose mass conc 86 mg/dL Normal 74 - 99 [facility] Comment on above: Performed By: #### C MP ####[facility] [id number] [place] [id number] Potassium molar conc 4.1 mmol/L Normal 3.5 - 5.3 [facility] Comment on above: Performed By: #### C MP ####[facility] [id number] [place] [address] Protein 6.1 g/dL Low 6.4 - 8.2 [facility] Comment on above: Performed By: #### C MP ####[facility] [place] [address] Sodium 138 mmol/L Normal 136 - 145 [facility] Comment on above: Performed By: #### C MP ####[facility] [id number] [place] [address] Urea nitrogen 7 mg/dL Normal 6 - 23 [facility] Comment on above: Performed By: #### C MP ####[facility] [id number] [place] [address] MISCELLANEOUS CULT./SM.BACT. on 05-01-2017 MISCELLANEOUS CULT./SM.BACT. PATIENT: KAYY ALMANZAR LOCATION: [facility]#: [id number] : 80 AGE: SEX: F ORDERED BY: JERSON MELISSA: MISC COLLECTED: 05/01/17 10:00ANTIBIOTICS AT PAM.: RECEIVED : 05/01/17 15:51SITE: R E S U L T S GRAM STAIN FINAL 05/01/17 18:37 1+ GRANULOCYTES. NO ORGANISMS SEEN. MISCELLANEOUS CULT./SM.BACT. FINAL 05/03/17 11:31 NO GROWTH AEROBICALLY OR ANAEROBICALLY. Normal [facility] Comment on above: Performed By: #### [facility] ####[facility] [place] [address] US PARACENTESIS WITH IMAGE [facility] 05-01-2017 US PARACENTESIS WITH IMAGE GUIDANCE Name: KAYY ALMANZAR STUDY:US PARACENTESIS WITH IMAGE GUIDANCE; 05/01/2017 10:56 am ULTRASOUND-GUIDED DIAGNOSTIC AND THERAPEUTIC PARACENTESIS INDICATION:new onset ascites and pain. 37-year-old woman with metastatic coloncancer, ascites. COMPARISON:CT chest abdomen pelvis 04/28/2017 ORDERING CLINICIAN:ZOHRA MELISSA TECHNIQUE:COMPOSITE LAMINATOR: Abner Rodriguez R.A.ATTENDING PRODUCTION PAINTER: Amalia Baron M.D. TECHNICAL DESCRIPTION/FINDINGS: The procedure, [...] paracentesis performed. 1.5 L cloudy albert ascitesaspirated, manufacturer's service representative specimen collected for laboratory analysis. Electronically signed by: AMALIA BARON MD [facility] Vital Signs Date Time Vital Sign Value Performing Clinician Facility 06-10-2024 10:04-0500 Body height 168.9 cm Juan Navarrete MD Work Phone: [facility] 06-10-2024 10:04-0500 Body mass index (BMI) [Ratio] 18.76 kg/m2 Juan Navarrete MD Work Phone: [facility] 06-10-2024 10:04-0500 Body temperature 97.59 [degF] Juan Navarrete MD Work Phone: [facility] 06-10-2024 10:04-0500 Body weight 53.52 kg Juan Navarrete MD Work Phone: [facility] 06-10-2024 10:04-0500 Diastolic blood pressure 73 mm[Hg] Juan Navarrete MD Work Phone: [facility] 06-10-2024 10:04-0500 Heart rate 74 /min Juan Navarrete MD Work Phone: [facility] 06-10-2024 10:04-0500 Systolic blood pressure 130 mm[Hg] Juan Navarrete MD Work Phone: [facility] 06-11-2022 08:43-0500 Body temperature 99.5 [degF] AZIZA KAPLAN MD [facility] 06-11-2022 08:43-0500 Body weight 56.8 kg AZIZA KAPLAN MD [facility] 06-11-2022 08:43-0500 Diastolic Blood Pressure Non-Invasive 76 1 AZIZA KAPLAN MD [facility] 06-11-2022 08:43-0500 Heart rate 65 /min AZIZA KAPLAN MD [facility] 06-11-2022 08:43-0500 Respiratory rate 18 /min AZIZA KAPLAN MD [facility] 06-11-2022 08:43-0500 Systolic Blood Pressure Non-Invasive 121 1 AZIZA KAPLAN MD [facility] 2022 10:01-0500 Body height 168.91 cm No Primary Care Physician [facility] Work Phone: 06-20-2021 15:41-0500 Body temperature 98.3 [degF] No Primary Care Physician [facility] Work Phone: 06-20-2021 15:41-0500 Diastolic blood pressure 59 mm[Hg] No Primary Care Physician [facility] Work Phone: 06-20-2021 15:41-0500 Heart rate 64 /min No Primary Care Physician [facility] Work Phone: 06-20-2021 15:41-0500 Respiratory rate 16 /min No Primary Care Physician [facility] Work Phone: 06-20-2021 15:41-0500 SaO2% (BldA) [Mass fraction] 100 % No Primary Care Physician [facility] Work Phone: 06-20-2021 15:41-0500 Systolic blood pressure 108 mm[Hg] No Primary Care Physician [facility] Work Phone: 06-20-2021 14:02-0500 Body height 168.91 cm No Primary Care Physician [facility] Work Phone: 06-20-2021 14:02-0500 Body mass index (BMI) [Ratio] 18.4 kg/m2 No Primary Care Physician [facility] Work Phone: 06-20-2021 14:02-0500 Body weight 52.61 kg No Primary Care Physician [facility] Work Phone: 06-16-2021 11:38-0500 Body temperature 97.6 [degF] No Primary Care Physician [facility] Work Phone: 06-16-2021 11:38-0500 Diastolic blood pressure 76 mm[Hg] No Primary Care Physician [facility] Work Phone: 06-16-2021 11:38-0500 Heart rate 102 /min No Primary Care Physician [facility] Work Phone: 06-16-2021 11:38-0500 Respiratory rate 16 /min No Primary Care Physician [facility] Work Phone: 06-16-2021 11:38-0500 SaO2% (BldA) [Mass fraction] 99 % No Primary Care Physician [facility] Work Phone: 06-16-2021 11:38-0500 Systolic blood pressure 122 mm[Hg] No Primary Care Physician [facility] Work Phone: Encounters Encounter Date Encounter Type Care Provider Facility Start: 01-18-2025 End: 01-18-2025 ambulatory SÁNCHEZ ACOSTA Facility:[facility] Start: 01-17-2025 ambulatory ENYINNA NWACHUKU Facili ty:[facility] Start: 01-14-2025 ambulatory ENYINNA NWACHUKU Facili ty:[facility] Start: 01-03-2025 ambulatory ENYINNA NWPADMAJAU Facili ty:[facility] Start: 07-14-2024 End: 07-14-2024 ambulatory KAYY KIRK Facility:[facility] Start: 07-05-2024 End: 07-05-2024 ambulatory LOAN JIN Facility:[facility] Start: 07-05-2024 End: 07-05-2024 Patient encounter procedure Loan Jin SOLUTION DESIGN AND ANALYSIS MANAGER Work Phone: Behavioral Health Comment on above: Adjustment disorder with mixed anxiety and depressed mood (Primary Dx); Personal history of colon cancer; Low libido Start: 06-10-2024 End: 06-10-2024 Subsequent hospital visit by physician Main A21 6 Work Phone: Radiology Comment on above: Colon cancer metasta sized to liver (HCC) [C18.9, C78.7] Start: 06-10-2024 End: 06-10-2024 ambulatory JUAN NAVARRETE Facility:[facility] Start: 06-10-2024 End: 06-11-2024 Patient encounter procedure Juan Navarrete MD Work Phone: General Surgery Comment on above: Colon cancer metasta sized to liver (HCC) (Primary Dx) Personal history of colon cancer (Primary Dx) Start: 06-09-2024 End: 06-10-2024 Telephone encounter Cristy Ponce RN Work Phone: General Surgery Comment on above: Home Health Administrator - O ther Start: 06-07-2024 End: 06-07-2024 Orders Only Cristy Ponce RN Work Phone: General Surgery Comment on above: Colon carcinoma meta static to liver (HCC) (Primary Dx) Liver mass (Primary Dx) Start: 06-01-2024 End: 06-01-2024 Telephone encounter Breanna Marie LPN General Surgery Comment on above: Imaging Report Reque st Start: 01-21-2024 ambulatory No Primary Car e Physician Facility:[facility] Start: 07-23-2023 End: 07-23-[address] [facility] Work Phone: Start: 07-23-2023 End: 07-23-[address] [facility] Work Phone: Start: 05-16-2023 End: 05-16-[address] [facility] Work Phone: Start: 06-24-2022 End: 06-25-2022 ambulatory KARINA CASTRO MD Facility:B Start: 06-24-2022 End: 06-24-[address] KARINA CASTRO MD [facility] Start: 06-24-2022 ambulatory KARINA CASTRO MD Faci lity:A Start: 06-11-2022 End: 06-11-2022 Emergency department patient visit AZIZA KAPLAN Facility:[facility] Start: 06-11-2022 End: 06-11-2022 Emergency department patient visit AZIZA KAPLAN MD [facility] Start: 04-25-2022 End: 04-25-2022 ambulatory No Primary Care Physician [facility] Work Phone: Start: 04-25-2022 End: 04-25-2022 Patient encounter procedure No Primary Care Physician [facility] Start: 2022 End: 2022 Patient encounter procedure No Primary Care Physician [facility] Start: 10-29-2021 End: 10-29-[address] [facility] Start: 08-23-2021 End: 08-23-2021 Patient encounter procedure No Primary Care Physician [facility] Start: 06-20-2021 End: 06-20-2021 Patient encounter procedure No Primary Care Physician [facility] 3 Outp Start: 06-16-2021 End: 06-16-2021 Patient encounter procedure No Primary Care Physician [facility] Start: 06-05-2017 Ambulatory Cortes Palomino [facility] [facility] Start: 05-01-2017 Ambulatory ZOHRA MELISSA Facility: [facility] Procedures Date Procedure Procedure Detail Performing Clinician Start: 06-10-2024 Us abdominal real ti me w/image limited Jeanette Carlton [employer] [facility] Work Phone: Start: 2022 Plain x-ray of [...] Office Visit Behavioral Health [address] [place] [address] Loan Jin, SOLUTION DESIGN AND ANALYSIS MANAGER [address] [place] [address] Disinterest in sex/hormone changes Behavioral Health Comment on above: Disinterest in sex/h ormone changes Start: 06-10-2024 End: 06-10-2024 Patient encounter procedure General Surgery Comment on above: Colon Cancer Colon carcinoma meta static to liver (HCC) [C18.9, C78.7] Dx: Colon Cancer met s to Liver. Start: 01-11-2024 Covid-19 Vaccine ( season) Covid-19 Vaccine ( season) [facility] Start: 01-11-2024 Influenza vaccination Influenza Vacc ine (#1) [facility] Start: 2020 Screening for malign ant neoplasm of breast Mammogram Screening [facility] Start: 2001 Screening for malign ant neoplasm of cervix Cervical Cancer Screening [facility] Start: 1999 Hepatitis B Vaccine (1 of 3 - 19+ 3-dose series) Hepatitis B Vaccine (1 of 3 - 19+ 3-dose series) [facility] Start: 1999 Urine microalbumin profile DTaP,Tdap,Td Vaccine (1 - Tdap) [facility] Start: 1998 Anxiety Screening Anxiety Screening [facility] Start: 1998 Depression Screening Depression Scre ening [facility] Start: 1998 Hepatitis C screening Hepatitis C Sc angelia [facility] Start: 1998 HIV screening HIV Screening [facility] End: 07-08-2025 CT Unspecified body region 3D post processing CT VOLUME MEASUREMENT Radiology Routine Liver mass 1 Occurrences starting 06/07/2024 until 07/08/2025 [facility] Work Phone: Comment on above: 1 Occurrences starti ng 06/07/2024 until 07/08/2025 End: 07-07-2025 MR Liver WO and W contrast IV MRI LIVER WO/W IVCON Radiology Routine Colon carcinoma metastatic to liver (HCC) 1 Occurrences starting 06/07/2024 until 07/07/2025 [facility] Work Phone: Comment on above: 1 Occurrences starti ng 06/07/2024 until 07/07/2025 Patient referral [facility] Work Phone: Immunizations Immunization Date Immunization Notes Care Provider Neo lloyd 02-15-2020 influenza virus vacc ine, unspecified formulation Breanna Marie LPN [facility] Payers Date Payer Category Payer Self-pay [id number] 2023 Private Health Insurance [id number] 2022 Unknown [id number] 1980 Unknown [id number] 1980 Unknown [id number] 1980 Unknown [id number] Medicare MEDICARE A ONLY [id number] Private Health Insurance [id number] Unknown [id number] Unknown [id number] Unknown [id number] Unknown [id number] Unknown [id number] Unknown [id number] Unknown [id number] Unknown [id number] Social History Date Type Detail Facility Start: 06-18-2021 End: 10-28-2022 Tobacco smoking status NHIS Unknown if ever smoked [facility] Start: 04-05-2019 Non-smoker [facility] Start: 1980 Sex Assigned At Female W [facility] Start: 06-11-2022 End: 06-10-2024 Tobacco smoking status Never smoked tobacco (finding) [facility] Sex Assigned At Sex [facility] Start: 07-12-2019 End: 06-10-2024 [facility] Start: 07-12-2019 End: 06-10-2024 Patient Health Questionnaire 2 item (PHQ-2) [Reported] [facility] Adult Depression Scr eening Assessment 1 [facility] Start: 1980 Sex assigned at Not on file [facility] Start: 06-10-2024 Tobacco use and exposure Smoke less tobacco non-user [facility] Goals Date Patient Goal Desired Activity /State Functional Status Date Assessment Result Facility 06-11-2022 Functional Status [facility] Mental Status Date Assessment Result Facility 06-11-2022 Mental Status Orientation Oriented x 4 [facility] 06-20-2021 Cognitive function Awake;Alert;A ppropriate;Follo ws Commands [facility] Work Phone: Clinical Notes 06-11-2022 to 07-05-2024 Loan Jin LISW - 07/05/2024 12:24 PM ESTPatient InstructionsStelhamStephanie kayeeccaLIZZ - 06/10/2024 1:45 PM ESTFerKim tamez - 06/10/2024 12:41 PM EST Note Date & Type Note Facility 07-05-2024 Note HNO ID: [id number] Author: LOAN JIN LISW Service: ? Author Type: Gel Coat Sprayer Type: Progress Notes Filed: 07/05/2024 13:53 Note Text: [facility] Obstetrics and Gynecology [place] [facility] Date of First Session [...] to participate. Originating site for client is [place]. Originating site for provider is [place]. INITIAL SEX THERAPY EVALUATION Kayy Neri Indu 07/05/2024 [id number] Provider: Loan Jin, Ph.D., Sexual Health Specialist CPT Code: 41695 Diagnostic Interview Examination Time: 11 to 11:45 [...] is very supportive of her tx in [place]. -Social supports: extended family, scientologist community, and friends SEXUAL HEALTH: Presents with [...] pleasure, SS: brake (more content not included)... [facility] 07-05-2024 History of Presen t illness Narrative Images from the original note were not included. [facility] Obstetrics and Gynecology [place] [facility] Date of First Session [...] to participate. Originating site for client is [place]. Originating site for provider is [place]. INITIAL SEX THERAPY EVALUATION Kayy Neri Indu 07/05/2024 [id number] Provider: Loan Jin, Ph.D., Sexual Health Specialist CPT Code: 54625 Diagnostic Interview Examination Time: 11 to 11:45 [...] is very supportive of her tx in [place]. 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 Please call [phone] to set up another appointment with me and I encourage you to make an appt with sexual health also for a consult. Please keep in mind that I usually offer about five visits as a consultation. If you need care home therapy, please call [facility] Behavioral Health at [phone], or go to [email or web address], or [email or web address] to find a sex therapist. [...] the most responsibility for childcare, eldercare, and food processing plant manager. Sometimes it takes longer to let all [...] variety of devices are found at both [employer] stores and even at many Slingre chains. When you are shopping for a [...] of these products can be found on [employer], which is the most popular way to buy one. Katerina is discrete, have coupons, and good return policy, even for used products. Check out the Pure Enrichment Peak Wand Massager, The Rabbit was made famous in Sex in the City , The Tool Shed: An Erotic Boutique Dorita Boggs Makers Collection The Pleasure Kiddify Shop Tess Wilde Kitreno Isaura's Dog Target has pleasure items from $20-50 available. Aaliyah For Specific Devices: Danika has many products, look under best seller s tab online example is JIM 2, Patricia. Maureen 2 is discrete, high end. Maureen 2 has a lipstick vibrator with USB associate professor of english. We-desireee has couples vibrators too, a popular one [...] in those who have had radiation therapy: Bussey device is FDA approved. I have physical [...] sexual device if you are unable to network consultant it. They also have a thigh harness to hold your toys on your leg for your partners enjoyment. You may also want to check out the Vibrating Finger Glove, Flexa Pleasure, Mini Discrete Butterfly on [employer]. I have pain with deep penetration. You [...] below for general tips but recommend following door repairman instructions. Cleaning is very important for prevention of sexually transmitted infections, regardless of the gender identity or sexual orientation of partner(s). Material Porosity How to clean Where to store ABS plastic nonporous warm water and soap or sex toy silverware cleaner in a lint-free fabric bag cotton porous cold water and soap any clean container or drawer crystal, stone, wood* nonporous warm water and soap lint-free fabric bag or padded container glass, Pyrex, silicone, stainless steel nonporous motorized: warm water and soap or sex toy silverware cleaner nonmotorized: can also use boiling water or sanitize in hand cutter glass and Pyrex: lint-free fabric bag or [...] increase pleasure and fantasy on your own: SciQuest has hundreds of videos, interviews, demonstrations on how to experience pleasure. The cost ranges from $49-$75 for a membership. [employer] Dipsea is an erotic ysabel that appeals to the sensuality and desires of women. Guvera has erotic podcasts! Cum with Us: Erotic Stories for Women Kiss Me Quicks Sex Stories by Audio[employer] Bi[employer] Audio Erotica for Women by [employer] Chelle Valles Blink.com Zach is an audio erotica site with [...] Miguel Dick The Science of Orgasm' Ese Harley 'Sex for one' Almita Choi 'Elusive orgasm' Syeda Messer 'The Multi-Orgasmic Couple' Zack Ramirez 'For Women Only' You tube video for meditation, called: [place] Breathing Meditation for Women who Have Difficulty Orgasming https://www.youTripFabube.com/watch?v= YyhdUJzTF5Q To give to your partner: Siddharth Banerjee [...] Trotter 'The Body Keeps the Score' Verna Clark 'Better Sex Through Mindfulness' Ame Lares 'Daring Greatly' Easier reading: Charito Welch 'The two-step. The dance toward intimacy.' Relationships: Jose Miguel Ramos 'Rekindling Desire: A Pjov-rw-Pvme Program to Help Low-Sex and No-Sex Marriages' (revised edition). Meet Padilla 'The Marriage Go-Round'. Zohra Rice 'Why We Love'. Negative Islam Messages about Sex The Great Sex Rescue by Lorraine Figueroa: The Hoahaoism Movement that Shamed a Generation of Young Women and How I Broke Free by Ella Cordero Pain: Te Dsouza and Kd Headley- When Sex Hurts (100% of the profits from this book goes to the medical society that is dedicated to women's sexuality, called [facility]) WEBSITES: International Society for the Study of Women's Sexual Health Medical sexual health society, has a list of qualified providers Www.isswsh.org/ Their educational info can be found at: https://www.[place] Opera.Advitech/ Your Sexual Health is Important Information on [...] on how to use dilators from the [facility]: Start with Your mindset: Think about your [...] Information on Vaginal Lubricants and Moisturizers The lqzq-tyb-ywdhtwt vaginal moisturizer and lubricant products can be [...] vaginal moisturizer makes them feel more comfortable. Digital Camera Technician beware! Many lubricants are labeled as moisturizers to make them more appealing to consumers. Here are some over the counter options: Replens Moisture Restore Comfort Gel is to be used externally for dry vulvar skin. Aquaphor can also be applied externally for comfort. [place] Aloe [place]: Many people are allergic to aloe, so keep this in mind with products like this that have aloe in it. Medicine Mama s V magic: Not many medical studies on this, but many patients swear by it, has oil, beeswax and honey in it- best used externally. Here are some other suggestions: Extra Stanton Mesquite Oil (natural) Can be used as a [...] Jelly KY Sensitive KY Tingling (especially severe) Mesquite Oil Replens Silky Smooth Saliva What kind [...] lubricants may damage the toy. Check the door repairman for what type of sexual aid/toy you may have. Examples would be: Uber lube Replens Silky Smooth Pulse Aloe-ahh Wet [place] GALILEA Premium Personal Lubricant PINK Silicone Lubricant [...] health is important! documented in this encounter [facility] 06-10-2024 History of Presen t illness [...] PATIENT PRESENTS WITH AN IMPLANTABLE OR ATTACHED BONING ROOM WORKER: No RADIOLOGY DEPARTMENT: Ultrasound PERIPHERAL IV DATA: Not applicable SIGNED BY: Margaret Busch RDMS, CAMILA June 10, 2024 3:58 PM documented in this encounter [facility] 06-10-2024 Note HNO ID: [id number] Author: MARGARET BUSCH RDMS Service: ? Author Type: Sr Risk Management Consultant Type: Progress Notes Filed: 06/10/2024 15:59 Note [...] PATIENT PRESENTS WITH AN IMPLANTABLE OR ATTACHED BONING ROOM WORKER: No RADIOLOGY DEPARTMENT: Ultrasound PERIPHERAL IV DATA: Not applicable SIGNED BY: Margaret Busch RDMS, RVT June 10, 2024 3:58 PM [facility] 06-10-2024 Note HNO ID: [id number] Author: ?, ?, ? Service: ? Author [...] RO appointments to have her be seen. [facility] 06-10-2024 History of Presen t illness [...] RO appointments to have her be seen. LIVER [...] She mentioned STEPHENS pump was tried [place]'m [place] but was removed, we discussed with IR [...] No Drains: No documented in this encounter [facility] 06-10-2024 Note HNO ID: [id number] Author: JUAN NAVARRETE MD Service: ? Author Type: Physician Type: [...] She mentioned STEPHENS pump was tried [place] but was removed, we discussed with IR [...] discussed with the patient. Juan Navarrete MD [facility] 06-10-2024 Note HNO ID: [id number] Author: HILTON MATTHEWS MA Service: ? Author Type: Aeronautical Engineering Officer Type: Progress Notes Filed: 06/10/2024 11:33 Note Text: What is the reason for your visit today? Consult Who is your referring physician? Dr. Navarrete Are you having poor oral intake? NO Have you had unintentional weight loss of 15 lbs/7 Kg in the last 3-6 months? NO Bowels: regular Wound: clean AND dry Temperature: No Drains: No [facility] 06-09-2024 Telephone encounter Note Patient ID [...] during appt tomorrow Cristy Ponce RN MSN [facility] 06-09-2024 Miscellaneous Notes Patient ID by Name [...] Ponce RN MSN documented in this encounter [facility] 06-07-2024 Telephone encounter Note Patient ID by Name and date: Called to confirm appointment, establish care relationship, patient agrees with having MRI liver with [facility] if approved- message sent to imaging staff, states had updated labs done in [place]- included tumor marker Summary: Dx: colon met liver -primary removed 2016 at 2017 - liver resection Nodules in Lungs - watching a couple of years Hx: Radiation, Chemo (last chemo 06/01/24), 2 recurrence in liver (last recurrence August 2023) Interested in Histotripsy, but also want to here other options Cristy Ponce RN MSN [facility] 06-07-2024 Miscellaneous Notes Patient ID by Name and date: Called to confirm appointment, establish care relationship, patient agrees with having MRI liver with [facility] if approved- message sent to imaging staff, states had updated labs done in [place]- included tumor marker Summary: Dx: colon met liver -primary removed 2016 at 2017 - liver resection Nodules in Lungs - watching a couple of years Hx: Radiation, Chemo (last chemo 06/01/24), 2 recurrence in liver (last recurrence August 2023) Interested in Histotripsy, but also want to here other options Cristy Ponce RN MSN documented in this encounter [facility] 06-01-2024 Telephone encounter Note Contacted PT by phone. Upcoming appt scheduled for 06/10/24 w/ Dr Navarrete. Voicemail left requesting a returned call to office. Number provided. Will inquire about outside facility most recent imaging was completed to obtain reports. Continued 06/01/24: Received voicemail from PT verifying [facility] for recent outside Imaging completion. Authorization is required from PT for reports to share electronically to [facility]. Voicemail left back for PT w/ this information. Breanna Marie LPN [facility] 06-01-2024 Miscellaneous Notes Contacted PT by phone. Upcoming appt scheduled for 06/10/24 w/ Dr Navarrete. Voicemail left requesting a returned call to office. Number provided. Will inquire about outside facility most recent imaging was completed to obtain reports. Continued 06/01/24: Received voicemail from PT verifying [facility] for recent outside Imaging completion. Authorization is required from PT for reports to share electronically to [facility]. Voicemail left back for PT w/ this information. Breanna Marie LPN documented in this encounter [facility] 06-11-2022 Hospital Discharg e instructions Patient Education [...] you can dry it with a chair post machine operator. You may use acetaminophen or ibuprofen to [...] chills as directed by your healthcare provider [phone] [employer] [place] [address]. All rights reserved. This information is not intended as a substitute for professional medical care. Always follow your healthcare professional's instructions. Follow Up Care 06/11/2022 08:14:44 With:KARINA CASTRO MD Address: [address] [place] [address] [facility] [place] [address]- [phone] When:1-2 days With:Go to emergency room if symptoms worsen Address:Unknown When:2-4 days [facility] 06-11-2022 Procedure note Date of Service 06/11/2022 [...] AM Digitally Signed by AZIZA KAPLAN MD [facility] 06-11-2022 Note Discharge Instructions Thank you for allowing [facility] to assist you with your healthcare needs. [...] MD When Within 1-2 days Where: [address] [place] [facility] [place] [address]- [phone] Follow Up with Go to emergency room if symptoms worsen When Within 2-4 days Allergies NKA Medications Please ask your primary doctor or pharmacist before taking any other medication not listed, including over the counter drugs, herbal medications, vitamins and or supplements as they may interact with your home medications. What How Much When Why Instructions Last Dose New acetaminophen-hydrocodone (Earlham 325- 5 mg oral tablet) 1 tab(s) [...] and jeremy droe KOE done) Hycet, Lorcet, Earlham, Verdrocet, Vicodin, Xodol, Zamicet What is the [...] may report side effects to FDA at 4-940-LFS-5421. What other drugs will affect acetaminophen and [...] affect acetaminophen and hydrocodone, including prescription and gekt-jzu-anjdqbg medicines, vitamins, and herbal products. Not all [...] to ensure that the information provided by [employer]. ('[employer]') is accurate, up-to-date, and complete, but no guarantee is made to that effect. Drug information contained herein may be time sensitive. [employer] information has been compiled for use by healthcare practitioners and consumers in the [place] and therefore [employer] does not warrant that uses outside of the [place] are appropriate, unless specifically indicated otherwise. [employer] drug information does not endorse drugs, diagnose patients or recommend therapy. [employer] drug information is an informational resource designed [...] effective or appropriate for any given patient. [employer] does not assume any responsibility for any aspect of healthcare administered with the aid of information [employer] provides. The information contained herein is not intended to cover all possible uses, directions, precautions, warnings, drug interactions, allergic reactions, or adverse effects. If you have questions about the drugs you are taking, check with your doctor, nurse or pharmacist. Copyright 3200-5831 [employer]. Version: 16.03. Revision Date: 06/13/2020. Education Materials [...] you can dry it with a chair post machine operator. You may use acetaminophen or ibuprofen to [...] chills as directed by your healthcare provider [phone] [employer]. [address] [place] [address]. All rights reserved. This information is not intended as a substitute for professional medical care. Always follow your healthcare professional's instructions. Additional Information VACCINATE! IT SAVES LIVES! Members of the community who have not yet received the COVID-19 vaccine and would like to receive it can visit one of [facility] vaccine clinics. There are many vaccine clinic locations within the [facility]. For locations and available times, please visit [email or web address]. It is important to note that some COVID mobile vaccine clinics are held outdoors and may be canceled in rainy or stormy conditions. To learn more about pediatric vaccinations (ages 5-11), we invite you to visit the [facility] webpage. [email or web address] To learn more about the COVID-19 vaccine, we invite you to visit the [employer] website for a list of frequently asked questions. [email or web address] [email or web address].pdf [employer] Patient Portal Access Instructions: Stay connected with your healthcare team and access your personal medical information anytime with the [employer] Patient Portal. If you would like a full copy of your medical records please contact the [facility] Medical Records Department Friday through Friday between 8a.m. and 4:30p.m. Please follow the directions below to access the portal: 1.Access the email account you provided upon registration to the hospital.2.Look for an invitation email from [facility].3.Open the email and access the invitation link: Accept Invitation to [facility]4.Fill in the required carlson to create your account. Sign into [email or web address] with your username and password that you [...] you will allow to register on the [facility] [employer] Patient Portal for access to your information. You can also access the [employer] Patient Portal on the [employer] ysabel. Simply click on Health Records under Health Data and then click on the [facility] logo. HOW TO SAFELY DISPOSE OF PRESCRIPTION [...] Call your local pharmacy or go to [email or web address] ([email or web address] to find one close to you.3.Make use of household items: Use cat litter or old coffee grounds to dispose medications if other options are not available. Mix your drugs with these household products, seal them in an airtight container and throw it into the garbage. Call [facility]: [phone] to be sure your drugs can be [...] aware that I should contact my doctor. Patient/Bleach Maker Signature: Date/Time: Relationship to Patient: Witness Name/Signature: Date/Time: [facility] 06-11-2022 Note ORIGINAL EXAMINATION: THREE XRAY VIEWS [...] Sign Date: 06/11/2022 9:14:52 AM Ordering Provider: [facility] 06-11-2022 Note ORIGINAL EXAMINATION: TWO XRAY VIEWS [...] Sign Date: 06/11/2022 9:13:31 AM Ordering Provider: [facility] 06-11-2022 Note ORIGINAL EXAMINATION: THREE XRAY VIEWS [...] Sign Date: 06/11/2022 9:14:52 AM Ordering Provider: [facility] 06-11-2022 Note ORIGINAL EXAMINATION: TWO XRAY VIEWS [...] 06/11/2022 9:13:31 AM Ordering Provider: AZIZA KAPLAN [facility] Evaluation + Plan note No data available for this section [facility] Evaluation note Diagnosis Onset Date Acute cough acute COVID acute Encounter for screening for COVID-[address] [facility] Work Phone: Evaluation noteNo assessment information available [facility] Work Phone: evaluation note* Diagnosis Onset Date Resolution Status Left wrist sprain acute [facility] Work Phone: Evaluation note* Diagnosis Colon carcinoma metastatic to liver (HCC)- Primary Malignant neoplasm of colon, unspecified site [facility]* Diagnosis Liver mass- Primary Unspecified disorder of liver documented in this encounter [facility]* Diagnosis Colon cancer metastasized to liver (HCC)- Primary Malignant neoplasm of colon, unspecified site Colon cancer metastasized to liver (HCC) Malignant neoplasm of colon, unspecified site documented in this encounter [facility]* Diagnosis Colon cancer metastasized to liver (HCC) Malignant neoplasm of colon, unspecified site documented in this encounter [facility] note* Diagnosis Personal history of colon cancer- Primary Personal history of malignant neoplasm of large intestine documented in this encounter [facility]* Diagnosis Adjustment disorder with mixed anxiety and depressed mood- Primary Personal history of colon cancer Personal history of malignant neoplasm of large intestine Low libido Decreased libido documented in this encounter [facility] Discharge instructions No data available for this section [facility] Progress note No data available for this section [facility] Reason for referral (narrative)* Diagnostic Procedure Only (Routine) - Closed Specialty Diagnoses / Procedures Referred By Luisa barry Referred To Contact US IMAGING Diagnoses Colon cancer metastasized to liver (HCC) Procedures US ABDOMEN LTD US ABDOMINAL REAL TIME W/IMAGE LIMITED Jeanette Ventura PA-C [address] [place] [address] [place] [address] Referral ID Status Reason Start Date Expiration Date V isits Requested Visits Authorized [id number] Closed Auto-Generate d Referral 06/10/2024 07/10/2025 1 1 [facility] for referral (narrative)* Diagnostic Procedure Only (Routine) - Closed Specialty Diagnoses / Procedures Referred By Luisa barry Referred To Contact US IMAGING Diagnoses Colon cancer metastasized to liver (HCC) Procedures US ABDOMEN LTD US ABDOMINAL REAL TIME W/IMAGE LIMITED Jeanette Ventura PA-C [address] [id number] Us Imaging [facility]95 Referral ID Status Reason Start Date Expiration Date V isits Requested Visits Authorized [id number] Closed Auto-Generate d Referral 06/10/2024 07/10/2025 1 1 [facility] for visit Narrative* Diagnostic Procedure Only (Routine) - Closed Specialty Diagnoses / Procedures Referred By Luisa barry Referred To Contact US IMAGING Diagnoses Colon cancer metastasized to liver (HCC) Procedures US ABDOMEN LTD US ABDOMINAL REAL TIME W/IMAGE LIMITED Jeanette Ventura PA-C [address] [place] [address] [place] [address] Referral ID Status Reason Start Date Expiration Date V isits Requested Visits Authorized [id number] Closed Auto-Generate d Referral 06/10/2024 07/10/2025 1 1 [facility] for visit Narrative* Transition of Care (Routine) - Closed Specialty Diagnoses / Procedures Referred By Luisa barry Referred To Contact Diagnoses Personal history of colon cancer Procedures CONSULT TO SEX THERAPY (BEHAVIORAL HEALTH) Juan Navarrete MD [address] [place] [address] Phone: tel: fax: Referral ID Status Reason Start Date Expiration Date V isits Requested Visits Authorized [id number] Closed PCP Requested Referral 06/11/2024 06/10/2025 1 1 [facility] Summary Purpose Family History No Family History Records Found Relationship Condition Age at Onset Recorded Date/T david Not Specified Cerebrovascular accident (CVA) Unknown mother Malignant neoplasm of breast Unknown Hypertension Unknown brother Malignant neoplasm Unknown father High blood cholesterol Unknown Malignant neoplasm Unknown Advance Directives No Advanced Directives Records Found Advance Directive Response Recorded Date/ Time Living Will No April 05, 019 10:08am Power of Electronics Assembler And Tester No April 05, 2019 10:08am Advance Directive Response Recorded Date/ Time Living Will No March 29, 022 10:01am Power of Electronics Assembler And Tester No 2022 10:01am Advance Directive Response Recorded Date/ Time Living Will No March 29 11:01am Power of Electronics Assembler And Tester No 2022 11:01am Chief Complaint and Reason [...] Referral Specialty Diagnoses / Procedures Referred By Luisa barry Referred To Contact Diagnoses Personal history of colon cancer Procedures CONSULT TO SEX THERAPY (BEHAVIORAL HEALTH) Juan Navarrete MD [address] [place] [address] Referral ID Status Reason Start Date Expiration Date Visits Requested Visits Authorized [id number] Authorized PCP Requested Referral 06/11/2024 06/10/2025 1 1 Specialty Diagnoses / Procedures Referred By Luisa barry Referred To Contact Diagnoses Personal history of colon cancer Procedures CONSULT TO WOMEN'S HEALTH Juan Navarrete MD [address] [place] [address] Margy Shaver MD [address] [id number] Referral ID Status Reason Start Date Expiration Date Visits Requested Visits Authorized [id number] Authorized PCP Requested Referral 06/11/2024 06/10/2025 1 1 Specialty Diagnoses / Procedures Referred By Contac t Referred To Contact Diagnoses Personal history of colon cancer Procedures CONSULT TO WELLNESS PHYSICIAN OFFICE[facility] Juan Navarrete [facility] [address] [place] [address] [place] [address] [place] [id number] Referral ID Status Reason Start Date Expiration Date Visits Requested Visits Authorized [id number] Authorized PCP Requested Referral 06/11/2024 06/10/2025 1 1 Specialty Diagnoses / Procedures Referred By Contac t Referred To Contact Diagnoses Personal history of colon cancer Procedures CONSULT TO MEDICAL GENETICS - CANCER MEDICAL GENETICS COUNSELING EACH 30 MINUTES Juan Navarrete MD [address] [place] [address] [facility] [address] [address] Referral ID Status Reason Start Date Expiration Date Visits Requested Visits Authorized [id number] Pending Review PCP Requested Referral Auto-Generate d Referral 06/11/2024 06/10/2025 1 1 Specialty Diagnoses / Procedures Referred By Contac t Referred To Contact Psychology Diagnoses Personal history of colon cancer Procedures CONSULT TO PSYCHOLOGY OFFICE/OUTPATIENT [facility] 60 MINUTES Juan Navarrete MD [address] [place] [address] Kayy Kirk, PhD [facility] [place] [address] Referral ID Status Reason Start Date Expiration Date Visits Requested Visits Authorized [id number] Pending Review PCP Requested Referral 06/11/2024 06/10/2025 1 1 Specialty Diagnoses / Procedures Referred By Contac t Referred To Contact CT IMAGING Diagnoses Liver mass Procedures CT VOLUME MEASUREMENT 3D RENDERING W/INTERP&POSTPROC DIFF WORK STATION Juan Navarrete MD [address] [place] [id number] Ct Imaging [place] [address] Referral ID Status Reason Start Date Expiration Date Visits Requested Visits Authorized [id number] New Request Auto-Generat ed Referral 06/07/2024 07/07/2025 1 1 Specialty Diagnoses / Procedures Referred By Contac t Referred To Contact MR IMAGING Diagnoses Colon carcinoma metastatic to liver (HCC) Procedures MRI LIVER WO/W IVCON MRI ABDOMEN W/O & W/CONTRAST MATERIAL Juan Navarrete MD [address] [place] [address] Mr Imaging [place] [address] Referral ID Status Reason Start Date Expiration Date Visits Requested Visits Authorized [id number] Pending Review Auto-Generat ed Referral 06/07/2024 07/07/2025 1 1 Additional Source Comments INFORMATION SOURCE (unrecogn ized section and content) DATE CREATED AUTHOR 11/03/2017 [facility] DATE CREATED AUTHOR AUTHOR'S ORGANIZ ATION 03/24/2018 [employer] DATE CREATED AUTHOR AUTHOR'S ORGANIZ ATION 09/20/2019 [facility] DATE CREATED AUTHOR AUTHOR'S ORGANIZ ATION 06/27/2022 [facility] ([place]) DATE CREATED AUTHOR AUTHOR'S ORGANIZ ATION 01/18/2025 [facility] DATE CREATED AUTHOR AUTHOR'S ORGANIZ ATION 01/20/2025 [facility] Care Team (unrecognized sect ion and content) Care Team Personnel Name: PHYSICIAN, NONE Position: Physician Member Role: Primary Care Physician Name: ELKE Calixto Position: AO RN Member Role: ED RN Name: AZIZA KAPLAN MD Position: ED Physician Member Role: ED Physician Address: Address: [facility] [address] Care Team Personnel Name: PHYSICIAN, NONE Position: Physician Member Role: Primary Care Physician Care Teams (unrecognized sec tion and content) Team Status: Active Member Role Status Dates No Primary Care Physician Family Provider Active No Primary Care Physician Primary Care Provider Active Team Status: Inactive Member Role Status Dates No Primary Care Physician Primary Care Provider Active Dr. Dawit Lares , DO Attending Provider, Referring Provider Active Overhead Distribution Engineer Relationship Specialty Start Date End Date Sánchez AcostaDO PCP - General Family Medicine 06/12/16 Overhead Distribution Engineer Relationship Specialty Start Date End Date OxbowSánchezDO PCP - General Family Medicine 06/12/16 Overhead Distribution Engineer Relationship Specialty Start Date End Date Karla, Sánchez DO [place] PCP - General Family Medicine 06/12/16 Overhead Distribution Engineer Relationship Specialty Start Date End Date Karla, Sánchez DO [place] PCP - General Family Medicine 06/12/16 Overhead Distribution Engineer Relationship Specialty Start Date End Date KarlaSánchezDO PCP - General Family Medicine 06/12/16 Overhead Distribution Engineer Relationship Specialty Start Date End Date Oxbow, Sánchez DO [place] PCP - General Family Medicine 06/12/16 Overhead Distribution Engineer Relationship Specialty Start Date End Date KarlaSánchez DO [place] PCP - General Family Medicine 06/12/16 Source Comments (unrecognize d section and content) In the event this informatio n is protected by the Federal Confidentiality of Alcohol and Drug Abuse Patient Records regulations: The Federal rules restrict any use of the information to criminally investigate or prosecute any alcohol or drug abuse patient.[facility] the event this information is protected by the Federal Confidentiality of Alcohol and Drug Abuse Patient Records regulations: The Federal rules restrict any use of the information to criminally investigate or prosecute any alcohol or drug abuse patient.[facility] the event this information is protected by the Federal Confidentiality of Alcohol and Drug Abuse Patient Records regulations: The Federal rules restrict any use of the information to criminally investigate or prosecute any alcohol or drug abuse patient.[facility] the event this information is protected by the Federal Confidentiality of Alcohol and Drug Abuse Patient Records regulations: The Federal rules restrict any use of the information to criminally investigate or prosecute any alcohol or drug abuse patient.[facility] the event this information is protected by the Federal Confidentiality of Alcohol and Drug Abuse Patient Records regulations: The Federal rules restrict any use of the information to criminally investigate or prosecute any alcohol or drug abuse patient.[facility] [facility] Hospital[facility] the event this information is protected by the Federal Confidentiality of Alcohol and Drug Abuse Patient Records regulations: The Federal rules restrict any use of the information to criminally investigate or prosecute any alcohol or drug abuse patient.[facility] the event this information is protected by the Federal Confidentiality of Alcohol and Drug Abuse Patient Records regulations: The Federal rules restrict any use of the information to criminally investigate or prosecute any alcohol or drug abuse patient.[facility] the event this information is protected by the Federal Confidentiality of Alcohol and Drug Abuse Patient Records regulations: The Federal rules restrict any use of the information to criminally investigate or prosecute any alcohol or drug abuse patient.[facility] HospitalIn the event this information is protected by the Federal Confidentiality of Alcohol and Drug Abuse Patient Records regulations: The Federal rules restrict any use of the information to criminally investigate or prosecute any alcohol or drug abuse patient.[facility] Reason for Visit (unrecogniz ed section and content) Reason Comments Imaging Report Request Specialty Diagnoses / Procedures Referred By Contcarmenciat t Referred To Contact General Surgery / GENERAL SURGERY Diagnoses Dx: Colon Cancer mets to Liver. Procedures OFFICE/OUTPATIENT ESTABLISHED MOD MDM 30 MIN NEW DDI PATIENT Self Juan Navarrete MD [address] [place] [address] Referral ID Status Reason Start Date Expiration Date Visits Re quested Visits Authorized [id number] Closed 06/10/2024 05/11/2025 1 1 Reason Comments Home Health Administrator - Other FOR RECORDS PERTAINING TO PATIENTS [...] BE BASED ON THE PRIMARY CLINICAL RECORDS. [facility]. provides no warranty or guarantee of the accuracy or completeness of information in this document.
[2025-01-24 12:44] LABS: AST(SGOT) 28 U/L (<=31); Alanine Aminotransfer ALT/SGPT 97 U/L (<=34); Albumin, Serum 4.3 g/dL (3.5-5.0); Alkaline Phosphatase 174 U/L (35-104); Anion Gap 12 (5-15); BUN 10 mg/dL (4-19); BUN/Creat Ratio 16.3 RATIO (10-20); Calcium,Total 9.4 mg/dL (7.6-11.0); Carbon Dioxide 24.3 mmol/L (21.0-32.0); Chloride 102 mmol/L (98-108); Globulin 2.5 g/dL (2.2-4.2); Glucose 82 mg/dL (70-99); Potassium 4.3 mmol/L (3.3-5.1)
== END | disposition home or self-care (01) ==
LOC: BIMLAB 09:26
DX: C18.7 Malignant neoplasm of sigmoid colon (principal)
CPT/HCPCS: 36415; 80053

== ENCOUNTER 2025-01-31 07:55 | Outpatient (RCR) | payer OTHER, SELFPAY ==
[2025-01-14 09:38] LABS: AST(SGOT) 162 U/L (<=31); Alanine Aminotransfer ALT/SGPT 256 U/L (<=34); Albumin, Serum 4.4 g/dL (3.5-5.0); Alkaline Phosphatase 261 U/L (35-104); Anion Gap 12 (5-15); BUN 7 mg/dL (4-19); BUN/Creat Ratio 11.1 RATIO (10-20); Calcium,Total 9.2 mg/dL (7.6-11.0); Carbon Dioxide 24.8 mmol/L (21.0-32.0); Chloride 104 mmol/L (98-108); Globulin 2.6 g/dL (2.2-4.2); Glucose 104 mg/dL (70-99); Potassium 4.0 mmol/L (3.3-5.1)
[2025-01-31 09:43] LABS: AST(SGOT) 24 U/L (<=31); Alanine Aminotransfer ALT/SGPT 54 U/L (<=34); Albumin, Serum 4.1 g/dL (3.5-5.0); Alkaline Phosphatase 153 U/L (35-104); Anion Gap 9 (5-15); BUN 12 mg/dL (4-19); BUN/Creat Ratio 22.5 RATIO (10-20); Calcium,Total 9.1 mg/dL (7.6-11.0); Carbon Dioxide 24.4 mmol/L (21.0-32.0); Chloride 104 mmol/L (98-108); Globulin 2.2 g/dL (2.2-4.2); Glucose 103 mg/dL (70-99); Potassium 4.9 mmol/L (3.3-5.1)
== END 2025-02-08 18:00 | disposition home or self-care (01) ==
LOC: LAB 07:55
DX: C18.7 Malignant neoplasm of sigmoid colon (principal)
CPT/HCPCS: 36415; 80053

== ENCOUNTER → 2025-03-07 | Outpatient (CLI) | payer OTHER, SELFPAY ==
[2025-03-07 10:25] LABS: AST(SGOT) 38 U/L (<=31); Alanine Aminotransfer ALT/SGPT 103 U/L (<=34); Albumin, Serum 4.4 g/dL (3.5-5.0); Alkaline Phosphatase 172 U/L (35-104); Anion Gap 11 (5-15); BUN 8 mg/dL (4-19); BUN/Creat Ratio 14.2 RATIO (10-20); Calcium,Total 9.4 mg/dL (7.6-11.0); Carbon Dioxide 25.8 mmol/L (21.0-32.0); Chloride 104 mmol/L (98-108); Globulin 2.5 g/dL (2.2-4.2); Glucose 97 mg/dL (70-99); Potassium 4.3 mmol/L (3.3-5.1)
== END | disposition home or self-care (01) ==
LOC: LAB 09:02
DX: C18.7 Malignant neoplasm of sigmoid colon (principal)
CPT/HCPCS: 36415; 80053

== ENCOUNTER → 2025-04-08 | Outpatient (CLI) | payer OTHER, SELFPAY ==
[2025-04-08 09:50] LABS: AST(SGOT) 38 U/L (<=31); Alanine Aminotransfer ALT/SGPT 73 U/L (<=34); Albumin, Serum 4.1 g/dL (3.5-5.0); Alkaline Phosphatase 146 U/L (35-104); Anion Gap 11 (5-15); BUN 8 mg/dL (4-19); BUN/Creat Ratio 14.1 RATIO (10-20); Calcium,Total 9.0 mg/dL (7.6-11.0); Carbon Dioxide 22.6 mmol/L (21.0-32.0); Chloride 104 mmol/L (98-108); Globulin 2.4 g/dL (2.2-4.2); Glucose 96 mg/dL (70-99); Potassium 4.7 mmol/L (3.3-5.1)
== END | disposition home or self-care (01) ==
LOC: LAB 08:29
DX: C18.7 Malignant neoplasm of sigmoid colon (principal)
CPT/HCPCS: 36415; 80053